=== PATIENT | female | born 2000 | race Caucasian/White ===

== ENCOUNTER 2021-04-23 08:49 | Emergency (ER) | payer OTHER ==
--- OUTSIDE RECORDS SUMMARY | 2021-04-23 09:11 | XMS REPORT | Continuity of Care Document ---
:2000 Author Organization [facility] t Address [address] [place] [address] Care Team Providers Name Role Phone Georgette SANDHUCNP, O Primary Care Physician Nathan JAY Attending Clinician Unavailable ORRTANNA, O Attending Clinician Unavailable Provider, Temp Attending Clinician Unavailable [facility], O Attending Clinician Doctor Unassigned, Name Attending Clinician Unavailable Nurse, Rmchp Exp Cprit Obgyn Attending Clinician Unavailabl connor Jay MATHEMATICAL ENGINEERING TECHNICIAN, R Attending Clinician Akinsipe WHCNP, C Attending Clinician AKINSIPE, C Attending Clinician Unavailable Visit, Nurse Attending Clinician Unavailable Germán SNOWDEN Attending Clinician Bert SNOWDEN Attending Clinician INDUCTION Attending Clinician Unavailable Ultrasound Attending Clinician Unavailable Sonam Alonzo MD Attending Clinician Natalio SNOWDEN, Cam Attending Clinician Lyn SNOWDEN, M Attending Clinician Stephon SNOWDEN, R Attending Clinician Syed Georges DO Attending Clinician 5, Mfm Usg Room Attending Clinician Unavailable Jad SNOWDEN, F Attending Clinician Singer PALMA Attending Clinician Drever SHOEMAKING FINISHER, G Attending Clinician Micah SNOWDEN Attending Clinician ARCHIE PRO Attending Clinician Unavailable Naila BOLAÑOS Attending Clinician Unavailable Provider, Urgent Care Attending Clinician Unavailable Lab, Fam Pob I Attending Clinician Unavailable Anene MATHEMATICAL ENGINEERING TECHNICIAN Attending Clinician ANENE Attending Clinician Unavailable Pcp, Does Not Have A Attending Clinician Germán Ledezma MD Attending Clinician Nurse, Fam Pob I Attending Clinician Unavailable Ashlee Attending Clinician Armando PAC, S Attending Clinician CHLOE ALCANTAR Admitting Clinician Unavailable Bert SNOWDEN Admitting Clinician Chloe Alcantar MD Admitting Clinician Payers Payer Name Policy Type Policy Number Effective Date Expiration Date Brayden CANTU [id number] 2018 HEALTH 00:00:00 Problems Condition Condition Condition Status Onset Resolution Last Treating Co mments Source Name Details Category Date Date Treatment Clinician Date Screening Screening Disease Active Uni vers examinatio examinatio 11-18 it y of n for STD n [place] ST[place] ([place] (sexually 00 [facility] transmitte transmitte Br anch d disease) d disease) S/P S/P Disease Active Univers 10-30 ity of 00:00: [address] Liveborn Liveborn Disease Active Unive rs by by 10-30 [place] [address] [place] [address] 39 weeks 39 weeks Disease Active Unive rs gestation gestation 10-26 ity of of of 00:00: [place] [facility] Encounter Encounter Disease Active Uni vers for for 10-26 ity of elective elective 00:00: [place] induction induction 00 [facility] of labor of labor [place] Obesity Obesity Disease Active Univers (BMI (BMI 10-26 ity of 30-39.9) 30-39.9) 00:00: [address] GBS (group GBS (group Disease Active 2021-0 Overview : Univers B B 6-17 Formattin ity of Streptococ Streptococ 00:00: g of this [place] cus cus 00 note Medical carrier), carrier), might be Br anch +RV +RV different culture, culture, from the currently currently original. Address in PP. Tobacco Tobacco Disease Active Univers use use 4-19 ity of disorder disorder 00:00: [place] [address] Medical Branch Obesity in Obesity in Disease Active U nivers 4-19 ity of 00:00: [place] [address] Medical Branch Circumvall Circumvall Disease Active Overview : Univers ate ate 3- Formattin ity of placenta placenta 00:00: g of this [place] in third in third 00 note Medica l trimester trimester might be Br anch different from the original. Placenta anterior Circumval late-> USG every 4 weeks Pyelectasi Pyelectasi Disease Active Overview : Univers s of fetus s of fetus 3 Formattin ity of on on 00:00: g of this [place] 00 note Medica l ultrasound ultrasound might be Branch different from the original. pyelectas is to be reevaluat ed in the third trimester 36 weeks History of History of Disease Active 2020- U nivers febrile febrile 1-30 ity of seizure seizure 00:00: [address] Branch Urinary Urinary Disease Active 2020- Univers tract tract 1-30 ity of infection infection 00:00: [place] without without 00 Medical hematuria, hematuria, Br anch site site unspecifie unspecifie d d Screening Screening Disease Active 2019-04 Uni vers for viral for viral 1-30 ity of disease disease 00:00: [place] [address] Medical Branch Need for Need for Disease Active 2020- Unive rs HPV HPV 1-30 ity of vaccinatio vaccinatio 00:[place] n 00 Medical Branch Supervisio Supervisio Disease Active 2020- U nivers n of high n of high 1-30 ity of risk risk 00:00: [place] 00 Medi bill in third in third Branch trimester trimester Primigravi Primigravi Disease Active 2020- U nivers da in da in 1-30 ity of third third 00:00: [place] trimester trimester 00 Medi bill Branch Nausea and Nausea and Disease Active 2020- U nivers vomiting vomiting 1-30 ity of during during 00:00: [place] 00 Medi bill prior to prior to Branch 22 weeks 22 weeks gestation gestation Flu Flu Disease Active 2019-04 Univers vaccine vaccine 1-30 ity of need need 00:00: [place] [facility] High risk High risk Disease Active 2019-04 Uni vers teen teen 1-30 ity of 00:00[place] in third in third 00 Medica l trimester trimester Bran ch Overweight Overweight Disease Active U nivers 07-26 ity of 00:00: [place] [facility] Branch Screening Screening Disease Active Uni vers for STD for STD 07-26 ity of (sexually (sexually 00:00[place] transmitte transmitte 00 Me dical d disease) d disease) Br anch Attention Attention Disease Active Uni vers deficit deficit 07-26 ity of hyperactiv hyperactiv 00:00: [place] it[place] 00 Medical disorder disorder Branch (ADHD), (ADHD), unspecifie unspecifie d ADHD d ADHD type type BMI BMI Disease Active Univers 27.0-27.9, 27.0-27.9, 403 it y of adult adult 00:00: [place] [facility] Well woman Well woman Disease Active U nivers exam exam 07-26 ity of 00:00: [address] Contracept Contracept Disease Active U nivers dana dana 07-26 ity of management management 00:00[place] 00 [place] Idiopathic Idiopathic Disease Active Overview : Univers generalize generalize 6 Formattin ity of d epilepsy d epilepsy 00:00: g of this [place] 00 note Medical might be Branch different from the original. Sees neurology at [facility] Attention Attention Disease Active Overview: Univers deficit deficit 6-06 Formattin ity o f hyperactiv hyperactiv 00:00: g of this [place] ity ity 00 note Medical disorder disorder might be Bran ch (ADHD) (ADHD) different from the original. 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 [facility] eval: Psych appt with Dr Missy cavazos the first week of September 2012Repea t EEG in May 2013RTC at [facility] in 6 moContinu e Depakene VPA 250 mg/5 ml 10 ml po BID Generalize Generalize Disease Active Overview : Univers d d Formattin ity of convulsive convulsive g of this [place] epilepsy epilepsy note Medica l might be Branch different from the original. ICD10 Diagnosis Term Studio Director Utility Allergies, Adverse Reactions, Alerts Allergy Allergy Status Severity Reaction(s) Onset Inactive Treating Comm ents Source Name Type Date Date Clinician Promethfouzia Propensi Active Rash Univer s zine Hcl ty to 01-05 ity of adverse 00:00: [place] reaction 00 Medical Branch PROMETHA DRUG Active Rash Univers ZINE HCL INGREDI 01-05 ity of 00:00: [place] [address] [place] [address] Social History Social Habit Start Date Stop Date Quantity Comments Source ASSERTION 2021-02-20 [facility] 00:00:00 [facility] Exposure to Not sure [place] of SARS-CoV-2 (event) [facility] History SDAZ University o f Alcohol Frequency [facility] History [facility] University o f Alcohol Std Drinks [facility] History [facility] o f Alcohol Binge [facility] Cigarettes smoked 2021-03-30 2021-03-30 Univers ity of current (pack per 00:00:00 00:00:00 [facility] ) - Reported Branch Tobacco use and 2021-03-30 2021-03-30 Never used Universit y of exposure 00:00:00 00:00:00 [facility] Alcohol intake 2021-03-30 2021-03-30 .14 /d University of 00:00:00 00:00:00 [facility] History of tobacco 2018-04-25 2021-01-23 Cigarette Smoker University of use 00:00:00 00:00:00 [facility] Tobacco Comment 2020-03-24 2020-03-24 4-5 ciggarettes a Un iversity of 00:00:00 00:00:00 day [facility] Alcohol Comment 2018-08-17 2018-08-17 Social drinking Univ ersity of 00:00:00 00:00:00 [facility] Sex Assigned At [birth year] Universit y of 00:00:00 00:00:00 [facility] Smoking Status Start Date Stop Date Source Former smoker 2021-03-30 00:00:00 2021-03-30 00:00:00 Universi ty of [facility] Current every day 2018-08-17 00:00:00 [facility] smoker [facility] Medications Ordered Filled Start Stop Current Ordering Indication Dosage Frequency Signature Comments Components Source Medication Medication Date Date Medication? Clinician (SIG) Name Name doxylamine- 2020-04- Yes [id number] 2{tbl} Take 2 Univers pyridoxine, 2-04-30 tablets by i ty of vit B6, 00:00: 05:59 mouth at [place] (DICLEGIS) 00 :00 bedtime as Med ical 10-10 mg needed for Branc h per tablet Nausea and Vomiting (N/V) for up to 30 days. 2020-04- Yes [id number] 1{packe Take 1 Univers vit 2-04-30 t} Packet by ity of 33-iron-fol 00:00: 05:59 mouth [place] ic-dha 00 :00 daily for Medical (SELECT-OB 30 days. Branc h + DHA) 29 mg iron-1 mg -250 mg combo pack No known No Univers medications 8-17 ity of 15:16: [address] foLIC acid Yes 1mg 1 mg, Univer s (FOLATE) 7 Oral, ity of tablet 1 mg 14:00: DAILY, [place] 00 First dose Medical on Tue [place] 10/29/20 at 0900, Until Discontinu ed, Routine ferrous Yes 325mg 325 mg, Univer s sulfate 7-07 Oral, TID ity of tablet 325 13:00: MEALS, [place] mg 00 First dose Medical on Tue Branch 10/29/20 at 0800, Until Discontinu ed, Routine ascorbic Yes 500mg 500 mg, Unive rs acid 7-07 Oral, TID, ity of (vitamin C) 13:00: First dose [place] (VITAMIN C) 00 on Tue Medica l tablet 500 10/29/20 at Bran ch mg 0800, Until Discontinu ed, Routine Yes [id number] 1{tbl} Take 1 U nivers vitamin 7-07 tablet by ity of w/FA tablet 00:00: mouth [place] 00 daily. Medical Branch docusate Yes [id number] 240mg Take 1 Un mercedes calcium 240 7-07 capsule by it y of mg capsule 00:00: mouth once [place] 00 daily as Medical needed for Branch Constipati on. ferrous Yes [id number] 325mg Take 1 Uni vers sulfate 325 7-07 tablet by ity of mg (65 mg 00:00: mouth 2 [place] iron) 00 (two) Medical tablet times Branch daily. ibuprofen Yes [id number] 600mg Take 1 U nivers 600 mg 7-07 tablet by ity of tablet 00:00: mouth [place] 00 every 6 Medical (six) Branch hours as needed (Pain). Take with food or milk. Yes [id number] 1{tbl} Take 1 U nivers vitamin 7-07 tablet by ity of w/FA tablet 00:00: mouth [place] 00 daily. Medical Branch docusate Yes [id number] 240mg Take 1 Un mercedes calcium 240 7-07 capsule by it y of mg capsule 00:00: mouth once [place] 00 daily as Medical needed for Branch Constipati on. ferrous Yes [id number] 325mg Take 1 Uni vers sulfate 325 7-07 tablet by ity of mg (65 mg 00:00: mouth 2 [place] iron) 00 (two) Medical tablet times Branch daily. ibuprofen Yes [id number] 600mg Take 1 U nivers 600 mg 7-07 tablet by ity of tablet 00:00: mouth [place] 00 every 6 Medical (six) Branch hours as needed (Pain). Take with food or milk. Yes [id number] 1{tbl} Take 1 U nivers vitamin 7-07 tablet by ity of w/FA tablet 00:00: mouth [place] 00 daily. Medical Branch docusate Yes [id number] 240mg Take 1 Un mercedes calcium 240 7-07 capsule by it y of mg capsule 00:00: mouth once [place] 00 daily as Medical needed for Branch Constipati on. ferrous Yes [id number] 325mg Take 1 Uni vers sulfate 325 7-07 tablet by ity of mg (65 mg 00:00: mouth 2 [place] iron) 00 (two) Medical tablet times Branch daily. ibuprofen 0 Yes [id number] 600mg Take 1 U nivers 600 mg 7-07 tablet by ity of tablet 00:00: mouth [place] 00 every 6 Medical (six) Branch hours as needed (Pain). Take with food or milk. 2020-0 Yes [id number] 1{tbl} Take 1 U nivers vitamin 7-07 tablet by ity of w/FA tablet 00:00: mouth [place] 00 daily. Medical Branch docusate 0 Yes [id number] 240mg Take 1 Un mercedes calcium 240 7-07 capsule by it y of mg capsule 00:00: mouth once [place] 00 daily as Medical needed for Branch Constipati on. ferrous 0 Yes [id number] 325mg Take 1 Uni vers sulfate 325 7-07 tablet by ity of mg (65 mg 00:00: mouth 2 [place] iron) 00 (two) Medical tablet times Branch daily. ibuprofen 0 Yes [id number] 600mg Take 1 U nivers 600 mg 7-07 tablet by ity of tablet 00:00: mouth [place] 00 every 6 Medical (six) Branch hours as needed (Pain). Take with food or milk. 2020-0 Yes [id number] 1{tbl} Take 1 U nivers vitamin 7-07 tablet by ity of w/FA tablet 00:00: mouth [place] 00 daily. Medical Branch docusate 0 Yes [id number] 240mg Take 1 Un mercedes calcium 240 7-07 capsule by it y of mg capsule 00:00: mouth once [place] 00 daily as Medical needed for Branch Constipati on. ferrous 0 Yes [id number] 325mg Take 1 Uni vers sulfate 325 7-07 tablet by ity of mg (65 mg 00:00: mouth 2 [place] iron) 00 (two) Medical tablet times Branch daily. ibuprofen 0 Yes [id number] 600mg Take 1 U nivers 600 mg 7-07 tablet by ity of tablet 00:00: mouth [place] 00 every 6 Medical (six) Branch hours as needed (Pain). Take with food or milk. 2020-0 2021- No [id number] 1{tbl} Take 1 Univers vitamin 7-07 08-17 tablet by ity of w/FA tablet 00:00: 00:00 mouth [place] 00 :00 daily. Medical Branch docusate 2020- No [id number] 240mg Take 1 U nivers calcium 240 10-29 capsule by i ty of mg capsule 00:00: 00:00 mouth once [place] 00 :00 daily as Medical needed for Branch Constipati on. ferrous 2020- No [id number] 325mg Take 1 Un mercedes sulfate 325 10-29 tablet by it y of mg (65 mg 00:00: 00:00 mouth 2 [place] iron) 00 :00 (two) Medical tablet times Branch daily. ibuprofen 2020- No [id number] 600mg Take 1 Univers 600 mg 10-29 tablet by ity of tablet 00:00: 00:00 mouth [place] 00 :00 every 6 Medical (six) Branch hours as needed (Pain). Take with food or milk. 2020- No [id number] 1{tbl} Take 1 Univers vitamin 10-29 tablet by ity of w/FA tablet 00:00: 00:00 mouth [place] 00 :00 daily. Medical Branch docusate 2020- No [id number] 240mg Take 1 U nivers calcium 240 10-29 capsule by i ty of mg capsule 00:00: 00:00 mouth once [place] 00 :00 daily as Medical needed for Branch Constipati on. ferrous 2020- No [id number] 325mg Take 1 Un mercedes sulfate 325 10-29 tablet by it y of mg (65 mg 00:00: 00:00 mouth 2 [place] iron) 00 :00 (two) Medical tablet times Branch daily. ibuprofen 2020- No [id number] 600mg Take 1 Univers 600 mg 10-29 tablet by ity of tablet 00:00: 00:00 mouth [place] 00 :00 every 6 Medical (six) Branch hours as needed (Pain). Take with food or milk. HYDROcodone 2020- No [id number] 1{tbl} Take 1 U nivers -acetaminop 10-29 tablet by it y of hen 5-325 00:00: 04:59 mouth [place] mg tablet 00 :00 every 6 Medical (six) Branch hours as needed (Pain scale above 4) for up to 10 days. Do not exceed 3 grams of acetaminop hen in 24 hours. Indication s: acute pain HYDROcodone 2020- No [id number] 1{tbl} Take 1 U nivers -acetaminop -10 29-18 tablet by it y of hen 5-325 00:00: 04:59 mouth [place] mg tablet 00 :00 every 6 Medical (six) Branch hours as needed (Pain scale above 4) for up to 10 days. Do not exceed 3 grams of acetaminop hen in 24 hours. Indication s: acute pain HYDROcodone 2020- No [id number] 1{tbl} Take 1 U nivers -acetaminop -10 29-18 tablet by it y of hen 5-325 00:00: 04:59 mouth [place] mg tablet 00 :00 every 6 Medical (six) Branch hours as needed (Pain scale above 4) for up to 10 days. Do not exceed 3 grams of acetaminop hen in 24 hours. Indication s: acute pain acetaminoph 2020- No 1000mg 1,000 mg, Univers en ADULT 10-28 IV ity of (OFIRMEV) 12:15: 12:40 Infusion, [place] injection 00 :00 Administer Medi bill 1,000 mg over 15 Branch Minutes, ONCE, 1 dose, Tue10/28/20 at 0715, Routine, PACU
Indicatio n: Perioperat dana Patient rho(D) Yes 300ug 300 mcg, Univer s immune 10-28 Intramuscu ity of globulin 11:55: lar, ONCE, [place] as (RHOGAM) 08 For 1 Medical syringe 300 dose, Branch mcg Conditiona l, Routine ondansetron Yes 4mg 4 mg, Slow Univers (ZOFRAN 10-28 IV Push, ity of (PF)) 11:55: Q8HPRN, [place] injection 4 02 Starting Medi bill mg 10/28/20 Branch at 0655, Until Discontinu ed, Routine, Nausea and Vomiting (N/V) simethicone Yes 160mg 160 mg, Un mercedes (GAS RELIEF 10-28 Oral, ity of (SIMETHICON 11:55: PC+HSPRN, [place] E)) 02 Starting Medical chewable Tue10/28/20 Branc h tablet 160 at 0655, mg Until Discontinu ed, Routine, Gas HYDROcodone 2020-0 Yes 2{tbl} 2 tablet, Univers -acetaminop 7- Oral, ity of hen (NORCO 11:55: Q6HPRN, [place] 5) 5-325 mg 01 Starting Medi bill tablet 2 Tue10/28/20 Branc h tablet at 0655, Until Discontinu ed, Routine, Pain (scale 7-10), If uncontroll ed by Ibuprofen HYDROcodone 2020-0 Yes 1{tbl} 1 tablet, Univers -acetaminop 10-28 Oral, ity of hen (NORCO 11:55: Q6HPRN, [place] 5) 5-325 mg 01 Starting Medi bill tablet 1 Tue10/28/20 Branc h tablet at 0655, Until Discontinu ed, Routine, Pain (scale 4-6), If uncontroll ed by Ibuprofen ibuprofen 2020-0 Yes 600mg 600 mg, Univ ers (IBU) 7- Oral, ity of tablet 600 11:55: Q6HPRN, [place] mg 01 Starting Medical Tue10/28/20 Branch at 0655, Until Discontinu ed, Routine, Pain (scale 1-3) diphenhydrA 2020-0 Yes 25mg 25 mg, IV U nivers MINE-0.9 % 10-28 Piggyback, ity of sod.chlr 11:55: Administer [place] as (BENADRYL) 01 over 30 Medica l 25 mg/50 mL Minutes, Bran ch piggyback Q6HPRN, 1 25 mg dose, Starting Tue10/28/20 at 0655, Until Discontinu ed, Routine, Itching diphenhydrA 2020-0 Yes 25mg 25 mg, Univ ers MINE 7-06 Oral, ity of (BENADRYL) 11:55: Q6HPRN, [place] tablet 25 01 Starting Medica l mg Tue10/28/20 Branch at 0655, Until Discontinu ed, Routine, Sleep, Itching bisacodyL 2020-0 Yes 10mg 10 mg, Univer s (DULCOLAX) 10-28 Rectal, ity of suppository 11:55: QDAILYPRN, [place] 10 mg 01 Starting Medical 10/28/20 Branch at 0655, Until Discontinu ed, Routine, Constipati on docusate Yes 240mg 240 mg, Unive rs calcium 10-28 Oral, ity of (SURFAK) 11:55: QDAILYPRN, [place] capsule 240 Starting Medi bill mg Tue10/28/20 Branch at 0655, Until Discontinu ed, Routine, Constipati on magnesium Yes 30mL 30 mL, Univer s hydroxide 10-28 Oral, ity of (MILK OF 11:55: QDAILYPRN, [place] as MAGNESIA) Starting Medica l 400 mg/5 mL Tue10/28/20 Br anch suspension at 0655, 30 mL Until Discontinu ed, Routine, Constipati on nalbuphine Yes 5mg 5 mg, Univer s in NS 10-28 Intravenou ity of (NUBAIN) 10 11:54: s, PRN, 1 [place] mg/mL 56 dose, Medical injection Starting Branch (CNR) 5 mg Tue10/28/20 at 0654, Until Discontinu ed, Routine, itching, PACU naloxone 2020- No .4mg 0.4 mg, Unive rs (NARCAN) 10-28 0708 Slow IV ity of injection 11:54: 11:53 Push, PRN [place] 0.4 mg 56 :56 - SEE Medical INSTRUCTIO Branch NS, Starting Tue10/28/20 at 0654, Until [place] 10/30/20 at 0653, Routine, Analgesia Recovery, PACU azithromyci 2020- No 500mg 500 mg, IV Univers n 10-28 Piggyback, ity of (ZITHROMAX) 08:06: 10:49 O.R. [place] 500 mg in 22 :00 HOLDING Medical NaCl 0.9% ONCE, 1 Branch (NS) 250 mL dose, VIAL-MATE Starting IV e 10/28/20 piggyback at 0306, Until Discontinu ed, 250 mL
Reas on for Anti-Infec tive: Surgical Prophylaxi s
Surgi bill Prophylaxi s: COLLECTION DEVELOPMENT LIBRARIAN< br>Duratio n of therapy: within 24 hours of surgery
Reason for Anti-Infec tive: Surgical Prophylaxi s ceFAZolin 2020- No 2000mg 2 g (2,000 Univers in dextrose 10-28 07-06 mg), IV ity of (iso-os) 08:05: 09:49 [place], [place] (ANCEF) 2 48 :00 O.R. Medical gram/100 mL HOLDING Branc h Piggyback 2 ONCE, 1 g dose, Starting 10/28/20 at 0305, Until Discontinu ed, 100 mL
Reas on for Anti-Infec tive: Surgical Prophylaxi s
Surgi bill Prophylaxi s: COLLECTION DEVELOPMENT LIBRARIAN
Duration of therapy: within 24 hours of surgery lactated 2020- No 500mL at 999 Unive rs ringers IV 10-27 mL/hr, 500 it y of infusion 12:45: 11:43 mL, IV [place] 500 mL 00 :00 Infusion, Medical ONCE, 1 Branch dose, 10/27/20 at 0745, Routine sodium 2020- No 30mL 30 mL, Univers citrate-cit 10-27 Oral, ity of alberto acid 11:40: 11:43 PRE-PROCED [place] (BICITRA) 33 :00 URE ONCE, Medic al 500-334 1 dose, Branch mg/5 mL Starting solution 30 Mon 10/27/20 mL at 0640, Until 10/27/20 at 0643, Routine, Surgery/Pr ocedure butorphanol 2020- No 2mg 2 mg, IV U nivers (STADOL) 10-27 Push, ity of injection 2 05:48: 06:05 ONCE, 1 [place] mg 00 :00 dose, Mon Medical 10/27/20 at Branch 0100, Routine butorphanol 2020- No 1mg 1 mg, IV U nivers (STADOL) 10-26 Push, ity of injection 1 22:05: 22:21 ONCE, 1 [place] mg 00 :00 dose, [facility] 10/26/20 at [place] 1715, Routine LR 1000 mL No 2mU/min at 6-120 Univers + oxytocin 10-2606 mL/hr, IV ity of 20 units IV 16:15: 11:55 Infusion, [place] Solution 00 :09 CONTINUOUS Medic al , Starting [facility] 10/26/20 at 1115, Until Tue10/28/20 at 0655, KESHIA butorphanol No 1mg 1 mg, IV U nivers (STADOL) 10-26 Push, ity of injection 1 15:55: 16:09 ONCE, 1 [place] mg 00 :00 dose, [facility] 10/26/20 at [place] 1100, Routine D5W-LR IV No 1000mL at 125 Uni vers infusion 10-26 0706 mL/hr, IV ity o f 1,000 mL 15:15: 11:55 Infusion, [place] as 00 :09 CONTINUOUS Medical , Starting [facility] 10/26/20 at 1015, Until Tue10/28/20 at 0655, Routine sodium No 30mL 30 mL, Univers citrate-cit 10-26 0706 Oral, ity of alberto acid 14:58: 09:48 PRE-PROCED [place] (BICITRA) 17 :00 URE ONCE, Medic al 500-334 1 dose, Branch mg/5 mL Starting solution 30 [place] 10/26/20 mL at 0958, Until Discontinu ed, Routine, Surgery/Pr ocedure lactated No 500mL at 999 Unive rs ringers IV 10-26 07-06 mL/hr, 500 it y of infusion 14:58: 11:55 mL, IV [place] 500 mL 17 :09 Infusion, Medical PRN - SEE [place] INSTRUCTIO NS, Starting [place] 10/26/20 at 0958, Until Tue10/28/20 at 0655, Routine cephALEXin 2020- No [id number] 500mg Take 1 Univers (KEFLEX) 05-30-13 capsule by ity of 500 mg 00:00: 05:59 mouth 3 [place] capsule 00 :00 (three) Medical times [place] daily for 7 days. cephALEXin 2020- No [id number] 500mg Take 1 Univers (KEFLEX) 05-30- capsule by ity of 500 mg 00:00: 05:59 mouth 3 [place] capsule 00 :00 (three) Medical times Branch daily for 7 days. butalbital- 2019-04- No 1{tbl} 1 tablet, Univers acetaminoph 06-22 Oral, ity of en-caff 05:00: 03:50 ONCE, 1 [place] (ESGIC) 00 :00 dose, [facility] 50-325-40 04/20/20 Branch mg tablet 1 at 2300, tablet Routine cephALEXin 2019-04 No 500mg 500 mg, Un mercedes (KEFLEX) 06-22 Oral, ity of capsule 500 04:45: 03:50 ONCE, 1 [place] mg 00 :00 dose, [facility] 04/20/20 Branch at 2245, KESHIA
Re ason for Anti-Infec tive: Documented Infection< br>Documen tali Infection Site: Urine
D uration of Therapy: 7 days cephALEXin 2019-04- No [id number] 500mg Take 1 Univers 500 mg 06-21 capsule by ity of capsule 00:00: 05:59 mouth 3 [place] 00 :00 (three) Medical times Branch daily for 10 days. cephALEXin 2019-04- No [id number] 500mg Take 1 Univers 500 mg 06-21- capsule by ity of capsule 00:00: 05:59 mouth 3 [place] 00 :00 (three) Medical times Branch daily for 10 days. 2019-04 Yes [id number] 1{packe Take 1 Univers vit 1-30 t} Packet by ity of 33-iron-fol 00:00: mouth [place] ic-dha 00 daily. Medical (SELECT-OB Branch + DHA) 29 mg iron-1 mg -250 mg combo pack 2019-04 Yes [id number] 1{packe Take 1 Univers vit 1-30 t} Packet by ity of 33-iron-fol 00:00: mouth [place] ic-dha 00 daily. [facility] ([facility]) 29 mg iron-1 mg -250 mg combo pack 2019-04 Yes [id number] 1{packe Take 1 [facility] 1-30 t} Packet by [facility] 33-iron-fol 00:00: mouth [place] ic-dha 00 daily. [facility] ([facility]) 29 mg iron-1 mg -250 mg combo pack 2019-04 Yes [id number] 1{packe Take 1 [facility] vit 1-30 t} Packet by [facility] 33-iron-fol 00:00: mouth [place] ic-dha 00 daily. [facility] ([facility] + D[facility]) 29 mg iron-1 mg -250 mg combo pack 2019-04 Yes [id number] 1{packe Take 1 [facility] vit 1-30 t} Packet by [facility] 33-iron-fol 00:00: mouth [place] ic-dha 00 daily. [facility] ([facility] + [facility]) 29 mg iron-1 mg -250 mg combo pack 2019-04 Yes [id number] 1{packe Take 1 [facility] vit 1-30 t} Packet by [facility] 33-iron-fol 00:00: mouth [place] ic-dha 00 daily. [facility] ([facility] + D[facility]) 29 mg iron-1 mg -250 mg combo pack 2019-04 Yes [id number] 1{packe Take 1 [facility] vit 1-30 t} Packet by [facility] 33-iron-fol 00:00: mouth [place] ic-dha 00 daily. [facility] ([facility] + [facility]) 29 mg iron-1 mg -250 mg combo pack 2019-04 Yes [id number] 1{packe Take 1 [facility] vit 1-30 t} Packet by [facility] 33-iron-fol 00:00: mouth [place] ic-dha 00 daily. [facility] ([facility] + D[facility]) 29 mg iron-1 mg -250 mg combo pack 2019-04 Yes [id number] 1{packe Take 1 [facility] vit 1-30 t} Packet by [facility] 33-iron-fol 00:00: mouth [place] ic-dha 00 daily. [facility] ([facility] + D[facility]) 29 mg iron-1 mg -250 mg combo pack 2019-04 Yes [id number] 1{packe Take 1 [facility] vit 1-30 t} Packet by [facility] 33-iron-fol 00:00: mouth [place] ic-dha 00 daily. [facility] ([facility] + [facility]) 29 mg iron-1 mg -250 mg combo pack 2019-04 Yes [id number] 1{packe Take 1 [facility] vit 1-30 t} Packet by [facility] of 33-iron-fol 00:00: mouth [place] ic-dha 00 daily. [facility] ([facility]) 29 mg iron-1 mg -250 mg combo pack 2019-04 Yes [id number] 1{packe Take 1 [facility] vit 1-30 t} Packet by [facility] 33-iron-fol 00:00: mouth [place] ic-dha 00 daily. [facility] ([facility]) 29 mg iron-1 mg -250 mg combo pack 2019-04 Yes [id number] 1{packe Take 1 [facility] vit 1-30 t} Packet by [facility] 33-iron-fol 00:00: mouth [place] ic-dha 00 daily. [facility] ([facility]) 29 mg iron-1 mg -250 mg combo pack 2019-04 Yes [id number] 1{packe Take 1 [facility] vit 1-30 t} Packet by [facility] 33-iron-fol 00:00: mouth [place] ic-dha 00 daily. [facility] ([facility]) 29 mg iron-1 mg -250 mg combo pack 2019-04 Yes [id number] 1{packe Take 1 [facility] vit 1-30 t} Packet by [facility] 33-iron-fol 00:00: mouth [place] ic-dha 00 daily. [facility] ([facility]) 29 mg iron-1 mg -250 mg combo pack 2019-04 Yes [id number] 1{packe Take 1 [facility] vit 1-30 t} Packet by [facility] 33-iron-fol 00:00: mouth [place] ic-dha 00 daily. [facility] ([facility]) 29 mg iron-1 mg -250 mg combo pack 2019-04 Yes [id number] 1{packe Take 1 [facility] vit 1-30 t} Packet by [facility] 33-iron-fol 00:00: mouth [place] ic-dha 00 daily. [facility] ([facility]) 29 mg iron-1 mg -250 mg combo pack 2019-04 Yes [id number] 1{packe Take 1 [facility] vit 1-30 t} Packet by [facility] 33-iron-fol 00:00: mouth [place] ic-dha 00 daily. [facility] ([facility]) 29 mg iron-1 mg -250 mg combo pack 2019-04 Yes [id number] 1{packe Take 1 [facility] vit 1-30 t} Packet by [facility] 33-iron-fol 00:00: mouth [place] ic-dha 00 daily. [facility] ([facility]) 29 mg iron-1 mg -250 mg combo pack 2019-04 Yes [id number] 1{packe Take 1 [facility] vit 1-30 t} Packet by [facility] 33-iron-fol 00:00: mouth [place] ic-dha 00 daily. [facility] ([facility]) 29 mg iron-1 mg -250 mg combo pack 2019-04 Yes [id number] 1{packe Take 1 [facility] vit 1-30 t} Packet by [facility] 33-iron-fol 00:00: mouth [place] ic-dha 00 daily. [facility] ([facility]) 29 mg iron-1 mg -250 mg combo pack 2019-04 Yes [id number] 1{packe Take 1 [facility] vit 1-30 t} Packet by [facility] 33-iron-fol 00:00: mouth [place] ic-dha daily. [facility] ([facility]) 29 mg iron-1 mg -250 mg combo pack 2019-04 Yes [id number] 1{packe Take 1 [facility] vit 1-30 t} Packet by [facility] 33-iron-fol 00:00: mouth [place] ic-dha daily. [facility] ([facility]) 29 mg iron-1 mg -250 mg combo pack 2019-04 Yes [id number] 1{packe Take 1 [facility] vit 1-30 t} Packet by [facility] 33-iron-fol 00:00: mouth [place] ic-dha daily. [facility] ([facility]) 29 mg iron-1 mg -250 mg combo pack 2019-04 Yes [id number] 1{packe Take 1 [facility] vit 1-30 t} Packet by [facility] 33-iron-fol 00:00: mouth [place] ic-dha 00 daily. [facility] ([facility]) 29 mg iron-1 mg -250 mg combo pack 2019-04 Yes [id number] 1{packe Take 1 [facility] vit 1-30 t} Packet by [facility] 33-iron-fol 00:00: mouth [place] ic-dha 00 daily. [facility] ([facility]) 29 mg iron-1 mg -250 mg combo pack 2020- Yes [id number] 1{packe Take 1 [facility] vit 1-30 t} Packet by [facility] 33-iron-fol 00:00: mouth [place] ic-dha 00 daily. [facility] ([facility]) 29 mg iron-1 mg -250 mg combo pack 2020- Yes [id number] 1{packe Take 1 [facility] vit 1-30 t} Packet by [facility] 33-iron-fol 00:00: mouth [place] ic-dha 00 daily. [facility] ([facility]) 29 mg iron-1 mg -250 mg combo pack 2020- Yes [id number] 1{packe Take 1 [facility] vit 1-30 t} Packet by [facility] 33-iron-fol 00:00: mouth [place] ic-dha 00 daily. [facility] ([facility]) 29 mg iron-1 mg -250 mg combo pack 2019-04 Yes [id number] 1{packe Take 1 [facility] vit 1-30 t} Packet by [facility] 33-iron-fol 00:00: mouth [place] ic-dha 00 daily. [facility] ([facility]) 29 mg iron-1 mg -250 mg combo pack 2020 Yes [id number] 1{packe Take 1 [facility] vit 1-30 t} Packet by [facility] 33-iron-fol 00:00: mouth [place] ic-dha 00 daily. [facility] ([facility]) 29 mg iron-1 mg -250 mg combo pack 2020 Yes [id number] 1{packe Take 1 [facility] vit 1-30 t} Packet by [facility] 33-iron-fol 00:00: mouth [place] ic-dha 00 daily. [facility] ([facility]) 29 mg iron-1 mg -250 mg combo pack 2020- Yes [id number] 1{packe Take 1 [facility] vit 1-30 t} Packet by [facility] 33-iron-fol 00:00: mouth [place] ic-dha 00 daily. [facility] ([facility]) 29 mg iron-1 mg -250 mg combo pack 2020- Yes [id number] 1{packe Take 1 [facility] vit 1-30 t} Packet by [facility] 33-iron-fol 00:00: mouth [place] ic-dha 00 daily. [facility] ([facility]) 29 mg iron-1 mg -250 mg combo pack 2020 Yes [id number] 1{packe Take 1 [facility] vit 1-30 t} Packet by [facility] 33-iron-fol 00:00: mouth [place] ic-dha 00 daily. [facility] ([facility]) 29 mg iron-1 mg -250 mg combo pack 2019-04 Yes [id number] 1{packe Take 1 [facility] vit 1-30 t} Packet by [facility] of 33-iron-fol 00:00: mouth [place] ic-dha 00 daily. [facility] ([facility]) 29 mg iron-1 mg -250 mg combo pack 2019-04 Yes [id number] 1{packe Take 1 [facility] vit 1-30 t} Packet by [facility] 33-iron-fol 00:00: mouth [place] ic-dha 00 daily. [facility] ([facility]) 29 mg iron-1 mg -250 mg combo pack 2019-04 Yes [id number] 1{packe Take 1 [facility] vit 1-30 t} Packet by [facility] 33-iron-fol 00:00: mouth [place] ic-dha 00 daily. [facility] ([facility]) 29 mg iron-1 mg -250 mg combo pack 2019-04 Yes [id number] 1{packe Take 1 [facility] vit 1-30 t} Packet by [facility] 33-iron-fol 00:00: mouth [place] ic-dha 00 daily. [facility] ([facility]) 29 mg iron-1 mg -250 mg combo pack 2020 Yes [id number] 1{packe Take 1 [facility] vit 1-30 t} Packet by [facility] 33-iron-fol 00:00: mouth [place] ic-dha 00 daily. [facility] ([facility]) 29 mg iron-1 mg -250 mg combo pack 2020 Yes [id number] 1{packe Take 1 [facility] vit 1-30 t} Packet by [facility] 33-iron-fol 00:00: mouth [place] ic-dha 00 daily. [facility] ([facility]) 29 mg iron-1 mg -250 mg combo pack 2020 Yes [id number] 1{packe Take 1 [facility] vit 1-30 t} Packet by [facility] 33-iron-fol 00:00: mouth [place] ic-dha 00 daily. [facility] ([facility]) 29 mg iron-1 mg -250 mg combo pack 2019-04 Yes [id number] 1{packe Take 1 [facility] vit 1-30 t} Packet by [facility] of 33-iron-fol 00:00: mouth [place] ic-dha 00 daily. [facility] ([facility]) 29 mg iron-1 mg -250 mg combo pack 2019-04 Yes [id number] 1{packe Take 1 [facility] vit 1-30 t} Packet by [facility] of 33-iron-fol 00:00: mouth [place] ic-dha 00 daily. [facility] ([facility]) 29 mg iron-1 mg -250 mg combo pack 2019-04 Yes [id number] 1{packe Take 1 [facility] vit 1-30 t} Packet by [facility] 33-iron-fol 00:00: mouth [place] ic-dha 00 daily. [facility] ([facility]) 29 mg iron-1 mg -250 mg combo pack 2019-04 Yes [id number] 1{packe Take 1 [facility] vit 1-30 t} Packet by [facility] of 33-iron-fol 00:00: mouth [place] ic-dha 00 daily. [facility] ([facility]) 29 mg iron-1 mg -250 mg combo pack 2019-04 Yes [id number] 1{packe Take 1 [facility] vit 1-30 t} Packet by [facility] of 33-iron-fol 00:00: mouth [place] ic-dha 00 daily. [facility] ([facility]) 29 mg iron-1 mg -250 mg combo pack 2019-04 Yes [id number] 1{packe Take 1 [facility] vit 1-30 t} Packet by [facility] of 33-iron-fol 00:00: mouth [place] ic-dha 00 daily. [facility] ([facility]) 29 mg iron-1 mg -250 mg combo pack 2019-04 Yes [id number] 1{packe Take 1 [facility] vit 1-30 t} Packet by [facility] 33-iron-fol 00:00: mouth [place] ic-dha 00 daily. [facility] ([facility]) 29 mg iron-1 mg -250 mg combo pack 2019-04 Yes [id number] 1{packe Take 1 [facility] vit 1-30 t} Packet by [facility] of 33-iron-fol 00:00: mouth [place] ic-dha 00 daily. [facility] ([facility]) 29 mg iron-1 mg -250 mg combo pack 2019-04 Yes [id number] 1{packe Take 1 [facility] vit 1-30 t} Packet by [facility] of 33-iron-fol 00:00: mouth [place] ic-dha 00 daily. [facility] ([facility]) 29 mg iron-1 mg -250 mg combo pack 2019-04- No [id number] 1{packe Take 1 [facility] vit 1-30 07-07 t} Packet by [facility] 33-iron-fol 00:00: 00:00 [place] ic[place] 00 :00 daily. [facility] ([facility]) 29 mg iron-1 mg -250 mg combo pack doxylamine- 2019-04 Yes [id number] 1{tbl} Take 1 [facility] pyridoxine, 1-23 tablet by ity of vit B6, 00:00: mouth 3 (DICLEGI) 00 (three) Medica l 10-10 mg times Branch per tablet daily. Nitrofurant 2019-04 Yes [id number] 100mg Take 1 [facility] oin&Nit. 1-23 capsule by it[facility] o f Macrocryst 00:00: mouth [place] (MACROBID[place] 00 (two) Medical 100 mg times Branch capsule daily. doxylamine- 2019-04 Yes [id number] 1{tbl} Take 1 [facility] pyridoxine, 1-23 tablet by ity of vit B6, 00:00: mouth 3 (DICLEGI) 00 (three) Medica l 10-10 mg times Branch per tablet daily. Nitrofurant 2019-04 Yes [id number] 100mg Take 1 [facility] oin&Nit. 1-23 capsule by [facility] o f [facility]ryst 00:00: mouth 2 [place] (MACROBID[place] 00 (two) Medical 100 mg times Branch capsule daily. doxylamine- 2019-04 Yes [id number] 1{tbl} Take 1 [facility] pyridoxine, 1-23 tablet by ity of vit B6, 00:00: mouth [place] (DICLEGIS) 00 (three) Medica l 10-10 mg times Branch per tablet daily. Nitrofurant 2019-04 Yes [id number] 100mg Take 1 [facility] oin&Nit. 1-23 capsule by it[facility] o f Macrocryst 00:00: mouth [place] (MACROBID) 00 (two) Medical 100 mg times Branch capsule daily. doxylamine- 2019-04 Yes [id number] 1{tbl} Take 1 [facility] pyridoxine, 1-23 tablet by ity of vit B6, 00:00: mouth 3 (DICLEGI) 00 (three) Medica l 10-10 mg times Branch per tablet daily. Nitrofurant 2019-04 Yes [id number] 100mg Take 1 [facility] oin&Nit. 1-23 capsule by [facility] o f [facility]ryst 00:00: mouth 2 [place] (MACROBID) 00 (two) Medical 100 mg times Branch capsule daily. doxylamine- 2019-04 Yes [id number] 1{tbl} Take 1 [facility] pyridoxine, 1-23 tablet by ity of vit B6, 00:00: mouth 3 (DICLE) 00 (three) Medica l 10-10 mg times Branch per tablet daily. Nitrofurant 2019-04 Yes [id number] 100mg Take 1 [facility] oin&Nit. 1-23 capsule by [facility] o f [facility]rocryst 00:00: mouth 2 [place] (MACROBID) 00 (two) Medical 100 mg times Branch capsule daily. doxylamine- 2019-04 Yes [id number] 1{tbl} Take 1 [facility] pyridoxine, 1-23 tablet by ity of vit B6, 00:00: mouth 3 (DICLE) 00 (three) Medica l 10-10 mg times Branch per tablet daily. Nitrofurant 2019-04 Yes [id number] 100mg Take 1 [facility] oin&Nit. 1-23 capsule by [facility] o f [facility] 00:00: mouth 2 [place] (MACROBID) 00 (two) Medical 100 mg times Branch capsule daily. doxylamine- 2019-04 Yes [id number] 1{tbl} Take 1 [facility] pyridoxine, 1-23 tablet by ity of vit B6, 00:00: mouth 3 (DICLE) 00 (three) Medica l 10-10 mg times Branch per tablet daily. Nitrofurant 2019-04 Yes [id number] 100mg Take 1 [facility] oin&Nit. 1-23 capsule by [facility] o f [facility]ryst 00:00: mouth 2 [place] (MACROBID) 00 (two) Medical 100 mg times Branch capsule daily. doxylamine- 2019-04 Yes [id number] 1{tbl} Take 1 [facility] pyridoxine, 1-23 tablet by ity of vit B6, 00:00: mouth 3 (DICLEGIS) 00 (three) Medica l 10-10 mg times Branch per tablet daily. Nitrofurant 2019-04 Yes [id number] 100mg Take 1 [facility] oin&Nit. 1-23 capsule by [facility] o f [facility] 00:00: mouth 2 [place] (MACROBID) 00 (two) Medical 100 mg times Branch capsule daily. doxylamine- 2019-04 Yes [id number] 1{tbl} Take 1 [facility] pyridoxine, 1-23 tablet by ity of vit B6, 00:00: mouth 3 (DICLE) 00 (three) Medica l 10-10 mg times Branch per tablet daily. Nitrofurant 2019-04 Yes [id number] 100mg Take 1 [facility] oin&Nit. 1-23 capsule by [facility] o f [facility] 00:00: mouth 2 [place] (MACROBID) 00 (two) Medical 100 mg times Branch capsule daily. doxylamine- 2019-04 Yes [id number] 1{tbl} Take 1 [facility] pyridoxine, 1-23 tablet by ity of vit B6, 00:00: mouth 3 (DICLE) 00 (three) Medica l 10-10 mg times Branch per tablet daily. doxylamine- 2019-04 Yes [id number] 1{tbl} Take 1 [facility] pyridoxine, 1-23 tablet by ity of vit B6, 00:00: mouth 3 (DICLEGIS) 00 (three) Medica l 10-10 mg times Branch per tablet daily. doxylamine- 2019-04 Yes [id number] 1{tbl} Take 1 [facility] pyridoxine, 1-23 tablet by ity of vit B6, 00:00: mouth 3 (DICLEGI) 00 (three) Medica l 10-10 mg times Branch per tablet daily. doxylamine- 2019-04 Yes [id number] 1{tbl} Take 1 [facility] pyridoxine, 1-23 tablet by ity of vit B6, 00:00: mouth 3 [place] (DICLEGIS) 00 (three) Medica l 10-10 mg times Branch per tablet daily. doxylamine- 2019-04 Yes [id number] 1{tbl} Take 1 [facility] pyridoxine, 1-23 tablet by ity of vit B6, 00:00: mouth 3 [place] (DICLEGIS) 00 (three) Medica l 10-10 mg times Branch per tablet daily. doxylamine- 2019-04 Yes [id number] 1{tbl} Take 1 [facility] pyridoxine, 1-23 tablet by ity of vit B6, 00:00: mouth 3 [place] (DICLEGIS) 00 (three) Medica l 10-10 mg times Branch per tablet daily. doxylamine- 2019-04 Yes [id number] 1{tbl} Take 1 [facility] pyridoxine, 1-23 tablet by ity of vit B6, 00:00: mouth 3 [place] (DICLEGIS) 00 (three) Medica l 10-10 mg times Branch per tablet daily. doxylamine- 2019-04 Yes [id number] 1{tbl} Take 1 [facility] pyridoxine, 1-23 tablet by ity of vit B6, 00:00: mouth 3 [place] (DICLEGIS) 00 (three) Medica l 10-10 mg times Branch per tablet daily. doxylamine- 2019-04 Yes [id number] 1{tbl} Take 1 [facility] pyridoxine, 1-23 tablet by ity of vit B6, 00:00: mouth 3 [place] (DICLEGIS) 00 (three) Medica l 10-10 mg times Branch per tablet daily. doxylamine- 2019-04 Yes [id number] 1{tbl} Take 1 [facility] pyridoxine, 1-23 tablet by ity of vit B6, 00:00: mouth 3 [place] (DICLEGIS) 00 (three) Medica l 10-10 mg times Branch per tablet daily. doxylamine- 2019-04 Yes [id number] 1{tbl} Take 1 [facility] pyridoxine, 1-23 tablet by ity of vit B6, 00:00: mouth 3 [place] (DICLEGIS) 00 (three) Medica l 10-10 mg times Branch per tablet daily. doxylamine- 2019-04 Yes [id number] 1{tbl} Take 1 [facility] pyridoxine, 1-23 tablet by ity of vit B6, 00:00: mouth 3 [place] (DICLEGIS) 00 (three) Medica l 10-10 mg times Branch per tablet daily. doxylamine- 2019-04 Yes [id number] 1{tbl} Take 1 [facility] pyridoxine, 1-23 tablet by ity of vit B6, 00:00: mouth 3 [place] (DICLEGIS) 00 (three) Medica l 10-10 mg times Branch per tablet daily. doxylamine- 2019-04 Yes [id number] 1{tbl} Take 1 [facility] pyridoxine, 1-23 tablet by ity of vit B6, 00:00: mouth 3 [place] (DICLEGIS) 00 (three) Medica l 10-10 mg times Branch per tablet daily. doxylamine- 2019-04 Yes [id number] 1{tbl} Take 1 [facility] pyridoxine, 1-23 tablet by ity of vit B6, 00:00: mouth 3 [place] (DICLEGIS) 00 (three) Medica l 10-10 mg times Branch per tablet daily. doxylamine- 2019-04 Yes [id number] 1{tbl} Take 1 [facility] pyridoxine, 1-23 tablet by ity of vit B6, 00:00: mouth 3 [place] (DICLEGIS) 00 (three) Medica l 10-10 mg times Branch per tablet daily. doxylamine- 2019-04 Yes [id number] 1{tbl} Take 1 [facility] pyridoxine, 1-23 tablet by ity of vit B6, 00:00: mouth 3 [place] (DICLEGIS) 00 (three) Medica l 10-10 mg times Branch per tablet daily. doxylamine- 2019-04 Yes [id number] 1{tbl} Take 1 [facility] pyridoxine, 1-23 tablet by ity of vit B6, 00:00: mouth 3 [place] (DICLEGIS) 00 (three) Medica l 10-10 mg times Branch per tablet daily. doxylamine- 2019-04 Yes [id number] 1{tbl} Take 1 [facility] pyridoxine, 1-23 tablet by ity of vit B6, 00:00: mouth 3 [place] (DICLEGIS) 00 (three) Medica l 10-10 mg times Branch per tablet daily. doxylamine- 2019-04 Yes [id number] 1{tbl} Take 1 [facility] pyridoxine, 1-23 tablet by ity of vit B6, 00:00: mouth 3 [place] (DICLEGIS) 00 (three) Medica l 10-10 mg times Branch per tablet daily. doxylamine- 2019-04 Yes [id number] 1{tbl} Take 1 [facility] pyridoxine, 1-23 tablet by ity of vit B6, 00:00: mouth 3 [place] (DICLEGIS) 00 (three) Medica l 10-10 mg times Branch per tablet daily. doxylamine- 2019-04 Yes [id number] 1{tbl} Take 1 [facility] pyridoxine, 1-23 tablet by ity of vit B6, 00:00: mouth 3 [place] (DICLEGI) 00 (three) Medica l 10-10 mg times Branch per tablet daily. Nitrofurant 2019-04 Yes [id number] 100mg Take 1 [facility] oin&Nit. 1-23 capsule by [facility] o f [facility] 00:00: mouth 2 [place] (MACROBID) 00 (two) Medical 100 mg times Branch capsule daily. doxylamine- 2019-04 Yes [id number] 1{tbl} Take 1 [facility] pyridoxine, 1-23 tablet by ity of vit B6, 00:00: mouth 3 [place] (DICLEGI) 00 (three) Medica l 10-10 mg times Branch per tablet daily. Nitrofurant 2019-04 Yes [id number] 100mg Take 1 [facility] oin&Nit. 1-23 capsule by [facility] o f [facility] 00:00: mouth 2 [place] (MACROBID) 00 (two) Medical 100 mg times Branch capsule daily. doxylamine- 2019-04 Yes [id number] 1{tbl} Take 1 [facility] pyridoxine, 1-23 tablet by ity of vit B6, 00:00: mouth 3 [place] (DICLEGIS) 00 (three) Medica l 10-10 mg times Branch per tablet daily. Nitrofurant 2019-04 Yes [id number] 100mg Take 1 [facility] oin&Nit. 1-23 capsule by it[facility] o f [facility] 00:00: mouth 2 [place] (MACROBID) 00 (two) Medical 100 mg times Branch capsule daily. doxylamine- 2019-04 Yes [id number] 1{tbl} Take 1 [facility] pyridoxine, 1-23 tablet by ity of vit B6, 00:00: mouth 3 [place] (DICLEGIS) 00 (three) Medica l 10-10 mg times Branch per tablet daily. Nitrofurant 2019-04 Yes [id number] 100mg Take 1 [facility] oin&Nit. 1-23 capsule by it[facility] o f [facility] 00:00: mouth 2 [place] (MACROBID) 00 (two) Medical 100 mg times Branch capsule daily. doxylamine- 2019-04- No [id number] 1{tbl} Take 1 [facility] pyridoxine, 1-23 04-19 tablet by it y of vit B6, 00:00: 00:00 mouth 3 [place] (DICLEGIS) 00 :00 (three) Medica l 10-10 mg times Branch per tablet daily. doxylamine- 2019-04- No [id number] 1{tbl} Take 1 [facility] pyridoxine, 1-23 04-19 tablet by it y of vit B6, 00:00: 00:00 mouth 3 [place] (DICLEGIS) 00 :00 (three) Medica l 10-10 mg times Branch per tablet daily. Nitrofurant 2019-04- No [id number] 100mg Take 1 [facility] oin&Nit. 1-23 12-27 capsule by ity of Macrocryst 00:00: 00:00 mouth 2 [place] (MACROBID) 00 :00 (two) Medical 100 mg times Branch capsule daily. permethrin 2020-0 Yes [id number] Apply ONCE [facility] 5 % cream 6-27 to all ity of 00:00: skin [place] 00 surfaces, Medical leave on Branch for 8-14 hours, then remove by bathing. permethrin 2020-0 Yes [id number] Apply ONCE [facility] 5 % cream 6-27 to all ity of 00:00: skin [place] 00 surfaces, Medical leave on Branch for 8-14 hours, then remove by bathing. permethrin 2020-0 Yes [id number] Apply ONCE [facility] 5 % cream 6-27 to all ity of 00:00: skin [place] 00 surfaces, Medical leave on Branch for 8-14 hours, then remove by bathing. permethrin 2020-0 Yes [id number] Apply ONCE [facility] 5 % cream 6-27 to all ity of 00:00: skin [place] 00 surfaces, Medical leave on Branch for 8-14 hours, then remove by bathing. permethrin 2020-0 Yes [id number] Apply ONCE [facility] 5 % cream 6-27 to all ity of 00:00: skin [place] 00 surfaces, Medical leave on Branch for 8-14 hours, then remove by bathing. permethrin 2020-0 Yes [id number] Apply ONCE [facility] 5 % cream 6-27 to all ity of 00:00: skin [place] 00 surfaces, Medical leave on Branch for 8-14 hours, then remove by bathing. permethrin 2020-0 Yes [id number] Apply ONCE [facility] 5 % cream 6-27 to all ity of 00:00: skin [place] 00 surfaces, Medical leave on Branch for 8-14 hours, then remove by bathing. permethrin 2020-0 Yes [id number] Apply ONCE [facility] 5 % cream 6-27 to all ity of 00:00: skin [place] 00 surfaces, Medical leave on Branch for 8-14 hours, then remove by bathing. permethrin 2020-0 Yes [id number] Apply ONCE [facility] 5 % cream 6-27 to all ity of 00:00: skin [place] 00 surfaces, Medical leave on Branch for 8-14 hours, then remove by bathing. permethrin 2020-0 2020- No [id number] Apply ONCE [facility] 5 % cream 6-27 30 to all ity of 00:00: 00:00 skin [place] 00 :00 surfaces, Medical leave on Branch for 8-14 hours, then remove by bathing. permethrin 2020-0 2020- No [id number] Apply ONCE [facility] 5 % cream 6-27 -30 to all ity of 00:00: 00:00 skin [place] 00 :00 surfaces, Medical leave on Branch for 8-14 hours, then remove by bathing. permethrin 2020-0 2020- No [id number] Apply ONCE [facility] 5 % cream 6-27 30 to all ity of 00:00: 00:00 skin [place] 00 :00 surfaces, Medical leave on Branch for 8-14 hours, then remove by bathing. permethrin 2020- No [id number] Apply ONCE [facility] 5 % cream 10-19 to all ity of 00:00: 00:00 skin [place] 00 :00 surfaces, Medical leave on Branch for 8-14 hours, then remove by bathing. traMADol 2018-04 Yes [id number] 50mg Take 1 [facility] (ULTRAM) 50 0-12 [id number] tablet by i ty of mg tablet 00:00: mouth [place] 00 every 8 Medical (eight) Branch hours as needed for Pain (scale 4-6). traMADol 2018-04 Yes [id number] 50mg Take 1 [facility] (ULTRAM) 50 0-12 [id number] tablet by i ty of mg tablet 00:00: mouth [place] 00 every 8 Medical (eight) Branch hours as needed for Pain (scale 4-6). traMADol 2018-04 Yes [id number] 50mg Take 1 [facility] (ULTRAM) 50 0-12 [id number] tablet by i ty of mg tablet 00:00: mouth [place] 00 every 8 Medical (eight) Branch hours as needed for Pain (scale 4-6). traMADol 2018-04 Yes [id number] 50mg Take 1 [facility] (ULTRAM) 50 0-12 [id number] tablet by i ty of mg tablet 00:00: mouth [place] 00 every 8 Medical (eight) Branch hours as needed for Pain (scale 4-6). traMADol 2018-04 Yes [id number] 50mg Take 1 [facility] (ULTRAM) 50 0-12 [id number] tablet by i ty of mg tablet 00:00: mouth [place] 00 every 8 Medical (eight) Branch hours as needed for Pain (scale 4-6). traMADol 2018-04 Yes [id number] 50mg Take 1 [facility] (ULTRAM) 50 0-12 [id number] tablet by i ty of mg tablet 00:00: mouth [place] 00 every 8 Medical (eight) Branch hours as needed for Pain (scale 4-6). traMADol 2018-04 Yes [id number] 50mg Take 1 [facility] (ULTRAM) 50 0-12 [id number] tablet by i ty of mg tablet 00:00: mouth [place] 00 every 8 Medical (eight) Branch hours as needed for Pain (scale 4-6). traMADol 2018-04 Yes [id number] 50mg Take 1 [facility] (ULTRAM) 50 0-12 [id number] tablet by i ty of mg tablet 00:00: mouth [place] 00 every 8 Medical (eight) Branch hours as needed for Pain (scale 4-6). traMADol 2018-04 Yes [id number] 50mg Take 1 [facility] (ULTRAM) 50 0-12 [id number] tablet by i ty of mg tablet 00:00: mouth [place] 00 every 8 Medical (eight) Branch hours as needed for Pain (scale 4-6). traMADol 2018-04 Yes [id number] 50mg Take 1 [facility] (ULTRAM) 50 0-12 [id number] tablet by i ty of mg tablet 00:00: mouth [place] 00 every 8 Medical (eight) Branch hours as needed for Pain (scale 4-6). traMADol 2018-04 Yes [id number] 50mg Take 1 [facility] (ULTRAM) 50 0-12 [id number] tablet by i ty of mg tablet 00:00: mouth [place] 00 every 8 Medical (eight) Branch hours as needed for Pain (scale 4-6). traMADol 2018-04- No [id number] 50mg Take 1 [facility] (ULTRAM) 50 0-12 11-30 [id number] tablet by ity of mg tablet 00:00: 00:00 mouth [place] 00 :00 every 8 Medical (eight) Branch hours as needed for Pain (scale 4-6). traMADol 2018-04 2020- No [id number] 50mg Take 1 [facility] (ULTRAM) 50 0-12 11-30 [id number] tablet by ity of mg tablet 00:00: 00:00 mouth [place] 00 :00 every 8 Medical (eight) Branch hours as needed for Pain (scale 4-6). traMADol 2018-04 2020- No [id number] 50mg Take 1 [facility] (ULTRAM) 50 0-12 11-30 [id number] tablet by ity of mg tablet 00:00: 00:00 mouth [place] 00 :00 every 8 Medical (eight) Branch hours as needed for Pain (scale 4-6). traMADol 2018-04- No [id number] 50mg Take 1 [facility] (ULTRAM) 50 0-12 11-30 [id number] tablet by ity of mg tablet 00:00: 00:00 mouth [place] 00 :00 every 8 Medical (eight) Branch hours as needed for Pain (scale 4-6). metroNIDAZO 2018-04 Yes [id number] 500mg Take 1 [facility] LE 500 mg 0-01 tablet by ity o f tablet 00:00: mouth [place] 00 every 12 Medical (twelve) Branch hours. metroNIDAZO 2018-04 Yes [id number] 500mg Take 1 [facility] LE 500 mg 0-01 tablet by ity o f tablet 00:00: mouth [place] 00 every 12 Medical (twelve) Branch hours. metroNIDAZO 2018-04 Yes [id number] 500mg Take 1 [facility] LE 500 mg 0-01 tablet by ity o f tablet 00:00: mouth [place] 00 every 12 Medical (twelve) Branch hours. metroNIDAZO 2018-04 Yes [id number] 500mg Take 1 [facility] LE 500 mg 0-01 tablet by ity o f tablet 00:00: mouth [place] 00 every 12 Medical (twelve) Branch hours. metroNIDAZO 2018-04 Yes [id number] 500mg Take 1 [facility] LE 500 mg 0-01 tablet by ity o f tablet 00:00: mouth [place] 00 every 12 Medical (twelve) Branch hours. metroNIDAZO 2018-04 Yes [id number] 500mg Take 1 [facility] LE 500 mg 0-01 tablet by ity o f tablet 00:00: mouth [place] 00 every 12 Medical (twelve) Branch hours. metroNIDAZO 2018-04 Yes [id number] 500mg Take 1 [facility] LE 500 mg 0-01 tablet by ity o f tablet 00:00: mouth [place] 00 every 12 Medical (twelve) Branch hours. metroNIDAZO 2018-04 Yes [id number] 500mg Take 1 [facility] LE 500 mg 0-01 tablet by ity o f tablet 00:00: mouth [place] 00 every 12 Medical (twelve) Branch hours. metroNIDAZO 2018-04 Yes [id number] 500mg Take 1 [facility] LE 500 mg 0-01 tablet by ity o f tablet 00:00: mouth [place] 00 every 12 Medical (twelve) Branch hours. metroNIDAZO 2018-04 Yes [id number] 500mg Take 1 [facility] LE 500 mg 0-01 tablet by ity o f tablet 00:00: mouth [place] 00 every 12 Medical (twelve) Branch hours. metroNIDAZO 2018-04 Yes [id number] 500mg Take 1 [facility] LE 500 mg 0-01 tablet by ity o f tablet 00:00: mouth [place] 00 every 12 Medical (twelve) Branch hours. metroNIDAZO 2018-04 Yes [id number] 500mg Take 1 [facility] LE 500 mg 0-01 tablet by ity o f tablet 00:00: mouth [place] 00 every 12 Medical (twelve) Branch hours. metroNIDAZO 2018-04 Yes [id number] 500mg Take 1 [facility] LE 500 mg 0-01 tablet by ity o f tablet 00:00: mouth [place] 00 every 12 Medical (twelve) Branch hours. metroNIDAZO 2018-04 Yes [id number] 500mg Take 1 [facility] LE 500 mg 0-01 tablet by ity o f tablet 00:00: mouth [place] 00 every 12 Medical (twelve) Branch hours. metroNIDAZO 2018-04 Yes [id number] 500mg Take 1 [facility] LE 500 mg 0-01 tablet by ity o f tablet 00:00: mouth [place] 00 every 12 Medical (twelve) Branch hours. metroNIDAZO 2018-04 Yes [id number] 500mg Take 1 [facility] LE 500 mg 0-01 tablet by ity o f tablet 00:00: mouth [place] 00 every 12 Medical (twelve) Branch hours. metroNIDAZO 2018-04 Yes [id number] 500mg Take 1 [facility] LE 500 mg 0-01 tablet by ity o f tablet 00:00: mouth [place] 00 every 12 Medical (twelve) Branch hours. metroNIDAZO 2018-04 Yes [id number] 500mg Take 1 [facility] LE 500 mg 0-01 tablet by ity o f tablet 00:00: mouth [place] 00 every 12 Medical (twelve) Branch hours. metroNIDAZO 2018-04 Yes [id number] 500mg Take 1 [facility] LE 500 mg 0-01 tablet by ity o f tablet 00:00: mouth [place] 00 every 12 Medical (twelve) Branch hours. metroNIDAZO 2018-04 Yes [id number] 500mg Take 1 [facility] LE 500 mg 0-01 tablet by ity o f tablet 00:00: mouth [place] 00 every 12 Medical (twelve) Branch hours. metroNIDAZO 2018-04 Yes [id number] 500mg Take 1 [facility] LE 500 mg 0-01 tablet by ity o f tablet 00:00: mouth [place] 00 every 12 Medical (twelve) Branch hours. metroNIDAZO 2018- Yes [id number] 500mg Take 1 [facility] LE 500 mg 0-01 tablet by ity o f tablet 00:00: mouth [place] 00 every 12 Medical (twelve) Branch hours. metroNIDAZO 2018-04 2020- No [id number] 500mg Take 1 [facility] LE 500 mg 0-01 12-27 tablet by ity of tablet 00:00: 00:00 mouth [place] 00 :00 every 12 Medical (twelve) Branch hours. ciprofloxac 2019- No 500mg 500 mg, U nivers in HCl 11-18 Oral, ity of (CIPRO) 21:00: 20:13 ONCE, 1 [place] tablet 500 00 :00 dose, Sat Medi bill mg 11/18/18 at Branch 1600, KESHIA
Re stricted use approved by: ADC PROVIDER<b r>Reason for Anti-Infec tive: Documented Infection< br>Documen tali Infection Site: Urine
D uration of Therapy: 10 days cefTRIAXone 2018- No 1000mg 1,000 mg, Univers (ROCEPHIN) 11-18 IV ity of 1,000 mg in 20:45: 20:43 [place], [place] NaCl 0.9% 00 :00 ONCE, 1 Medical (NS) 50 mL dose, Sat Bran ch MINI-BAG 11/18/18 at 1545, 50 mL
Reas on for Anti-Infec tive: Documented Infection< br>Documen tali Infection Site: Urine
D uration of Therapy: Other (see Comments) ondansetron Yes [id number] 4mg Take 1 [facility] (ZOFRAN 7-27 tablet by ity of ODT) 4 mg 00:00: mouth [place] disintegrat 00 every 8 Medic al ing tablet (eight) Branch hours as needed for Nausea and Vomiting (N/V). ondansetron Yes [id number] 4mg Take 1 [facility] (ZOFRAN 7-27 tablet by ity of ODT) 4 mg 00:00: mouth [place] disintegrat 00 every 8 Medic al ing tablet (eight) Branch hours as needed for Nausea and Vomiting (N/V). ondansetron Yes [id number] 4mg Take 1 [facility] (ZOFRAN 7-27 tablet by ity of ODT) 4 mg 00:00: mouth [place] disintegrat 00 every 8 Medic al ing tablet (eight) Branch hours as needed for Nausea and Vomiting (N/V). ondansetron Yes [id number] 4mg Take 1 [facility] (ZOFRAN 7-27 tablet by ity of ODT) 4 mg 00:00: mouth [place] disintegrat 00 every 8 Medic al ing tablet (eight) Branch hours as needed for Nausea and Vomiting (N/V). ondansetron 2019-0 Yes [id number] 4mg Take 1 [facility] (ZOFRAN 7-27 tablet by ity of ODT) 4 mg 00:00: mouth [place] disintegrat 00 every 8 Medic al ing tablet (eight) Branch hours as needed for Nausea and Vomiting (N/V). ondansetron 2019-0 Yes [id number] 4mg Take 1 [facility] (ZOFRAN 7-27 tablet by ity of ODT) 4 mg 00:00: mouth [place] disintegrat 00 every 8 Medic al ing tablet (eight) Branch hours as needed for Nausea and Vomiting (N/V). ondansetron 2019-0 Yes [id number] 4mg Take 1 [facility] (ZOFRAN 7-27 tablet by ity of ODT) 4 mg 00:00: mouth [place] disintegrat 00 every 8 Medic al ing tablet (eight) Branch hours as needed for Nausea and Vomiting (N/V). ondansetron 2019-0 Yes [id number] 4mg Take 1 [facility] (ZOFRAN 7-27 tablet by ity of ODT) 4 mg 00:00: mouth [place] disintegrat 00 every 8 Medic al ing tablet (eight) Branch hours as needed for Nausea and Vomiting (N/V). ondansetron 2019-0 Yes [id number] 4mg Take 1 [facility] (ZOFRAN 7-27 tablet by ity of ODT) 4 mg 00:00: mouth [place] disintegrat 00 every 8 Medic al ing tablet (eight) Branch hours as needed for Nausea and Vomiting (N/V). ciprofloxac 2019-0 Yes [id number] 500mg Take 1 [facility] in HCl 500 7-27 tablet by ity of mg tablet 00:00: mouth 2 [place] 00 (two) Medical times Branch daily. ondansetron 2019-0 Yes [id number] 4mg Take 1 [facility] (ZOFRAN 7-27 tablet by ity of ODT) 4 mg 00:00: mouth [place] disintegrat 00 every 8 Medic al ing tablet (eight) Branch hours as needed for Nausea and Vomiting (N/V). ciprofloxac 2019-0 Yes [id number] 500mg Take 1 [facility] in HCl 500 7-27 tablet by ity of mg tablet 00:00: mouth 2 [place] 00 (two) Medical times Branch daily. ondansetron 2019-0 Yes [id number] 4mg Take 1 [facility] (ZOFRAN 7-27 tablet by ity of ODT) 4 mg 00:00: mouth [place] disintegrat 00 every 8 Medic al ing tablet (eight) Branch hours as needed for Nausea and Vomiting (N/V). ciprofloxac 2019-0 Yes [id number] 500mg Take 1 [facility] in HCl 500 7-27 tablet by ity of mg tablet 00:00: mouth 2 [place] 00 (two) Medical times Branch daily. ondansetron 2019-0 Yes [id number] 4mg Take 1 [facility] (ZOFRAN 7-27 tablet by ity of ODT) 4 mg 00:00: mouth [place] disintegrat 00 every 8 Medic al ing tablet (eight) Branch hours as needed for Nausea and Vomiting (N/V). ciprofloxac 2019-0 Yes [id number] 500mg Take 1 [facility] in HCl 500 7-27 tablet by ity of mg tablet 00:00: mouth 2 [place] (two) Medical times Branch daily. ondansetron 2019-0 Yes [id number] 4mg Take 1 [facility] (ZOFRAN 7-27 tablet by ity of ODT) 4 mg 00:00: mouth [place] disintegrat 00 every 8 Medic al ing tablet (eight) Branch hours as needed for Nausea and Vomiting (N/V). ciprofloxac 2019-0 Yes [id number] 500mg Take 1 [facility] in HCl 500 7-27 tablet by ity of mg tablet 00:00: mouth 2 (two) Medical times Branch daily. ondansetron 2019-0 Yes [id number] 4mg Take 1 [facility] (ZOFRAN 7-27 tablet by ity of ODT) 4 mg 00:00: mouth [place] disintegrat 00 every 8 Medic al ing tablet (eight) Branch hours as needed for Nausea and Vomiting (N/V). ciprofloxac 2019-0 Yes [id number] 500mg Take 1 [facility] in HCl 500 7-27 tablet by ity of mg tablet 00:00: mouth 2 [place] 00 (two) Medical times Branch daily. ondansetron 2019-0 Yes [id number] 4mg Take 1 [facility] (ZOFRAN 7-27 tablet by ity of ODT) 4 mg 00:00: mouth [place] disintegrat 00 every 8 Medic al ing tablet (eight) Branch hours as needed for Nausea and Vomiting (N/V). ciprofloxac 2019-0 Yes [id number] 500mg Take 1 [facility] in HCl 500 7-27 tablet by ity of mg tablet 00:00: mouth 2 [place] 00 (two) Medical times Branch daily. ondansetron 2019-0 Yes [id number] 4mg Take 1 [facility] (ZOFRAN 7-27 tablet by ity of ODT) 4 mg 00:00: mouth [place] disintegrat 00 every 8 Medic al ing tablet (eight) Branch hours as needed for Nausea and Vomiting (N/V). ciprofloxac 2019-0 Yes [id number] 500mg Take 1 [facility] in HCl 500 7-27 tablet by ity of mg tablet 00:00: mouth 2 [place] 00 (two) Medical times Branch daily. ondansetron 2019-0 Yes [id number] 4mg Take 1 [facility] (ZOFRAN 7-27 tablet by ity of ODT) 4 mg 00:00: mouth [place] disintegrat 00 every 8 Medic al ing tablet (eight) Branch hours as needed for Nausea and Vomiting (N/V). ciprofloxac 2019-0 Yes [id number] 500mg Take 1 [facility] in HCl 500 7-27 tablet by ity of mg tablet 00:00: mouth 2 [place] 00 (two) Medical times Branch daily. ondansetron 2019-0 Yes [id number] 4mg Take 1 [facility] (ZOFRAN 7-27 tablet by ity of ODT) 4 mg 00:00: mouth [place] disintegrat 00 every 8 Medic al ing tablet (eight) Branch hours as needed for Nausea and Vomiting (N/V). ciprofloxac 2019-0 Yes [id number] 500mg Take 1 [facility] in HCl 500 7-27 tablet by ity of mg tablet 00:00: mouth 2 [place] 00 (two) Medical times Branch daily. ondansetron 2019-0 Yes [id number] 4mg Take 1 [facility] (ZOFRAN 7-27 tablet by ity of ODT) 4 mg 00:00: mouth [place] disintegrat 00 every 8 Medic al ing tablet (eight) Branch hours as needed for Nausea and Vomiting (N/V). ciprofloxac 2019-0 Yes [id number] 500mg Take 1 [facility] in HCl 500 7-27 tablet by ity of mg tablet 00:00: mouth 2 [place] 00 (two) Medical times Branch daily. ondansetron 2019-0 Yes [id number] 4mg Take 1 [facility] (ZOFRAN 7-27 tablet by ity of ODT) 4 mg 00:00: mouth [place] disintegrat 00 every 8 Medic al ing tablet (eight) Branch hours as needed for Nausea and Vomiting (N/V). ciprofloxac 2019-0 Yes [id number] 500mg Take 1 [facility] in HCl 500 7-27 tablet by ity of mg tablet 00:00: mouth 2 [place] (two) Medical times Branch daily. ondansetron 2019-0 Yes [id number] 4mg Take 1 [facility] (ZOFRAN 7-27 tablet by ity of ODT) 4 mg 00:00: mouth [place] disintegrat 00 every 8 Medic al ing tablet (eight) Branch hours as needed for Nausea and Vomiting (N/V). ciprofloxac 2019-0 Yes [id number] 500mg Take 1 [facility] in HCl 500 7-27 tablet by ity of mg tablet 00:00: mouth 2 (two) Medical times Branch daily. ondansetron 2019-0 Yes [id number] 4mg Take 1 [facility] (ZOFRAN 7-27 tablet by ity of ODT) 4 mg 00:00: mouth [place] disintegrat 00 every 8 Medic al ing tablet (eight) Branch hours as needed for Nausea and Vomiting (N/V). ciprofloxac 2019-0 Yes [id number] 500mg Take 1 [facility] in HCl 500 7-27 tablet by ity of mg tablet 00:00: mouth 2 (two) Medical times Branch daily. ondansetron 2019-0 Yes [id number] 4mg Take 1 [facility] (ZOFRAN 7-27 tablet by ity of ODT) 4 mg 00:00: mouth [place] disintegrat 00 every 8 Medic al ing tablet (eight) Branch hours as needed for Nausea and Vomiting (N/V). ondansetron 2019-0 Yes [id number] 4mg Take 1 [facility] (ZOFRAN 7-27 tablet by ity of ODT) 4 mg 00:00: mouth [place] disintegrat 00 every 8 Medic al ing tablet (eight) Branch hours as needed for Nausea and Vomiting (N/V). ondansetron 2019-0 Yes [id number] 4mg Take 1 [facility] (ZOFRAN 7-27 tablet by ity of ODT) 4 mg 00:00: mouth [place] disintegrat 00 every 8 Medic al ing tablet (eight) Branch hours as needed for Nausea and Vomiting (N/V). ondansetron 2018- 2020- No [id number] 4mg Take 1 [facility] (ZOFRAN 7-27 12-27 tablet by ity of ODT) 4 mg 00:00: 00:00 mouth [place] disintegrat 00 :00 every 8 Medic al ing tablet (eight) Branch hours as needed for Nausea and Vomiting (N/V). ciprofloxac 2018- 2020- No [id number] 500mg Take 1 [facility] in HCl 500 7-27 11-30 tablet by ity of mg tablet 00:00: 00:00 mouth 2 [place] 00 :[place] (two) Medical times Branch daily. ciprofloxac 2018- 2020- No [id number] 500mg Take 1 [facility] in HCl 500 7-27 11-30 tablet by ity of mg tablet 00:00: 00:00 mouth 2 [place] 00 :00 (two) Medical times Branch daily. ciprofloxac 2018- 2020- No [id number] 500mg Take 1 [facility] in HCl 500 7-27 11-30 tablet by ity of mg tablet 00:00: 00:00 mouth 2 [place] 00 :00 (two) Medical times Branch daily. ciprofloxac 2018- 2020- No [id number] 500mg Take 1 [facility] in HCl 500 7-27 11-30 tablet by ity of mg tablet 00:00: 00:00 mouth 2 [place] 00 :[place] (two) Medical times Branch daily. medroxyPROG 2019- No [id number] 150mg [facility] ESTERone 08-17- ity of (DEPO-PROVE 15:15: 15:14 [place] RA) 00 :00 Medical injection Branch 150 mg medroxyPROG 2018- 2020- No [id number] 150mg [facility] ESTERone 08-17- ity of (DEPO-PROVE 15:15: 15:14 [place] RA) 00 :00 Medical injection Branch 150 mg medroxyPROG 2020- No [id number] 150mg [facility] ESTERone 08-17- ity of (DEPO-PROVE 15:15: 15:14 [place] RA) 00 :00 Medical injection Branch 150 mg medroxyPROG 2018-2019- No [id number] 150mg [facility] ESTERone 08-17 ity of (DEPO-PROVE 15:15: 15:14 [facility]) 00 :00 Medical injection Branch 150 mg amoxicillin 2019-0 Yes [id number] 500mg Take 1 [facility] 500 mg 3-22 capsule by ity of capsule 00:00: mouth 3 [place] ([facility]) Medical times Branch daily. amoxicillin 2019-0 Yes [id number] 500mg Take 1 [facility] 500 mg 3-22 capsule by ity of capsule 00:00: mouth 3 [place] ([facility]) Medical times Branch daily. amoxicillin 2019-0 Yes [id number] 500mg Take 1 [facility] 500 mg 3-22 capsule by ity of capsule 00:00: mouth 3 [place] ([facility]) Medical times Branch daily. amoxicillin 2019-0 Yes [id number] 500mg Take 1 [facility] 500 mg 3-22 capsule by ity of capsule 00:00: mouth 3 [place] ([facility]) Medical times Branch daily. amoxicillin 2019-0 Yes [id number] 500mg Take 1 [facility] 500 mg 3-22 capsule by ity of capsule 00:00: mouth 3 [place] ([facility]) Medical times Branch daily. amoxicillin 2019-0 Yes [id number] 500mg Take 1 [facility] 500 mg 3-22 capsule by ity of capsule 00:00: mouth [address] [place] [address] ([facility]) Medical times Branch daily. amoxicillin 2019-0 Yes [id number] 500mg Take 1 [facility] 500 mg 3-22 capsule by ity of capsule 00:00: mouth 3 [place] ([facility]) Medical times Branch daily. amoxicillin 2019-0 Yes [id number] 500mg Take 1 [facility] 500 mg 3-22 capsule by ity of capsule 00:00: mouth 3 [place] ([facility]) Medical times Branch daily. amoxicillin 2019-0 Yes [id number] 500mg Take 1 [facility] 500 mg 3-22 capsule by ity of capsule 00:00: mouth 3 [place] ([facility]) Medical times Branch daily. amoxicillin 2019-0 Yes [id number] 500mg Take 1 [facility] 500 mg 3-22 capsule by ity of capsule 00:00: mouth 3 [place] ([facility]) Medical times Branch daily. amoxicillin 2019-0 Yes [id number] 500mg Take 1 [facility] 500 mg 3-22 capsule by ity of capsule 00:00: mouth 3 [place] [address] [address]) Medical times Branch daily. amoxicillin 2019-0 Yes [id number] 500mg Take 1 [facility] 500 mg 3-22 capsule by ity of capsule 00:00: mouth 3 [place] 00 (three) Medical times Branch daily. amoxicillin 2019-0 Yes [id number] 500mg Take 1 [facility] 500 mg 3-22 capsule by ity of capsule 00:00: mouth 3 [place] 00 (three) Medical times Branch daily. amoxicillin 2019-0 Yes [id number] 500mg Take 1 [facility] 500 mg 3-22 capsule by ity of capsule 00:00: mouth 3 [place] 00 (three) Medical times Branch daily. amoxicillin 2019-0 Yes [id number] 500mg Take 1 [facility] 500 mg 3-22 capsule by ity of capsule 00:00: mouth 3 [place] 00 (three) Medical times Branch daily. amoxicillin 2019-0 2020- No [id number] 500mg Take 1 [facility] 500 mg 3-22 11-30 capsule by ity of capsule 00:00: 00:00 mouth 3 [place] 00 :00 (three) Medical times Branch daily. amoxicillin 2018-0 2020- No [id number] 500mg Take 1 [facility] 500 mg 3-22 11-30 capsule by ity of capsule 00:00: 00:00 mouth 3 [place] 00 :00 (three) Medical times Branch daily. amoxicillin 2019-0 2020- No [id number] 500mg Take 1 [facility] 500 mg 3-22 11-30 capsule by ity of capsule 00:00: 00:00 mouth 3 [place] 00 :00 (three) Medical times Branch daily. amoxicillin 2019-0 2020- No [id number] 500mg Take 1 [facility] 500 mg 3-22 11-30 capsule by ity of capsule 00:00: 00:00 mouth 3 [place] 00 :00 (three) Medical times Branch daily. amoxicillin 2019-0 Yes [id number] 500mg Take 1 [facility] -pot 1-17 tablet by ity of clavulanate 00:00: mouth [place] 500 mg 00 every 8 Medical 500-125 mg (eight) Branch tablet hours. amoxicillin 2019-0 Yes [id number] 500mg Take 1 [facility] -pot 1-17 tablet by ity of clavulanate 00:00: mouth [place] 500 mg 00 every 8 Medical 500-125 mg (eight) Branch tablet hours. amoxicillin 2019-0 Yes [id number] 500mg Take 1 [facility] -pot 1-17 tablet by ity of clavulanate 00:00: mouth [place] 500 mg 00 every 8 Medical 500-125 mg (eight) Branch tablet hours. amoxicillin 2019-0 Yes [id number] 500mg Take 1 [facility] -pot 1-17 tablet by ity of clavulanate 00:00: mouth [place] 500 mg 00 every 8 Medical 500-125 mg (eight) Branch tablet hours. amoxicillin 2019-0 Yes [id number] 500mg Take 1 [facility] -pot 1-17 tablet by ity of clavulanate 00:00: mouth [place] 500 mg 00 every 8 Medical 500-125 mg (eight) Branch tablet hours. amoxicillin 2019-0 Yes [id number] 500mg Take 1 [facility] -pot 1-17 tablet by ity of clavulanate 00:00: mouth [place] 500 mg 00 every 8 Medical 500-125 mg (eight) Branch tablet hours. amoxicillin 2019-0 Yes [id number] 500mg Take 1 [facility] -pot 1-17 tablet by ity of clavulanate 00:00: mouth [place] 500 mg 00 every 8 Medical 500-125 mg (eight) Branch tablet hours. amoxicillin 2019-0 Yes [id number] 500mg Take 1 [facility] -pot 1-17 tablet by ity of clavulanate 00:00: mouth [place] 500 mg 00 every 8 Medical 500-125 mg (eight) Branch tablet hours. amoxicillin 2019-0 Yes [id number] 500mg Take 1 [facility] -pot 1-17 tablet by ity of clavulanate 00:00: mouth [place] 500 mg 00 every 8 Medical 500-125 mg (eight) Branch tablet hours. amoxicillin 2019-0 Yes [id number] 500mg Take 1 [facility] -pot 1-17 tablet by ity of clavulanate 00:00: mouth [place] 500 mg 00 every 8 Medical 500-125 mg (eight) Branch tablet hours. amoxicillin 2019-0 Yes [id number] 500mg Take 1 [facility] -pot 1-17 tablet by ity of clavulanate 00:00: mouth [place] 500 mg 00 every 8 Medical 500-125 mg (eight) Branch tablet hours. amoxicillin 2019-0 Yes [id number] 500mg Take 1 [facility] -pot 1-17 tablet by ity of clavulanate 00:00: mouth [place] 500 mg 00 every 8 Medical 500-125 mg (eight) Branch tablet hours. amoxicillin 2019-0 Yes [id number] 500mg Take 1 [facility] -pot 1-17 tablet by ity of clavulanate 00:00: mouth [place] 500 mg 00 every 8 Medical 500-125 mg (eight) Branch tablet hours. amoxicillin Yes [id number] 500mg Take 1 [facility] -pot 1-17 tablet by ity of clavulanate 00:00: mouth [place] 500 mg 00 every 8 Medical 500-125 mg (eight) Branch tablet hours. amoxicillin Yes [id number] 500mg Take 1 [facility] -pot 1-17 tablet by ity of clavulanate 00:00: mouth [place] 500 mg 00 every 8 Medical 500-125 mg (eight) Branch tablet hours. amoxicillin 2020- No [id number] 500mg Take 1 [facility] -pot 1-17 11-30 tablet by ity of clavulanate 00:00: 00:00 mouth [place] 500 mg 00 :00 every 8 Medical 500-125 mg (eight) Branch tablet hours. amoxicillin 2020- No [id number] 500mg Take 1 [facility] -pot 1-17 11-30 tablet by ity of clavulanate 00:00: 00:00 mouth [place] 500 mg 00 :00 every 8 Medical 500-125 mg (eight) Branch tablet hours. amoxicillin 2019- No [id number] 500mg Take 1 [facility] -pot 1-17 11-30 tablet by ity of clavulanate 00:00: 00:00 mouth [place] 500 mg 00 :00 every 8 Medical 500-125 mg (eight) Branch tablet hours. amoxicillin 2020- No [id number] 500mg Take 1 [facility] -pot 1-17 11-30 tablet by ity of clavulanate 00:00: 00:00 mouth [place] 500 mg 00 :00 every 8 Medical 500-125 mg (eight) Branch tablet hours. Nitrofurant 2018-0 Yes 100mg Take 1 [facility] vers oin&Nit. 7-19 capsule by ity o f Macrocryst 00:00: mouth 2 [place] (MACROBID[place] 00 (two) Medical 100 mg times Branch capsule daily. Nitrofurant 2018-0 2019- No 100mg Take 1 Un mercedes oin&Nit. 7-19 07-27 capsule by ity of Macrocryst 00:00: 00:00 mouth 2 [place] (MACROBID) 00 :00 (two) Medical 100 mg times Branch capsule daily. azithromyci 2018-0 Yes 250mg Take 1 Uni vers n 5-29 tablet by ity of (ZITHROMAX 00:00: mouth [place] Z-ARTHUR) 250 00 SEE-INSTRU Med ical mg tablet CTIONS. Branch Take 500 mg day 1, then 250 mg days 2 to 5. rajanyci 2019- No 250mg Take 1 Un mercedes n 5-20 11- tablet by ity of (ZITHROMAX 00:00: 00:00 mouth [place] Z-ARTHUR) 250 00 :00 SEE-INSTRU Med ical mg tablet CTIONS. Branch Take 500 mg day 1, then 250 mg days 2 to 5. No known No [facility] medications [facility] [place] [facility] Immunizations Ordered Filled Immunization Date Status Comments [facility] e Immunization Name Name [facility]9 2020-12-09 Completed University of 00:00:00 [facility]9 2020-12-09 Completed University of 00:00:00 [facility] HPV9 2020-12-09 Completed University of 00:00:00 [facility] HPV9 2020-12-09 Completed University of 00:00:00 [facility] HPV9 2020-12-09 Completed University of 00:00:00 [facility] HPV9 2020-12-09 Completed University of 00:00:00 [facility]9 2020-10-29 Completed University of 00:00:00 [facility] HPV9 2020-10-29 Completed University of 00:00:00 [facility]9 2020-10-29 Completed University of 00:00:00 [facility] HPV9 2020-10-29 Completed University of 00:00:00 [facility] HPV9 2020-10-29 Completed University of 00:00:00 [facility] HPV9 2020-10-29 Completed University of 00:00:00 [facility] HPV9 2020-10-29 Completed University of 00:00:00 [facility] HPV9 2020-10-29 Completed University of 00:00:00 [facility] HPV9 2020-10-29 Completed University of 00:00:00 [facility] HPV9 2020-10-29 Completed University of 00:00:00 [facility] TDAP 2020-08-11 Completed University of 00:00:00 [facility] TDAP 2020-08-11 Completed University of 00:00:00 [place] [facility] TDAP 2020-08-11 Completed University of 00:00:00 [place] [facility] TDAP 2020-08-11 Completed University of 00:00:00 [place] [facility] TDAP 2020-08-11 Completed University of 00:00:00 [place] [facility] TDAP 2020-08-11 Completed University of 00:00:00 [place] [facility] TDAP 2020-08-11 Completed University of 00:00:00 [place] [facility] TDAP 2020-08-11 Completed University of 00:00:00 [place] [facility] TDAP 2020-08-11 Completed University of 00:00:00 [place] [facility] TDAP 2020-08-11 Completed University of 00:00:00 [place] [facility] TDAP 2020-08-11 Completed University of 00:00:00 [place] [facility] TDAP 2020-08-11 Completed University of 00:00:00 [facility] Branch TDAP 2020-08-11 Completed University of 00:00:00 [facility] Branch TDAP 2020-08-11 Completed University of 00:00:00 [facility] Branch TDAP 2020-08-11 Completed University of 00:00:00 [facility] Branch TDAP 2020-08-11 Completed University of 00:00:00 [facility] Branch TDAP 2020-08-11 Completed University of 00:00:00 [facility] Branch TDAP 2020-08-11 Completed [facility] 00:00:00 [facility] TDAP 2020-08-11 Completed [facility] 00[facility]00:00 [facility] TDAP 2020-08-11 Completed [facility] 00[facility]00:00 [facility] TDAP 2020-08-11 Completed [facility] 00:00:00 [facility] TDAP 2020-08-11 Completed [facility] 00:00:00 [facility] TDAP 2020-08-11 Completed [facility] 00[facility]00:00 [facility] TDAP 2020-08-11 Completed [facility] 00[facility]00:00 [facility] TDAP 2020-08-11 Completed [facility] 00:00:00 [facility] TDAP 2020-08-11 Completed [facility] 00:00:00 [facility] TDAP 2020-08-11 Completed [facility] 00:00:00 [facility] TDAP 2020-08-11 Completed [facility] 00:00:00 [facility] TDAP 2020-08-11 Completed [facility] 00[facility]00:00 [facility] TDAP 2020-08-11 Completed [facility] 00:00:00 [facility] Influenza Virus 2020-03-24 Completed [facility] .5 mL 00:00:00 [facility] Influenza Virus 2020-03-24 Completed [facility] .5 mL 00:00:00 [facility] Influenza Virus 2020-03-24 Completed [facility] .5 mL 00:00:00 [facility] Influenza Virus 2020-03-24 Completed [facility] .5 mL 00:00:00 [facility] Influenza Virus 2020-03-24 Completed [facility] .5 mL 00:00:00 [facility] Influenza Virus 2020-03-24 Completed [facility] .5 mL 00:00:00 [facility] Influenza Virus 2020-03-24 Completed [facility] .5 mL 00:00:00 [facility] Influenza Virus 2020-03-24 Completed [facility] .5 mL 00:00:00 [facility] Influenza Virus 2020-03-24 Completed [facility] .5 mL 00:00:00 [facility] Influenza Virus 2020-03-24 Completed [facility] .5 mL 00:00:00 [facility] Influenza Virus 2020-03-24 Completed [facility] .5 mL 00:00:00 [facility] Influenza Virus 2020-03-24 Completed [facility] .5 mL 00:00:00 [facility] Influenza Virus 2020-03-24 Completed [facility] .5 mL 00:00:00 [facility] Influenza Virus 2020-03-24 Completed [facility] .5 mL 00:00:00 [facility] Influenza Virus 2020-03-24 Completed [facility] .5 mL 00:00:00 [facility] Influenza Virus 2020-03-24 Completed [facility] .5 mL 00:00:00 [facility] Influenza Virus 2020-03-24 Completed [facility] .5 mL 00:00:00 [facility] Influenza Virus 2020-03-24 Completed [facility] .5 mL 00:00:00 [facility] Influenza Virus 2020-03-24 Completed [facility] .5 mL 00:00:00 [facility] Influenza Virus 2020-03-24 Completed [facility] .5 mL 00:00:00 [facility] Influenza Virus 2020-03-24 Completed [facility] .5 mL 00:00:00 [facility] Influenza Virus 2020-03-24 Completed [facility] .5 mL 00:00:00 [facility] Influenza Virus 2020-03-24 Completed [facility] .5 mL 00:00:00 [facility] Influenza Virus 2020-03-24 Completed [facility] .5 mL 00:00:00 [facility] Influenza Virus 2020-03-24 Completed [facility] .5 mL 00:00:00 [facility] Influenza Virus 2020-03-24 Completed [facility] .5 mL 00:00:00 [facility] Influenza Virus 2020-03-24 Completed [facility] .5 mL 00:00:00 [facility] Influenza Virus 2020-03-24 Completed [facility] .5 mL 00:00:00 [facility] Influenza Virus 2020-03-24 Completed [facility] .5 mL 00:00:00 [facility] Influenza Virus 2020-03-24 Completed [facility] .5 mL 00:00:00 [facility] Influenza Virus 2020-03-24 Completed [facility] .5 mL 00:00:00 [facility] Influenza Virus 2020-03-24 Completed [facility] .5 mL 00:00:00 [facility] Influenza Virus 2020-03-24 Completed [facility] .5 mL 00:00:00 [facility] Influenza Virus 2020-03-24 Completed [facility] .5 mL 00:00:00 [facility] Influenza Virus 2020-03-24 Completed [facility] .5 mL 00:00:00 [facility] Influenza Virus 2020-03-24 Completed [facility] .5 mL 00:00:00 [facility] Influenza Virus 2020-03-24 Completed [facility] .5 mL 00:00:00 [facility] Influenza Virus 2020-03-24 Completed [facility] .5 mL 00:00:00 [facility] Influenza Virus 2020-03-24 Completed [facility] .5 mL 00:00:00 [facility] Influenza Virus 2020-03-24 Completed [facility] .5 mL 00:00:00 [facility] Influenza Virus 2020-03-24 Completed [facility] .5 mL 00:00:00 [facility] Influenza Virus 2020-03-24 Completed [facility] .5 mL 00:00:00 [facility] Influenza Virus 2020-03-24 Completed [facility] .5 mL 00:00:00 [facility] Influenza Virus 2020-03-24 Completed [facility] .5 mL 00:00:00 [facility] Influenza Virus 2020-03-24 Completed [facility] .5 mL 00:00:00 [facility] Influenza Virus 2020-03-24 Completed [facility] .5 mL 00:00:00 [facility] Influenza Virus 2020-03-24 Completed [facility] .5 mL 00:00:00 [facility] Influenza Virus 2020-03-24 Completed [facility] .5 mL 00:00:00 [facility] Influenza Virus 2020-03-24 Completed [facility] .5 mL 00:00:00 [facility] Influenza Virus 2020-03-24 Completed [facility] .5 mL 00:00:00 [facility] Influenza Virus 2020-03-24 Completed [facility] .5 mL 00:00:00 [facility] Influenza Virus 2020-03-24 Completed [facility] .5 mL 00:00:00 [facility] Influenza Virus 2020-03-24 Completed [facility] .5 mL 00:00:00 [facility] Influenza Virus 2020-03-24 Completed [facility] .5 mL 00:00:00 [facility] Influenza Virus 2020-03-24 Completed [facility] .5 mL 00:00:00 [facility] Influenza Virus 2020-03-24 Completed [facility] .5 mL 00:00:00 [facility] Influenza Virus 2020-03-24 Completed [facility] .5 mL 00:00:00 [facility] Influenza Virus 2020-03-24 Completed [facility] .5 mL 00:00:00 [facility] Influenza Virus 2020-03-24 Completed [facility] .5 mL 00:00:00 [facility] Influenza Virus 2020-03-24 Completed [facility] .5 mL 00:00:00 [facility] Influenza Virus 2020-03-24 Completed [facility] .5 mL 00:00:00 [facility] Influenza Virus 2020-03-24 Completed [facility] .5 mL 00:00:00 [facility] Td 2018-05-11 Completed [facility] 00:00:00 [facility] Td 2018-05-11 Completed [facility] 00:00:00 [facility] Td 2018-05-11 Completed [facility] 00:00:00 [facility] Td 2018-05-11 Completed [facility] 00[facility]00:00 [facility] Td 2018-05-11 Completed [facility] 00[facility]00:00 [facility] Td 2018-05-11 Completed [facility] 00:00:00 [facility] Td 2018-05-11 Completed [facility] 00[facility]00:00 [facility] Td 2018-05-11 Completed [facility] 00:00:00 [facility] Td 2018-05-11 Completed [facility] 00:00:00 [facility] Td 2018-05-11 Completed [facility] 00:00:00 [facility] Td 2018-05-11 Completed [facility] 00:00:00 [facility] Td 2018-05-11 Completed [facility] 00[facility]00:00 [facility] Td 2018-05-11 Completed [facility] 00[facility]00:00 [facility] Td 2018-05-11 Completed [facility] 00:00:00 [facility] Td 2018-05-11 Completed [facility] 00:00:00 [facility] Td 2018-05-11 Completed [facility] 00[facility]00:00 [facility] Td 2018-05-11 Completed [facility] 00:00:00 [facility] Td 2018-05-11 Completed [facility] 00:00:00 [facility] Td 2018-05-11 Completed [facility] 00:00:00 [facility] Td 2018-05-11 Completed [facility] 00:00:00 [facility] Td 2018-05-11 Completed [facility] 00:00:00 [facility] Td 2018-05-11 Completed [facility] 00[facility]00:00 [facility] Td 2018-05-11 Completed [facility] 00:00:00 [facility] Td 2018-05-11 Completed [facility] 00:00:00 [facility] Td 2018-05-11 Completed [facility] 00:00:00 [facility] Td 2018-05-11 Completed [facility] 00[facility]00:00 [facility] Td 2018-05-11 Completed [facility] 00:00:00 [facility] Td 2018-05-11 Completed [facility] 00:00:00 [facility] Td 2018-05-11 Completed [facility] 00:00:00 [facility] Td 2018-05-11 Completed [facility] 00:00:00 [facility] Td 2018-05-11 Completed [facility] 00:00:00 [facility] Td 2018-05-11 Completed [facility] 00:00:00 [facility] Td 2018-05-11 Completed [facility] 00:00:00 [facility] Td 2018-05-11 Completed [facility] 00:00:00 [facility] Td 2018-05-11 Completed [facility] 00:00:00 [facility] Td 2018-05-11 Completed [facility] 00:00:00 [facility] Td 2018-05-11 Completed [facility] 00:00:00 [facility] Td 2018-05-11 Completed [facility] 00:00:00 [facility] Td 2018-05-11 Completed [facility] 00:00:00 [facility] Td 2018-05-11 Completed [facility] 00:00:00 [facility] Td 2018-05-11 Completed [facility] 00:00:00 [facility] Td 2018-05-11 Completed [facility] 00[facility]00:00 [facility] Td 2018-05-11 Completed [facility] 00:00:00 [facility] Td 2018-05-11 Completed [facility] 00:00:00 [facility] Td 2018-05-11 Completed [facility] 00:00:00 [facility] Td 2018-05-11 Completed [facility] 00:00:00 [facility] Td 2018-05-11 Completed [facility] 00:00:00 [facility] Td 2018-05-11 Completed [facility] 00:00:00 [facility] Td 2018-05-11 Completed [facility] 00:00:00 [facility] Td 2018-05-11 Completed [facility] 00:00:00 [facility] Td 2018-05-11 Completed [facility] 00:00:00 [facility] Td 2018-05-11 Completed [facility] 00:00:00 [facility] Td 2018-05-11 Completed [facility] 00:00:00 [facility] Td 2018-05-11 Completed [facility] 00:00:00 [facility] Td 2018-05-11 Completed [facility] 00:00:00 [facility] Td 2018-05-11 Completed [facility] 00:00:00 [facility] Td 2018-05-11 Completed [facility] 00:00:00 [facility] Td 2018-05-11 Completed [facility] 00:00:00 [facility] Td 2018-05-11 Completed [facility] 00:00:00 [facility] Td 2018-05-11 Completed [facility] 00:00:00 [facility] Td 2018-05-11 Completed [facility] 00:00:00 [facility] Td 2018-05-11 Completed [facility] 00:00:00 [facility] Td 2018-05-11 Completed [facility] 00:00:00 [facility] Td 2018-05-11 Completed [facility] 00:00:00 [facility] Td 2018-05-11 Completed [facility] 00:00:00 [facility] Td 2018-05-11 Completed [facility] 00:00:00 [facility] Td 2018-05-11 Completed [facility] 00[facility]00:00 [facility] Td 2018-05-11 Completed [facility] 00:00:00 [facility] Td 2018-05-11 Completed [facility] 00:00:00 [facility] Td 2018-05-11 Completed [facility] 00[facility]00:00 [facility] Td 2018-05-11 Completed [facility] 00[facility]00:00 [facility] Td 2018-05-11 Completed [facility] 00[facility]00:00 [facility] Td 2018-05-11 Completed [facility] 00:00:00 [facility] Td 2018-05-11 Completed [facility] 00[facility]00:00 [facility] Td 2018-05-11 Completed [facility] 00[facility]00:00 [facility] Td 2018-05-11 Completed [facility] 00:00:00 [facility] Td 2018-05-11 Completed [facility] 00:00:00 [facility] TDAP 2013-04-25 Completed [facility] 00:00:00 [facility] TDAP 2013-04-25 Completed [facility] 00[facility]00:00 [facility] TDAP 2013-04-25 Completed [facility] 00[facility]00:00 [facility] TDAP 2013-04-25 Completed [facility] 00[facility]00:00 [facility] TDAP 2013-04-25 Completed [facility] 00[facility]00:00 [facility] TDAP 2013-04-25 Completed [facility] 00[facility]00:00 [facility] TDAP 2013-04-25 Completed [facility] 00[facility]00:00 [facility] TDAP 2013-04-25 Completed [facility] 00[facility]00:00 [facility] TDAP 2013-04-25 Completed [facility] 00[facility]00:00 [facility] TDAP 2013-04-25 Completed [facility] 00[facility]00:00 [facility] TDAP 2013-04-25 Completed [facility] 00[facility]00:00 [facility] TDAP 2013-04-25 Completed [facility] 00[facility]00:00 [facility] TDAP 2013-04-25 Completed [facility] 00:00:00 [facility] TDAP 2013-04-25 Completed [facility] 00[facility]00:00 [facility] TDAP 2013-04-25 Completed [facility] 00[facility]00:00 [facility] TDAP 2013-04-25 Completed [facility] 00:00:00 [facility] TDAP 2013-04-25 Completed [facility] 00[facility]00:00 [facility] TDAP 2013-04-25 Completed [facility] 00:00:00 [facility] TDAP 2013-04-25 Completed [facility] 00[facility]00:00 [facility] TDAP 2013-04-25 Completed [facility] 00[facility]00:00 [facility] TDAP 2013-04-25 Completed [facility] 00:00:00 [facility] TDAP 2013-04-25 Completed [facility] 00[facility]00:00 [facility] TDAP 2013-04-25 Completed [facility] 00[facility]00:00 [facility] TDAP 2013-04-25 Completed [facility] 00[facility]00:00 [facility] TDAP 2013-04-25 Completed [facility] 00[facility]00:00 [facility] TDAP 2013-04-25 Completed [facility] 00[facility]00:00 [facility] TDAP 2013-04-25 Completed [facility] 00:00:00 [facility] TDAP 2013-04-25 Completed [facility] 00[facility]00:00 [facility] TDAP 2013-04-25 Completed [facility] 00:00:00 [facility] TDAP 2013-04-25 Completed [facility] 00[facility]00:00 [facility] TDAP 2013-04-25 Completed [facility] 00[facility]00:00 [facility] TDAP 2013-04-25 Completed [facility] 00[facility]00:00 [facility] TDAP 2013-04-25 Completed [facility] 00[facility]00:00 [facility] TDAP 2013-04-25 Completed [facility] 00:00:00 [facility] TDAP 2013-04-25 Completed [facility] 00[facility]00:00 [facility] TDAP 2013-04-25 Completed [facility] 00[facility]00:00 [facility] TDAP 2013-04-25 Completed [facility] 00[facility]00:00 [facility] TDAP 2013-04-25 Completed [facility] 00[facility]00:00 [facility] TDAP 2013-04-25 Completed [facility] 00:00:00 [facility] TDAP 2013-04-25 Completed [facility] 00[facility]00:00 [facility] TDAP 2013-04-25 Completed [facility] 00[facility]00:00 [facility] TDAP 2013-04-25 Completed [facility] 00[facility]00:00 [facility] TDAP 2013-04-25 Completed [facility] 00:00:00 [facility] TDAP 2013-04-25 Completed [facility] 00[facility]00:00 [facility] TDAP 2013-04-25 Completed [facility] 00:00:00 [facility] TDAP 2013-04-25 Completed [facility] 00[facility]00:00 [facility] Tdap 2013-04-25 Completed [facility] 00:00:00 [facility] TDAP 2013-04-25 Completed [facility] 00:00:00 [facility] TDAP 2013-04-25 Completed [facility] 00:00:00 [facility] TDAP 2013-04-25 Completed [facility] 00[facility]00:00 [facility] TDAP 2013-04-25 Completed [facility] 00:00:00 [facility] TDAP 2013-04-25 Completed [facility] 00:00:00 [facility] TDAP 2013-04-25 Completed [facility] 00:00:00 [facility] TDAP 2013-04-25 Completed [facility] 00:00:00 [facility] TDAP 2013-04-25 Completed [facility] 00:00:00 [facility] TDAP 2013-04-25 Completed [facility] 00[facility]00:00 [facility] Tdap 2013-04-25 Completed [facility] 00:00:00 [facility] TDAP 2013-04-25 Completed [facility] 00:00:00 [facility] TDAP 2013-04-25 Completed [facility] 00[facility]00:00 [facility] TDAP 2013-04-25 Completed [facility] 00[facility]00:00 [facility] TDAP 2013-04-25 Completed [facility] 00[facility]00:00 [facility] TDAP 2013-04-25 Completed [facility] 00:00:00 [facility] TDAP 2013-04-25 Completed [facility] 00[facility]00:00 [facility] Tdap 2013-04-25 Completed [facility] 00:00:00 [facility] Tdap 2013-04-25 Completed [facility] 00:00:00 [facility] Tdap 2013-04-25 Completed [facility] 00:00:00 [facility] TDAP 2013-04-25 Completed [facility] 00:00:00 [facility] TDAP 2013-04-25 Completed [facility] 00[facility]00:00 [facility] TDAP 2013-04-25 Completed [facility] 00:00:00 [facility] TDAP 2013-04-25 Completed [facility] 00:00:00 [facility] TDAP 2013-04-25 Completed [facility] 00:00:00 [facility] TDAP 2013-04-25 Completed [facility] 00:00:00 [facility] TDAP 2013-04-25 Completed [facility] 00:00:00 [facility] TDAP 2013-04-25 Completed [facility] 00:00:00 [facility] TDAP 2013-04-25 Completed [facility] 00:00:00 [facility] TDAP 2013-04-25 Completed [facility] 00:00:00 [facility] TDAP 2013-04-25 Completed [facility] 00:00:00 [facility] Influenza Virus 2013-01-05 Completed [facility] Vaccine 00:00:00 [facility] Influenza Virus 2013-01-05 Completed [facility] Vaccine 00:00:00 [facility] Influenza Virus 2013-01-05 Completed [facility] Vaccine 00:00:00 [facility] Influenza Virus 2013-01-05 Completed [facility] Vaccine 00:00:00 [facility] Influenza Virus 2013-01-05 Completed [facility] Vaccine 00:00:00 [facility] Influenza Virus 2013-01-05 Completed [facility] Vaccine 00:00:00 [facility] Influenza Virus 2013-01-05 Completed [facility] Vaccine 00:00:00 [facility] Influenza Virus 2013-01-05 Completed [facility] Vaccine 00:00:00 [facility] Influenza Virus 2013-01-05 Completed [facility] Vaccine 00:00:00 [facility] Influenza Virus 2013-01-05 Completed [facility] Vaccine 00:00:00 [facility] Influenza Virus 2013-01-05 Completed [facility] Vaccine 00:00:00 [facility] Influenza Virus 2013-01-05 Completed [facility] Vaccine 00:00:00 [facility] Influenza Virus 2013-01-05 Completed [facility] Vaccine 00:00:00 [facility] Influenza Virus 2013-01-05 Completed [facility] Vaccine 00:00:00 [facility] Influenza Virus 2013-01-05 Completed [facility] Vaccine 00:00:00 [facility] Influenza Virus 2013-01-05 Completed [facility] Vaccine 00:00:00 [facility] Influenza Virus 2013-01-05 Completed [facility] Vaccine 00:00:00 [facility] Influenza Virus 2013-01-05 Completed [facility] Vaccine 00:00:00 [facility] Influenza Virus 2013-01-05 Completed [facility] Vaccine 00:00:00 [facility] Influenza Virus 2013-01-05 Completed [facility] Vaccine 00:00:00 [facility] Influenza Virus 2013-01-05 Completed [facility] Vaccine 00:00:00 [facility] Influenza Virus 2013-01-05 Completed [facility] Vaccine 00:00:00 [facility] Influenza Virus 2013-01-05 Completed [facility] Vaccine 00:00:00 [facility] Influenza Virus 2013-01-05 Completed [facility] Vaccine 00:00:00 [facility] Influenza Virus 2013-01-05 Completed [facility] Vaccine 00:00:00 [facility] Influenza Virus 2013-01-05 Completed [facility] Vaccine 00:00:00 [facility] Influenza Virus 2013-01-05 Completed [facility] Vaccine 00:00:00 [facility] Influenza Virus 2013-01-05 Completed [facility] Vaccine 00:00:00 [facility] Influenza Virus 2013-01-05 Completed [facility] Vaccine 00:00:00 [facility] Influenza Virus 2013-01-05 Completed [facility] Vaccine 00:00:00 [facility] Influenza Virus 2013-01-05 Completed [facility] Vaccine 00:00:00 [facility] Influenza Virus 2013-01-05 Completed [facility] Vaccine 00:00:00 [facility] Influenza Virus 2013-01-05 Completed [facility] Vaccine 00:00:00 [facility] Influenza Virus 2013-01-05 Completed [facility] Vaccine 00:00:00 [facility] Influenza Virus 2013-01-05 Completed [facility] Vaccine 00:00:00 [facility] Influenza Virus 2013-01-05 Completed [facility] Vaccine 00:00:00 [facility] Influenza Virus 2013-01-05 Completed [facility] Vaccine 00:00:00 [facility] Influenza Virus 2013-01-05 Completed [facility] Vaccine 00:00:00 [facility] Influenza Virus 2013-01-05 Completed [facility] Vaccine 00:00:00 [facility] Influenza Virus 2013-01-05 Completed [facility] 00:00:00 [facility] Influenza Virus 2013-01-05 Completed [facility]ine 00:00:00 [facility] Influenza Virus 2013-01-05 Completed [facility] Vaccine 00:00:00 [facility] Influenza Virus 2013-01-05 Completed [facility] Vaccine 00:00:00 [facility] Influenza Virus 2013-01-05 Completed [facility] Vaccine 00:00:00 [facility] Influenza Virus 2013-01-05 Completed [facility] Vaccine 00:00:00 [facility] Influenza Virus 2013-01-05 Completed [facility] Vaccine 00:00:00 [facility] Influenza Virus 2013-01-05 Completed [facility] Vaccine 00:00:00 [facility] Influenza Virus 2013-01-05 Completed [facility] Vaccine 00:00:00 [facility] Influenza Virus 2013-01-05 Completed [facility] Vaccine 00:00:00 [facility] Influenza Virus 2013-01-05 Completed [facility] Vaccine 00:00:00 [facility] Influenza Virus 2013-01-05 Completed [facility] Vaccine 00:00:00 [facility] Influenza Virus 2013-01-05 Completed [facility] Vaccine 00:00:00 [facility] Influenza Virus 2013-01-05 Completed [facility] Vaccine 00:00:00 [facility] Influenza Virus 2013-01-05 Completed [facility] Vaccine 00:00:00 [facility] Influenza Virus 2013-01-05 Completed [facility] Vaccine 00:00:00 [facility] Influenza Virus 2013-01-05 Completed [facility] Vaccine 00:00:00 [facility] Influenza Virus 2013-01-05 Completed [facility] Vaccine 00:00:00 [facility] Influenza Virus 2013-01-05 Completed [facility] Vaccine 00:00:00 [facility] Influenza Virus 2013-01-05 Completed [facility] Vaccine 00:00:00 [facility] Influenza Virus 2013-01-05 Completed [facility] Vaccine 00:00:00 [facility] Influenza Virus 2013-01-05 Completed [facility] Vaccine 00:00:00 [facility] Influenza Virus 2013-01-05 Completed [facility] Vaccine 00:00:00 [facility] Influenza Virus 2013-01-05 Completed [facility] Vaccine 00:00:00 [facility] Influenza Virus 2013-01-05 Completed [facility] Vaccine 00:00:00 [facility] Influenza Virus 2013-01-05 Completed [facility] Vaccine 00:00:00 [facility] Influenza Virus 2013-01-05 Completed [facility] Vaccine 00:00:00 [facility] Influenza Virus 2013-01-05 Completed [facility] Vaccine 00:00:00 [facility] Influenza Virus 2013-01-05 Completed [facility] Vaccine 00:00:00 [facility] Influenza Virus 2013-01-05 Completed [facility] Vaccine 00:00:00 [facility] Influenza Virus 2013-01-05 Completed [facility] Vaccine 00:00:00 [facility] Influenza Virus 2013-01-05 Completed [facility] Vaccine 00:00:00 [facility] Influenza Virus 2013-01-05 Completed [facility] Vaccine 00:00:00 [facility] Influenza Virus 2013-01-05 Completed [facility] Vaccine 00:00:00 [facility] Influenza Virus 2013-01-05 Completed [facility] Vaccine 00:00:00 [facility] Influenza Virus 2013-01-05 Completed [facility] Vaccine 00:00:00 [facility] Influenza Virus 2013-01-05 Completed [facility] Vaccine 00:00:00 [facility] Influenza Virus 2013-01-05 Completed [facility] Vaccine 00:00:00 [facility] Varicella 2008-07-24 Completed [facility] (varivax[facility]chicken 00:00:[facility] Varicella 2008-07-24 Completed [facility] (varivax)(chicken 00:00:00 [facility] Varicella 2008-07-24 Completed [facility] (varivax)(chicken 00:00:00 [facility] Varicella 2008-07-24 Completed [facility] (varivax)(chicken 00:00:00 [facility] Varicella 2008-07-24 Completed [facility] (varivax)(chicken 00:00:00 [facility] Varicella 2008-07-24 Completed [facility] (varivax)(chicken 00:00:00 [facility] Varicella 2008-07-24 Completed [facility] (varivax)(chicken 00:00:00 [facility] Varicella 2008-07-24 Completed [facility] (varivax)(chicken 00:00:00 [facility] Varicella 2008-07-24 Completed [facility] (varivax)(chicken 00:00:00 [facility] Varicella 2008-07-24 Completed [facility] (varivax)(chicken 00:00:00 [facility] Varicella 2008-07-24 Completed [facility] (varivax)(chicken 00:00:00 [facility] Varicella 2008-07-24 Completed [facility] (varivax)(chicken 00:00:00 [facility] Varicella 2008-07-24 Completed [facility] (varivax)(chicken 00:00:00 [facility] Varicella 2008-07-24 Completed [facility] (varivax)(chicken 00:00:00 [facility] Varicella 2008-07-24 Completed [facility] (varivax)(chicken 00:00:00 [facility] Varicella 2008-07-24 Completed [facility] (varivax)(chicken 00:00:00 [facility] Varicella 2008-07-24 Completed [facility] (varivax)(chicken 00:00:00 [place] [facility] Varicella 2008-07-24 Completed [facility] (varivax)(chicken 00:00:00 [facility] Varicella 2008-07-24 Completed [facility] (varivax)(chicken 00:00:00 [facility] Varicella 2008-07-24 Completed [facility] (varivax)(chicken 00:00:00 [place] [facility] Varicella 2008-07-24 Completed [facility] (varivax)(chicken 00:00:00 [facility] Varicella 2008-07-24 Completed [facility] (varivax)(chicken 00:00:00 [place] [facility] Varicella 2008-07-24 Completed [facility] (varivax)(chicken 00:00:00 [facility] Varicella 2008-07-24 Completed [facility] (varivax)(chicken 00:00:00 [place] [facility] Varicella 2008-07-24 Completed [facility] (varivax)(chicken 00:00:00 [place] [facility] Varicella 2008-07-24 Completed [facility] (varivax)(chicken 00:00:00 [place] [facility] Varicella 2008-07-24 Completed [facility] (varivax)(chicken 00:00:00 [place] [facility] Varicella 2008-07-24 Completed [facility] (varivax)(chicken 00:00:00 [place] [facility] Varicella 2008-07-24 Completed [facility] (varivax)(chicken 00:00:00 [facility] Varicella 2008-07-24 Completed [facility] (varivax)(chicken 00:00:00 [place] [facility] Varicella 2008-07-24 Completed [facility] (varivax)(chicken 00:00:00 [facility] Varicella 2008-07-24 Completed [facility] (varivax)(chicken 00:00:00 [place] [facility] Varicella 2008-07-24 Completed [facility] (varivax)(chicken 00:00:00 [place] [facility] Varicella 2008-07-24 Completed [facility] (varivax)(chicken 00:00:00 [place] [facility] Varicella 2008-07-24 Completed [facility] (varivax)(chicken 00:00:00 [place] [facility] Varicella 2008-07-24 Completed [facility] (varivax)(chicken 00:00:00 [place] [facility] Varicella 2008-07-24 Completed [facility] (varivax)(chicken 00:00:00 [place] [facility] Varicella 2008-07-24 Completed [facility] (varivax)(chicken 00:00:00 [place] [facility] Varicella 2008-07-24 Completed [facility] (varivax)(chicken 00:00:00 [place] [facility] Varicella 2008-07-24 Completed [facility] (varivax)(chicken 00:00:00 [place] [facility] Varicella 2008-07-24 Completed [facility] (varivax)(chicken 00:00:00 [place] [facility] Varicella 2008-07-24 Completed [facility] (varivax)(chicken 00:00:00 [place] [facility] Varicella 2008-07-24 Completed [facility] (varivax)(chicken 00:00:00 [place] [facility] Varicella 2008-07-24 Completed [facility] (varivax)(chicken 00:00:00 [place] [facility] Varicella 2008-07-24 Completed [facility] (varivax)(chicken 00:00:00 [place] [facility] Varicella 2008-07-24 Completed [facility] (varivax)(chicken 00:00:00 [place] [facility] Varicella 2008-07-24 Completed [facility] (varivax)(chicken 00:00:00 [place] [facility] Varicella 2008-07-24 Completed [facility] (varivax)(chicken 00:00:00 [place] [facility] Varicella 2008-07-24 Completed [facility] (varivax)(chicken 00:00:00 [place] [facility] Varicella 2008-07-24 Completed [facility] (varivax)(chicken 00:00:00 [place] [facility] Varicella 2008-07-24 Completed [facility] (varivax)(chicken 00:00:00 [place] [facility] Varicella 2008-07-24 Completed [facility] (varivax)(chicken 00:00:00 [place] [facility] Varicella 2008-07-24 Completed [facility] (varivax)(chicken 00:00:00 [facility] Varicella 2008-07-24 Completed [facility] (varivax)(chicken 00:00:00 [place] [facility] Varicella 2008-07-24 Completed [facility] (varivax)(chicken 00:00:00 [place] [facility] Varicella 2008-07-24 Completed [facility] (varivax)(chicken 00:00:00 [facility] Varicella 2008-07-24 Completed [facility] (varivax)(chicken 00:00:00 [facility] Varicella 2008-07-24 Completed [facility] (varivax)(chicken 00:00:00 [place] [facility] Varicella 2008-07-24 Completed [facility] (varivax)(chicken 00:00:00 [facility] Varicella 2008-07-24 Completed [facility] (varivax)(chicken 00:00:00 [facility] Varicella 2008-07-24 Completed [facility] (varivax)(chicken 00:00:00 [place] [facility] Varicella 2008-07-24 Completed [facility] (varivax)(chicken 00:00:00 [facility] Varicella 2008-07-24 Completed [facility] (varivax)(chicken 00:00:00 [facility] Varicella 2008-07-24 Completed [facility] (varivax)(chicken 00:00:00 [facility] Varicella 2008-07-24 Completed [facility] (varivax)(chicken 00:00:00 [facility] Varicella 2008-07-24 Completed [facility] (varivax)(chicken 00:00:00 [facility] Varicella 2008-07-24 Completed [facility] (varivax)(chicken 00:00:00 [facility] Varicella 2008-07-24 Completed [facility] (varivax)(chicken 00:00:00 [facility] Varicella 2008-07-24 Completed [facility] (varivax)(chicken 00:00:00 [facility] Varicella 2008-07-24 Completed [facility] (varivax)(chicken 00:00:00 [facility] Varicella 2008-07-24 Completed [facility] (varivax)(chicken 00:00:00 [facility] Varicella 2008-07-24 Completed [facility] (varivax)(chicken 00:00:00 [facility] Varicella 2008-07-24 Completed [facility] (varivax)(chicken 00:00:00 [facility] Varicella 2008-07-24 Completed [facility] (varivax)(chicken 00:00:00 [facility] Varicella 2008-07-24 Completed [facility] (varivax)(chicken 00:00:00 [facility] Varicella 2008-07-24 Completed [facility] (varivax)(chicken 00:00:00 [facility] Varicella 2008-07-24 Completed [facility] (varivax)(chicken 00:00:00 [facility] HEPATITIS A 2005-09-09 Completed [facility] 00:00:00 [facility] HEPATITIS A 2005-09-09 Completed [facility] 00:00:00 [facility] HEPATITIS A 2005-09-09 Completed [facility] 00:00:00 [facility] HEPATITIS A 2005-09-09 Completed [facility] 00:00:00 [facility] HEPATITIS A 2005-09-09 Completed [facility] 00:00:00 [facility] HEPATITIS A 2005-09-09 Completed [facility] 00:00:00 [facility] HEPATITIS A 2005-09-09 Completed [facility] 00:00:00 [facility] HEPATITIS A 2005-09-09 Completed [facility] 00:00:00 [facility] HEPATITIS A 2005-09-09 Completed [facility] 00:00:00 [facility] HEPATITIS A 2005-09-09 Completed [facility] 00:00:00 [facility] HEPATITIS A 2005-09-09 Completed [facility] 00:00:00 [facility] HEPATITIS A 2005-09-09 Completed [facility] 00:00:00 [facility] HEPATITIS A 2005-09-09 Completed [facility] 00:00:00 [facility] HEPATITIS A 2005-09-09 Completed [facility] 00:00:00 [facility] HEPATITIS A 2005-09-09 Completed [facility] 00:00:00 [facility] HEPATITIS A 2005-09-09 Completed [facility] 00:00:00 [facility] HEPATITIS A 2005-09-09 Completed [facility] 00:00:00 [facility] HEPATITIS A 2005-09-09 Completed [facility] 00:00:00 [facility] HEPATITIS A 2005-09-09 Completed [facility] 00:00:00 [facility] HEPATITIS A 2005-09-09 Completed [facility] 00:00:00 [facility] HEPATITIS A 2005-09-09 Completed [facility] 00:00:00 [facility] HEPATITIS A 2005-09-09 Completed [facility] 00:00:00 [facility] HEPATITIS A 2005-09-09 Completed [facility] 00:00:00 [facility] HEPATITIS A 2005-09-09 Completed [facility] 00:00:00 [facility] HEPATITIS A 2005-09-09 Completed [facility] 00:00:00 [facility] HEPATITIS A 2005-09-09 Completed [facility] 00:00:00 [facility] HEPATITIS A 2005-09-09 Completed [facility] 00:00:00 [facility] HEPATITIS A 2005-09-09 Completed [facility] 00:00:00 [facility] HEPATITIS A 2005-09-09 Completed [facility] 00:00:00 [facility] HEPATITIS A 2005-09-09 Completed [facility] 00:00:00 [facility] HEPATITIS A 2005-09-09 Completed [facility] 00:00:00 [facility] HEPATITIS A 2005-09-09 Completed [facility] 00:00:00 [facility] HEPATITIS A 2005-09-09 Completed [facility] 00:00:00 [facility] HEPATITIS A 2005-09-09 Completed [facility] 00:00:00 [facility] HEPATITIS A 2005-09-09 Completed [facility] 00:00:00 [facility] HEPATITIS A 2005-09-09 Completed [facility] 00:00:00 [facility] HEPATITIS A 2005-09-09 Completed [facility] 00:00:00 [facility] HEPATITIS A 2005-09-09 Completed [facility] 00:00:00 [facility] HEPATITIS A 2005-09-09 Completed [facility] 00:00:00 [facility] HEPATITIS A 2005-09-09 Completed [facility] 00:00:00 [facility] HEPATITIS A 2005-09-09 Completed [facility] 00:00:00 [facility] HEPATITIS A 2005-09-09 Completed [facility] 00:00:00 [facility] HEPATITIS A 2005-09-09 Completed [facility] 00:00:00 [facility] HEPATITIS A 2005-09-09 Completed [facility] 00:00:00 [facility] HEPATITIS A 2005-09-09 Completed [facility] 00:00:00 [facility] HEPATITIS A 2005-09-09 Completed [facility] 00:00:00 [facility] HEPATITIS A 2005-09-09 Completed [facility] 00:00:00 [facility] HEPATITIS A 2005-09-09 Completed [facility] 00:00:00 [facility] HEPATITIS A 2005-09-09 Completed [facility] 00:00:00 [facility] HEPATITIS A 2005-09-09 Completed [facility] 00:00:00 [facility] HEPATITIS A 2005-09-09 Completed [facility] 00:00:00 [facility] HEPATITIS A 2005-09-09 Completed [facility] 00:00:00 [facility] HEPATITIS A 2005-09-09 Completed [facility] 00:00:00 [facility] HEPATITIS A 2005-09-09 Completed [facility] 00:00:00 [facility] HEPATITIS A 2005-09-09 Completed [facility] 00:00:00 [facility] HEPATITIS A 2005-09-09 Completed [facility] 00:00:00 [facility] HEPATITIS A 2005-09-09 Completed [facility] 00:00:00 [facility] HEPATITIS A 2005-09-09 Completed [facility] 00:00:00 [facility] HEPATITIS A 2005-09-09 Completed [facility] 00:00:00 [facility] HEPATITIS A 2005-09-09 Completed [facility] 00:00:00 [facility] HEPATITIS A 2005-09-09 Completed [facility] 00:00:00 [facility] HEPATITIS A 2005-09-09 Completed [facility] 00:00:00 [facility] HEPATITIS A 2005-09-09 Completed [facility] 00:00:00 [facility] HEPATITIS A 2005-09-09 Completed [facility] 00:00:00 [facility] HEPATITIS A 2005-09-09 Completed [facility] 00:00:00 [facility] HEPATITIS A 2005-09-09 Completed [facility] 00:00:00 [facility] HEPATITIS A 2005-09-09 Completed [facility] 00:00:00 [facility] HEPATITIS A 2005-09-09 Completed [facility] 00:00:00 [facility] HEPATITIS A 2005-09-09 Completed [facility] 00:00:00 [facility] HEPATITIS A 2005-09-09 Completed [facility] 00:00:00 [facility] HEPATITIS A 2005-09-09 Completed [facility] 00:00:00 [facility] HEPATITIS A 2005-09-09 Completed [facility] 00:00:00 [facility] HEPATITIS A 2005-09-09 Completed [facility] 00:00:00 [facility] HEPATITIS A 2005-09-09 Completed [facility] 00:00:00 [facility] HEPATITIS A 2005-09-09 Completed [facility] 00:00:00 [facility] HEPATITIS A 2005-09-09 Completed [facility] 00:00:00 [facility] HEPATITIS A 2005-09-09 Completed [facility] 00:00:00 [facility] Polio (IPV/OPV) 2005-07-22 Completed [facility] 00:00:00 [facility] DTAP 2005-07-22 Completed [facility] 00:00:00 [facility] MMR 2005-07-22 Completed [facility] 00:00:00 [facility] Polio (IPV/OPV) 2005-07-22 Completed [facility] 00:00:00 [facility] DTAP 2005-07-22 Completed [facility] 00:00:00 [facility] MMR 2005-07-22 Completed [facility] 00:00:00 [facility] Polio (IPV/OPV) 2005-07-22 Completed [facility] 00:00:00 [facility] DTAP 2005-07-22 Completed [facility] 00:00:00 [facility] MMR 2005-07-22 Completed [facility] 00:00:00 [facility] Polio (IPV/OPV) 2005-07-22 Completed [facility] 00:00:00 [facility] DTAP 2005-07-22 Completed [facility] 00:00:00 [facility] MMR 2005-07-22 Completed [facility] 00:00:00 [facility] Polio (IPV/OPV) 2005-07-22 Completed [facility] 00:00:00 [facility] DTAP 2005-07-22 Completed [facility] 00:00:00 [facility] MMR 2005-07-22 Completed [facility] 00:00:00 [facility] Polio (IPV/OPV) 2005-07-22 Completed [facility] 00:00:00 [facility] DTAP 2005-07-22 Completed [facility] 00:00:00 [facility] MMR 2005-07-22 Completed [facility] 00:00:00 [facility] Polio (IPV/OPV) 2005-07-22 Completed [facility] 00:00:00 [facility] DTAP 2005-07-22 Completed [facility] 00:00:00 [facility] MMR 2005-07-22 Completed [facility] 00:00:00 [facility] Polio (IPV/OPV) 2005-07-22 Completed [facility] 00:00:00 [facility] DTAP 2005-07-22 Completed [facility] 00:00:00 [facility] MMR 2005-07-22 Completed [facility] 00:00:00 [facility] Polio (IPV/OPV) 2005-07-22 Completed [facility] 00:00:00 [facility] DTAP 2005-07-22 Completed [facility] 00:00:00 [facility] MMR 2005-07-22 Completed [facility] 00:00:00 [facility] Polio (IPV/OPV) 2005-07-22 Completed [facility] 00:00:00 [facility] DTAP 2005-07-22 Completed [facility] 00:00:00 [facility] MMR 2005-07-22 Completed [facility] 00:00:00 [facility] Polio (IPV/OPV) 2005-07-22 Completed [facility] 00:00:00 [facility] DTAP 2005-07-22 Completed [facility] 00:00:00 [facility] MMR 2005-07-22 Completed [facility] 00:00:00 [facility] Polio (IPV/OPV) 2005-07-22 Completed [facility] 00:00:00 [facility] DTAP 2005-07-22 Completed [facility] 00:00:00 [facility] MMR 2005-07-22 Completed [facility] 00:00:00 [facility] Polio (IPV/OPV) 2005-07-22 Completed [facility] 00:00:00 [facility] DTAP 2005-07-22 Completed [facility] 00:00:00 [facility] MMR 2005-07-22 Completed [facility] 00:00:00 [facility] Polio (IPV/OPV) 2005-07-22 Completed [facility] 00:00:00 [facility] DTAP 2005-07-22 Completed [facility] 00:00:00 [facility] MMR 2005-07-22 Completed [facility] 00:00:00 [facility] Polio (IPV/OPV) 2005-07-22 Completed [facility] 00:00:00 [facility] DTAP 2005-07-22 Completed [facility] 00:00:00 [facility] MMR 2005-07-22 Completed [facility] 00:00:00 [facility] Polio (IPV/OPV) 2005-07-22 Completed [facility] 00:00:00 [facility] DTAP 2005-07-22 Completed [facility] 00:00:00 [facility] MMR 2005-07-22 Completed [facility] 00:00:00 [facility] Polio (IPV/OPV) 2005-07-22 Completed [facility] 00:00:00 [facility] DTAP 2005-07-22 Completed [facility] 00:00:00 [facility] MMR 2005-07-22 Completed [facility] 00:00:00 [facility] Polio (IPV/OPV) 2005-07-22 Completed [facility] 00:00:00 [facility] DTAP 2005-07-22 Completed [facility] 00:00:00 [facility] MMR 2005-07-22 Completed [facility] 00:00:00 [facility] Polio (IPV/OPV) 2005-07-22 Completed [facility] 00:00:00 [facility] DTAP 2005-07-22 Completed [facility] 00:00:00 [facility] MMR 2005-07-22 Completed [facility] 00:00:00 [facility] Polio (IPV/OPV) 2005-07-22 Completed [facility] 00:00:00 [facility] DTAP 2005-07-22 Completed [facility] 00:00:00 [facility] MMR 2005-07-22 Completed [facility] 00:00:00 [facility] Polio (IPV/OPV) 2005-07-22 Completed [facility] 00:00:00 [facility] DTAP 2005-07-22 Completed [facility] 00:00:00 [facility] MMR 2005-07-22 Completed [facility] 00:00:00 [facility] Polio (IPV/OPV) 2005-07-22 Completed [facility] 00:00:00 [facility] DTAP 2005-07-22 Completed [facility] 00:00:00 [facility] MMR 2005-07-22 Completed [facility] 00:00:00 [facility] Polio (IPV/OPV) 2005-07-22 Completed [facility] 00:00:00 [facility] DTAP 2005-07-22 Completed [facility] 00:00:00 [facility] MMR 2005-07-22 Completed [facility] 00:00:00 [facility] Polio (IPV/OPV) 2005-07-22 Completed [facility] 00:00:00 [facility] DTAP 2005-07-22 Completed [facility] 00:00:00 [facility] MMR 2005-07-22 Completed [facility] 00:00:00 [facility] Polio (IPV/OPV) 2005-07-22 Completed [facility] 00:00:00 [facility] DTAP 2005-07-22 Completed [facility] 00:00:00 [facility] MMR 2005-07-22 Completed [facility] 00:00:00 [facility] Polio (IPV/OPV) 2005-07-22 Completed [facility] 00:00:00 [facility] DTAP 2005-07-22 Completed [facility] 00:00:00 [facility] MMR 2005-07-22 Completed [facility] 00:00:00 [facility] Polio (IPV/OPV) 2005-07-22 Completed [facility] 00:00:00 [facility] DTAP 2005-07-22 Completed [facility] 00:00:00 [facility] MMR 2005-07-22 Completed [facility] 00:00:00 [facility] Polio (IPV/OPV) 2005-07-22 Completed [facility] 00:00:00 [facility] DTAP 2005-07-22 Completed [facility] 00:00:00 [facility] DTAP 2005-07-22 Completed [facility] 00:00:00 [facility] MMR 2005-07-22 Completed [facility] 00:00:00 [facility] Polio (IPV/OPV) 2005-07-22 Completed [facility] 00:00:00 [facility] DTAP 2005-07-22 Completed [facility] 00:00:00 [facility] MMR 2005-07-22 Completed [facility] 00:00:00 [facility] Polio (IPV/OPV) 2005-07-22 Completed [facility] 00:00:00 [facility] DTAP 2005-07-22 Completed [facility] 00:00:00 [facility] MMR 2005-07-22 Completed [facility] 00:00:00 [facility] Polio (IPV/OPV) 2005-07-22 Completed [facility] 00:00:00 [facility] MMR 2005-07-22 Completed [facility] 00:00:00 [facility] DTAP 2005-07-22 Completed [facility] 00:00:00 [facility] MMR 2005-07-22 Completed [facility] 00:00:00 [facility] Polio (IPV/OPV) 2005-07-22 Completed [facility] 00:00:00 [facility] DTAP 2005-07-22 Completed [facility] 00:00:00 [facility] MMR 2005-07-22 Completed [facility] 00:00:00 [facility] Polio (IPV/OPV) 2005-07-22 Completed [facility] 00:00:00 [facility] Polio (IPV/OPV) 2005-07-22 Completed [facility] 00:00:00 [facility] DTAP 2005-07-22 Completed [facility] 00:00:00 [facility] MMR 2005-07-22 Completed [facility] 00:00:00 [facility] Polio (IPV/OPV) 2005-07-22 Completed [facility] 00:00:00 [facility] DTAP 2005-07-22 Completed [facility] 00:00:00 [facility] MMR 2005-07-22 Completed [facility] 00:00:00 [facility] Polio (IPV/OPV) 2005-07-22 Completed [facility] 00:00:00 [facility] DTAP 2005-07-22 Completed [facility] 00:00:00 [facility] MMR 2005-07-22 Completed [facility] 00:00:00 [facility] Polio (IPV/OPV) 2005-07-22 Completed [facility] 00:00:00 [facility] DTAP 2005-07-22 Completed [facility] 00:00:00 [facility] MMR 2005-07-22 Completed [facility] 00:00:00 [facility] Polio (IPV/OPV) 2005-07-22 Completed [facility] 00:00:00 [facility] DTAP 2005-07-22 Completed [facility] 00:00:00 [facility] MMR 2005-07-22 Completed [facility] 00:00:00 [facility] Polio (IPV/OPV) 2005-07-22 Completed [facility] 00:00:00 [facility] DTAP 2005-07-22 Completed [facility] 00:00:00 [facility] MMR 2005-07-22 Completed [facility] 00:00:00 [facility] Polio (IPV/OPV) 2005-07-22 Completed [facility] 00:00:00 [facility] DTAP 2005-07-22 Completed [facility] 00:00:00 [facility] MMR 2005-07-22 Completed [facility] 00:00:00 [facility] Polio (IPV/OPV) 2005-07-22 Completed [facility] 00:00:00 [facility] DTAP 2005-07-22 Completed [facility] 00:00:00 [facility] DTAP 2005-07-22 Completed [facility] 00:00:00 [facility] MMR 2005-07-22 Completed [facility] 00:00:00 [facility] Polio (IPV/OPV) 2005-07-22 Completed [facility] 00:00:00 [facility] DTAP 2005-07-22 Completed [facility] 00:00:00 [facility] MMR 2005-07-22 Completed [facility] 00:00:00 [facility] Polio (IPV/OPV) 2005-07-22 Completed [facility] 00:00:00 [facility] DTAP 2005-07-22 Completed [facility] 00:00:00 [facility] MMR 2005-07-22 Completed [facility] 00:00:00 [facility] Polio (IPV/OPV) 2005-07-22 Completed [facility] 00:00:00 [facility] MMR 2005-07-22 Completed [facility] 00:00:00 [facility] DTAP 2005-07-22 Completed [facility] 00:00:00 [facility] MMR 2005-07-22 Completed [facility] 00:00:00 [facility] Polio (IPV/OPV) 2005-07-22 Completed [facility] 00:00:00 [facility] DTAP 2005-07-22 Completed [facility] 00:00:00 [facility] MMR 2005-07-22 Completed [facility] 00:00:00 [facility] Polio (IPV/OPV) 2005-07-22 Completed [facility] 00:00:00 [facility] Polio (IPV/OPV) 2005-07-22 Completed [facility] 00:00:00 [facility] DTAP 2005-07-22 Completed [facility] 00:00:00 [facility] MMR 2005-07-22 Completed [facility] 00:00:00 [facility] Polio (IPV/OPV) 2005-07-22 Completed [facility] 00:00:00 [facility] DTAP 2005-07-22 Completed [facility] 00:00:00 [facility] MMR 2005-07-22 Completed [facility] 00:00:00 [facility] Polio (IPV/OPV) 2005-07-22 Completed [facility] 00:00:00 [facility] DTAP 2005-07-22 Completed [facility] 00:00:00 [facility] MMR 2005-07-22 Completed [facility] 00:00:00 [facility] Polio (IPV/OPV) 2005-07-22 Completed [facility] 00:00:00 [facility] DTAP 2005-07-22 Completed [facility] 00:00:00 [facility] MMR 2005-07-22 Completed [facility] 00:00:00 [facility] Polio (IPV/OPV) 2005-07-22 Completed [facility] 00:00:00 [facility] DTAP 2005-07-22 Completed [facility] 00:00:00 [facility] MMR 2005-07-22 Completed [facility] 00:00:00 [facility] Polio (IPV/OPV) 2005-07-22 Completed [facility] 00:00:00 [facility] DTAP 2005-07-22 Completed [facility] 00:00:00 [facility] DTAP 2005-07-22 Completed [facility] 00:00:00 [facility] MMR 2005-07-22 Completed [facility] 00:00:00 [facility] Polio (IPV/OPV) 2005-07-22 Completed [facility] 00:00:00 [facility] DTAP 2005-07-22 Completed [facility] 00:00:00 [facility] MMR 2005-07-22 Completed [facility] 00:00:00 [facility] Polio (IPV/OPV) 2005-07-22 Completed [facility] 00:00:00 [facility] MMR 2005-07-22 Completed [facility] 00:00:00 [facility] DTAP 2005-07-22 Completed [facility] 00:00:00 [facility] MMR 2005-07-22 Completed [facility] 00:00:00 [facility] Polio (IPV/OPV) 2005-07-22 Completed [facility] 00:00:00 [facility] DTAP 2005-07-22 Completed [facility] 00:00:00 [facility] Polio (IPV/OPV) 2005-07-22 Completed [facility] 00:00:00 [facility] MMR 2005-07-22 Completed [facility] 00:00:00 [facility] Polio (IPV/OPV) 2005-07-22 Completed [facility] 00:00:00 [facility] DTAP 2005-07-22 Completed [facility] 00:00:00 [facility] MMR 2005-07-22 Completed [facility] 00:00:00 [facility] Polio (IPV/OPV) 2005-07-22 Completed [facility] 00:00:00 [facility] DTAP 2005-07-22 Completed [facility] 00:00:00 [facility] MMR 2005-07-22 Completed [facility] 00:00:00 [facility] Polio (IPV/OPV) 2005-07-22 Completed [facility] 00:00:00 [facility] DTAP 2005-07-22 Completed [facility] 00:00:00 [facility] MMR 2005-07-22 Completed [facility] 00:00:00 [facility] Polio (IPV/OPV) 2005-07-22 Completed [facility] 00:00:00 [facility] DTAP 2005-07-22 Completed [facility] 00:00:00 [facility] MMR 2005-07-22 Completed [facility] 00:00:00 [facility] Polio (IPV/OPV) 2005-07-22 Completed [facility] 00:00:00 [facility] DTAP 2005-07-22 Completed [facility] 00:00:00 [facility] DTAP 2005-07-22 Completed [facility] 00:00:00 [facility] MMR 2005-07-22 Completed [facility] 00:00:00 [facility] Polio (IPV/OPV) 2005-07-22 Completed [facility] 00:00:00 [facility] DTAP 2005-07-22 Completed [facility] 00:00:00 [facility] MMR 2005-07-22 Completed [facility] 00:00:00 [facility] Polio (IPV/OPV) 2005-07-22 Completed [facility] 00:00:00 [facility] MMR 2005-07-22 Completed [facility] 00:00:00 [facility] Polio (IPV/OPV) 2005-07-22 Completed [facility] 00:00:00 [facility] DTAP 2005-07-22 Completed [facility] 00:00:00 [facility] MMR 2005-07-22 Completed [facility] 00:00:00 [facility] Polio (IPV/OPV) 2005-07-22 Completed [facility] 00:00:00 [facility] DTAP 2005-07-22 Completed [facility] 00:00:00 [facility] MMR 2005-07-22 Completed [facility] 00:00:00 [facility] Polio (IPV/OPV) 2005-07-22 Completed [facility] 00:00:00 [facility] DTAP 2005-07-22 Completed [facility] 00:00:00 [facility] MMR 2005-07-22 Completed [facility] 00:00:00 [facility] Polio (IPV/OPV) 2005-07-22 Completed [facility] 00:00:00 [facility] DTAP 2005-07-22 Completed [facility] 00:00:00 [facility] MMR 2005-07-22 Completed [facility] 00:00:00 [facility] Polio (IPV/OPV) 2005-07-22 Completed [facility] 00:00:00 [facility] DTAP 2005-07-22 Completed [facility] 00:00:00 [facility] MMR 2005-07-22 Completed [facility] 00:00:00 [facility] Polio (IPV/OPV) 2005-07-22 Completed [facility] 00:00:00 [facility] DTAP 2005-07-22 Completed [facility] 00:00:00 [facility] MMR 2005-07-22 Completed [facility] 00:00:00 [facility] Polio (IPV/OPV) 2005-07-22 Completed [facility] 00:00:00 [facility] DTAP 2005-07-22 Completed [facility] 00:00:00 [facility] MMR 2005-07-22 Completed [facility] 00:00:00 [facility] Polio (IPV/OPV) 2005-07-22 Completed [facility] 00:00:00 [facility] DTAP 2005-07-22 Completed [facility] 00:00:00 [facility] MMR 2005-07-22 Completed [facility] 00:00:00 [facility] Polio (IPV/OPV) 2005-07-22 Completed [facility] 00:00:00 [facility] DTAP 2005-07-22 Completed [facility] 00:00:00 [facility] MMR 2005-07-22 Completed [facility] 00:00:00 [facility] Polio (IPV/OPV) 2005-07-22 Completed [facility] 00:00:00 [facility] DTAP 2005-07-22 Completed [facility] 00:00:00 [facility] MMR 2005-07-22 Completed [facility] 00:00:00 [facility] Polio (IPV/OPV) 2005-07-22 Completed [facility] 00:00:00 [facility] DTAP 2005-07-22 Completed [facility] 00:00:00 [facility] MMR 2005-07-22 Completed [facility] 00:00:00 [facility] Polio (IPV/OPV) 2005-07-22 Completed [facility] 00:00:00 [facility] DTAP 2005-07-22 Completed [facility] 00:00:00 [facility] MMR 2005-07-22 Completed [facility] 00:00:00 [facility] Polio (IPV/OPV) 2005-07-22 Completed [facility] 00:00:00 [facility] DTAP 2005-07-22 Completed [facility] 00:00:00 [facility] MMR 2005-07-22 Completed [facility] 00:00:00 [facility] Polio (IPV/OPV) 2005-07-22 Completed [facility] 00:00:00 [facility] DTAP 2005-07-22 Completed [facility] 00:00:00 [facility] MMR 2005-07-22 Completed [facility] 00:00:00 [facility] HEPATITIS A 2005-03-04 Completed [facility] 00:00:00 [facility] HEPATITIS A 2005-03-04 Completed [facility] 00:00:00 [facility] HEPATITIS A 2005-03-04 Completed [facility] 00:00:00 [facility] HEPATITIS A 2005-03-04 Completed [facility] 00:00:00 [facility] HEPATITIS A 2005-03-04 Completed [facility] 00:00:00 [facility] HEPATITIS A 2005-03-04 Completed [facility] 00:00:00 [facility] HEPATITIS A 2005-03-04 Completed [facility] 00:00:00 [facility] HEPATITIS A 2005-03-04 Completed [facility] 00:00:00 [facility] HEPATITIS A 2005-03-04 Completed [facility] 00:00:00 [facility] HEPATITIS A 2005-03-04 Completed [facility] 00:00:00 [facility] HEPATITIS A 2005-03-04 Completed [facility] 00:00:00 [facility] HEPATITIS A 2005-03-04 Completed [facility] 00:00:00 [facility] HEPATITIS A 2005-03-04 Completed [facility] 00:00:00 [facility] HEPATITIS A 2005-03-04 Completed [facility] 00:00:00 [facility] HEPATITIS A 2005-03-04 Completed [facility] 00:00:00 [facility] HEPATITIS A 2005-03-04 Completed [facility] 00:00:00 [facility] HEPATITIS A 2005-03-04 Completed [facility] 00:00:00 [facility] HEPATITIS A 2005-03-04 Completed [facility] 00:00:00 [facility] HEPATITIS A 2005-03-04 Completed [facility] 00:00:00 [facility] HEPATITIS A 2005-03-04 Completed [facility] 00:00:00 [facility] HEPATITIS A 2005-03-04 Completed [facility] 00:00:00 [facility] HEPATITIS A 2005-03-04 Completed [facility] 00:00:00 [facility] HEPATITIS A 2005-03-04 Completed [facility] 00:00:00 [facility] HEPATITIS A 2005-03-04 Completed [facility] 00:00:00 [facility] HEPATITIS A 2005-03-04 Completed [facility] 00:00:00 [facility] HEPATITIS A 2005-03-04 Completed [facility] 00:00:00 [facility] HEPATITIS A 2005-03-04 Completed [facility] 00:00:00 [facility] HEPATITIS A 2005-03-04 Completed [facility] 00:00:00 [facility] HEPATITIS A 2005-03-04 Completed [facility] 00:00:00 [facility] HEPATITIS A 2005-03-04 Completed [facility] 00:00:00 [facility] HEPATITIS A 2005-03-04 Completed [facility] 00:00:00 [facility] HEPATITIS A 2005-03-04 Completed [facility] 00:00:00 [facility] HEPATITIS A 2005-03-04 Completed [facility] 00:00:00 [facility] HEPATITIS A 2005-03-04 Completed [facility] 00:00:00 [facility] HEPATITIS A 2005-03-04 Completed [facility] 00:00:00 [facility] HEPATITIS A 2005-03-04 Completed [facility] 00:00:00 [facility] HEPATITIS A 2005-03-04 Completed [facility] 00:00:00 [facility] HEPATITIS A 2005-03-04 Completed [facility] 00:00:00 [facility] HEPATITIS A 2005-03-04 Completed [facility] 00:00:00 [facility] HEPATITIS A 2005-03-04 Completed [facility] 00:00:00 [facility] HEPATITIS A 2005-03-04 Completed [facility] 00:00:00 [facility] HEPATITIS A 2005-03-04 Completed [facility] 00:00:00 [facility] HEPATITIS A 2005-03-04 Completed [facility] 00:00:00 [facility] HEPATITIS A 2005-03-04 Completed [facility] 00:00:00 [facility] HEPATITIS A 2005-03-04 Completed [facility] 00:00:00 [facility] HEPATITIS A 2005-03-04 Completed [facility] 00:00:00 [facility] HEPATITIS A 2005-03-04 Completed [facility] 00:00:00 [facility] HEPATITIS A 2005-03-04 Completed [facility] 00:00:00 [facility] HEPATITIS A 2005-03-04 Completed [facility] 00:00:00 [facility] HEPATITIS A 2005-03-04 Completed [facility] 00:00:00 [facility] HEPATITIS A 2005-03-04 Completed [facility] 00:00:00 [facility] HEPATITIS A 2005-03-04 Completed [facility] 00:00:00 [facility] HEPATITIS A 2005-03-04 Completed [facility] 00:00:00 [facility] HEPATITIS A 2005-03-04 Completed [facility] 00:00:00 [facility] HEPATITIS A 2005-03-04 Completed [facility] 00:00:00 [facility] HEPATITIS A 2005-03-04 Completed [facility] 00:00:00 [facility] HEPATITIS A 2005-03-04 Completed [facility] 00:00:00 [facility] HEPATITIS A 2005-03-04 Completed [facility] 00:00:00 [facility] HEPATITIS A 2005-03-04 Completed [facility] 00:00:00 [facility] HEPATITIS A 2005-03-04 Completed [facility] 00:00:00 [facility] HEPATITIS A 2005-03-04 Completed [facility] 00:00:00 [facility] HEPATITIS A 2005-03-04 Completed [facility] 00:00:00 [facility] HEPATITIS A 2005-03-04 Completed [facility] 00:00:00 [facility] HEPATITIS A 2005-03-04 Completed [facility] 00:00:00 [facility] HEPATITIS A 2005-03-04 Completed [facility] 00:00:00 [facility] HEPATITIS A 2005-03-04 Completed [facility] 00:00:00 [facility] HEPATITIS A 2005-03-04 Completed [facility] 00:00:00 [facility] HEPATITIS A 2005-03-04 Completed [facility] 00:00:00 [facility] HEPATITIS A 2005-03-04 Completed [facility] 00:00:00 [facility] HEPATITIS A 2005-03-04 Completed [facility] 00:00:00 [facility] HEPATITIS A 2005-03-04 Completed [facility] 00:00:00 [facility] HEPATITIS A 2005-03-04 Completed [facility] 00:00:00 [facility] HEPATITIS A 2005-03-04 Completed [facility] 00:00:00 [facility] HEPATITIS A 2005-03-04 Completed [facility] 00:00:00 [facility] HEPATITIS A 2005-03-04 Completed [facility] 00:00:00 [facility] HEPATITIS A 2005-03-04 Completed [facility] 00:00:00 [facility] HEPATITIS A 2005-03-04 Completed [facility] 00:00:00 [facility] Pneumococcal 7 2002-10-22 Completed [facility] Conjugate, PCV7 00:00:00 [facility] 2002-10-22 Completed [facility] 00:00:00 [facility] Pneumococcal 7 2002-10-22 Completed [facility] Conjugate, PCV7 00:00:00 [facility]ar[facility] DTAP 2002-10-22 Completed [facility] 00:00:00 [facility] Pneumococcal 7 2002-10-22 Completed [facility] Conjugate, PCV7 00:00:00 [facility]Pre[facility]ar[facility] DTAP 2002-10-22 Completed [facility] 00:00:00 [facility] Pneumococcal 7 2002-10-22 Completed [facility] Conjugate, PCV7 00:00:00 [facility] 2002-10-22 Completed [facility] 00:00:00 [facility] Pneumococcal 7 2002-10-22 Completed [facility] Conjugate, PCV7 00:00:00 [facility] 2002-10-22 Completed [facility] 00:00:00 [facility] Pneumococcal 7 2002-10-22 Completed [facility] Conjugate, PCV7 00:00:00 [place] [facility] DTAP 2002-10-22 Completed [facility] 00:00:00 [facility] Pneumococcal 7 2002-10-22 Completed [facility] Conjugate, PCV7 00:00:00 [facility]Pre[facility]ar[facility] DTAP 2002-10-22 Completed [facility] 00:00:00 [facility] Pneumococcal 7 2002-10-22 Completed [facility] Conjugate, PCV7 00:00:00 [facility]Pre[facility]ar[facility] DTAP 2002-10-22 Completed [facility] 00:00:00 [facility] Pneumococcal 7 2002-10-22 Completed [facility] Conjugate, PCV7 00:00:00 [place] [facility]Pre[facility]ar[facility] DTAP 2002-10-22 Completed [facility] 00:00:00 [facility] Pneumococcal 7 2002-10-22 Completed [facility] Conjugate, PCV7 00:00:00 [place] [facility]Pre[facility]ar[facility] DTAP 2002-10-22 Completed [facility] 00:00:00 [facility] Pneumococcal 7 2002-10-22 Completed [facility] Conjugate, PCV7 00:00:00 [place] [facility]Pre[facility]ar[facility] DTAP 2002-10-22 Completed [facility] 00:00:00 [facility] Pneumococcal 7 2002-10-22 Completed [facility] Conjugate, PCV7 00:00:00 [place] [facility]Pre[facility]ar[facility] DTAP 2002-10-22 Completed [facility] 00:00:00 [facility] Pneumococcal 7 2002-10-22 Completed [facility] Conjugate, PCV7 00:00:00 [place] [facility]Pre[facility]ar[facility] DTAP 2002-10-22 Completed [facility] 00:00:00 [facility] Pneumococcal 7 2002-10-22 Completed [facility] Conjugate, PCV7 00:00:00 [place] [facility]Pre[facility]ar[facility] DTAP 2002-10-22 Completed [facility] 00:00:00 [facility] Pneumococcal 7 2002-10-22 Completed [facility] Conjugate, PCV7 00:00:00 [place] [facility]Prevnar7[facility] DTAP 2002-10-22 Completed [facility] 00:00:00 [facility] Pneumococcal 7 2002-10-22 Completed [facility] Conjugate, PCV7 00:00:00 [place] [facility]Prevnar7[facility] DTAP 2002-10-22 Completed [facility] 00:00:00 [facility] Pneumococcal 7 2002-10-22 Completed [facility] Conjugate, PCV7 00:00:00 [place] [facility]Prevnar7[facility] DTAP 2002-10-22 Completed [facility] 00:00:00 [facility] Pneumococcal 7 2002-10-22 Completed [facility] Conjugate, PCV7 00:00:00 [place] [facility]Prevnar7[facility] DTAP 2002-10-22 Completed [facility] 00:00:00 [facility] Pneumococcal 7 2002-10-22 Completed [facility] Conjugate, PCV7 00:00:00 [place] [facility]Prevnar7[facility] DTAP 2002-10-22 Completed [facility] 00:00:00 [facility] Pneumococcal 7 2002-10-22 Completed [facility] Conjugate, PCV7 00:00:00 [place] [facility]Prevnar[facility] DTAP 2002-10-22 Completed [facility] 00:00:00 [facility] Pneumococcal 7 2002-10-22 Completed [facility] Conjugate, PCV7 00:00:00 [place] [facility]Prevnar7[facility] DTAP 2002-10-22 Completed [facility] 00:00:00 [facility] Pneumococcal 7 2002-10-22 Completed [facility] Conjugate, PCV7 00:00:00 [place] [facility] (Prevnar7[facility] DTAP 2002-10-22 Completed [facility] 00:00:00 [facility] Pneumococcal 7 2002-10-22 Completed University of Conjugate, PCV7 00:00:00 [place] [facility] (Prevnar7) [facility] DTAP 2002-10-22 Completed [facility] of 00:00:00 [facility] Pneumococcal 7 2002-10-22 Completed [facility] of Conjugate, PCV7 00:00:00 [place] [facility] (Prevnar7) [facility] DTAP 2002-10-22 Completed [facility] of 00:00:00 [facility] Pneumococcal 7 2002-10-22 Completed [facility] of Conjugate, PCV7 00:00:00 [place] [facility] (Prevnar7) [facility] DTAP 2002-10-22 Completed [facility] of 00:00:00 [facility] Pneumococcal 7 2002-10-22 Completed [facility] of Conjugate, PCV7 00:00:00 [place] [facility] (Prevnar7) [facility] DTAP 2002-10-22 Completed [facility] 00:00:00 [facility] Pneumococcal 7 2002-10-22 Completed [facility] of Conjugate, PCV7 00:00:00 [place] [facility] (Prevnar7) [facility] DTAP 2002-10-22 Completed [facility] 00:00:00 [facility] Pneumococcal 7 2002-10-22 Completed [facility] of Conjugate, PCV7 00:00:00 [place] [facility] (Prevnar7) [facility] DTAP 2002-10-22 Completed [facility] of 00:00:00 [facility] DTAP 2002-10-22 Completed [facility] of 00:00:00 [facility] Pneumococcal 7 2002-10-22 Completed [facility] Conjugate, PCV7 00:00:00 [place] [facility] (Prevnar7) [facility] DTAP 2002-10-22 Completed [facility] 00:00:00 [facility] Pneumococcal 7 2002-10-22 Completed [facility] Conjugate, PCV7 00:00:00 [place] [facility] (Prevnar7) [facility] DTAP 2002-10-22 Completed [facility] 00:00:00 [facility] Pneumococcal 7 2002-10-22 Completed [facility] Conjugate, PCV7 00:00:00 [place] [facility] (Prevnar7) [facility] DTAP 2002-10-22 Completed [facility] 00:00:00 [facility] Pneumococcal 7 2002-10-22 Completed [facility] Conjugate, PCV7 00:00:00 [place] [facility] (Prevnar7) [facility] Pneumococcal 7 2002-10-22 Completed [facility] Conjugate, PCV7 00:00:00 [place] [facility] (Prevnar7) [facility] DTAP 2002-10-22 Completed [facility] 00:00:00 [facility] Pneumococcal 7 2002-10-22 Completed [facility] of Conjugate, PCV7 00:00:00 [place] [facility] (Prevnar7) [facility] DTAP 2002-10-22 Completed [facility] 00:00:00 [facility] Pneumococcal 7 2002-10-22 Completed [facility] Conjugate, PCV7 00:00:00 [place] [facility] (Prevnar7) [facility] DTAP 2002-10-22 Completed [facility] 00:00:00 [facility] Pneumococcal 7 2002-10-22 Completed [facility] Conjugate, PCV7 00:00:00 [place] [facility] (Prevnar7) [facility] DTAP 2002-10-22 Completed [facility] 00:00:00 [facility] Pneumococcal 7 2002-10-22 Completed [facility] of Conjugate, PCV7 00:00:00 [place] [facility] (Prevnar7) [facility] DTAP 2002-10-22 Completed [facility] 00:00:00 [facility] Pneumococcal 7 2002-10-22 Completed [facility] of Conjugate, PCV7 00:00:00 [place] [facility] (Prevnar7) [facility] DTAP 2002-10-22 Completed [facility] 00:00:00 [facility] Pneumococcal 7 2002-10-22 Completed [facility] of Conjugate, PCV7 00:00:00 [place] [facility] (Prevnar7) [facility] DTAP 2002-10-22 Completed [facility] 00:00:00 [facility] Pneumococcal 7 2002-10-22 Completed [facility] Conjugate, PCV7 00:00:00 [place] [facility] (Prevnar7) [facility] DTAP 2002-10-22 Completed [facility] 00:00:00 [facility] Pneumococcal 7 2002-10-22 Completed [facility] of Conjugate, PCV7 00:00:00 [place] [facility] (Prevnar7) [facility] DTAP 2002-10-22 Completed [facility] 00:00:00 [facility] DTAP 2002-10-22 Completed [facility] of 00:00:00 [facility] Pneumococcal 7 2002-10-22 Completed [facility] of Conjugate, PCV7 00:00:00 [place] [facility] (Prevnar7) [facility] DTAP 2002-10-22 Completed [facility] 00:00:00 [facility] Pneumococcal 7 2002-10-22 Completed [facility] of Conjugate, PCV7 00:00:00 [place] [facility] (Prevnar7) [facility] DTAP 2002-10-22 Completed [facility] 00:00:00 [facility] Pneumococcal 7 2002-10-22 Completed [facility] of Conjugate, PCV7 00:00:00 [place] [facility] (Prevnar7) [facility] DTAP 2002-10-22 Completed [facility] 00:00:00 [facility] Pneumococcal 7 2002-10-22 Completed [facility] Conjugate, PCV7 00:00:00 [place] [facility] (Prevnar[facility] Pneumococcal 7 2002-10-22 Completed [facility] Conjugate, PCV7 00:00:00 [place] [facility] (Prevnar7) [facility] DTAP 2002-10-22 Completed [facility] 00:00:00 [facility] Pneumococcal 7 2002-10-22 Completed [facility] of Conjugate, PCV7 00:00:00 [place] [facility] (Prevnar7) [facility] DTAP 2002-10-22 Completed [facility] 00:00:00 [facility] Pneumococcal 7 2002-10-22 Completed [facility] Conjugate, PCV7 00:00:00 [place] [facility] (Prevnar7) [facility] DTAP 2002-10-22 Completed [facility] 00:00:00 [facility] Pneumococcal 7 2002-10-22 Completed [facility] Conjugate, PCV7 00:00:00 [place] [facility] (Prevnar7) [facility] DTAP 2002-10-22 Completed [facility] 00:00:00 [facility] Pneumococcal 7 2002-10-22 Completed [facility] Conjugate, PCV7 00:00:00 [place] [facility] (Prevnar7) [facility] DTAP 2002-10-22 Completed [facility] 00:00:00 [facility] Pneumococcal 7 2002-10-22 Completed [facility] of Conjugate, PCV7 00:00:00 [place] [facility] (Prevnar7) [facility] DTAP 2002-10-22 Completed [facility] of 00:00:00 [facility] Pneumococcal 7 2002-10-22 Completed [facility] of Conjugate, PCV7 00:00:00 [place] [facility] (Prevnar7) [facility] DTAP 2002-10-22 Completed [facility] 00:00:00 [facility] DTAP 2002-10-22 Completed [facility] of 00:00:00 [facility] Pneumococcal 7 2002-10-22 Completed [facility] of Conjugate, PCV7 00:00:00 [place] [facility] (Prevnar7) [facility] DTAP 2002-10-22 Completed [facility] 00:00:00 [facility] Pneumococcal 7 2002-10-22 Completed [facility] Conjugate, PCV7 00:00:00 [place] [facility] (Prevnar7) [facility] DTAP 2002-10-22 Completed [facility] 00:00:00 [facility] Pneumococcal 7 2002-10-22 Completed [facility] Conjugate, PCV7 00:00:00 [place] [facility] (Prevnar7[facility] Pneumococcal 7 2002-10-22 Completed [facility] Conjugate, PCV7 00:00:00 [place] [facility] (Prevnar7) [facility] DTAP 2002-10-22 Completed [facility] 00:00:00 [facility] Pneumococcal 7 2002-10-22 Completed [facility] Conjugate, PCV7 00:00:00 [place] [facility] (Prevnar7) [facility] DTAP 2002-10-22 Completed [facility] 00:00:00 [facility] Pneumococcal 7 2002-10-22 Completed [facility] Conjugate, PCV7 00:00:00 [place] [facility] (Prevnar7) [facility] DTAP 2002-10-22 Completed [facility] 00:00:00 [facility] Pneumococcal 7 2002-10-22 Completed [facility] Conjugate, PCV7 00:00:00 [place] [facility] (Prevnar7) [facility] DTAP 2002-10-22 Completed [facility] 00:00:00 [facility] Pneumococcal 7 2002-10-22 Completed [facility] Conjugate, PCV7 00:00:00 [place] [facility] (Prevnar7) [facility] DTAP 2002-10-22 Completed [facility] 00:00:00 [facility] Pneumococcal 7 2002-10-22 Completed [facility] Conjugate, PCV7 00:00:00 [place] [facility] (Prevnar7) [facility] DTAP 2002-10-22 Completed [facility] 00:00:00 [facility] DTAP 2002-10-22 Completed [facility] of 00:00:00 [facility] Pneumococcal 7 2002-10-22 Completed [facility] Conjugate, PCV7 00:00:00 [place] [facility] (Prevnar7) [facility] DTAP 2002-10-22 Completed [facility] 00:00:00 [facility] Pneumococcal 7 2002-10-22 Completed [facility] Conjugate, PCV7 00:00:00 [place] [facility] (Prevnar7) [facility] Pneumococcal 7 2002-10-22 Completed [facility] Conjugate, PCV7 00:00:00 [place] [facility] (Prevnar7) [facility] DTAP 2002-10-22 Completed [facility] 00:00:00 [facility] Pneumococcal 7 2002-10-22 Completed [facility] of Conjugate, PCV7 00:00:00 [place] [facility] (Prevnar7) [facility] DTAP 2002-10-22 Completed [facility] 00:00:00 [facility] Pneumococcal 7 2002-10-22 Completed [facility] of Conjugate, PCV7 00:00:00 [place] [facility] (Prevnar7) [facility] DTAP 2002-10-22 Completed [facility] 00:00:00 [facility] Pneumococcal 7 2002-10-22 Completed [facility] Conjugate, PCV7 00:00:00 [place] [facility] (Prevnar7) [facility] DTAP 2002-10-22 Completed [facility] 00:00:00 [facility] Pneumococcal 7 2002-10-22 Completed [facility] Conjugate, PCV7 00:00:00 [place] [facility] (Prevnar7) [facility] DTAP 2002-10-22 Completed [facility] 00:00:00 [facility] Pneumococcal 7 2002-10-22 Completed [facility] Conjugate, PCV7 00:00:00 [place] [facility] (Prevnar7) [facility] DTAP 2002-10-22 Completed [facility] 00:00:00 [facility] Pneumococcal 7 2002-10-22 Completed [facility] of Conjugate, PCV7 00:00:00 [place] [facility] (Prevnar7) [facility] DTAP 2002-10-22 Completed [facility] 00:00:00 [facility] Pneumococcal 7 2002-10-22 Completed [facility] of Conjugate, PCV7 00:00:00 [place] [facility] (Prevnar7) [facility] DTAP 2002-10-22 Completed [facility] 00:00:00 [facility] Pneumococcal 7 2002-10-22 Completed [facility] of Conjugate, PCV7 00:00:00 [place] [facility] (Prevnar7) [facility] DTAP 2002-10-22 Completed [facility] 00:00:00 [facility] Pneumococcal 7 2002-10-22 Completed [facility] of Conjugate, PCV7 00:00:00 [place] [facility] (Prevnar7) [facility] DTAP 2002-10-22 Completed [facility] 00:00:00 [facility] Pneumococcal 7 2002-10-22 Completed [facility] of Conjugate, PCV7 00:00:00 [place] [facility] (Prevnar7) [facility] DTAP 2002-10-22 Completed [facility] 00:00:00 [facility] Pneumococcal 7 2002-10-22 Completed [facility] of Conjugate, PCV7 00:00:00 [place] [facility] (Prevnar7) [facility] DTAP 2002-10-22 Completed [facility] 00:00:00 [facility] Pneumococcal 7 2002-10-22 Completed [facility] Conjugate, PCV7 00:00:00 [place] [facility] (Prevnar7) [facility] DTAP 2002-10-22 Completed [facility] 00:00:00 [facility] Pneumococcal 7 2002-10-22 Completed [facility] of Conjugate, PCV7 00:00:00 [place] [facility] (Prevnar7) [facility] DTAP 2002-10-22 Completed [facility] 00:00:00 [facility] Pneumococcal 7 2002-07-02 Completed [facility] of Conjugate, PCV7 00:00:00 [place] [facility] (Prevnar7) [facility] Varicella 2002-07-02 Completed University of (varivax)(chicken 00:00:00 [facility] edical pox) Branch HIB 4 Dose Schedule 2002-07-02 Completed Unive rsity of 00:00:00 [facility] MMR 2002-07-02 Completed [facility] of 00:00:00 [facility] Pneumococcal 7 2002-07-02 Completed [facility] Conjugate, PCV7 00:00:00 [place] [facility] (Prevnar7) [facility] Varicella 2002-07-02 Completed [facility] (varivax)(chicken 00:00:00 [place] [facility] pox) [facility] HIB 4 Dose Schedule 2002-07-02 Completed Unive rsity of 00:00:00 [facility] MMR 2002-07-02 Completed [facility] of 00:00:00 [facility] Pneumococcal 7 2002-07-02 Completed [facility] of Conjugate, PCV7 00:00:00 [place] [facility] (Prevnar7) [facility] Varicella 2002-07-02 Completed [facility] of (varivax)(chicken 00:00:00 [place] [facility] pox) [facility] HIB 4 Dose Schedule 2002-07-02 Completed Unive rsity of 00:00:00 [facility] MMR 2002-07-02 Completed [facility] of 00:00:00 [facility] Pneumococcal 7 2002-07-02 Completed [facility] of Conjugate, PCV7 00:00:00 [place] [facility] (Prevnar7) [facility] Varicella 2002-07-02 Completed [facility] (varivax)(chicken 00:00:00 [place] [facility] pox) [facility] HIB 4 Dose Schedule 2002-07-02 Completed Unive rsity of 00:00:00 [facility] MMR 2002-07-02 Completed [facility] of 00:00:00 [facility] Pneumococcal 7 2002-07-02 Completed [facility] of Conjugate, PCV7 00:00:00 [place] [facility] (Prevnar7) [facility] Varicella 2002-07-02 Completed [facility] (varivax)(chicken 00:00:00 [place] [facility] pox) [facility] HIB 4 Dose Schedule 2002-07-02 Completed Unive rsity of 00:00:00 [facility] MMR 2002-07-02 Completed [facility] of 00:00:00 [facility] Pneumococcal 7 2002-07-02 Completed [facility] of Conjugate, PCV7 00:00:00 [place] [facility] (Prevnar7) [facility] Varicella 2002-07-02 Completed [facility] (varivax)(chicken 00:00:00 [place] [facility] pox) [facility] HIB 4 Dose Schedule 2002-07-02 Completed Unive rsity of 00:00:00 [facility] MMR 2002-07-02 Completed [facility] 00:00:00 [facility] Pneumococcal 7 2002-07-02 Completed [facility] of Conjugate, PCV7 00:00:00 [place] [facility] (Prevnar7) [facility] Varicella 2002-07-02 Completed [facility] (varivax)(chicken 00:00:00 [place] [facility] pox) [facility] HIB 4 Dose Schedule 2002-07-02 Completed Unive rsity of 00:00:00 [facility] MMR 2002-07-02 Completed [facility] of 00:00:00 [facility] Pneumococcal 7 2002-07-02 Completed [facility] of Conjugate, PCV7 00:00:00 [place] [facility] (Prevnar7) [facility] Varicella 2002-07-02 Completed [facility] (varivax)(chicken 00:00:00 [place] [facility] pox) [facility] HIB 4 Dose Schedule 2002-07-02 Completed Unive rsity of 00:00:00 [facility] MMR 2002-07-02 Completed [facility] of 00:00:00 [facility] Pneumococcal 7 2002-07-02 Completed [facility] of Conjugate, PCV7 00:00:00 [place] [facility] (Prevnar7) [facility] Varicella 2002-07-02 Completed [facility] of (varivax)(chicken 00:00:00 [place] [facility] pox) [facility] HIB 4 Dose Schedule 2002-07-02 Completed Unive rsity of 00:00:00 [facility] MMR 2002-07-02 Completed [facility] 00:00:00 [facility] Pneumococcal 7 2002-07-02 Completed [facility] of Conjugate, PCV7 00:00:00 [place] [facility] (Prevnar7) [facility] Varicella 2002-07-02 Completed [facility] of (varivax)(chicken 00:00:00 [place] [facility] pox) [facility] HIB 4 Dose Schedule 2002-07-02 Completed Unive rsity of 00:00:00 [facility] MMR 2002-07-02 Completed [facility] 00:00:00 [facility] Pneumococcal 7 2002-07-02 Completed [facility] of Conjugate, PCV7 00:00:00 [place] [facility] (Prevnar7) [facility] Varicella 2002-07-02 Completed [facility] (varivax)(chicken 00:00:00 [place] [facility] pox) [facility] HIB 4 Dose Schedule 2002-07-02 Completed Unive rsity of 00:00:00 [facility] MMR 2002-07-02 Completed [facility] of 00:00:00 [facility] Pneumococcal 7 2002-07-02 Completed [facility] of Conjugate, PCV7 00:00:00 [place] [facility] (Prevnar7) [facility] Varicella 2002-07-02 Completed [facility] of (varivax)(chicken 00:00:00 [place] [facility] pox) [facility] HIB 4 Dose Schedule 2002-07-02 Completed Unive rsity of 00:00:00 [facility] MMR 2002-07-02 Completed [facility] 00:00:00 [facility] Pneumococcal 7 2002-07-02 Completed [facility] of Conjugate, PCV7 00:00:00 [place] [facility] (Prevnar7) [facility] Varicella 2002-07-02 Completed [facility] (varivax)(chicken 00:00:00 [place] [facility] pox) [facility] HIB 4 Dose Schedule 2002-07-02 Completed Unive rsity of 00:00:00 [facility] MMR 2002-07-02 Completed [facility] of 00:00:00 [facility] Pneumococcal 7 2002-07-02 Completed [facility] of Conjugate, PCV7 00:00:00 [place] [facility] (Prevnar7) [facility] Varicella 2002-07-02 Completed [facility] of (varivax)(chicken 00:00:00 [place] [facility] pox) [facility] HIB 4 Dose Schedule 2002-07-02 Completed Unive rsity of 00:00:00 [facility] MMR 2002-07-02 Completed [facility] of 00:00:00 [facility] Pneumococcal 7 2002-07-02 Completed [facility] of Conjugate, PCV7 00:00:00 [place] [facility] (Prevnar7) [facility] Varicella 2002-07-02 Completed [facility] of (varivax)(chicken 00:00:00 [place] [facility] pox) [facility] HIB 4 Dose Schedule 2002-07-02 Completed Unive rsity of 00:00:00 [facility] MMR 2002-07-02 Completed [facility] 00:00:00 [facility] Pneumococcal 7 2002-07-02 Completed [facility] of Conjugate, PCV7 00:00:00 [place] [facility] (Prevnar7) [facility] Varicella 2002-07-02 Completed [facility] of (varivax)(chicken 00:00:00 [place] [facility] pox) [facility] HIB 4 Dose Schedule 2002-07-02 Completed Unive rsity of 00:00:00 [facility] MMR 2002-07-02 Completed [facility] of 00:00:00 [facility] Pneumococcal 7 2002-07-02 Completed [facility] of Conjugate, PCV7 00:00:00 [place] [facility] (Prevnar7) [facility] Varicella 2002-07-02 Completed [facility] of (varivax)(chicken 00:00:00 [place] [facility] pox) [facility] HIB 4 Dose Schedule 2002-07-02 Completed Unive rsity of 00:00:00 [facility] MMR 2002-07-02 Completed [facility] of 00:00:00 [facility] Pneumococcal 7 2002-07-02 Completed [facility] of Conjugate, PCV7 00:00:00 [place] [facility] (Prevnar7) [facility] Varicella 2002-07-02 Completed [facility] of (varivax)(chicken 00:00:00 [place] [facility] pox) [facility] HIB 4 Dose Schedule 2002-07-02 Completed Unive rsity of 00:00:00 [facility] MMR 2002-07-02 Completed [facility] 00:00:00 [facility] Pneumococcal 7 2002-07-02 Completed [facility] of Conjugate, PCV7 00:00:00 [place] [facility] (Prevnar7) [facility] Varicella 2002-07-02 Completed [facility] of (varivax)(chicken 00:00:00 [facility] edical pox) Branch HIB 4 Dose Schedule 2002-07-02 Completed Unive rsity of 00:00:00 [facility] MMR 2002-07-02 Completed [facility] of 00:00:00 [facility] Pneumococcal 7 2002-07-02 Completed [facility] of Conjugate, PCV7 00:00:00 [place] [facility] (Prevnar7) [facility] Varicella 2002-07-02 Completed [facility] of (varivax)(chicken 00:00:00 [place] [facility] pox) [facility] HIB 4 Dose Schedule 2002-07-02 Completed Unive rsity of 00:00:00 [facility] MMR 2002-07-02 Completed [facility] of 00:00:00 [facility] Pneumococcal 7 2002-07-02 Completed [facility] of Conjugate, PCV7 00:00:00 [place] [facility] (Prevnar7) [facility] Varicella 2002-07-02 Completed [facility] of (varivax)(chicken 00:00:00 [place] [facility] pox) [facility] HIB 4 Dose Schedule 2002-07-02 Completed Unive rsity of 00:00:00 [facility] MMR 2002-07-02 Completed [facility] of 00:00:00 [facility] Pneumococcal 7 2002-07-02 Completed [facility] of Conjugate, PCV7 00:00:00 [place] [facility] (Prevnar7) [facility] Varicella 2002-07-02 Completed [facility] of (varivax)(chicken 00:00:00 [place] [facility] pox) [facility] HIB 4 Dose Schedule 2002-07-02 Completed Unive rsity of 00:00:00 [facility] MMR 2002-07-02 Completed [facility] of 00:00:00 [facility] Pneumococcal 7 2002-07-02 Completed [facility] of Conjugate, PCV7 00:00:00 [place] [facility] (Prevnar7) [facility] Varicella 2002-07-02 Completed [facility] of (varivax)(chicken 00:00:00 [place] [facility] pox) [facility] HIB 4 Dose Schedule 2002-07-02 Completed Unive rsity of 00:00:00 [facility] MMR 2002-07-02 Completed [facility] of 00:00:00 [facility] Pneumococcal 7 2002-07-02 Completed [facility] of Conjugate, PCV7 00:00:00 [place] [facility] (Prevnar7) [facility] Varicella 2002-07-02 Completed [facility] of (varivax)(chicken 00:00:00 [place] [facility] pox) [facility] HIB 4 Dose Schedule 2002-07-02 Completed Unive rsity of 00:00:00 [facility] MMR 2002-07-02 Completed [facility] of 00:00:00 [facility] Pneumococcal 7 2002-07-02 Completed [facility] of Conjugate, PCV7 00:00:00 [place] [facility] (Prevnar7) [facility] Varicella 2002-07-02 Completed [facility] of (varivax)(chicken 00:00:00 [place] [facility] pox) [facility] HIB 4 Dose Schedule 2002-07-02 Completed Unive rsity of 00:00:00 [facility] MMR 2002-07-02 Completed [facility] of 00:00:00 [facility] Pneumococcal 7 2002-07-02 Completed [facility] of Conjugate, PCV7 00:00:00 [place] [facility] (Prevnar7) [facility] Varicella 2002-07-02 Completed [facility] of (varivax)(chicken 00:00:00 [place] [facility] pox) [facility] HIB 4 Dose Schedule 2002-07-02 Completed Unive rsity of 00:00:00 [facility] MMR 2002-07-02 Completed [facility] of 00:00:00 [facility] Pneumococcal 7 2002-07-02 Completed [facility] of Conjugate, PCV7 00:00:00 [place] [facility] (Prevnar7) [facility] Varicella 2002-07-02 Completed [facility] of (varivax)(chicken 00:00:00 [place] [facility] pox) [facility] HIB 4 Dose Schedule 2002-07-02 Completed Unive rsity of 00:00:00 [facility] MMR 2002-07-02 Completed [facility] of 00:00:00 [facility] Pneumococcal 7 2002-07-02 Completed [facility] of Conjugate, PCV7 00:00:00 [place] [facility] (Prevnar7) [facility] Varicella 2002-07-02 Completed [facility] of (varivax)(chicken 00:00:00 [place] [facility] pox) [facility] HIB 4 Dose Schedule 2002-07-02 Completed [facility]ive rsity of 00:00:00 [facility] MMR 2002-07-02 Completed [facility] of 00:00:00 [facility] Pneumococcal 7 2002-07-02 Completed [facility] of Conjugate, PCV7 00:00:00 [place] [facility] (Prevnar7) [facility] Varicella 2002-07-02 Completed [facility] of (varivax)(chicken 00:00:00 [facility] edical pox) Branch HIB 4 Dose Schedule 2002-07-02 Completed Unive rsity of 00:00:00 [facility] HIB 4 Dose Schedule 2002-07-02 Completed Unive rsity of 00:00:00 [facility] MMR 2002-07-02 Completed [facility] of 00:00:00 [facility] Pneumococcal 7 2002-07-02 Completed [facility] of Conjugate, PCV7 00:00:00 [place] [facility] (Prevnar7) [facility] Varicella 2002-07-02 Completed [facility] of (varivax)(chicken 00:00:00 [facility] edical pox) Branch HIB 4 Dose Schedule 2002-07-02 Completed Unive rsity of 00:00:00 [facility] MMR 2002-07-02 Completed [facility] of 00:00:00 [facility] MMR 2002-07-02 Completed [facility] of 00:00:00 [facility] Pneumococcal 7 2002-07-02 Completed [facility] of Conjugate, PCV7 00:00:00 [place] [facility] (Prevnar7) [facility] Varicella 2002-07-02 Completed [facility] of (varivax)(chicken 00:00:00 [place] [facility] pox) [facility] HIB 4 Dose Schedule 2002-07-02 Completed Unive rsity of 00:00:00 [facility] Pneumococcal 7 2002-07-02 Completed [facility] of Conjugate, PCV7 00:00:00 [place] [facility] (Prevnar7) [facility] MMR 2002-07-02 Completed [facility] of 00:00:00 [facility] Pneumococcal 7 2002-07-02 Completed [facility] of Conjugate, PCV7 00:00:00 [place] [facility] (Prevnar7) [facility] Varicella 2002-07-02 Completed [facility] of (varivax)(chicken 00:00:00 [place] [facility] pox) [facility] HIB 4 Dose Schedule 2002-07-02 Completed Unive rsity of 00:00:00 [facility] MMR 2002-07-02 Completed [facility] of 00:00:00 [facility] Pneumococcal 7 2002-07-02 Completed [facility] of Conjugate, PCV7 00:00:00 [place] [facility] (Prevnar7) [facility] Varicella 2002-07-02 Completed [facility] of (varivax)(chicken 00:00:00 [place] [facility] pox) [facility] Varicella 2002-07-02 Completed [facility] of (varivax)(chicken 00:00:00 [place] [facility] pox) [facility] HIB 4 Dose Schedule 2002-07-02 Completed [facility]ive rsity of 00:00:00 [facility] MMR 2002-07-02 Completed [facility] of 00:00:00 [facility] Pneumococcal 7 2002-07-02 Completed [facility] of Conjugate, PCV7 00:00:00 [place] [facility] (Prevnar7) [facility] Varicella 2002-07-02 Completed [facility] of (varivax)(chicken 00:00:00 [place] [facility] HIB 4 Dose Schedule 2002-07-02 Completed [facility] 00:00:00 [facility] MMR 2002-07-02 Completed [facility] 00[facility]00:00 [facility] Pneumococcal 7 2002-07-02 Completed [facility] of Conjugate, PCV7 00:00:00 [place] [facility] (Prevnar7) [facility] Varicella 2002-07-02 Completed [facility] of (varivax)(chicken 00:00:00 [place] [facility] HIB 4 Dose Schedule 2002-07-02 Completed [facility] 00:00:00 [facility] MMR 2002-07-02 Completed [facility] 00:00:00 [facility] Pneumococcal 7 2002-07-02 Completed [facility] Conjugate, PCV7 00:00:00 [place] [facility] (Prevnar7[facility] Varicella 2002-07-02 Completed [facility] (varivax)(chicken 00:00:00 [place] [facility] HIB 4 Dose Schedule 2002-07-02 Completed [facility] 00:00:00 [facility] MMR 2002-07-02 Completed [facility] 00:00:00 [facility] Pneumococcal 7 2002-07-02 Completed [facility] Conjugate, PCV7 00:00:00 [place] [facility] (Pre[facility]ar[facility] Varicella 2002-07-02 Completed [facility] (varivax)(chicken 00:00:00 [place] [facility] HIB 4 Dose Schedule 2002-07-02 Completed [facility] 00:00:00 [facility] MMR 2002-07-02 Completed [facility] 00:00:00 [facility] Pneumococcal 7 2002-07-02 Completed [facility] Conjugate, PCV7 00:00:00 [place] [facility] (Prevnar7[facility] Varicella 2002-07-02 Completed [facility] (varivax)(chicken 00:00:00 [place] [facility] HIB 4 Dose Schedule 2002-07-02 Completed [facility] 00:00:00 [facility] MMR 2002-07-02 Completed [facility] 00:00:00 [facility] Pneumococcal 7 2002-07-02 Completed [facility] Conjugate, PCV7 00:00:00 [place] [facility] (Prevnar7[facility] Varicella 2002-07-02 Completed [facility] (varivax)(chicken 00:00:00 [place] [facility] HIB 4 Dose Schedule 2002-07-02 Completed [facility] 00:00:00 [facility] MMR 2002-07-02 Completed [facility] 00:00:00 [facility] Pneumococcal 7 2002-07-02 Completed [facility] Conjugate, PCV7 00:00:00 [place] [facility] (Prevnar7) [facility] Varicella 2002-07-02 Completed [facility] (varivax)(chicken 00:00:00 [place] [facility] HIB 4 Dose Schedule 2002-07-02 Completed [facility] 00:00:00 [facility] MMR 2002-07-02 Completed [facility] 00:00:00 [facility] Pneumococcal 7 2002-07-02 Completed [facility] Conjugate, PCV7 00:00:00 [place] [facility] (Prevnar7[facility] Varicella 2002-07-02 Completed [facility] (varivax)(chicken 00:00:00 [place] [facility] HIB 4 Dose Schedule 2002-07-02 Completed [facility] 00:00:00 [facility] HIB 4 Dose Schedule 2002-07-02 Completed [facility] 00:00:00 [facility] MMR 2002-07-02 Completed [facility] 00:00:00 [facility] Pneumococcal 7 2002-07-02 Completed [facility] Conjugate, PCV7 00:00:00 [place] [facility] (Prevnar7) [facility] Varicella 2002-07-02 Completed [facility] (varivax)(chicken 00:00:00 [place] [facility] HIB 4 Dose Schedule 2002-07-02 Completed [facility] 00:00:00 [facility] MMR 2002-07-02 Completed [facility] 00:00:00 [facility] Pneumococcal 7 2002-07-02 Completed [facility] Conjugate, PCV7 00:00:00 [place] [facility] (Prevnar7) [facility] Varicella 2002-07-02 Completed [facility] of (varivax)(chicken 00:00:00 [facility] edical pox) Branch MMR 2002-07-02 Completed [facility] 00:00:00 [facility] HIB 4 Dose Schedule 2002-07-02 Completed [facility] 00:00:00 [facility] MMR 2002-07-02 Completed [facility] 00:00:00 [facility] Pneumococcal 7 2002-07-02 Completed [facility] Conjugate, PCV7 00:00:00 [place] [facility] (Prevnar7) [facility] Pneumococcal 7 2002-07-02 Completed [facility] Conjugate, PCV7 00:00:00 [place] [facility] (Prevnar7) [facility] Varicella 2002-07-02 Completed [facility] (varivax)(chicken 00:00:00 [place] [facility] HIB 4 Dose Schedule 2002-07-02 Completed [facility] 00:00:00 [facility] MMR 2002-07-02 Completed [facility] 00:00:00 [facility] Pneumococcal 7 2002-07-02 Completed [facility] Conjugate, PCV7 00:00:00 [place] [facility] (Prevnar7[facility] Varicella 2002-07-02 Completed [facility] (varivax)(chicken 00:00:00 [place] [facility] Varicella 2002-07-02 Completed [facility] (varivax)(chicken 00:00:00 [place] [facility] HIB 4 Dose Schedule 2002-07-02 Completed [facility] 00:00:00 [facility] MMR 2002-07-02 Completed [facility] 00:00:00 [facility] Pneumococcal 7 2002-07-02 Completed [facility] Conjugate, PCV7 00:00:00 [place] [facility] (Prevnar7) [facility] Varicella 2002-07-02 Completed [facility] (varivax)(chicken 00:00:00 [place] [facility] HIB 4 Dose Schedule 2002-07-02 Completed [facility] 00:00:00 [facility] MMR 2002-07-02 Completed [facility] 00:00:00 [facility] Pneumococcal 7 2002-07-02 Completed [facility] Conjugate, PCV7 00:00:00 [place] [facility] (Prevnar7) [facility] Varicella 2002-07-02 Completed [facility] (varivax)(chicken 00:00:00 [place] [facility] HIB 4 Dose Schedule 2002-07-02 Completed [facility] 00:00:00 [facility] MMR 2002-07-02 Completed [facility] 00:00:00 [facility] Pneumococcal 7 2002-07-02 Completed [facility] of Conjugate, PCV7 00:00:00 [place] [facility] (Prevnar7) [facility] Varicella 2002-07-02 Completed [facility] of (varivax)(chicken 00:00:00 [facility] edical pox) Branch HIB 4 Dose Schedule 2002-07-02 Completed [facility] 00:00:00 [facility] MMR 2002-07-02 Completed [facility] 00:00:00 [facility] Pneumococcal 7 2002-07-02 Completed [facility] Conjugate, PCV7 00:00:00 [place] [facility] (Prevnar7[facility] Varicella 2002-07-02 Completed [facility] (varivax)(chicken 00:00:00 [place] [facility] HIB 4 Dose Schedule 2002-07-02 Completed [facility] 00:00:00 [facility] MMR 2002-07-02 Completed [facility] 00:00:00 [facility] Pneumococcal 7 2002-07-02 Completed [facility] Conjugate, PCV7 00:00:00 [place] [facility] (Prevnar7) [facility] Varicella 2002-07-02 Completed [facility] (varivax)(chicken 00:00:00 [place] [facility] HIB 4 Dose Schedule 2002-07-02 Completed [facility] 00:00:00 [facility] MMR 2002-07-02 Completed [facility] 00:00:00 [facility] Pneumococcal 7 2002-07-02 Completed [facility] Conjugate, PCV7 00:00:00 [place] [facility] (Prevnar7) [facility] HIB 4 Dose Schedule 2002-07-02 Completed [facility] 00:00:00 [facility] Varicella 2002-07-02 Completed [facility] (varivax)(chicken 00:00:00 [place] [facility] HIB 4 Dose Schedule 2002-07-02 Completed [facility] 00:00:00 [facility] MMR 2002-07-02 Completed [facility] 00:00:00 [facility] MMR 2002-07-02 Completed [facility] 00:00:00 [facility] Pneumococcal 7 2002-07-02 Completed [facility] Conjugate, PCV7 00:00:00 [place] [facility] (Prevnar7[facility] Varicella 2002-07-02 Completed [facility] (varivax)(chicken 00:00:00 [place] [facility] HIB 4 Dose Schedule 2002-07-02 Completed [facility] 00:00:00 [facility] Pneumococcal 7 2002-07-02 Completed [facility] Conjugate, PCV7 00:00:00 [place] [facility] (Prevnar7) [facility] MMR 2002-07-02 Completed [facility] 00:00:00 [facility] Pneumococcal 7 2002-07-02 Completed [facility] Conjugate, PCV7 00:00:00 [place] [facility] (Prevnar7) [facility] Varicella 2002-07-02 Completed [facility] (varivax)(chicken 00:00:00 [place] [facility] HIB 4 Dose Schedule 2002-07-02 Completed [facility] 00:00:00 [facility] MMR 2002-07-02 Completed [facility] 00:00:00 [facility] Pneumococcal 7 2002-07-02 Completed [facility] Conjugate, PCV7 00:00:00 [place] [facility] (Prevnar7) [facility] Varicella 2002-07-02 Completed [facility] (varivax)(chicken 00:00:00 [place] [facility] Varicella 2002-07-02 Completed [facility] (varivax)(chicken 00:00:00 [place] [facility] HIB 4 Dose Schedule 2002-07-02 Completed [facility] 00:00:00 [facility] MMR 2002-07-02 Completed [facility] 00:00:00 [facility] Pneumococcal 7 2002-07-02 Completed [facility] Conjugate, PCV7 00:00:00 [place] [facility] (Prevnar7) [facility] Varicella 2002-07-02 Completed [facility] (varivax)(chicken 00:00:00 [place] [facility] HIB 4 Dose Schedule 2002-07-02 Completed [facility] 00:00:00 [facility] MMR 2002-07-02 Completed [facility] 00:00:00 [facility] Pneumococcal 7 2002-07-02 Completed [facility] Conjugate, PCV7 00:00:00 [place] [facility] (Prevnar7) [facility] Varicella 2002-07-02 Completed [facility] (varivax)(chicken 00:00:00 [place] [facility] HIB 4 Dose Schedule 2002-07-02 Completed [facility] 00:00:00 [facility] MMR 2002-07-02 Completed [facility] 00:00:00 [facility] Pneumococcal 7 2002-07-02 Completed [facility] Conjugate, PCV7 00:00:00 [place] [facility] (Prevnar7) [facility] Varicella 2002-07-02 Completed [facility] (varivax)(chicken 00:00:00 [place] [facility] HIB 4 Dose Schedule 2002-07-02 Completed [facility] 00:00:00 [facility] MMR 2002-07-02 Completed [facility] 00:00:00 [facility] Pneumococcal 7 2002-07-02 Completed [facility] Conjugate, PCV7 00:00:00 [place] [facility] (Prevnar7) [facility] Varicella 2002-07-02 Completed [facility] (varivax)(chicken 00:00:00 [place] [facility] HIB 4 Dose Schedule 2002-07-02 Completed [facility] 00:00:00 [facility] MMR 2002-07-02 Completed [facility] 00:00:00 [facility] Pneumococcal 7 2002-07-02 Completed [facility] Conjugate, PCV7 00:00:00 [place] [facility] (Prevnar7) [facility] HIB 4 Dose Schedule 2002-07-02 Completed [facility] 00:00:00 [facility] Varicella 2002-07-02 Completed [facility] (varivax)(chicken 00:00:00 [place] [facility] pox[facility] HIB 4 Dose Schedule 2002-07-02 Completed [facility] 00:00:00 [facility] MMR 2002-07-02 Completed [facility] 00:00:00 [facility] Pneumococcal 7 2002-07-02 Completed [facility] Conjugate, PCV7 00:00:00 [place] [facility] (Prevnar7) [facility] MMR 2002-07-02 Completed [facility] 00:00:00 [facility] Varicella 2002-07-02 Completed [facility] (varivax)(chicken 00:00:00 [place] [facility] Pneumococcal 7 2002-07-02 Completed [facility] Conjugate, PCV7 00:00:00 [place] [facility] (Prevnar7) [facility] Varicella 2002-07-02 Completed [facility] (varivax)(chicken 00:00:00 [place] [facility] HIB 4 Dose Schedule 2002-07-02 Completed [facility] 00:00:00 [facility] MMR 2002-07-02 Completed [facility] 00:00:00 [facility] Pneumococcal 7 2002-07-02 Completed [facility] Conjugate, PCV7 00:00:00 [place] [facility] (Prevnar7) [facility] Varicella 2002-07-02 Completed [facility] (varivax)(chicken 00:00:00 [place] [facility] HIB 4 Dose Schedule 2002-07-02 Completed [facility] 00:00:00 [facility] MMR 2002-07-02 Completed [facility] 00:00:00 [facility] Pneumococcal 7 2002-07-02 Completed [facility] Conjugate, PCV7 00:00:00 [place] [facility] (Prevnar7) [facility] Varicella 2002-07-02 Completed [facility] of (varivax)(chicken 00:00:00 [facility] edical pox) Branch HIB 4 Dose Schedule 2002-07-02 Completed [facility] 00:00:00 [facility] MMR 2002-07-02 Completed [facility] 00:00:00 [facility] Pneumococcal 7 2002-07-02 Completed [facility] Conjugate, PCV7 00:00:00 [place] [facility] (Prevnar7) [facility] Varicella 2002-07-02 Completed [facility] (varivax)(chicken 00:00:00 [place] [facility] HIB 4 Dose Schedule 2002-07-02 Completed [facility] 00:00:00 [facility] MMR 2002-07-02 Completed [facility] 00:00:00 [facility] Pneumococcal 7 2002-07-02 Completed [facility] Conjugate, PCV7 00:00:00 [place] [facility] (Prevnar7) [facility] Varicella 2002-07-02 Completed [facility] (varivax)(chicken 00:00:00 [place] [facility] HIB 4 Dose Schedule 2002-07-02 Completed [facility] 00:00:00 [facility] MMR 2002-07-02 Completed [facility] 00:00:00 [facility] Pneumococcal 7 2002-07-02 Completed [facility] Conjugate, PCV7 00:00:00 [place] [facility] (Prevnar7) [facility] Varicella 2002-07-02 Completed [facility] (varivax)(chicken 00:00:00 [place] [facility] HIB 4 Dose Schedule 2002-07-02 Completed [facility] 00:00:00 [facility] MMR 2002-07-02 Completed [facility] 00:00:00 [facility] Pneumococcal 7 2002-07-02 Completed [facility] Conjugate, PCV7 00:00:00 [place] [facility] (Prevnar7) [facility] Varicella 2002-07-02 Completed [facility] (varivax)(chicken 00:00:00 [place] [facility] HIB 4 Dose Schedule 2002-07-02 Completed [facility] 00:00:00 [facility] MMR 2002-07-02 Completed [facility] 00:00:00 [facility] Pneumococcal 7 2002-07-02 Completed [facility] Conjugate, PCV7 00:00:00 [place] [facility] (Prevnar7) [facility] Varicella 2002-07-02 Completed [facility] (varivax)(chicken 00:00:00 [place] [facility] HIB 4 Dose Schedule 2002-07-02 Completed [facility] 00:00:00 [facility] MMR 2002-07-02 Completed [facility] 00:00:00 [facility] Pneumococcal 7 2002-07-02 Completed [facility] Conjugate, PCV7 00:00:00 [place] [facility] (Prevnar7) [facility] Varicella 2002-07-02 Completed [facility] (varivax)(chicken 00:00:00 [place] [facility] HIB 4 Dose Schedule 2002-07-02 Completed [facility] 00:00:00 [facility] MMR 2002-07-02 Completed [facility] 00:00:00 [facility] Pneumococcal 7 2002-07-02 Completed [facility] Conjugate, PCV7 00:00:00 [place] [facility] (Prevnar7) [facility] Varicella 2002-07-02 Completed [facility] (varivax)(chicken 00:00:00 [place] [facility] pox[facility] HIB 4 Dose Schedule 2002-07-02 Completed [facility] 00:00:00 [facility] MMR 2002-07-02 Completed [facility] 00:00:00 [facility] Pneumococcal 7 2002-07-02 Completed [facility] Conjugate, PCV7 00:00:00 [place] [facility] (Prevnar7) [facility] Varicella 2002-07-02 Completed [facility] (varivax)(chicken 00:00:00 [place] [facility] HIB 4 Dose Schedule 2002-07-02 Completed [facility] 00:00:00 [facility] MMR 2002-07-02 Completed [facility] 00:00:00 [facility] Pneumococcal 7 2002-07-02 Completed [facility] Conjugate, PCV7 00:00:00 [place] [facility] (Prevnar7) [facility] Varicella 2002-07-02 Completed [facility] (varivax)(chicken 00:00:00 [place] [facility]ox[facility] HIB 4 Dose Schedule 2002-07-02 Completed [facility] 00:00:00 [facility] MMR 2002-07-02 Completed [facility] 00:00:00 [facility] Pneumococcal 7 2002-07-02 Completed [facility] Conjugate, PCV7 00:00:00 [place] [facility] (Prevnar7) [facility] Varicella 2002-07-02 Completed [facility] (varivax)(chicken 00:00:00 [place] [facility]ox[facility] HIB 4 Dose Schedule 2002-07-02 Completed [facility] 00:00:00 [facility] MMR 2002-07-02 Completed [facility] 00:00:00 [facility] Pneumococcal 7 2002-07-02 Completed [facility] Conjugate, PCV7 00:00:00 [place] [facility] (Prevnar7) [facility] Varicella 2002-07-02 Completed [facility] (varivax)(chicken 00:00:00 [place] [facility] HIB 4 Dose Schedule 2002-07-02 Completed [facility] 00:00:00 [facility] MMR 2002-07-02 Completed [facility] 00:00:00 [facility] Polio (IPV/OPV) 2002-03-12 Completed Universit [facility] 00:00:00 [facility] Polio (IPV/OPV) 2002-03-12 Completed [facility] y of 00:00:00 [facility] Polio (IPV/OPV) 2002-03-12 Completed [facility] of 00:00:00 [facility] Polio (IPV/OPV) 2002-03-12 Completed [facility] of 00:00:00 [facility] Polio (IPV/OPV) 2002-03-12 Completed [facility] y of 00:00:00 [facility] Polio (IPV/OPV) 2002-03-12 Completed [facility] 00:00:00 [facility] Polio (IPV/OPV) 2002-03-12 Completed [facility] 00:00:00 [facility] Polio (IPV/OPV) 2002-03-12 Completed [facility] 00:00:00 [facility] Polio (IPV/OPV) 2002-03-12 Completed [facility] 00:00:00 [facility] Polio (IPV/OPV) 2002-03-12 Completed [facility] 00:00:00 [facility] Polio (IPV/OPV) 2002-03-12 Completed [facility] 00:00:00 [facility] Polio (IPV/OPV) 2002-03-12 Completed [facility] 00:00:00 [facility] Polio (IPV/OPV) 2002-03-12 Completed [facility] 00:00:00 [facility] Polio (IPV/OPV) 2002-03-12 Completed [facility] 00:00:00 [facility] Polio (IPV/OPV) 2002-03-12 Completed [facility] 00:00:00 [facility] Polio (IPV/OPV) 2002-03-12 Completed [facility] 00:00:00 [facility] Polio (IPV/OPV) 2002-03-12 Completed [facility] 00:00:00 [facility] Polio (IPV/OPV) 2002-03-12 Completed [facility] 00:00:00 [facility] Polio (IPV/OPV) 2002-03-12 Completed [facility] 00:00:00 [facility] Polio (IPV/OPV) 2002-03-12 Completed [facility] 00:00:00 [facility] Polio (IPV/OPV) 2002-03-12 Completed [facility] 00:00:00 [facility] Polio (IPV/OPV) 2002-03-12 Completed [facility] 00:00:00 [facility] Polio (IPV/OPV) 2002-03-12 Completed [facility] 00:00:00 [facility] Polio (IPV/OPV) 2002-03-12 Completed [facility] 00:00:00 [facility] Polio (IPV/OPV) 2002-03-12 Completed [facility] 00:00:00 [facility] Polio (IPV/OPV) 2002-03-12 Completed [facility] 00:00:00 [facility] Polio (IPV/OPV) 2002-03-12 Completed [facility] 00:00:00 [facility] Polio (IPV/OPV) 2002-03-12 Completed [facility] 00:00:00 [facility] Polio (IPV/OPV) 2002-03-12 Completed [facility] 00:00:00 [facility] Polio (IPV/OPV) 2002-03-12 Completed [facility] 00:00:00 [facility] Polio (IPV/OPV) 2002-03-12 Completed [facility] 00:00:00 [facility] Polio (IPV/OPV) 2002-03-12 Completed [facility] 00:00:00 [facility] Polio (IPV/OPV) 2002-03-12 Completed [facility] 00:00:00 [facility] Polio (IPV/OPV) 2002-03-12 Completed [facility] 00:00:00 [facility] Polio (IPV/OPV) 2002-03-12 Completed [facility] 00:00:00 [facility] Polio (IPV/OPV) 2002-03-12 Completed [facility] 00:00:00 [facility] Polio (IPV/OPV) 2002-03-12 Completed [facility] 00:00:00 [facility] Polio (IPV/OPV) 2002-03-12 Completed [facility] 00:00:00 [facility] Polio (IPV/OPV) 2002-03-12 Completed [facility] 00:00:00 [facility] Polio (IPV/OPV) 2002-03-12 Completed [facility] 00:00:00 [facility] Polio (IPV/OPV) 2002-03-12 Completed [facility] 00:00:00 [facility] Polio (IPV/OPV) 2002-03-12 Completed [facility] 00:00:00 [facility] Polio (IPV/OPV) 2002-03-12 Completed [facility] 00:00:00 [facility] Polio (IPV/OPV) 2002-03-12 Completed [facility] 00:00:00 [facility] Polio (IPV/OPV) 2002-03-12 Completed [facility] 00:00:00 [facility] Polio (IPV/OPV) 2002-03-12 Completed [facility] 00:00:00 [facility] Polio (IPV/OPV) 2002-03-12 Completed [facility] 00:00:00 [facility] Polio (IPV/OPV) 2002-03-12 Completed [facility] 00:00:00 [facility] Polio (IPV/OPV) 2002-03-12 Completed [facility] 00:00:00 [facility] Polio (IPV/OPV) 2002-03-12 Completed [facility] 00:00:00 [facility] Polio (IPV/OPV) 2002-03-12 Completed [facility] 00:00:00 [facility] Polio (IPV/OPV) 2002-03-12 Completed [facility] 00:00:00 [facility] Polio (IPV/OPV) 2002-03-12 Completed [facility] 00:00:00 [facility] Polio (IPV/OPV) 2002-03-12 Completed [facility] 00:00:00 [facility] Polio (IPV/OPV) 2002-03-12 Completed [facility] 00:00:00 [facility] Polio (IPV/OPV) 2002-03-12 Completed [facility] 00:00:00 [facility] Polio (IPV/OPV) 2002-03-12 Completed [facility] 00:00:00 [facility] Polio (IPV/OPV) 2002-03-12 Completed [facility] 00:00:00 [facility] Polio (IPV/OPV) 2002-03-12 Completed [facility] 00:00:00 [facility] Polio (IPV/OPV) 2002-03-12 Completed [facility] 00:00:00 [facility] Polio (IPV/OPV) 2002-03-12 Completed [facility] 00:00:00 [facility] Polio (IPV/OPV) 2002-03-12 Completed [facility] 00:00:00 [facility] Polio (IPV/OPV) 2002-03-12 Completed [facility] 00:00:00 [facility] Polio (IPV/OPV) 2002-03-12 Completed [facility] 00:00:00 [facility] Polio (IPV/OPV) 2002-03-12 Completed [facility] 00:00:00 [facility] Polio (IPV/OPV) 2002-03-12 Completed [facility] 00:00:00 [facility] Polio (IPV/OPV) 2002-03-12 Completed [facility] 00:00:00 [facility] Polio (IPV/OPV) 2002-03-12 Completed [facility] 00:00:00 [facility] Polio (IPV/OPV) 2002-03-12 Completed [facility] 00:00:00 [facility] Polio (IPV/OPV) 2002-03-12 Completed [facility] 00:00:00 [facility] Polio (IPV/OPV) 2002-03-12 Completed [facility] 00:00:00 [facility] Polio (IPV/OPV) 2002-03-12 Completed [facility] 00:00:00 [facility] Polio (IPV/OPV) 2002-03-12 Completed [facility] 00:00:00 [facility] Polio (IPV/OPV) 2002-03-12 Completed [facility] 00:00:00 [facility] Polio (IPV/OPV) 2002-03-12 Completed [facility] 00:00:00 [facility] Polio (IPV/OPV) 2002-03-12 Completed [facility] 00:00:00 [facility] Polio (IPV/OPV) 2002-03-12 Completed [facility] 00:00:00 [facility] DTAP 2001 Completed [facility] 00:00:00 [facility] HIB 4 Dose Schedule 2001 Completed [facility] 00:00:00 [facility] Hep B, Adol or Pedi 2001 Completed [facility] Dosage 00:00:00 [facility] DTAP 2001 Completed [facility] 00:00:00 [facility] HIB 4 Dose Schedule 2001 Completed [facility] 00:00:00 [facility] Hep B, Adol or Pedi 2001 Completed [facility] of Dosage 00:00:00 [facility] DTAP 2001 Completed [facility] 00:00:00 [facility] HIB 4 Dose Schedule 2001 Completed [facility] 00:00:00 [facility] Hep B, Adol or Pedi 2001 Completed Unive [facility] Dosage 00:00:00 [facility] DTAP 2001 Completed [facility] 00:00:00 [facility] HIB 4 Dose Schedule 2001 Completed [facility] 00:00:00 [facility] Hep B, Adol or Pedi 2001 Completed [facility] Dosage 00:00:00 [facility] DTAP 2001 Completed [facility] 00:00:00 [facility] HIB 4 Dose Schedule 2001 Completed [facility] 00:00:00 [facility] Hep B, Adol or Pedi 2001 Completed [facility] Dosage 00:00:00 [facility] DTAP 2001 Completed [facility] 00:00:00 [facility] HIB 4 Dose Schedule 2001 Completed [facility] 00:00:00 [facility] Hep B, Adol or Pedi 2001 Completed [facility] Dosage 00:00:00 [facility] DTAP 2001 Completed [facility] 00:00:00 [facility] HIB 4 Dose Schedule 2001 Completed [facility] 00:00:00 [facility] Hep B, Adol or Pedi 2001 Completed [facility] Dosage 00:00:00 [facility] DTAP 2001 Completed [facility] 00:00:00 [facility] HIB 4 Dose Schedule 2001 Completed [facility] 00:00:00 [facility] Hep B, Adol or Pedi 2001 Completed [facility] Dosage 00:00:00 [facility] DTAP 2001 Completed [facility] 00:00:00 [facility] HIB 4 Dose Schedule 2001 Completed [facility] 00:00:00 [facility] Hep B, Adol or Pedi 2001 Completed [facility] Dosage 00:00:00 [facility] DTAP 2001 Completed [facility] 00:00:00 [facility] HIB 4 Dose Schedule 2001 Completed [facility] 00:00:00 [facility] Hep B, Adol or Pedi 2001 Completed [facility] Dosage 00:00:00 [facility] DTAP 2001 Completed [facility] 00:00:00 [facility] HIB 4 Dose Schedule 2001 Completed [facility] 00:00:00 [facility] Hep B, Adol or Pedi 2001 Completed [facility] Dosage 00:00:00 [facility] DTAP 2001 Completed [facility] 00:00:00 [facility] HIB 4 Dose Schedule 2001 Completed [facility] 00:00:00 [facility] Hep B, Adol or Pedi 2001 Completed [facility] Dosage 00:00:00 [facility] DTAP 2001 Completed [facility] 00:00:00 [facility] HIB 4 Dose Schedule 2001 Completed [facility] 00:00:00 [facility] Hep B, Adol or Pedi 2001 Completed [facility] Dosage 00:00:00 [facility] DTAP 2001 Completed [facility] 00:00:00 [facility] HIB 4 Dose Schedule 2001 Completed [facility] 00:00:00 [facility] Hep B, Adol or Pedi 2001 Completed [facility] Dosage 00:00:00 [facility] DTAP 2001 Completed [facility] 00:00:00 [facility] HIB 4 Dose Schedule 2001 Completed [facility] 00:00:00 [facility] Hep B, Adol or Pedi 2001 Completed [facility] Dosage 00:00:00 [facility] DTAP 2001 Completed [facility] 00:00:00 [facility] HIB 4 Dose Schedule 2001 Completed [facility] 00:00:00 [facility] Hep B, Adol or Pedi 2001 Completed [facility] Dosage 00:00:00 [facility] DTAP 2001 Completed [facility] 00:00:00 [facility] HIB 4 Dose Schedule 2001 Completed [facility] 00:00:00 [facility] Hep B, Adol or Pedi 2001 Completed [facility] Dosage 00:00:00 [facility] DTAP 2001 Completed [facility] 00:00:00 [facility] HIB 4 Dose Schedule 2001 Completed [facility] 00:00:00 [facility] Hep B, Adol or Pedi 2001 Completed [facility] Dosage 00:00:00 [facility] DTAP 2001 Completed [facility] 00:00:00 [facility] HIB 4 Dose Schedule 2001 Completed [facility] 00:00:00 [facility] Hep B, Adol or Pedi 2001 Completed [facility] Dosage 00:00:00 [facility] DTAP 2001 Completed [facility] 00:00:00 [facility] HIB 4 Dose Schedule 2001 Completed [facility] 00:00:00 [facility] Hep B, Adol or Pedi 2001 Completed [facility] Dosage 00:00:00 [facility] DTAP 2001 Completed [facility] 00:00:00 [facility] HIB 4 Dose Schedule 2001 Completed [facility] 00:00:00 [facility] Hep B, Adol or Pedi 2001 Completed [facility] Dosage 00:00:00 [facility] DTAP 2001 Completed [facility] 00:00:00 [facility] HIB 4 Dose Schedule 2001 Completed [facility] 00:00:00 [facility] Hep B, Adol or Pedi 2001 Completed [facility] Dosage 00:00:00 [facility] DTAP 2001 Completed [facility] 00:00:00 [facility] HIB 4 Dose Schedule 2001 Completed [facility] 00:00:00 [facility] Hep B, Adol or Pedi 2001 Completed [facility] Dosage 00:00:00 [facility] DTAP 2001 Completed [facility] 00:00:00 [facility] HIB 4 Dose Schedule 2001 Completed [facility] 00:00:00 [facility] Hep B, Adol or Pedi 2001 Completed [facility] Dosage 00:00:00 [facility] DTAP 2001 Completed [facility] 00:00:00 [facility] HIB 4 Dose Schedule 2001 Completed [facility] 00:00:00 [facility] Hep B, Adol or Pedi 2001 Completed [facility] Dosage 00:00:00 [facility] DTAP 2001 Completed [facility] 00:00:00 [facility] HIB 4 Dose Schedule 2001 Completed [facility] 00:00:00 [facility] Hep B, Adol or Pedi 2001 Completed [facility] Dosage 00:00:00 [facility] DTAP 2001 Completed [facility] 00:00:00 [facility] HIB 4 Dose Schedule 2001 Completed [facility] 00:00:00 [facility] DTAP 2001 Completed [facility] 00:00:00 [facility] Hep B, Adol or Pedi 2001 Completed [facility] Dosage 00:00:00 [facility] DTAP 2001 Completed [facility] 00:00:00 [facility] HIB 4 Dose Schedule 2001 Completed [facility] 00:00:00 [facility] Hep B, Adol or Pedi 2001 Completed [facility] Dosage 00:00:00 [facility] HIB 4 Dose Schedule 2001 Completed [facility] 00:00:00 [facility] DTAP 2001 Completed [facility] 00:00:00 [facility] HIB 4 Dose Schedule 2001 Completed [facility] 00:00:00 [facility] Hep B, Adol or Pedi 2001 Completed [facility] Dosage 00:00:00 [facility] DTAP 2001 Completed [facility] 00:00:00 [facility] Hep B, Adol or Pedi 2001 Completed [facility] Dosage 00:00:00 [facility] HIB 4 Dose Schedule 2001 Completed [facility] 00:00:00 [facility] Hep B, Adol or Pedi 2001 Completed [facility] Dosage 00:00:00 [facility] DTAP 2001 Completed [facility] 00:00:00 [facility] HIB 4 Dose Schedule 2001 Completed [facility] 00:00:00 [facility] Hep B, Adol or Pedi 2001 Completed [facility] Dosage 00:00:00 [facility] DTAP 2001 Completed [facility] 00:00:00 [facility] HIB 4 Dose Schedule 2001 Completed [facility] 00:00:00 [facility] Hep B, Adol or Pedi 2001 Completed [facility] Dosage 00:00:00 [facility] DTAP 2001 Completed [facility] 00:00:00 [facility] HIB 4 Dose Schedule 2001 Completed [facility] 00:00:00 [facility] Hep B, Adol or Pedi 2001 Completed [facility] Dosage 00:00:00 [facility] DTAP 2001 Completed [facility] 00:00:00 [facility] HIB 4 Dose Schedule 2001 Completed [facility] 00:00:00 [facility] Hep B, Adol or Pedi 2001 Completed [facility] Dosage 00:00:00 [facility] DTAP 2001 Completed [facility] 00:00:00 [facility] HIB 4 Dose Schedule 2001 Completed [facility] 00:00:00 [facility] Hep B, Adol or Pedi 2001 Completed [facility] Dosage 00:00:00 [facility] DTAP 2001 Completed [facility] 00:00:00 [facility] HIB 4 Dose Schedule 2001 Completed [facility] 00:00:00 [facility] Hep B, Adol or Pedi 2001 Completed [facility] Dosage 00:00:00 [facility] DTAP 2001 Completed [facility] 00:00:00 [facility] HIB 4 Dose Schedule 2001 Completed [facility] 00:00:00 [facility] Hep B, Adol or Pedi 2001 Completed [facility] Dosage 00:00:00 [facility] DTAP 2001 Completed [facility] 00:00:00 [facility] HIB 4 Dose Schedule 2001 Completed [facility] 00:00:00 [facility] Hep B, Adol or Pedi 2001 Completed [facility] Dosage 00:00:00 [facility] DTAP 2001 Completed [facility] 00:00:00 [facility] HIB 4 Dose Schedule 2001 Completed [facility] 00:00:00 [facility] Hep B, Adol or Pedi 2001 Completed [facility] Dosage 00:00:00 [facility] DTAP 2001 Completed [facility] 00:00:00 [facility] DTAP 2001 Completed [facility] 00:00:00 [facility] HIB 4 Dose Schedule 2001 Completed [facility] 00:00:00 [facility] Hep B, Adol or Pedi 2001 Completed [facility] Dosage 00:00:00 [facility] HIB 4 Dose Schedule 2001 Completed [facility] 00:00:00 [facility] DTAP 2001 Completed [facility] 00:00:00 [facility] HIB 4 Dose Schedule 2001 Completed [facility] 00:00:00 [facility] Hep B, Adol or Pedi 2001 Completed [facility] Dosage 00:00:00 [facility] DTAP 2001 Completed [facility] 00:00:00 [facility] HIB 4 Dose Schedule 2001 Completed [facility] 00:00:00 [facility] Hep B, Adol or Pedi 2001 Completed [facility] Dosage 00:00:00 [facility] Hep B, Adol or Pedi 2001 Completed [facility] Dosage 00:00:00 [facility] DTAP 2001 Completed [facility] 00:00:00 [facility] HIB 4 Dose Schedule 2001 Completed [facility] 00:00:00 [facility] Hep B, Adol or Pedi 2001 Completed [facility] Dosage 00:00:00 [facility] DTAP 2001 Completed [facility] 00:00:00 [facility] HIB 4 Dose Schedule 2001 Completed [facility] 00:00:00 [facility] Hep B, Adol or Pedi 2001 Completed [facility] Dosage 00:00:00 [facility] DTAP 2001 Completed [facility] 00:00:00 [facility] HIB 4 Dose Schedule 2001 Completed [facility] 00:00:00 [facility] Hep B, Adol or Pedi 2001 Completed [facility] Dosage 00:00:00 [facility] DTAP 2001 Completed [facility] 00:00:00 [facility] HIB 4 Dose Schedule 2001 Completed [facility] 00:00:00 [facility] Hep B, Adol or Pedi 2001 Completed [facility] Dosage 00:00:00 [facility] DTAP 2001 Completed [facility] 00:00:00 [facility] HIB 4 Dose Schedule 2001 Completed [facility] 00:00:00 [facility] Hep B, Adol or Pedi 2001 Completed [facility] Dosage 00:00:00 [facility] DTAP 2001 Completed [facility] 00:00:00 [facility] HIB 4 Dose Schedule 2001 Completed [facility] 00:00:00 [facility] Hep B, Adol or Pedi 2001 Completed [facility] Dosage 00:00:00 [facility] DTAP 2001 Completed [facility] 00:00:00 [facility] HIB 4 Dose Schedule 2001 Completed [facility] 00:00:00 [facility] Hep B, Adol or Pedi 2001 Completed [facility] Dosage 00:00:00 [facility] DTAP 2001 Completed [facility] 00:00:00 [facility] DTAP 2001 Completed [facility] 00:00:00 [facility] HIB 4 Dose Schedule 2001 Completed [facility] 00:00:00 [facility] HIB 4 Dose Schedule 2001 Completed [facility] 00:00:00 [facility] Hep B, Adol or Pedi 2001 Completed [facility] Dosage 00:00:00 [facility] DTAP 2001 Completed [facility] 00:00:00 [facility] Hep B, Adol or Pedi 2001 Completed [facility] Dosage 00:00:00 [facility] HIB 4 Dose Schedule 2001 Completed [facility] 00:00:00 [facility] Hep B, Adol or Pedi 2001 Completed [facility] Dosage 00:00:00 [facility] DTAP 2001 Completed [facility] 00:00:00 [facility] HIB 4 Dose Schedule 2001 Completed [facility] 00:00:00 [facility] Hep B, Adol or Pedi 2001 Completed [facility] Dosage 00:00:00 [facility] DTAP 2001 Completed [facility] 00:00:00 [facility] HIB 4 Dose Schedule 2001 Completed [facility] 00:00:00 [facility] Hep B, Adol or Pedi 2001 Completed [facility] Dosage 00:00:00 [facility] DTAP 2001 Completed [facility] 00:00:00 [facility] HIB 4 Dose Schedule 2001 Completed [facility] 00:00:00 [facility] Hep B, Adol or Pedi 2001 Completed [facility] Dosage 00:00:00 [facility] DTAP 2001 Completed [facility] 00:00:00 [facility] HIB 4 Dose Schedule 2001 Completed [facility] 00:00:00 [facility] Hep B, Adol or Pedi 2001 Completed [facility] Dosage 00:00:00 [facility] DTAP 2001 Completed [facility] 00:00:00 [facility] HIB 4 Dose Schedule 2001 Completed [facility] 00:00:00 [facility] Hep B, Adol or Pedi 2001 Completed [facility] Dosage 00:00:00 [facility] DTAP 2001 Completed [facility] 00:00:00 [facility] HIB 4 Dose Schedule 2001 Completed [facility] 00:00:00 [facility] Hep B, Adol or Pedi 2001 Completed [facility] Dosage 00:00:00 [facility] DTAP 2001 Completed [facility] 00:00:00 [facility] DTAP 2001 Completed [facility] 00:00:00 [facility] HIB 4 Dose Schedule 2001 Completed [facility] 00:00:00 [facility] HIB 4 Dose Schedule 2001 Completed [facility] 00:00:00 [facility] Hep B, Adol or Pedi 2001 Completed [facility] Dosage 00:00:00 [facility] DTAP 2001 Completed [facility] 00:00:00 [facility] HIB 4 Dose Schedule 2001 Completed [facility] 00:00:00 [facility] Hep B, Adol or Pedi 2001 Completed [facility] Dosage 00:00:00 [facility] Hep B, Adol or Pedi 2001 Completed [facility] Dosage 00:00:00 [facility] DTAP 2001 Completed [facility] 00:00:00 [facility] HIB 4 Dose Schedule 2001 Completed [facility] 00:00:00 [facility] Hep B, Adol or Pedi 2001 Completed [facility] Dosage 00:00:00 [facility] DTAP 2001 Completed [facility] 00:00:00 [facility] HIB 4 Dose Schedule 2001 Completed [facility] 00:00:00 [facility] Hep B, Adol or Pedi 2001 Completed [facility] Dosage 00:00:00 [facility] DTAP 2001 Completed [facility] 00:00:00 [facility] HIB 4 Dose Schedule 2001 Completed [facility] 00:00:00 [facility] Hep B, Adol or Pedi 2001 Completed [facility] Dosage 00:00:00 [facility] DTAP 2001 Completed [facility] 00:00:00 [facility] HIB 4 Dose Schedule 2001 Completed [facility] 00:00:00 [facility] Hep B, Adol or Pedi 2001 Completed [facility] Dosage 00:00:00 [facility] DTAP 2001 Completed [facility] 00:00:00 [facility] HIB 4 Dose Schedule 2001 Completed [facility] 00:00:00 [facility] Hep B, Adol or Pedi 2001 Completed [facility] Dosage 00:00:00 [facility] DTAP 2001 Completed [facility] 00:00:00 [facility] HIB 4 Dose Schedule 2001 Completed [facility] 00:00:00 [facility] Hep B, Adol or Pedi 2001 Completed [facility] Dosage 00:00:00 [facility] DTAP 2001 Completed [facility] 00:00:00 [facility] HIB 4 Dose Schedule 2001 Completed [facility] 00:00:00 [facility] Hep B, Adol or Pedi 2001 Completed [facility] Dosage 00:00:00 [facility] DTAP 2001 Completed [facility] 00:00:00 [facility] HIB 4 Dose Schedule 2001 Completed [facility] 00:00:00 [facility] Hep B, Adol or Pedi 2001 Completed [facility] Dosage 00:00:00 [facility] DTAP 2001 Completed [facility] 00:00:00 [facility] HIB 4 Dose Schedule 2001 Completed [facility] 00:00:00 [facility] Hep B, Adol or Pedi 2001 Completed [facility] Dosage 00:00:00 [facility] DTAP 2001 Completed [facility] 00:00:00 [facility] HIB 4 Dose Schedule 2001 Completed [facility] 00:00:00 [facility] Hep B, Adol or Pedi 2001 Completed [facility] Dosage 00:00:00 [facility] DTAP 2001 Completed [facility] 00:00:00 [facility] HIB 4 Dose Schedule 2001 Completed [facility] 00:00:00 [facility] Hep B, Adol or Pedi 2001 Completed [facility] Dosage 00:00:00 [facility] DTAP 2001 Completed [facility] 00:00:00 [facility] HIB 4 Dose Schedule 2001 Completed [facility] 00:00:00 [facility] Hep B, Adol or Pedi 2001 Completed [facility] Dosage 00:00:00 [facility] DTAP 2001 Completed [facility] 00:00:00 [facility] HIB 4 Dose Schedule 2001 Completed [facility] 00:00:00 [facility] Hep B, Adol or Pedi 2001 Completed [facility] Dosage 00:00:00 [facility] DTAP 2001 Completed [facility] 00:00:00 [facility] HIB 4 Dose Schedule 2001 Completed [facility] 00:00:00 [facility] Hep B, Adol or Pedi 2001 Completed [facility] Dosage 00:00:00 [facility] Polio (IPV/OPV) 2001 Completed [facility] 00:00:00 [facility] DTAP 2001 Completed [facility] 00:00:00 [facility] HIB 4 Dose Schedule 2001 Completed [facility] 00:00:00 [facility] Hep B, Adol or Pedi 2001 Completed [facility] Dosage 00:00:00 [facility] Pneumococcal 7 2001 Completed [facility] Conjugate, PCV7 00:00:00 [facility] Polio (IPV/OPV) 2001 Completed [facility] 00:00:00 [facility] DTAP 2001 Completed [facility] 00:00:00 [facility] HIB 4 Dose Schedule 2001 Completed [facility] 00:00:00 [facility] Hep B, Adol or Pedi 2001 Completed [facility] Dosage 00:00:00 [facility] Pneumococcal 7 2001 Completed [facility] Conjugate, PCV7 00:00:00 [facility] Polio (IPV/OPV) 2001 Completed [facility] 00:00:00 [facility] DTAP 2001 Completed [facility] 00:00:00 [facility] HIB 4 Dose Schedule 2001 Completed [facility] 00:00:00 [facility] Hep B, Adol or Pedi 2001 Completed [facility] Dosage 00:00:00 [facility] Pneumococcal 7 2001 Completed [facility] Conjugate, PCV7 00:00:00 [facility] Polio (IPV/OPV) 2001 Completed [facility] 00:00:00 [facility] DTAP 2001 Completed [facility] 00:00:00 [facility] HIB 4 Dose Schedule 2001 Completed [facility] 00:00:00 [facility] Hep B, Adol or Pedi 2001 Completed [facility] Dosage 00:00:00 [facility] Pneumococcal 7 2001 Completed [facility] Conjugate, PCV7 00:00:00 [facility] Polio (IPV/OPV) 2001 Completed [facility] 00:00:00 [facility] DTAP 2001 Completed [facility] 00:00:00 [facility] HIB 4 Dose Schedule 2001 Completed [facility] 00:00:00 [facility] Hep B, Adol or Pedi 2001 Completed [facility] Dosage 00:00:00 [facility] Pneumococcal 7 2001 Completed [facility] Conjugate, PCV7 00:00:00 [facility] Polio (IPV/OPV) 2001 Completed [facility] 00:00:00 [facility] DTAP 2001 Completed [facility] 00:00:00 [facility] HIB 4 Dose Schedule 2001 Completed [facility] 00:00:00 [facility] Hep B, Adol or Pedi 2001 Completed [facility] Dosage 00:00:00 [facility] Pneumococcal 7 2001 Completed [facility] Conjugate, PCV7 00:00:00 [facility] Polio (IPV/OPV) 2001 Completed [facility] 00:00:00 [facility] DTAP 2001 Completed [facility] 00:00:00 [facility] HIB 4 Dose Schedule 2001 Completed [facility] 00:00:00 [facility] Hep B, Adol or Pedi 2001 Completed [facility] Dosage 00:00:00 [facility] Pneumococcal 7 2001 Completed [facility] Conjugate, PCV7 00:00:00 [facility] Polio (IPV/OPV) 2001 Completed [facility] 00:00:00 [facility] DTAP 2001 Completed [facility] 00:00:00 [facility] HIB 4 Dose Schedule 2001 Completed [facility] 00:00:00 [facility] Hep B, Adol or Pedi 2001 Completed [facility] Dosage 00:00:00 [facility] Pneumococcal 7 2001 Completed [facility] Conjugate, PCV7 00:00:00 [facility] Polio (IPV/OPV) 2001 Completed [facility] 00:00:00 [facility] DTAP 2001 Completed [facility] 00:00:00 [facility] HIB 4 Dose Schedule 2001 Completed [facility] 00:00:00 [facility] Hep B, Adol or Pedi 2001 Completed [facility] Dosage 00:00:00 [facility] Pneumococcal 7 2001 Completed [facility] Conjugate, PCV7 00:00:00 [facility] Polio (IPV/OPV) 2001 Completed [facility] 00:00:00 [facility] DTAP 2001 Completed [facility] 00:00:00 [facility] HIB 4 Dose Schedule 2001 Completed [facility] 00:00:00 [facility] Hep B, Adol or Pedi 2001 Completed [facility] Dosage 00:00:00 [facility] Pneumococcal 7 2001 Completed [facility] Conjugate, PCV7 00:00:00 [facility] Polio (IPV/OPV) 2001 Completed [facility] 00:00:00 [facility] DTAP 2001 Completed [facility] 00:00:00 [facility] HIB 4 Dose Schedule 2001 Completed [facility] 00:00:00 [facility] Hep B, Adol or Pedi 2001 Completed [facility] Dosage 00:00:00 [facility] Pneumococcal 7 2001 Completed [facility] Conjugate, PCV7 00:00:00 [facility] Polio (IPV/OPV) 2001 Completed [facility] 00:00:00 [facility] DTAP 2001 Completed [facility] 00:00:00 [facility] HIB 4 Dose Schedule 2001 Completed [facility] 00:00:00 [facility] Hep B, Adol or Pedi 2001 Completed [facility] Dosage 00:00:00 [facility] Pneumococcal 7 2001 Completed [facility] Conjugate, PCV7 00:00:00 [facility]ar[facility] Polio (IPV/OPV) 2001 Completed [facility] 00:00:00 [facility] DTAP 2001 Completed [facility] 00:00:00 [facility] HIB 4 Dose Schedule 2001 Completed [facility] 00:00:00 [facility] Hep B, Adol or Pedi 2001 Completed [facility] Dosage 00:00:00 [facility] Pneumococcal 7 2001 Completed [facility] Conjugate, PCV7 00:00:00 [facility]ar[facility] Polio (IPV/OPV) 2001 Completed [facility] 00:00:00 [facility] DTAP 2001 Completed [facility] 00:00:00 [facility] HIB 4 Dose Schedule 2001 Completed [facility] 00:00:00 [facility] Hep B, Adol or Pedi 2001 Completed [facility] Dosage 00:00:00 [facility] Pneumococcal 7 2001 Completed [facility] Conjugate, PCV7 00:00:00 [facility]ar[facility] Polio (IPV/OPV) 2001 Completed [facility] 00:00:00 [facility] DTAP 2001 Completed [facility] 00:00:00 [facility] HIB 4 Dose Schedule 2001 Completed [facility] 00:00:00 [facility] Hep B, Adol or Pedi 2001 Completed [facility] Dosage 00:00:00 [facility] Pneumococcal 7 2001 Completed [facility] Conjugate, PCV7 00:00:00 [facility] (Prevnar7) [facility] Polio (IPV/OPV) 2001 Completed [facility] 00:00:00 [facility] DTAP 2001 Completed [facility] 00:00:00 [facility] HIB 4 Dose Schedule 2001 Completed [facility] 00:00:00 [facility] Hep B, Adol or Pedi 2001 Completed [facility] Dosage 00:00:00 [facility] Pneumococcal 7 2001 Completed [facility] Conjugate, PCV7 00:00:00 [facility] (Prevnar7) [facility] Polio (IPV/OPV) 2001 Completed [facility] 00:00:00 [facility] DTAP 2001 Completed [facility] 00:00:00 [facility] HIB 4 Dose Schedule 2001 Completed [facility] 00:00:00 [facility] Hep B, Adol or Pedi 2001 Completed [facility] Dosage 00:00:00 [facility] Pneumococcal 7 2001 Completed [facility] Conjugate, PCV7 00:00:00 [place] [facility] (Prevnar7) [facility] Polio (IPV/OPV) 2001 Completed [facility] 00:00:00 [facility] DTAP 2001 Completed [facility] 00:00:00 [facility] HIB 4 Dose Schedule 2001 Completed [facility] 00:00:00 [facility] Hep B, Adol or Pedi 2001 Completed [facility] Dosage 00:00:00 [facility] Pneumococcal 7 2001 Completed [facility] Conjugate, PCV7 00:00:00 [facility] (Prevnar7) [facility] Polio (IPV/OPV) 2001 Completed [facility] 00:00:00 [facility] DTAP 2001 Completed [facility] 00:00:00 [facility] HIB 4 Dose Schedule 2001 Completed [facility] 00:00:00 [facility] Hep B, Adol or Pedi 2001 Completed [facility] Dosage 00:00:00 [facility] Pneumococcal 7 2001 Completed [facility] Conjugate, PCV7 00:00:00 [place] [facility] (Prevnar7) [facility] Polio (IPV/OPV) 2001 Completed [facility] 00:00:00 [facility] DTAP 2001 Completed [facility] 00:00:00 [facility] HIB 4 Dose Schedule 2001 Completed [facility] 00:00:00 [facility] Hep B, Adol or Pedi 2001 Completed [facility] Dosage 00:00:00 [facility] Pneumococcal 7 2001 Completed [facility] Conjugate, PCV7 00:00:00 [place] [facility] (Prevnar7) [facility] Polio (IPV/OPV) 2001 Completed [facility] 00:00:00 [facility] DTAP 2001 Completed [facility] 00:00:00 [facility] HIB 4 Dose Schedule 2001 Completed [facility] 00:00:00 [facility] Hep B, Adol or Pedi 2001 Completed [facility] Dosage 00:00:00 [facility] Pneumococcal 7 2001 Completed [facility] Conjugate, PCV7 00:00:00 [facility] ical (Prevnar7) Branch Polio (IPV/OPV) 2001 Completed [facility] 00:00:00 [facility] DTAP 2001 Completed [facility] 00:00:00 [facility] HIB 4 Dose Schedule 2001 Completed [facility] 00:00:00 [facility] Hep B, Adol or Pedi 2001 Completed [facility] Dosage 00:00:00 [facility] Pneumococcal 7 2001 Completed [facility] Conjugate, PCV7 00:00:00 [place] [facility] (Prevnar7) [facility] Polio (IPV/OPV) 2001 Completed [facility] 00:00:00 [facility] DTAP 2001 Completed [facility] 00:00:00 [facility] HIB 4 Dose Schedule 2001 Completed [facility] 00:00:00 [facility] Hep B, Adol or Pedi 2001 Completed [facility] Dosage 00:00:00 [facility] Pneumococcal 7 2001 Completed [facility] Conjugate, PCV7 00:00:00 [place] [facility] (Prevnar7) [facility] Polio (IPV/OPV) 2001 Completed [facility] 00:00:00 [facility] DTAP 2001 Completed [facility] 00:00:00 [facility] HIB 4 Dose Schedule 2001 Completed [facility] 00:00:00 [facility] Hep B, Adol or Pedi 2001 Completed [facility] Dosage 00:00:00 [facility] Pneumococcal 7 2001 Completed [facility] Conjugate, PCV7 00:00:00 [place] [facility] (Prevnar7) [facility] Polio (IPV/OPV) 2001 Completed [facility] 00:00:00 [facility] DTAP 2001 Completed [facility] 00:00:00 [facility] HIB 4 Dose Schedule 2001 Completed [facility] 00:00:00 [facility] Hep B, Adol or Pedi 2001 Completed [facility] Dosage 00:00:00 [facility] Pneumococcal 7 2001 Completed [facility] Conjugate, PCV7 00:00:00 [place] [facility] (Prevnar7) [facility] Polio (IPV/OPV) 2001 Completed [facility] 00:00:00 [facility] DTAP 2001 Completed [facility] 00:00:00 [facility] HIB 4 Dose Schedule 2001 Completed [facility] 00:00:00 [facility] Hep B, Adol or Pedi 2001 Completed [facility] Dosage 00:00:00 [facility] Pneumococcal 7 2001 Completed [facility] Conjugate, PCV7 00:00:00 [place] [facility] (Prevnar7) [facility] Polio (IPV/OPV) 2001 Completed [facility] 00:00:00 [facility] DTAP 2001 Completed [facility] 00:00:00 [facility] DTAP 2001 Completed [facility] 00:00:00 [facility] HIB 4 Dose Schedule 2001 Completed [facility] 00:00:00 [facility] Hep B, Adol or Pedi 2001 Completed [facility] Dosage 00:00:00 [facility] Pneumococcal 7 2001 Completed [facility] Conjugate, PCV7 00:00:00 [place] [facility] (Prevnar7) [facility] Polio (IPV/OPV) 2001 Completed [facility] 00:00:00 [facility] DTAP 2001 Completed [facility] 00:00:00 [facility] HIB 4 Dose Schedule 2001 Completed [facility] 00:00:00 [facility] Hep B, Adol or Pedi 2001 Completed [facility] Dosage 00:00:00 [facility] Pneumococcal 7 2001 Completed [facility] Conjugate, PCV7 00:00:00 [place] [facility] (Prevnar7) [facility] HIB 4 Dose Schedule 2001 Completed [facility] 00:00:00 [facility] Polio (IPV/OPV) 2001 Completed [facility] 00:00:00 [facility] DTAP 2001 Completed [facility] 00:00:00 [facility] HIB 4 Dose Schedule 2001 Completed [facility] 00:00:00 [facility] Hep B, Adol or Pedi 2001 Completed [facility] Dosage 00:00:00 [facility] Pneumococcal 7 2001 Completed [facility] Conjugate, PCV7 00:00:00 [facility] ical (Prevnar7) Branch Polio (IPV/OPV) 2001 Completed [facility] 00:00:00 [facility] Hep B, Adol or Pedi 2001 Completed [facility] Dosage 00:00:00 [facility] DTAP 2001 Completed [facility] 00:00:00 [facility] HIB 4 Dose Schedule 2001 Completed [facility] 00:00:00 [facility] Hep B, Adol or Pedi 2001 Completed [facility] Dosage 00:00:00 [facility] Pneumococcal 7 2001 Completed [facility] Conjugate, PCV7 00:00:00 [place] [facility] (Prevnar7) [facility] Polio (IPV/OPV) 2001 Completed [facility] 00:00:00 [facility] Pneumococcal 7 2001 Completed [facility] Conjugate, PCV7 00:00:00 [place] [facility] (Prevnar7) [facility] DTAP 2001 Completed [facility] 00:00:00 [facility] HIB 4 Dose Schedule 2001 Completed [facility] 00:00:00 [facility] Hep B, Adol or Pedi 2001 Completed [facility] Dosage 00:00:00 [facility] Pneumococcal 7 2001 Completed [facility] Conjugate, PCV7 00:00:00 [facility] ical (Prevnar7) Branch Polio (IPV/OPV) 2001 Completed [facility] 00:00:00 [facility] Polio (IPV/OPV) 2001 Completed [facility] 00:00:00 [facility] DTAP 2001 Completed [facility] 00:00:00 [facility] HIB 4 Dose Schedule 2001 Completed [facility] 00:00:00 [facility] Hep B, Adol or Pedi 2001 Completed [facility] Dosage 00:00:00 [facility] Pneumococcal 7 2001 Completed [facility] Conjugate, PCV7 00:00:00 [facility] ical (Prevnar7) Branch Polio (IPV/OPV) 2001 Completed [facility] 00:00:00 [facility] DTAP 2001 Completed [facility] 00:00:00 [facility] HIB 4 Dose Schedule 2001 Completed [facility] 00:00:00 [facility] Hep B, Adol or Pedi 2001 Completed [facility] Dosage 00:00:00 [facility] Pneumococcal 7 2001 Completed [facility] Conjugate, PCV7 00:00:00 [facility] ical (Prevnar7) Branch Polio (IPV/OPV) 2001 Completed [facility] 00:00:00 [facility] DTAP 2001 Completed [facility] 00:00:00 [facility] HIB 4 Dose Schedule 2001 Completed [facility] 00:00:00 [facility] Hep B, Adol or Pedi 2001 Completed [facility] Dosage 00:00:00 [facility] Pneumococcal 7 2001 Completed [facility] Conjugate, PCV7 00:00:00 [place] [facility] (Prevnar7) [facility] Polio (IPV/OPV) 2001 Completed [facility] 00:00:00 [facility] DTAP 2001 Completed [facility] 00:00:00 [facility] HIB 4 Dose Schedule 2001 Completed [facility] 00:00:00 [facility] Hep B, Adol or Pedi 2001 Completed [facility] Dosage 00:00:00 [facility] Pneumococcal 7 2001 Completed [facility] Conjugate, PCV7 00:00:00 [facility] ical (Prevnar7) Branch Polio (IPV/OPV) 2001 Completed [facility] 00:00:00 [facility] DTAP 2001 Completed [facility] 00:00:00 [facility] HIB 4 Dose Schedule 2001 Completed [facility] 00:00:00 [facility] Hep B, Adol or Pedi 2001 Completed [facility] Dosage 00:00:00 [facility] Pneumococcal 7 2001 Completed [facility] Conjugate, PCV7 00:00:00 [facility] (Prevnar7) Branch Polio (IPV/OPV) 2001 Completed [facility] 00:00:00 [facility] DTAP 2001 Completed [facility] 00:00:00 [facility] HIB 4 Dose Schedule 2001 Completed [facility] 00:00:00 [facility] Hep B, Adol or Pedi 2001 Completed [facility] Dosage 00:00:00 [facility] Pneumococcal 7 2001 Completed [facility] Conjugate, PCV7 00:00:00 [facility] ical (Prevnar7) Branch Polio (IPV/OPV) 2001 Completed [facility] 00:00:00 [facility] DTAP 2001 Completed [facility] 00:00:00 [facility] HIB 4 Dose Schedule 2001 Completed [facility] 00:00:00 [facility] Hep B, Adol or Pedi 2001 Completed [facility] Dosage 00:00:00 [facility] Pneumococcal 7 2001 Completed [facility] Conjugate, PCV7 00:00:00 [place] [facility] (Prevnar7) [facility] Polio (IPV/OPV) 2001 Completed [facility] 00:00:00 [facility] DTAP 2001 Completed [facility] 00:00:00 [facility] HIB 4 Dose Schedule 2001 Completed [facility] 00:00:00 [facility] Hep B, Adol or Pedi 2001 Completed [facility] Dosage 00:00:00 [facility] Pneumococcal 7 2001 Completed [facility] Conjugate, PCV7 00:00:00 [facility] ical (Prevnar7) Branch DTAP 2001 Completed [facility] 00:00:00 [facility] Polio (IPV/OPV) 2001 Completed [facility] 00:00:00 [facility] DTAP 2001 Completed [facility] 00:00:00 [facility] HIB 4 Dose Schedule 2001 Completed [facility] 00:00:00 [facility] Hep B, Adol or Pedi 2001 Completed [facility] Dosage 00:00:00 [facility] Pneumococcal 7 2001 Completed [facility] Conjugate, PCV7 00:00:00 [facility] ical (Prevnar7) Branch Polio (IPV/OPV) 2001 Completed [facility] 00:00:00 [facility] HIB 4 Dose Schedule 2001 Completed [facility] 00:00:00 [facility] DTAP 2001 Completed [facility] 00:00:00 [facility] HIB 4 Dose Schedule 2001 Completed [facility] 00:00:00 [facility] Hep B, Adol or Pedi 2001 Completed [facility] Dosage 00:00:00 [facility] Pneumococcal 7 2001 Completed [facility] Conjugate, PCV7 00:00:00 [place] [facility] (Prevnar7) Branch Polio (IPV/OPV) 2001 Completed [facility] 00:00:00 [facility] DTAP 2001 Completed [facility] 00:00:00 [facility] HIB 4 Dose Schedule 2001 Completed [facility] 00:00:00 [facility] Hep B, Adol or Pedi 2001 Completed [facility] Dosage 00:00:00 [facility] Hep B, Adol or Pedi 2001 Completed [facility] Dosage 00:00:00 [facility] Pneumococcal 7 2001 Completed [facility] Conjugate, PCV7 00:00:00 [place] [facility] (Prevnar7) Branch Polio (IPV/OPV) 2001 Completed [facility] 00:00:00 [facility] DTAP 2001 Completed [facility] 00:00:00 [facility] HIB 4 Dose Schedule 2001 Completed [facility] 00:00:00 [facility] Pneumococcal 7 2001 Completed [facility] Conjugate, PCV7 00:00:00 [place] [facility] (Prevnar7) [facility] Hep B, Adol or Pedi 2001 Completed [facility] Dosage 00:00:00 [facility] Pneumococcal 7 2001 Completed [facility] Conjugate, PCV7 00:00:00 [place] [facility] (Prevnar7) Branch Polio (IPV/OPV) 2001 Completed [facility] 00:00:00 [facility] DTAP 2001 Completed [facility] 00:00:00 [facility] Polio (IPV/OPV) 2001 Completed [facility] 00:00:00 [facility] HIB 4 Dose Schedule 2001 Completed [facility] 00:00:00 [facility] Hep B, Adol or Pedi 2001 Completed [facility] Dosage 00:00:00 [facility] Pneumococcal 7 2001 Completed [facility] Conjugate, PCV7 00:00:00 [place] [facility] (Prevnar7) Branch Polio (IPV/OPV) 2001 Completed [facility] 00:00:00 [facility] DTAP 2001 Completed [facility] 00:00:00 [facility] HIB 4 Dose Schedule 2001 Completed [facility] 00:00:00 [facility] Hep B, Adol or Pedi 2001 Completed [facility] Dosage 00:00:00 [facility] Pneumococcal 7 2001 Completed [facility] Conjugate, PCV7 00:00:00 [place] [facility] (Prevnar7) [facility] Polio (IPV/OPV) 2001 Completed [facility] 00:00:00 [facility] DTAP 2001 Completed [facility] 00:00:00 [facility] HIB 4 Dose Schedule 2001 Completed [facility] 00:00:00 [facility] Hep B, Adol or Pedi 2001 Completed [facility] Dosage 00:00:00 [facility] Pneumococcal 7 2001 Completed [facility] Conjugate, PCV7 00:00:00 [place] [facility] (Prevnar7) Branch Polio (IPV/OPV) 2001 Completed [facility] 00:00:00 [facility] DTAP 2001 Completed [facility] 00:00:00 [facility] HIB 4 Dose Schedule 2001 Completed [facility] 00:00:00 [facility] Hep B, Adol or Pedi 2001 Completed [facility] Dosage 00:00:00 [facility] Pneumococcal 7 2001 Completed [facility] Conjugate, PCV7 00:00:00 [place] [facility] (Prevnar7) Branch Polio (IPV/OPV) 2001 Completed [facility] 00:00:00 [facility] DTAP 2001 Completed [facility] 00:00:00 [facility] HIB 4 Dose Schedule 2001 Completed [facility] 00:00:00 [facility] Hep B, Adol or Pedi 2001 Completed [facility] Dosage 00:00:00 [facility] Pneumococcal 7 2001 Completed [facility] Conjugate, PCV7 00:00:00 [place] [facility] (Prevnar7) Branch Polio (IPV/OPV) 2001 Completed [facility] 00:00:00 [facility] DTAP 2001 Completed [facility] 00:00:00 [facility] HIB 4 Dose Schedule 2001 Completed [facility] 00:00:00 [facility] Hep B, Adol or Pedi 2001 Completed [facility] Dosage 00:00:00 [facility] Pneumococcal 7 2001 Completed [facility] Conjugate, PCV7 00:00:00 [place] [facility] (Prevnar7) Branch Polio (IPV/OPV) 2001 Completed [facility] 00:00:00 [facility] DTAP 2001 Completed [facility] 00:00:00 [facility] DTAP 2001 Completed [facility] 00:00:00 [facility] HIB 4 Dose Schedule 2001 Completed [facility] 00:00:00 [facility] HIB 4 Dose Schedule 2001 Completed [facility] 00:00:00 [facility] Hep B, Adol or Pedi 2001 Completed [facility] Dosage 00:00:00 [facility] Pneumococcal 7 2001 Completed [facility] Conjugate, PCV7 00:00:00 [place] [facility] (Prevnar7) Branch Polio (IPV/OPV) 2001 Completed [facility] 00:00:00 [facility] Hep B, Adol or Pedi 2001 Completed [facility] Dosage 00:00:00 [facility] DTAP 2001 Completed [facility] 00:00:00 [facility] HIB 4 Dose Schedule 2001 Completed [facility] 00:00:00 [facility] Hep B, Adol or Pedi 2001 Completed [facility] Dosage 00:00:00 [facility] Pneumococcal 7 2001 Completed [facility] Conjugate, PCV7 00:00:00 [place] [facility] (Prevnar7) Branch Polio (IPV/OPV) 2001 Completed [facility] 00:00:00 [facility] DTAP 2001 Completed [facility] 00:00:00 [facility] Pneumococcal 7 2001 Completed [facility] Conjugate, PCV7 00:00:00 [place] [facility] (Prevnar7) [facility] HIB 4 Dose Schedule 2001 Completed [facility] 00:00:00 [facility] Hep B, Adol or Pedi 2001 Completed [facility] Dosage 00:00:00 [facility] Pneumococcal 7 2001 Completed [facility] Conjugate, PCV7 00:00:00 [place] [facility] (Prevnar7) Branch Polio (IPV/OPV) 2001 Completed [facility] 00:00:00 [facility] Polio (IPV/OPV) 2001 Completed [facility] 00:00:00 [facility] DTAP 2001 Completed [facility] 00:00:00 [facility] HIB 4 Dose Schedule 2001 Completed [facility] 00:00:00 [facility] Hep B, Adol or Pedi 2001 Completed [facility] Dosage 00:00:00 [facility] Pneumococcal 7 2001 Completed [facility] Conjugate, PCV7 00:00:00 [place] [facility] (Prevnar7) Branch Polio (IPV/OPV) 2001 Completed [facility] 00:00:00 [facility] DTAP 2001 Completed [facility] 00:00:00 [facility] HIB 4 Dose Schedule 2001 Completed [facility] 00:00:00 [facility] Hep B, Adol or Pedi 2001 Completed [facility] Dosage 00:00:00 [facility] Pneumococcal 7 2001 Completed [facility] Conjugate, PCV7 00:00:00 [place] [facility] (Prevnar7) [place] Polio (IPV/OPV) 2001 Completed [facility] 00:00:00 [facility] DTAP 2001 Completed [facility] 00:00:00 [facility] HIB 4 Dose Schedule 2001 Completed [facility] 00:00:00 [facility] Hep B, Adol or Pedi 2001 Completed [facility] Dosage 00:00:00 [facility] Pneumococcal 7 2001 Completed [facility] Conjugate, PCV7 00:00:00 [place] [facility] (Prevnar7) Branch Polio (IPV/OPV) 2001 Completed [facility] 00:00:00 [facility] DTAP 2001 Completed [facility] 00:00:00 [facility] HIB 4 Dose Schedule 2001 Completed [facility] 00:00:00 [facility] Hep B, Adol or Pedi 2001 Completed [facility] Dosage 00:00:00 [facility] Pneumococcal 7 2001 Completed [facility] Conjugate, PCV7 00:00:00 [place] [facility] (Prevnar7) Branch Polio (IPV/OPV) 2001 Completed [facility] 00:00:00 [facility] DTAP 2001 Completed [facility] 00:00:00 [facility] HIB 4 Dose Schedule 2001 Completed [facility] 00:00:00 [facility] Hep B, Adol or Pedi 2001 Completed [facility] Dosage 00:00:00 [facility] Pneumococcal 7 2001 Completed [facility] Conjugate, PCV7 00:00:00 [place] [facility] (Prevnar7) [facility] Polio (IPV/OPV) 2001 Completed [facility] 00:00:00 [facility] DTAP 2001 Completed [facility] 00:00:00 [facility] HIB 4 Dose Schedule 2001 Completed [facility] 00:00:00 [facility] DTAP 2001 Completed [facility] 00:00:00 [facility] HIB 4 Dose Schedule 2001 Completed [facility] 00:00:00 [facility] Hep B, Adol or Pedi 2001 Completed [facility] Dosage 00:00:00 [facility] Pneumococcal 7 2001 Completed [facility] Conjugate, PCV7 00:00:00 [place] [facility] (Prevnar7) [facility] Polio (IPV/OPV) 2001 Completed [facility] 00:00:00 [facility] DTAP 2001 Completed [facility] 00:00:00 [facility] Hep B, Adol or Pedi 2001 Completed [facility] Dosage 00:00:00 [facility] HIB 4 Dose Schedule 2001 Completed [facility] 00:00:00 [facility] Hep B, Adol or Pedi 2001 Completed [facility] Dosage 00:00:00 [facility] Pneumococcal 7 2001 Completed [facility] Conjugate, PCV7 00:00:00 [place] [facility] (Prevnar7) [facility] Polio (IPV/OPV) 2001 Completed [facility] 00:00:00 [facility] Pneumococcal 7 2001 Completed [facility] Conjugate, PCV7 00:00:00 [place] [facility] (Prevnar7) [facility] Polio (IPV/OPV) 2001 Completed [facility] 00:00:00 [facility] DTAP 2001 Completed [facility] 00:00:00 [facility] HIB 4 Dose Schedule 2001 Completed [facility] 00:00:00 [facility] Hep B, Adol or Pedi 2001 Completed [facility] Dosage 00:00:00 [facility] Pneumococcal 7 2001 Completed [facility] Conjugate, PCV7 00:00:00 [place] [facility] (Prevnar7) [facility] Polio (IPV/OPV) 2001 Completed [facility] 00:00:00 [facility] DTAP 2001 Completed [facility] 00:00:00 [facility] HIB 4 Dose Schedule 2001 Completed [facility] 00:00:00 [facility] Hep B, Adol or Pedi 2001 Completed [facility] Dosage 00:00:00 [facility] Pneumococcal 7 2001 Completed [facility] Conjugate, PCV7 00:00:00 [place] [facility] (Prevnar7) [facility] Polio (IPV/OPV) 2001 Completed [facility] 00:00:00 [facility] DTAP 2001 Completed [facility] 00:00:00 [facility] HIB 4 Dose Schedule 2001 Completed [facility] 00:00:00 [facility] Hep B, Adol or Pedi 2001 Completed [facility] Dosage 00:00:00 [facility] Pneumococcal 7 2001 Completed [facility] Conjugate, PCV7 00:00:00 [place] [facility] (Prevnar7) [facility] Polio (IPV/OPV) 2001 Completed [facility] 00:00:00 [facility] DTAP 2001 Completed [facility] 00:00:00 [facility] HIB 4 Dose Schedule 2001 Completed [facility] 00:00:00 [facility] Hep B, Adol or Pedi 2001 Completed [facility] Dosage 00:00:00 [facility] Pneumococcal 7 2001 Completed [facility] Conjugate, PCV7 00:00:00 [place] [facility] (Prevnar7) [facility] Polio (IPV/OPV) 2001 Completed [facility] 00:00:00 [facility] DTAP 2001 Completed [facility] 00:00:00 [facility] HIB 4 Dose Schedule 2001 Completed [facility] 00:00:00 [facility] Hep B, Adol or Pedi 2001 Completed [facility] Dosage 00:00:00 [facility] Pneumococcal 7 2001 Completed [facility] Conjugate, PCV7 00:00:00 [place] [facility] (Prevnar7) [facility] Polio (IPV/OPV) 2001 Completed [facility] 00:[facility]00 [facility] DTAP 2001 Completed [facility] 00:00:00 [facility] HIB 4 Dose Schedule 2001 Completed [facility] 00:00:00 [facility] Hep B, Adol or Pedi 2001 Completed [facility] Dosage 00:00:00 [facility] Pneumococcal 7 2001 Completed [facility] Conjugate, PCV7 00:00:00 [place] [facility] (Prevnar7) [facility] Polio (IPV/OPV) 2001 Completed [facility] 00:00:00 [facility] DTAP 2001 Completed [facility] 00:00:00 [facility] HIB 4 Dose Schedule 2001 Completed [facility] 00:00:00 [facility] Hep B, Adol or Pedi 2001 Completed [facility] Dosage 00:00:00 [facility] Pneumococcal 7 2001 Completed [facility] Conjugate, PCV7 00:00:00 [place] [facility] (Prevnar7) [facility] Polio (IPV/OPV) 2001 Completed [facility] 00:00:00 [facility] DTAP 2001 Completed [facility] 00:00:00 [facility] HIB 4 Dose Schedule 2001 Completed [facility] 00:00:00 [facility] Hep B, Adol or Pedi 2001 Completed [facility] Dosage 00:00:00 [facility] Pneumococcal 7 2001 Completed [facility] Conjugate, PCV7 00:00:00 [place] [facility] (Prevnar7) [facility] Polio (IPV/OPV) 2001 Completed [facility] 00:00:00 [facility] DTAP 2001 Completed [facility] 00:00:00 [facility] HIB 4 Dose Schedule 2001 Completed [facility] 00:00:00 [facility] Hep B, Adol or Pedi 2001 Completed [facility] Dosage 00:00:00 [facility] Pneumococcal 7 2001 Completed [facility] Conjugate, PCV7 00:00:00 [place] [facility] (Prevnar7) [facility] Polio (IPV/OPV) 2001 Completed [facility] 00:00:00 [facility] DTAP 2001 Completed [facility] 00:00:00 [facility] HIB 4 Dose Schedule 2001 Completed [facility] 00:00:00 [facility] Hep B, Adol or Pedi 2001 Completed [facility] Dosage 00:00:00 [facility] Pneumococcal 7 2001 Completed [facility] Conjugate, PCV7 00:00:00 [place] [facility] (Prevnar7) [facility] Polio (IPV/OPV) 2001 Completed [facility] 00:00:00 [facility] DTAP 2001 Completed [facility] 00:00:00 [facility] HIB 4 Dose Schedule 2001 Completed [facility] 00:00:00 [facility] Hep B, Adol or Pedi 2001 Completed [facility] Dosage 00:00:00 [facility] Pneumococcal 7 2001 Completed [facility] Conjugate, PCV7 00:00:00 [place] [facility] (Prevnar7) [facility] Polio (IPV/OPV) 2001 Completed [facility] 00:00:00 [facility] DTAP 2001 Completed [facility] 00:00:00 [facility] HIB 4 Dose Schedule 2001 Completed [facility] 00:00:00 [facility] Hep B, Adol or Pedi 2001 Completed [facility] Dosage 00:00:00 [facility] Pneumococcal 7 2001 Completed [facility] Conjugate, PCV7 00:00:00 [place] [facility] (Prevnar7) [facility] Polio (IPV/OPV) 2001 Completed [facility] 00:00:00 [facility] DTAP 2001 Completed [facility] 00:00:00 [facility] HIB 4 Dose Schedule 2001 Completed [facility] 00:00:00 [facility] Hep B, Adol or Pedi 2001 Completed [facility] Dosage 00:00:00 [facility] Pneumococcal 7 2001 Completed [facility] Conjugate, PCV7 00:00:00 [place] [facility] (Prevnar7) [facility] Polio (IPV/OPV) 2001 Completed [facility] 00:00:00 [facility] DTAP 2001 Completed [facility] 00:00:00 [facility] HIB 4 Dose Schedule 2001 Completed [facility] 00:00:00 [facility] Hep B, Adol or Pedi 2001 Completed [facility] Dosage 00:00:00 [facility] Pneumococcal 7 2001 Completed [facility] Conjugate, PCV7 00:00:00 [place] [facility] (Prevnar[facility]) [place] Polio (IPV/OPV) 2001 Completed [facility] 00:00:00 [facility] DTAP 2001 Completed [facility] 00:00:00 [facility] HIB 4 Dose Schedule 2001 Completed [facility] 00:00:00 [facility] Pneumococcal 7 2001 Completed [facility] Conjugate, PCV7 00:00:00 [facility] (Prevnar7) Branch Polio (IPV/OPV) 2001 Completed [facility] 00:00:00 [facility] DTAP 2001 Completed [facility] 00:00:00 [facility] HIB 4 Dose Schedule 2001 Completed [facility] 00:00:00 [facility] Pneumococcal 7 2001 Completed [facility] Conjugate, PCV7 00:00:00 [place] [facility] (Prevnar7) [facility] Polio (IPV/OPV) 2001 Completed [facility] 00:00:00 [facility] DTAP 2001 Completed [facility] 00:00:00 [facility] HIB 4 Dose Schedule 2001 Completed [facility] 00:00:00 [facility] Pneumococcal 7 2001 Completed [facility] Conjugate, PCV7 00:00:00 [place] [facility] (Prevnar7) [facility] Polio (IPV/OPV) 2001 Completed [facility] 00:00:00 [facility] DTAP 2001 Completed [facility] 00:00:00 [facility] HIB 4 Dose Schedule 2001 Completed [facility] 00:00:00 [facility] Pneumococcal 7 2001 Completed [facility] Conjugate, PCV7 00:00:00 [place] [facility] (Prevnar7) Branch Polio (IPV/OPV) 2001 Completed [facility] 00:00:00 [facility] DTAP 2001 Completed [facility] 00:00:00 [facility] HIB 4 Dose Schedule 2001 Completed [facility] 00:00:00 [facility] Pneumococcal 7 2001 Completed [facility] Conjugate, PCV7 00:00:00 [place] [facility] (Prevnar7) Branch Polio (IPV/OPV) 2001 Completed [facility] 00:00:00 [facility] DTAP 2001 Completed [facility] 00:00:00 [facility] HIB 4 Dose Schedule 2001 Completed [facility] 00:00:00 [facility] Pneumococcal 7 2001 Completed [facility] Conjugate, PCV7 00:00:00 [place] [facility] (Prevnar7) Branch Polio (IPV/OPV) 2001 Completed [facility] 00:00:00 [facility] DTAP 2001 Completed [facility] 00:00:00 [facility] HIB 4 Dose Schedule 2001 Completed [facility] 00:00:00 [facility] Pneumococcal 7 2001 Completed [facility] Conjugate, PCV7 00:00:00 [place] [facility] (Prevnar7) Branch Polio (IPV/OPV) 2001 Completed [facility] 00:00:00 [facility] DTAP 2001 Completed [facility] 00:00:00 [facility] HIB 4 Dose Schedule 2001 Completed [facility] 00:00:00 [facility] Pneumococcal 7 2001 Completed [facility] Conjugate, PCV7 00:00:00 [place] [facility] (Prevnar7) Branch Polio (IPV/OPV) 2001 Completed [facility] 00:00:00 [facility] DTAP 2001 Completed [facility] 00:00:00 [facility] HIB 4 Dose Schedule 2001 Completed [facility] 00:00:00 [facility] Pneumococcal 7 2001 Completed [facility] Conjugate, PCV7 00:00:00 [place] [facility] (Prevnar7) [facility] Polio (IPV/OPV) 2001 Completed [facility] 00:00:00 [facility] DTAP 2001 Completed [facility] 00:00:00 [facility] HIB 4 Dose Schedule 2001 Completed [facility] 00:00:00 [facility] Pneumococcal 7 2001 Completed [facility] Conjugate, PCV7 00:00:00 [place] [facility] (Prevnar7) [facility] Polio (IPV/OPV) 2001 Completed [facility] 00:00:00 [facility] DTAP 2001 Completed [facility] 00:00:00 [facility] HIB 4 Dose Schedule 2001 Completed [facility] 00:00:00 [facility] Pneumococcal 7 2001 Completed [facility] Conjugate, PCV7 00:00:00 [place] [facility] (Prevnar7) [facility] Polio (IPV/OPV) 2001 Completed [facility] 00:00:00 [facility] DTAP 2001 Completed [facility] 00:00:00 [facility] HIB 4 Dose Schedule 2001 Completed [facility] 00:00:00 [facility] Pneumococcal 7 2001 Completed [facility] Conjugate, PCV7 00:00:00 [place] [facility] (Prevnar7) Branch Polio (IPV/OPV) 2001 Completed [facility] 00:00:00 [facility] DTAP 2001 Completed [facility] 00:00:00 [facility] HIB 4 Dose Schedule 2001 Completed [facility] 00:00:00 [facility] Pneumococcal 7 2001 Completed [facility] Conjugate, PCV7 00:00:00 [place] [facility] (Prevnar7) Branch Polio (IPV/OPV) 2001 Completed [facility] 00:00:00 [facility] DTAP 2001 Completed [facility] 00:00:00 [facility] HIB 4 Dose Schedule 2001 Completed [facility] 00:00:00 [facility] Pneumococcal 7 2001 Completed [facility] Conjugate, PCV7 00:00:00 [place] [facility] (Prevnar7) Branch Polio (IPV/OPV) 2001 Completed [facility] 00:00:00 [facility] DTAP 2001 Completed [facility] 00:00:00 [facility] HIB 4 Dose Schedule 2001 Completed [facility] 00:00:00 [facility] Pneumococcal 7 2001 Completed [facility] Conjugate, PCV7 00:00:00 [place] [facility] (Prevnar7) Branch Polio (IPV/OPV) 2001 Completed [facility] 00:00:00 [facility] DTAP 2001 Completed [facility] 00:00:00 [facility] HIB 4 Dose Schedule 2001 Completed [facility] 00:00:00 [facility] Pneumococcal 7 2001 Completed [facility] Conjugate, PCV7 00:00:00 [place] [facility] (Prevnar7) Branch Polio (IPV/OPV) 2001 Completed [facility] 00:00:00 [facility] DTAP 2001 Completed [facility] 00:00:00 [facility] HIB 4 Dose Schedule 2001 Completed [facility] 00:00:00 [facility] Pneumococcal 7 2001 Completed [facility] Conjugate, PCV7 00:00:00 [place] [facility] (Prevnar7) [facility] Polio (IPV/OPV) 2001 Completed [facility] 00:00:00 [facility] DTAP 2001 Completed [facility] 00:00:00 [facility] HIB 4 Dose Schedule 2001 Completed [facility] 00:00:00 [facility] Pneumococcal 7 2001 Completed [facility] Conjugate, PCV7 00:00:00 [place] [facility] (Prevnar7) Branch Polio (IPV/OPV) 2001 Completed [facility] 00:00:00 [facility] DTAP 2001 Completed [facility] 00:00:00 [facility] HIB 4 Dose Schedule 2001 Completed [facility] 00:00:00 [facility] Pneumococcal 7 2001 Completed [facility] Conjugate, PCV7 00:00:00 [place] [facility] (Prevnar7) Branch Polio (IPV/OPV) 2001 Completed [facility] 00:00:00 [facility] DTAP 2001 Completed [facility] 00:00:00 [facility] HIB 4 Dose Schedule 2001 Completed [facility] 00:00:00 [facility] Pneumococcal 7 2001 Completed [facility] Conjugate, PCV7 00:00:00 [place] [facility] (Prevnar7) Branch Polio (IPV/OPV) 2001 Completed [facility] 00:00:00 [facility] DTAP 2001 Completed [facility] 00:00:00 [facility] HIB 4 Dose Schedule 2001 Completed [facility] 00:00:00 [facility] Pneumococcal 7 2001 Completed [facility] Conjugate, PCV7 00:00:00 [place] [facility] (Prevnar7) Branch Polio (IPV/OPV) 2001 Completed [facility] 00:00:00 [facility] DTAP 2001 Completed [facility] 00:00:00 [facility] HIB 4 Dose Schedule 2001 Completed [facility] 00:00:00 [facility] Pneumococcal 7 2001 Completed [facility] Conjugate, PCV7 00:00:00 [place] [facility] (Prevnar7) Branch Polio (IPV/OPV) 2001 Completed [facility] 00:00:00 [facility] DTAP 2001 Completed [facility] 00:00:00 [facility] HIB 4 Dose Schedule 2001 Completed [facility] 00:00:00 [facility] Pneumococcal 7 2001 Completed [facility] Conjugate, PCV7 00:00:00 [place] [facility] (Prevnar7) Branch Polio (IPV/OPV) 2001 Completed [facility] 00:00:00 [facility] DTAP 2001 Completed [facility] 00:00:00 [facility] HIB 4 Dose Schedule 2001 Completed [facility] 00:00:00 [facility] Pneumococcal 7 2001 Completed [facility] Conjugate, PCV7 00:00:00 [place] [facility] (Prevnar7) Branch Polio (IPV/OPV) 2001 Completed [facility] 00:00:00 [facility] DTAP 2001 Completed [facility] 00:00:00 [facility] HIB 4 Dose Schedule 2001 Completed [facility] 00:00:00 [facility] Pneumococcal 7 2001 Completed [facility] Conjugate, PCV7 00:00:00 [place] [facility] (Prevnar7) Branch Polio (IPV/OPV) 2001 Completed [facility] 00:00:00 [facility] DTAP 2001 Completed [facility] 00:00:00 [facility] HIB 4 Dose Schedule 2001 Completed [facility] 00:00:00 [facility] Pneumococcal 7 2001 Completed [facility] Conjugate, PCV7 00:00:00 [place] [facility] (Prevnar7) Branch Polio (IPV/OPV) 2001 Completed [facility] 00:00:00 [facility] DTAP 2001 Completed [facility] 00:00:00 [facility] DTAP 2001 Completed [facility] 00:00:00 [facility] HIB 4 Dose Schedule 2001 Completed [facility] 00:00:00 [facility] Pneumococcal 7 2001 Completed [facility] Conjugate, PCV7 00:00:00 [place] [facility] (Prevnar7) Branch Polio (IPV/OPV) 2001 Completed [facility] 00:00:00 [facility] DTAP 2001 Completed [facility] 00:00:00 [facility] HIB 4 Dose Schedule 2001 Completed [facility] 00:00:00 [facility] HIB 4 Dose Schedule 2001 Completed [facility] 00:00:00 [facility] Pneumococcal 7 2001 Completed [facility] Conjugate, PCV7 00:00:00 [place] [facility] (Prevnar7) Branch Polio (IPV/OPV) 2001 Completed [facility] 00:00:00 [facility] DTAP 2001 Completed [facility] 00:00:00 [facility] HIB 4 Dose Schedule 2001 Completed [facility] 00:00:00 [facility] Pneumococcal 7 2001 Completed [facility] Conjugate, PCV7 00:00:00 [place] [facility] (Prevnar7) Branch Polio (IPV/OPV) 2001 Completed [facility] 00:00:00 [facility] DTAP 2001 Completed [facility] 00:00:00 [facility] HIB 4 Dose Schedule 2001 Completed [facility] 00:00:00 [facility] Pneumococcal 7 2001 Completed [facility] Conjugate, PCV7 00:00:00 [place] [facility] (Prevnar7) Branch Polio (IPV/OPV) 2001 Completed [facility] 00:00:00 [facility] Pneumococcal 7 2001 Completed [facility] Conjugate, PCV7 00:00:00 [place] [facility] (Prevnar7) Branch DTAP 2001 Completed [facility] 00:00:00 [facility] HIB 4 Dose Schedule 2001 Completed [facility] 00:00:00 [facility] Pneumococcal 7 2001 Completed [facility] Conjugate, PCV7 00:00:00 [place] [facility] (Prevnar7) Branch Polio (IPV/OPV) 2001 Completed [facility] 00:00:00 [facility] Polio (IPV/OPV) 2001 Completed [facility] 00:00:00 [facility] DTAP 2001 Completed [facility] 00:00:00 [facility] HIB 4 Dose Schedule 2001 Completed [facility] 00:00:00 [facility] Pneumococcal 7 2001 Completed [facility] Conjugate, PCV7 00:00:00 [place] [facility] (Prevnar7) Branch Polio (IPV/OPV) 2001 Completed [facility] 00:00:00 [facility] DTAP 2001 Completed [facility] 00:00:00 [facility] HIB 4 Dose Schedule 2001 Completed [facility] 00:00:00 [facility] Pneumococcal 7 2001 Completed [facility] Conjugate, PCV7 00:00:00 [place] [facility] (Prevnar7) Branch Polio (IPV/OPV) 2001 Completed [facility] 00:00:00 [facility] DTAP 2001 Completed [facility] 00:00:00 [facility] HIB 4 Dose Schedule 2001 Completed [facility] 00:00:00 [facility] Pneumococcal 7 2001 Completed [facility] Conjugate, PCV7 00:00:00 [place] [facility] (Prevnar7) Branch Polio (IPV/OPV) 2001 Completed [facility] 00:00:00 [facility] DTAP 2001 Completed [facility] 00:00:00 [facility] HIB 4 Dose Schedule 2001 Completed [facility] 00:00:00 [facility] Pneumococcal 7 2001 Completed [facility] Conjugate, PCV7 00:00:00 [place] [facility] (Prevnar7) Branch Polio (IPV/OPV) 2001 Completed [facility] 00:00:00 [facility] DTAP 2001 Completed [facility] 00:00:00 [facility] HIB 4 Dose Schedule 2001 Completed [facility] 00:00:00 [facility] Pneumococcal 7 2001 Completed [facility] Conjugate, PCV7 00:00:00 [place] [facility] (Prevnar7) Branch Polio (IPV/OPV) 2001 Completed [facility] 00:00:00 [facility] DTAP 2001 Completed [facility] 00:00:00 [facility] HIB 4 Dose Schedule 2001 Completed [facility] 00:00:00 [facility] Pneumococcal 7 2001 Completed [facility] Conjugate, PCV7 00:00:00 [place] [facility] (Prevnar7) Branch Polio (IPV/OPV) 2001 Completed [facility] 00:00:00 [facility] DTAP 2001 Completed [facility] 00:00:00 [facility] HIB 4 Dose Schedule 2001 Completed [facility] 00:00:00 [facility] Pneumococcal 7 2001 Completed [facility] Conjugate, PCV7 00:00:00 [place] [facility] (Prevnar7) Branch Polio (IPV/OPV) 2001 Completed [facility] 00:00:00 [facility] DTAP 2001 Completed [facility] 00:00:00 [facility] HIB 4 Dose Schedule 2001 Completed [facility] 00:00:00 [facility] DTAP 2001 Completed [facility] 00:00:00 [facility] Pneumococcal 7 2001 Completed [facility] Conjugate, PCV7 00:00:00 [place] [facility] (Prevnar7) Branch Polio (IPV/OPV) 2001 Completed [facility] 00:00:00 [facility] DTAP 2001 Completed [facility] 00:00:00 [facility] HIB 4 Dose Schedule 2001 Completed [facility] 00:00:00 [facility] Pneumococcal 7 2001 Completed [facility] Conjugate, PCV7 00:00:00 [place] [facility] (Prevnar7) [facility] HIB 4 Dose Schedule 2001 Completed [facility] 00:00:00 [facility] Polio (IPV/OPV) 2001 Completed [facility] 00:00:00 [facility] DTAP 2001 Completed [facility] 00:00:00 [facility] HIB 4 Dose Schedule 2001 Completed [facility] 00:00:00 [facility] Pneumococcal 7 2001 Completed [facility] Conjugate, PCV7 00:00:00 [place] [facility] (Prevnar7) [facility] Polio (IPV/OPV) 2001 Completed [facility] 00:00:00 [facility] DTAP 2001 Completed [facility] 00:00:00 [facility] HIB 4 Dose Schedule 2001 Completed [facility] 00:00:00 [facility] Pneumococcal 7 2001 Completed [facility] Conjugate, PCV7 00:00:00 [place] [facility] (Prevnar7) [facility] Polio (IPV/OPV) 2001 Completed [facility] 00:00:00 [facility] Pneumococcal 7 2001 Completed [facility] Conjugate, PCV7 00:00:00 [place] [facility] (Prevnar7) Branch DTAP 2001 Completed [facility] 00:00:00 [facility] HIB 4 Dose Schedule 2001 Completed [facility] 00:00:00 [facility] Pneumococcal 7 2001 Completed [facility] Conjugate, PCV7 00:00:00 [place] [facility] (Prevnar7) [facility] Polio (IPV/OPV) 2001 Completed [facility] 00:00:00 [facility] Polio (IPV/OPV) 2001 Completed [facility] 00:00:00 [facility] DTAP 2001 Completed [facility] 00:00:00 [facility] HIB 4 Dose Schedule 2001 Completed [facility] 00:00:00 [facility] Pneumococcal 7 2001 Completed [facility] Conjugate, PCV7 00:00:00 [place] [facility] (Prevnar7) [facility] Polio (IPV/OPV) 2001 Completed [facility] 00:00:00 [facility] DTAP 2001 Completed [facility] 00:00:00 [facility] HIB 4 Dose Schedule 2001 Completed [facility] 00:00:00 [facility] Pneumococcal 7 2001 Completed [facility] Conjugate, PCV7 00:00:00 [place] [facility] (Prevnar7) [facility] Polio (IPV/OPV) 2001 Completed [facility] 00:00:00 [facility] DTAP 2001 Completed [facility] 00:00:00 [facility] HIB 4 Dose Schedule 2001 Completed [facility] 00:00:00 [facility] Pneumococcal 7 2001 Completed [facility] Conjugate, PCV7 00:00:00 [place] [facility] (Prevnar7) [facility] Polio (IPV/OPV) 2001 Completed [facility] 00:00:00 [facility] DTAP 2001 Completed [facility] 00:00:00 [facility] HIB 4 Dose Schedule 2001 Completed [facility] 00:00:00 [facility] Pneumococcal 7 2001 Completed [facility] Conjugate, PCV7 00:00:00 [place] [facility] (Prevnar7) [facility] Polio (IPV/OPV) 2001 Completed [facility] 00:00:00 [facility] DTAP 2001 Completed [facility] 00:00:00 [facility] HIB 4 Dose Schedule 2001 Completed [facility] 00:00:00 [facility] Pneumococcal 7 2001 Completed [facility] Conjugate, PCV7 00:00:00 [place] [facility] (Prevnar7) [facility] Polio (IPV/OPV) 2001 Completed [facility] 00:00:00 [facility] DTAP 2001 Completed [facility] 00:00:00 [facility] HIB 4 Dose Schedule 2001 Completed [facility] 00:00:00 [facility] DTAP 2001 Completed [facility] 00:00:00 [facility] Pneumococcal 7 2001 Completed [facility] Conjugate, PCV7 00:00:00 [place] [facility] (Prevnar7) [facility] Polio (IPV/OPV) 2001 Completed [facility] 00:00:00 [facility] HIB 4 Dose Schedule 2001 Completed [facility] 00:00:00 [facility] DTAP 2001 Completed [facility] 00:00:00 [facility] HIB 4 Dose Schedule 2001 Completed [facility] 00:00:00 [facility] Pneumococcal 7 2001 Completed [facility] Conjugate, PCV7 00:00:00 [place] [facility] (Prevnar7) [facility] Polio (IPV/OPV) 2001 Completed [facility] 00:00:00 [facility] DTAP 2001 Completed [facility] 00:00:00 [facility] HIB 4 Dose Schedule 2001 Completed [facility] 00:00:00 [facility] Pneumococcal 7 2001 Completed [facility] Conjugate, PCV7 00:00:00 [place] [facility] (Prevnar7) [facility] Polio (IPV/OPV) 2001 Completed [facility] 00:00:00 [facility] Pneumococcal 7 2001 Completed [facility] Conjugate, PCV7 00:00:00 [place] [facility] (Prevnar7) Branch DTAP 2001 Completed [facility] 00:00:00 [facility] HIB 4 Dose Schedule 2001 Completed [facility] 00:00:00 [facility] Pneumococcal 7 2001 Completed [facility] Conjugate, PCV7 00:00:00 [place] [facility] (Prevnar7) [facility] Polio (IPV/OPV) 2001 Completed [facility] 00:00:00 [facility] Polio (IPV/OPV) 2001 Completed [facility] 00:00:00 [facility] DTAP 2001 Completed [facility] 00:00:00 [facility] HIB 4 Dose Schedule 2001 Completed [facility] 00:00:00 [facility] Pneumococcal 7 2001 Completed [facility] Conjugate, PCV7 00:00:00 [place] [facility] (Prevnar7) [facility] Polio (IPV/OPV) 2001 Completed [facility] 00:00:00 [facility] DTAP 2001 Completed [facility] 00:00:00 [facility] HIB 4 Dose Schedule 2001 Completed [facility]ive rsity of 00:00:00 [facility] Pneumococcal 7 2001 Completed University of Conjugate, PCV7 00:00:00 [place] [facility] (Prevnar7) Branch Polio (IPV/OPV) 2001 Completed [facility]it [facility] of 00:00:00 [facility] DTAP 2001 Completed University of 00:00:00 [facility] HIB 4 Dose Schedule 2001 Completed [facility]ive rsity of 00:00:00 [facility] Pneumococcal 7 2001 Completed University of Conjugate, PCV7 00:00:00 [place] [facility] (Prevnar7) [facility] Polio (IPV/OPV) 2001 Completed [facility]it [facility] of 00:00:00 [facility] DTAP 2001 Completed University of 00:00:00 [facility] HIB 4 Dose Schedule 2001 Completed Unive rsity of 00:00:00 [facility] Pneumococcal 7 2001 Completed University of Conjugate, PCV7 00:00:00 [place] [facility] (Prevnar7) [facility] Polio (IPV/OPV) 2001 Completed [facility]it [facility] of 00:00:00 [facility] DTAP 2001 Completed University of 00:00:00 [facility] HIB 4 Dose Schedule 2001 Completed [facility]ive rsity of 00:00:00 [facility] Pneumococcal 7 2001 Completed University of Conjugate, PCV7 00:00:00 [place] [facility] (Prevnar7) [facility] Polio (IPV/OPV) 2001 Completed [facility]it [facility] of 00:00:00 [facility] DTAP 2001 Completed University of 00:00:00 [facility] HIB 4 Dose Schedule 2001 Completed [facility]ive rsity of 00:00:00 [facility] DTAP 2001 Completed University of 00:00:00 [facility] HIB 4 Dose Schedule 2001 Completed [facility]ive rsity of 00:00:00 [facility] Pneumococcal 7 2001 Completed University of Conjugate, PCV7 00:00:00 [place] [facility] (Prevnar7) [facility] Polio (IPV/OPV) 2001 Completed [facility]it [facility] of 00:00:00 [facility] DTAP 2001 Completed University of 00:00:00 [facility] HIB 4 Dose Schedule 2001 Completed [facility]ive rsity of 00:00:00 [facility] Pneumococcal 7 2001 Completed University of Conjugate, PCV7 00:00:00 [place] [facility] (Prevnar7) [facility] Polio (IPV/OPV) 2001 Completed [facility]it [facility] of 00:00:00 [facility] Pneumococcal 7 2001 Completed University of Conjugate, PCV7 00:00:00 [place] [facility] (Prevnar7) Branch Polio (IPV/OPV) 2001 Completed [facility]it [facility] of 00:00:00 [facility] DTAP 2001 Completed University of 00:00:00 [facility] HIB 4 Dose Schedule 2001 Completed [facility]ive rsity of 00:00:00 [facility] Pneumococcal 7 2001 Completed University of Conjugate, PCV7 00:00:00 [place] [facility] (Prevnar7) Branch Polio (IPV/OPV) 2001 Completed [facility]it [facility] of 00:00:00 [facility] DTAP 2001 Completed University of 00:00:00 [facility] HIB 4 Dose Schedule 2001 Completed [facility]ive rsity of 00:00:00 [facility] Pneumococcal 7 2001 Completed University of Conjugate, PCV7 00:00:00 [place] [facility] (Prevnar7) Branch Polio (IPV/OPV) 2001 Completed [facility]it [facility] of 00:00:00 [facility] DTAP 2001 Completed University of 00:00:00 [facility] HIB 4 Dose Schedule 2001 Completed [facility]ive rsity of 00:00:00 [facility] Pneumococcal 7 2001 Completed University of Conjugate, PCV7 00:00:00 [place] [facility] (Prevnar7) Branch Polio (IPV/OPV) 2001 Completed [facility]it [facility] of 00:00:00 [facility] DTAP 2001 Completed University of 00:00:00 [facility] HIB 4 Dose Schedule 2001 Completed [facility]ive rsity of 00:00:00 [facility] Pneumococcal 7 2001 Completed [facility] of Conjugate, PCV7 00:00:00 [place] [facility] (Prevnar7) Branch Polio (IPV/OPV) 2001 Completed [facility]it [facility] of 00:00:00 [facility] DTAP 2001 Completed University of 00:00:00 [facility] HIB 4 Dose Schedule 2001 Completed [facility]ive rsity of 00:00:00 [facility] Pneumococcal 7 2001 Completed [facility] of Conjugate, PCV7 00:00:00 [place] [facility] (Prevnar7) Branch Polio (IPV/OPV) 2001 Completed [facility]it [facility] of 00:00:00 [facility] DTAP 2001 Completed University of 00:00:00 [facility] HIB 4 Dose Schedule 2001 Completed [facility]ive rsity of 00:00:00 [facility] Pneumococcal 7 2001 Completed University of Conjugate, PCV7 00:00:00 [place] [facility] (Prevnar7) Branch Polio (IPV/OPV) 2001 Completed [facility]it [facility] of 00:00:00 [facility] DTAP 2001 Completed University of 00:00:00 [facility] HIB 4 Dose Schedule 2001 Completed [facility]ive rsity of 00:00:00 [facility] Pneumococcal 7 2001 Completed University of Conjugate, PCV7 00:00:00 [place] [facility] (Prevnar7) Branch Polio (IPV/OPV) 2001 Completed [facility]it [facility] of 00:00:00 [facility] DTAP 2001 Completed University of 00:00:00 [facility] HIB 4 Dose Schedule 2001 Completed [facility]ive rsity of 00:00:00 [facility] Pneumococcal 7 2001 Completed University of Conjugate, PCV7 00:00:00 [place] [facility] (Prevnar7) Branch Polio (IPV/OPV) 2001 Completed [facility]it [facility] of 00:00:00 [facility] DTAP 2001 Completed University of 00:00:00 [facility] HIB 4 Dose Schedule 2001 Completed [facility]ive rsity of 00:00:00 [facility] Pneumococcal 7 2001 Completed University of Conjugate, PCV7 00:00:00 [place] [facility] (Prevnar7) Branch Polio (IPV/OPV) 2001 Completed [facility]it [facility] of 00:00:00 [facility] DTAP 2001 Completed University of 00:00:00 [facility] HIB 4 Dose Schedule 2001 Completed [facility]ive rsity of 00:00:00 [facility] Pneumococcal 7 2001 Completed University of Conjugate, PCV7 00:00:00 [place] [facility] (Prevnar7) Branch Polio (IPV/OPV) 2001 Completed [facility]it [facility] of 00:00:00 [facility] DTAP 2001 Completed University of 00:00:00 [facility] HIB 4 Dose Schedule 2001 Completed [facility]ive rsity of 00:00:00 [facility] Pneumococcal 7 2001 Completed University of Conjugate, PCV7 00:00:00 [place] [facility] (Prevnar7) Branch Polio (IPV/OPV) 2001 Completed [facility]it [facility] of 00:00:00 [facility] DTAP 2001 Completed University of 00:00:00 [facility] HIB 4 Dose Schedule 2001 Completed [facility]ive rsity of 00:00:00 [facility] Pneumococcal 7 2001 Completed University of Conjugate, PCV7 00:00:00 [place] [facility] (Prevnar7) Branch Polio (IPV/OPV) 2001 Completed [facility]it [facility] of 00:00:00 [facility] DTAP 2001 Completed University of 00:00:00 [facility] HIB 4 Dose Schedule 2001 Completed [facility]ive rsity of 00:00:00 [facility] Pneumococcal 7 2001 Completed University of Conjugate, PCV7 00:00:00 [place] [facility] (Prevnar7) Branch Polio (IPV/OPV) 2001 Completed [facility]it [facility] of 00:00:00 [facility] DTAP 2001 Completed University of 00:00:00 [facility] HIB 4 Dose Schedule 2001 Completed [facility]ive rsity of 00:00:00 [facility] Pneumococcal 7 2001 Completed University of Conjugate, PCV7 00:00:00 [facility] ical (Prevnar7) Branch Hep B, Adol or Pedi 2001 Completed Unive rsity of Dosage 00:00:00 [facility] Hep B, Adol or Pedi 2001 Completed [facility]ive rsity of Dosage 00:00:00 [facility] Hep B, Adol or Pedi 2001 Completed Unive rsity of Dosage 00:00:00 [facility] Hep B, Adol or Pedi 2001 Completed Unive rsity of Dosage 00:00:00 [facility] Hep B, Adol or Pedi 2001 Completed Unive rsity of Dosage 00:00:00 [facility] Hep B, Adol or Pedi 2001 Completed [facility]ive rsity of Dosage 00:00:00 [facility] Hep B, Adol or Pedi 2001 Completed Unive rsity of Dosage 00:00:00 [facility] Hep B, Adol or Pedi 2001 Completed Unive rsity of Dosage 00:00:00 [facility] Hep B, Adol or Pedi 2001 Completed Unive rsity of Dosage 00:00:00 [facility] Hep B, Adol or Pedi 2001 Completed Unive rsity of Dosage 00:00:00 [facility] Hep B, Adol or Pedi 2001 Completed Unive rsity of Dosage 00:00:00 [facility] Hep B, Adol or Pedi 2001 Completed Unive rsity of Dosage 00:00:00 [facility] Hep B, Adol or Pedi 2001 Completed Unive rsity of Dosage 00:00:00 [facility] Hep B, Adol or Pedi 2001 Completed [facility]ive rsity of Dosage 00:00:00 [facility] Hep B, Adol or Pedi 2001 Completed [facility]ive rsity of Dosage 00:00:00 [facility] Hep B, Adol or Pedi 2001 Completed [facility]ive rsity of Dosage 00:00:00 [facility] Hep B, Adol or Pedi 2001 Completed [facility]ive rsity of Dosage 00:00:00 [facility] Hep B, Adol or Pedi 2001 Completed [facility]ive [facility]ity of Dosage 00:00:00 [facility] Hep B, Adol or Pedi 2001 Completed [facility]ive rsity of Dosage 00:00:00 [facility] Hep B, Adol or Pedi 2001 Completed Unive rsity of Dosage 00:00:00 [facility] Hep B, Adol or Pedi 2001 Completed [facility]ive rsity of Dosage 00:00:00 [facility] Hep B, Adol or Pedi 2001 Completed Unive rsity of Dosage 00:00:00 [facility] Hep B, Adol or Pedi 2001 Completed Unive rsity of Dosage 00:00:00 [facility] Hep B, Adol or Pedi 2001 Completed [facility]ive [facility]ity of Dosage 00:00:00 [facility] Hep B, Adol or Pedi 2001 Completed [facility]ive [facility]ity of Dosage 00:00:00 [facility] Hep B, Adol or Pedi 2001 Completed Unive [facility]ity of Dosage 00:00:00 [facility] Hep B, Adol or Pedi 2001 Completed [facility]ive [facility]ity of Dosage 00:00:00 [facility] Hep B, Adol or Pedi 2001 Completed [facility]ive [facility]ity of Dosage 00:00:00 [facility] Hep B, Adol or Pedi 2001 Completed [facility]ive [facility]ity of Dosage 00:00:00 [facility] Hep B, Adol or Pedi 2001 Completed [facility]ive [facility]ity of Dosage 00:00:00 [facility] Hep B, Adol or Pedi 2001 Completed [facility]ive [facility]ity of Dosage 00:00:00 [facility] Hep B, Adol or Pedi 2001 Completed [facility]ive [facility]ity of Dosage 00:00:00 [facility] Hep B, Adol or Pedi 2001 Completed [facility]ive [facility]ity of Dosage 00:00:00 [facility] Hep B, Adol or Pedi 2001 Completed [facility]ive [facility]ity of Dosage 00:00:00 [facility] Hep B, Adol or Pedi 2001 Completed [facility]ive [facility]ity of Dosage 00:00:00 [facility] Hep B, Adol or Pedi 2001 Completed [facility]ive [facility]ity of Dosage 00:00:00 [facility] Hep B, Adol or Pedi 2001 Completed [facility]ive [facility]ity of Dosage 00:00:00 [facility] Hep B, Adol or Pedi 2001 Completed [facility]ive [facility]ity of Dosage 00:00:00 [facility] Hep B, Adol or Pedi 2001 Completed [facility]ive [facility]ity of Dosage 00:00:00 [facility] Hep B, Adol or Pedi 2001 Completed [facility]ive [facility]ity of Dosage 00:00:00 [facility] Hep B, Adol or Pedi 2001 Completed [facility]ive [facility]ity of Dosage 00:00:00 [facility] Hep B, Adol or Pedi 2001 Completed [facility]ive [facility]ity of Dosage 00:00:00 [facility] Hep B, Adol or Pedi 2001 Completed [facility]ive [facility]ity of Dosage 00:00:00 [facility] Hep B, Adol or Pedi 2001 Completed [facility]ive [facility]ity of Dosage 00:00:00 [facility] Hep B, Adol or Pedi 2001 Completed [facility]ive [facility]ity of Dosage 00:00:00 [facility] Hep B, Adol or Pedi 2001 Completed [facility]ive [facility]ity of Dosage 00:00:00 [facility] Hep B, Adol or Pedi 2001 Completed [facility]ive [facility]ity of Dosage 00:00:00 [facility] Hep B, Adol or Pedi 2001 Completed [facility]ive [facility]ity of Dosage 00:00:00 [facility] Hep B, Adol or Pedi 2001 Completed Unive [facility]ity of Dosage 00:00:00 [facility] Hep B, Adol or Pedi 2001 Completed Unive [facility]ity of Dosage 00:00:00 [facility] Hep B, Adol or Pedi 2001 Completed [facility]ive [facility]ity of Dosage 00:00:00 [facility] Hep B, Adol or Pedi 2001 Completed Unive [facility]ity of Dosage 00:00:00 [facility] Hep B, Adol or Pedi 2001 Completed Unive [facility]ity of Dosage 00:00:00 [facility] Hep B, Adol or Pedi 2001 Completed [facility]ive [facility]ity of Dosage 00:00:00 [facility] Hep B, Adol or Pedi 2001 Completed [facility]ive [facility]ity of Dosage 00:00:00 [facility] Hep B, Adol or Pedi 2001 Completed [facility]ive [facility]ity of Dosage 00:00:00 [facility] Hep B, Adol or Pedi 2001 Completed Unive [facility]ity of Dosage 00:00:00 [facility] Hep B, Adol or Pedi 2001 Completed Unive [facility]ity of Dosage 00:00:00 [facility] Hep B, Adol or Pedi 2001 Completed [facility]ive [facility]ity of Dosage 00:00:00 [facility] Hep B, Adol or Pedi 2001 Completed Unive [facility]ity of Dosage 00:00:00 [facility] Hep B, Adol or Pedi 2001 Completed [facility]ive [facility]ity of Dosage 00:00:00 [facility] Hep B, Adol or Pedi 2001 Completed Unive [facility]ity of Dosage 00:00:00 [facility] Hep B, Adol or Pedi 2001 Completed [facility]ive [facility]ity of Dosage 00:00:00 [facility] Hep B, Adol or Pedi 2001 Completed [facility]ive [facility]ity of Dosage 00:00:00 [facility] Hep B, Adol or Pedi 2001 Completed [facility]ive [facility] of Dosage 00:00:00 [facility] Hep B, Adol or Pedi 2001 Completed [facility]ive [facility]ity of Dosage 00:00:00 [facility] Hep B, Adol or Pedi 2001 Completed Unive [facility]ity of Dosage 00:00:00 [facility] Hep B, Adol or Pedi 2001 Completed [facility]ive [facility]ity of Dosage 00:00:00 [facility] Hep B, Adol or Pedi 2001 Completed [facility]ive [facility]ity of Dosage 00:00:00 [facility] Hep B, Adol or Pedi 2001 Completed Unive [facility]ity of Dosage 00:00:00 [facility] Hep B, Adol or Pedi 2001 Completed Unive [facility]ity of Dosage 00:00:00 [facility] Hep B, Adol or Pedi 2001 Completed Unive [facility]ity of Dosage 00:00:00 [facility] Hep B, Adol or Pedi 2001 Completed Unive [facility]ity of Dosage 00:00:00 [facility] Hep B, Adol or Pedi 2001 Completed [facility]ive [facility]ity of Dosage 00:00:00 [facility] Hep B, Adol or Pedi 2001 Completed Unive [facility]ity of Dosage 00:00:00 [facility] Hep B, Adol or Pedi 2001 Completed [facility]ive [facility]ity of Dosage 00:00:00 [facility] Hep B, Adol or Pedi 2001 Completed Unive [facility]ity of Dosage 00:00:00 [facility] Vital Signs Vital Name Observation Time Observation Value Comments Source Systolic blood 2021-03-30 16:38:00 110 mm[Hg] Univer sity of pressure [facility] Diastolic blood 2021-03-30 16:38:00 69 mm[Hg] Unive rsity of pressure [facility] Heart rate 2021-03-30 16:38:00 80 /min [facility] Body temperature 2021-03-30 16:38:00 36.11 [facility] 2021-03-30 16:38:00 16 /min [facility] height 2021-03-30 16:38:00 152.4 cm [facility] Body weight 2021-03-30 16:38:00 64.547 kg [facility] BMI 2021-03-30 16:38:00 27.79 kg/m2 [facility] Body mass index 2021-03-30 16:38:00 89.19 % Unive rsity of (BMI) [Percentile] [facility] ical Per age and sex Branch Systolic blood 2020-12-09 20:06:00 116 mm[Hg] Univer sity of pressure [facility] Diastolic blood 2020-12-09 20:06:00 77 mm[Hg] Unive rsity of pressure [facility] Heart rate 2020-12-09 20:06:00 92 /min Universi ty of [facility] Body temperature 2020-12-09 20:06:00 36.33 Hannah Univ ersity of [facility] Respiratory rate 2020-12-09 20:06:00 16 /min Univ ersity of [facility] Body height 2020-12-09 20:06:00 152.4 cm Universi ty of [facility] Body weight 2020-12-09 20:06:00 64.184 kg Universi ty of [facility] BMI 2020-12-09 20:06:00 27.63 kg/m2 [facility]i ty of [facility] Systolic blood 2020-12-09 20:04:00 116 mm[Hg] Univer sity of pressure [facility] Diastolic blood 2020-12-09 20:04:00 77 mm[Hg] Unive rsity of pressure [facility] Heart rate 2020-12-09 20:04:00 92 /min Universi ty of [facility] Body temperature 2020-12-09 20:04:00 36.33 Hannah Univ ersity of [facility] Respiratory rate 2020-12-09 20:04:00 16 /min Univ ersity of [facility] Body height 2020-12-09 20:04:00 152.4 cm [facility] Body weight 2020-12-09 20:04:00 64.184 kg [facility] BMI 2020-12-09 20:04:00 27.63 kg/m2 Universi ty of [facility] Systolic blood 2020-11-18 14:54:00 125 mm[Hg] Univer sity of pressure [facility] Diastolic blood 2020-11-18 14:54:00 78 mm[Hg] Unive rsity of pressure [facility] Heart rate 2020-11-18 14:54:00 86 /min Universi ty of [facility] Body temperature 2020-11-18 14:54:00 36.5 Hannah [facility] Respiratory rate 2020-11-18 14:54:00 16 /min Univ ersity of [facility] Body height 2020-11-18 14:54:00 152.4 cm [facility] Body weight 2020-11-18 14:54:00 66.792 kg [facility] BMI 2020-11-18 14:54:00 28.76 kg/m2 [facility] Systolic blood 2020-11-11 19:46:00 119 mm[Hg] Univer [facility]ity of pressure [facility] Diastolic blood 2020-11-11 19:46:00 80 mm[Hg] Unive rsity of pressure [facility] Heart rate 2020-11-11 19:46:00 72 /min [facility] Body temperature 2020-11-11 19:46:00 36.89 Hannah [facility] Respiratory rate 2020-11-11 19:46:00 16 /min Univ ers[facility] of [facility] Body height 2020-11-11 19:46:00 152.4 cm [facility] Body weight 2020-11-11 19:46:00 67.087 kg [facility] BMI 2020-11-11 19:46:00 28.88 kg/m2 [facility] Systolic blood 2020-11-04 19:09:00 144 mm[Hg] manual Univer [facility]ity of pressure [facility] Diastolic blood 2020-11-04 19:09:00 86 mm[Hg] manual Unive rsity of pressure [facility] Heart rate 2020-11-04 18:57:00 82 /min [facility] Body temperature 2020-11-04 18:57:00 36.94 Hannah [facility] Respiratory rate 2020-11-04 18:57:00 16 /min Univ [facility] Body height 2020-11-04 18:57:00 152.4 cm [facility] Body weight 2020-11-04 18:57:00 71.94 kg [facility] BMI 2020-11-04 18:57:00 30.97 kg/m2 [facility] Systolic blood 2020-10-29 20:52:00 109 mm[Hg] Univer [facility]ity of pressure [facility] Diastolic blood 2020-10-29 20:52:00 69 mm[Hg] Unive rsity of pressure [facility] Heart rate 2020-10-29 20:52:00 92 /min [facility] Body temperature 2020-10-29 20:52:00 36.33 Hannah [facility] Respiratory rate 2020-10-29 20:52:00 18 /min Univ ersity of [facility] Oxygen saturation in 2020-10-29 20:52:00 96 /min University Arterial blood by [facility] Pulse oximetry Branch Body weight 2020-10-26 15:45:00 77.111 kg [facility] BMI 2020-10-26 15:45:00 33.20 kg/m2 [facility] Systolic blood 2020-10-21 15:25:00 124 mm[Hg] Univer [facility]ity of pressure [facility] Diastolic blood 2020-10-21 15:25:00 66 mm[Hg] Unive rsity of pressure [facility] Heart rate 2020-10-21 15:25:00 98 /min [facility] Body temperature 2020-10-21 15:25:00 37 Hannah [facility] Respiratory rate 2020-10-21 15:25:00 16 /min Univ [facility] Body height 2020-10-21 15:25:00 152.4 cm [facility] Body weight 2020-10-21 15:25:00 77.202 kg [facility] BMI 2020-10-21 15:25:00 33.24 kg/m2 [facility] Systolic blood 2020-10-14 16:24:00 120 mm[Hg] Univer [facility]ity of pressure [facility] Diastolic blood 2020-10-14 16:24:00 74 mm[Hg] Unive rsity of pressure [facility] Heart rate 2020-10-14 16:24:00 94 /min [facility] Body temperature 2020-10-14 16:24:00 36.61 Hannah [facility] Respiratory rate 2020-10-14 16:24:00 16 /min Univ [facility] Body height 2020-10-14 16:24:00 152.4 cm [facility] Body weight 2020-10-14 16:24:00 76.839 kg [facility] BMI 2020-10-14 16:24:00 33.08 kg/m2 [facility] Systolic blood 2020-10-07 16:07:00 129 mm[Hg] Univer [facility]ity of pressure [facility] Diastolic blood 2020-10-07 16:07:00 75 mm[Hg] Unive rsity of pressure [facility] Heart rate 2020-10-07 16:07:00 98 /min [facility] Body temperature 2020-10-07 16:07:00 36.72 Hannah [facility] Respiratory rate 2020-10-07 16:07:00 16 /min [facility] Body height 2020-10-07 16:07:00 152.4 cm [facility] Body weight 2020-10-07 16:07:00 74.753 kg [facility] BMI 2020-10-07 16:07:00 32.19 kg/m2 [facility] Systolic blood 2020-10-03 21:00:00 137 mm[Hg] Univer [facility]ity of pressure [facility] Diastolic blood 2020-10-03 21:00:00 77 mm[Hg] Unive rsity of pressure [facility] Heart rate 2020-10-03 21:00:00 109 /min [facility] Body temperature 2020-10-03 21:00:00 36.83 Hannah [facility] Respiratory rate 2020-10-03 21:00:00 18 /min Univ [facility] Body height 2020-10-03 21:00:00 152.4 cm [facility] Body weight 2020-10-03 21:00:00 75.751 kg [facility] BMI 2020-10-03 21:00:00 32.61 kg/m2 [facility] Oxygen saturation in 2020-10-03 21:00:00 99 /min University of Arterial blood by [facility] Pulse oximetry Branch Systolic blood 2020-09-23 15:58:00 119 mm[Hg] Univer sity of pressure [facility] Diastolic blood 2020-09-23 15:58:00 72 mm[Hg] Unive rsity of pressure [facility] Heart rate 2020-09-23 15:58:00 93 /min [facility] Body temperature 2020-09-23 15:58:00 36.94 Hannah Univ ersity of [facility] Respiratory rate 2020-09-23 15:58:00 16 /min Univ [facility] of [facility] Body weight 2020-09-23 15:58:00 74.118 kg [facility] Systolic blood 2020-09-08 16:31:00 125 mm[Hg] Univer [facility]ity of pressure [facility] Diastolic blood 2020-09-08 16:31:00 77 mm[Hg] Unive rsity of pressure [facility] Heart rate 2020-09-08 16:31:00 103 /min [facility] Body temperature 2020-09-08 16:31:00 36.78 Hannah [facility] Respiratory rate 2020-09-08 16:31:00 16 /min [facility] Body height 2020-09-08 16:31:00 152.4 cm [facility] [place] [facility] [place] Body weight 2020-09-08 16:31:00 73.392 kg [facility] BMI 2020-09-08 16:31:00 31.60 kg/m2 [facility] Systolic blood 2020-08-25 13:52:00 110 mm[Hg] Univer [facility]ity of pressure [facility] Diastolic blood 2020-08-25 13:52:00 63 mm[Hg] Unive rsity of pressure [facility] Heart rate 2020-08-25 13:52:00 97 /min [facility] Body temperature 2020-08-25 13:52:00 36.56 Hannah [facility] Respiratory rate 2020-08-25 13:52:00 16 /min Univ [facility] Body height 2020-08-25 13:52:00 152.4 cm [facility] Body weight 2020-08-25 13:52:00 72.394 kg [facility] BMI 2020-08-25 13:52:00 31.17 kg/m2 [facility] Systolic blood 2020-08-11 14:37:00 121 mm[Hg] [facility] Diastolic blood 2020-08-11 14:37:00 73 mm[Hg] [facility] Heart rate 2020-08-11 14:37:00 97 /min [facility] Body temperature 2020-08-11 14:37:00 36.5 Hannah [facility] Respiratory rate 2020-08-11 14:37:00 16 /min [facility] Body height 2020-08-11 14:37:00 152.4 cm [facility] Body weight 2020-08-11 14:37:00 71.753 kg [facility] BMI 2020-08-11 14:37:00 30.89 kg/m2 [facility] Systolic blood 2020-07-28 15:28:00 129 mm[Hg] [facility] Diastolic blood 2020-07-28 15:28:00 78 mm[Hg] [facility] Heart rate 2020-07-28 15:28:00 118 /min [facility] Body temperature 2020-07-28 15:28:00 36.83 Hannah [facility] Respiratory rate 2020-07-28 15:28:00 16 /min [facility] Body height 2020-07-28 15:28:00 152.4 cm [facility] Body weight 2020-07-28 15:28:00 69.627 kg [facility] BMI 2020-07-28 15:28:00 29.98 kg/m2 [facility] Systolic blood 2020-07-14 15:03:00 121 mm[Hg] [facility] Diastolic blood 2020-07-14 15:03:00 69 mm[Hg] [facility] Heart rate 2020-07-14 15:03:00 84 /min [facility] Body temperature 2020-07-14 15:03:00 36.28 Hannah [facility] Respiratory rate 2020-07-14 15:03:00 16 /min [facility] Body height 2020-07-14 15:03:00 152.4 cm [facility] Body weight 2020-07-14 15:03:00 67.699 kg [facility] BMI 2020-07-14 15:03:00 29.15 kg/m2 [facility] Systolic blood 2020-06-16 16:09:00 119 mm[Hg] [facility] Diastolic blood 2020-06-16 16:09:00 74 mm[Hg] [facility] Heart rate 2020-06-16 16:09:00 102 /min [facility] Body temperature 2020-06-16 16:09:00 36.56 Hannah [facility] Respiratory rate 2020-06-16 16:09:00 16 /min [facility] Body height 2020-06-16 16:09:00 152.4 cm [facility] Body weight 2020-06-16 16:09:00 63.759 kg [facility] BMI 2020-06-16 16:09:00 27.45 kg/m2 [facility] Body weight 2020-05-30 14:46:00 60.328 kg [facility] Systolic blood 2020-05-30 14:45:00 107 mm[Hg] [facility] Diastolic blood 2020-05-30 14:45:00 77 mm[Hg] [facility] Heart rate 2020-05-30 14:45:00 90 /min [facility] Body temperature 2020-05-30 14:45:00 37 Hannah [facility] Respiratory rate 2020-05-30 14:45:00 18 /min Univ ersity of [facility] Oxygen saturation in 2020-05-30 14:45:00 98 /min University Arterial blood by [facility] Pulse oximetry Branch Systolic blood 2020-05-19 15:56:00 111 mm[Hg] [facility] [place] [facility] Diastolic blood 2020-05-19 15:56:00 71 mm[Hg] Unive rsity of pressure [facility] Heart rate 2020-05-19 15:55:00 105 /min [facility] Body temperature 2020-05-19 15:55:00 37.44 Hannah [facility] Respiratory rate 2020-05-19 15:55:00 16 /min Univ [facility] of [facility] Body height 2020-05-19 15:55:00 152.4 cm [facility] Body weight 2020-05-19 15:55:00 60.328 kg [facility] BMI 2020-05-19 15:55:00 25.97 kg/m2 [facility] Systolic blood 2020-04-21 19:02:00 105 mm[Hg] Univer sity of pressure [facility] Diastolic blood 2020-04-21 19:02:00 55 mm[Hg] Unive rsity of pressure [facility] Heart rate 2020-04-21 19:02:00 86 /min [facility] Body temperature 2020-04-21 19:02:00 36.78 Hannah [facility] Respiratory rate 2020-04-21 19:02:00 16 /min Univ ersity of [facility] Body height 2020-04-21 19:02:00 152.4 cm [facility] [place] [facility] [place] Body weight 2020-04-21 19:02:00 59.557 kg [facility] BMI 2020-04-21 19:02:00 25.64 kg/m2 [facility] Systolic blood 2020-04-21 04:02:10 105 mm[Hg] Univer sity of pressure [facility] Diastolic blood 2020-04-21 04:02:10 62 mm[Hg] Unive rsity of pressure [facility] Heart rate 2020-04-21 04:02:10 73 /min [facility] Body temperature 2020-04-21 04:02:10 37.11 Hannah [facility] Respiratory rate 2020-04-21 04:02:10 18 /min [facility] Oxygen saturation in 2020-04-21 04:02:10 100 /min University of Arterial blood by [facility] Pulse oximetry [place] Body height 2020-04-21 02:00:00 152.4 cm [facility] Body weight 2020-04-21 02:00:00 58.968 kg [facility] BMI 2020-04-21 02:00:00 25.39 kg/m2 [facility] Systolic blood 2020-03-24 15:16:00 126 mm[Hg] [facility] Diastolic blood 2020-03-24 15:16:00 72 mm[Hg] [facility] Heart rate 2020-03-24 15:16:00 99 /min [facility] Body temperature 2020-03-24 15:16:00 37.22 Hannah [facility] Respiratory rate 2020-03-24 15:16:00 16 /min [facility] Body height 2020-03-24 15:16:00 152.4 cm [facility] Body weight 2020-03-24 15:16:00 58.333 kg [facility] BMI 2020-03-24 15:16:00 25.12 kg/m2 [facility] Systolic blood 2020-03-17 14:43:00 133 mm[Hg] [facility] Diastolic blood 2020-03-17 14:43:00 77 mm[Hg] [facility] Heart rate 2020-03-17 14:43:00 97 /min [facility] Body temperature 2020-03-17 14:43:00 37.28 Hannah [facility] Respiratory rate 2020-03-17 14:43:00 20 /min [facility] Body weight 2020-03-17 14:43:00 59.875 kg [facility] Oxygen saturation in 2020-03-17 14:43:00 98 /min University of Arterial blood by [facility] Pulse oximetry Branch Systolic blood 2020-01-22 16:31:00 124 mm[Hg] [facility] Diastolic blood 2020-01-22 16:31:00 73 mm[Hg] [facility] Heart rate 2020-01-22 16:31:00 104 /min [facility] Body temperature 2020-01-22 16:31:00 37.06 Hannah [facility] Respiratory rate 2020-01-22 16:31:00 18 /min [facility] Body weight 2020-01-22 16:31:00 58.968 kg [facility] Oxygen saturation in 2020-01-22 16:31:00 98 /min University of Arterial blood by [facility] Pulse oximetry Branch Systolic blood 2019-10-20 14:12:00 113 mm[Hg] [facility] Diastolic blood 2019-10-20 14:12:00 73 mm[Hg] [facility] Heart rate 2019-10-20 14:12:00 78 /min [facility] Body temperature 2019-10-20 14:12:00 36.94 Hannah [facility] Respiratory rate 2019-10-20 14:12:00 14 /min [facility] Body height 2019-10-20 14:12:00 152.4 cm [facility] Body weight 2019-10-20 14:12:00 65.772 kg [facility] BMI 2019-10-20 14:12:00 28.32 kg/m2 [facility] Oxygen saturation in 2019-10-20 14:12:00 98 /min [facility] of Arterial blood by [facility] Pulse oximetry Branch Systolic blood 2018-11-18 20:10:12 124 mm[Hg] [facility] Diastolic blood 2018-11-18 20:10:12 71 mm[Hg] [facility] Heart rate 2018-11-18 20:10:12 112 /min [facility] Body temperature 2018-11-18 20:10:12 37.61 Hannah [facility] Respiratory rate 2018-11-18 20:10:12 16 /min [facility] acute hospital Body height 2018-11-18 20:10:12 152.4 cm [facility] Oxygen saturation in 2018-11-18 20:10:12 100 /min [facility] Arterial blood by [facility] Pulse oximetry Branch Body weight 2018-11-18 16:08:00 60.782 kg [facility] BMI 2018-11-18 16:08:00 26.17 kg/m2 [facility] Procedures Procedure Date / Time Performing Clinician Source Performed URINE CULTURE 2021-03-30 19:39:00 Ramy Light [facility] GC & CHLAMYDIA AMPLIFIED 2021-03-30 19:39:00 Ramy Light [facility] TRICHOMONAS AMPLIFIED 2021-03-30 19:39:00 [facility] HOUR POST 2021-03-30 18:13:00 Ramy Light [facility] CBC WITH DIFF 2021-03-30 18:13:00 Ramy Light [facility] RUBELLA SCREEN IGG 2021-03-30 18:13:00 Ramy Light [facility] VZV ANTIBODY SCREEN 2021-03-30 18:13:00 [facility] HEPATITIS B SURFACE 2021-03-30 18:13:00 Ramy Light [facility] HIV 1/2 AG-AB WITH REFLEX 2021-03-30 18:13:00 Ramy Light [facility] GALV ONLY - SYPHILIS 2021-03-30 18:13:00 Ramy Light [facility] IGG/IGM [facility] HB ABO GROUPING 2021-03-30 18:08:00 Ramy Light [facility] ASSIGNMENT OF BENEFITS 2021-03-30 15:51:24 [facility] POCT TEST 2021-03-30 00:00:00 [facility] POCT URINALYSIS W/O 2021-03-30 00:00:00 Ramy Light [facility] SPECIFIC GRAVITY [facility] GARDASIL 9 (HPV 9V) 2020-12-09 20:22:46 Airam Jay [facility] VACCINE [facility] POCT URINALYSIS 2020-11-04 18:58:00 Airam Jay [facility] CBC WITH DIFF 2020-10-29 05:16[facility]00 [facility] VENOUS CORD GAS 2020-10-28 10:34:[facility] WITH DIFF 2020-10-26 15:23:00 [facility] HEPATITIS B SURFACE 2020-10-26 15:23:00 [facility] ANTIGEN [facility] GALV ONLY - SYPHILIS 2020-10-26 15:23:00 [facility] IGG[facility]IGM [facility] HB ABO GROUPING 2020-10-26 15:22:00 [facility] RHO (D) IMMUNE GLOBULIN 2020-10-26 15:22:00 Melisa Mares [facility] COVID-19 (ID NOW RAPID 2020-10-26 13:03:00 Cordelia Noel [facility] TESTING) Medical Branch LAB ONLY COVID 2020-10-26 13:03:00 Won Noeleeta [facility] INTERPRETATION [facility] HOSPITAL ADMISSION 2020-10-26 05:01:00 Doctor Unassigned, [facility] POCT URINALYSIS 2020-10-21 15:27:00 Airam Jay [facility] SECOND AND THIRD TRIMESTER 2020-10-21 14:39:00 Airam Jay [facility] ULTRASOUND [facility] POCT URINALYSIS 2020-10-14 16:31:00 Airam Jay [facility] POCT URINALYSIS 2020-10-07 16:09:00 Airam Jay [facility] COVID-19 (ID NOW RAPID 2020-10-03 21:07:00 Kathryn Alcantar [facility] TESTING) [facility] CONSENT/REFUSAL FOR 2020-10-03 20:06:21 Doctor Kiara [facility] DIAGNOSIS AND TREATMENT Kenn[place] [facility] L&D VISIT (NON-DELIVERED) 2020-10-03 05:01:00 Doctor Kiara, [facility] [place] POCT URINALYSIS 2020-09-23 16:02:00 Airam Jay [facility] POCT URINALYSIS 2020-09-08 16:34:00 Airam Jay [facility] POCT URINALYSIS 2020-08-25 13:55:00 Airam Jay [facility] HIV 1/2 AG-AB WITH REFLEX 2020-08-11 14:50:00 Airam Jay [facility] GALV ONLY - SYPHILIS 2020-08-11 14:50:00 Airam Jay [facility] IGG/IGM [facility] TDAP VACCINE, >11 YRS, IM 2020-08-11 14:42:00 Airam Jay [facility] POCT URINALYSIS 2020-07-28 15:31:00 Airam Jay [facility] POCT URINALYSIS 2020-07-14 15:06:00 Airam Jay [facility] SECOND AND THIRD TRIMESTER 2020-06-24 20:43:00 Airam Jay [facility] ULTRASOUND [facility] SECOND AND THIRD TRIMESTER 2020-06-24 20:21:00 Airam Jay [facility] ULTRASOUND [facility] SECOND AND THIRD TRIMESTER 2020-06-24 20:12:00 Airam Jay [facility] URINALYSIS 2020-05-30 14:49:00 Glover, [facility] o f [facility] NOTICE OF PRIVACY 2020-05-30 14:38:06 Doctor Kiara, [facility]US[facility] FOR 2020-05-30 14:37:45 [facility] DIAGNOSIS AND TREATMENT [place] [facility] POCT URINALYSIS 2020-05-19 15:58:00 Airam Jay [facility] URINALYSIS 2020-04-21 02:51:00 Chel La [facility] COVID-19 (ID NOW RAPID 2020-04-21 02:51:00 Chel La [facility] TESTING) Medical Branch NOTICE OF PRIVACY 2020-04-21 01:51:24 Doctor Kiara, [facility] PRACTICES [place] [facility] CONSENT/REFUSAL FOR 2020-04-21 01:50:55 [facility] DIAGNOSIS AND TREATMENT [place] [facility] POCT URINALYSIS 2020-04-21 00:00:00 Airam Jay [facility] FLU VACC ([id number]), 6+ 2020-03-24 15:42:15 Airam Jay [facility] MONTHS, IM, QUAD Medical Branch REPORT OF 2020-03-24 06:01:00 Doctor Craig [facility] [place] POCT TEST 2020-03-24 00:00:00 Airam Jay [facility] POCT URINALYSIS W/O 2020-03-24 00:00:00 [facility] SPECIFIC GRAVITY [facility] LIPASE 2020-03-17 15:12:00 Leo Obrien [place] o f [facility] MAGNESIUM 2020-03-17 15:12:00 Leo Obrien [place] o [facility] HEPATIC FUNCTION PANEL 2020-03-17 15:12:00 Leo Obrien [facility] ([id number]) (ALB,T.PRO,BILI Medical Branch T,BU/BC,ALT,AST,ALK PHOS) BASIC METABOLIC PANEL (NA, 2020-03-17 15:12:00 Leo Obrien [facility] K, CL, CO2, GLUCOSE, BUN, Medica l Branch CREATININE, CA) TOTAL BETA HCG ASSAY 2020-03-17 15:12:00 Leo Obrien [facility] CBC WITH DIFF 2020-03-17 15:12:00 Micah Leo [facility] COVID-19 (ID NOW RAPID 2020-03-17 15:08:00 Leo Obrien [facility] TESTING) Medical Branch URINALYSIS 2020-03-17 15:03:00 Leo Obrien [facility] ADC / LCC - DRUG SCREEN 2020-03-17 15:03:00 Leo Obrien [facility] TRIAGE Medical Branch POCT TEST 2020-03-17 14:51:00 Leo Obrien [facility] NOTICE OF PRIVACY 2020-03-17 14:36:40 Doctor Unassigned, [facility] PRACTICES [place] [facility] CONSENT/REFUSAL FOR 2020-03-17 14:36:19 Doctor Unassigned, [facility] DIAGNOSIS AND TREATMENT [facility] CONSENT/REFUSAL FOR 2020-01-22 15:57:45 Doctor Unassigned, [facility] DIAGNOSIS AND TREATMENT [facility] NOTICE OF PRIVACY 2019-10-20 14:01:51 Doctor Unassigned, [facility] PRACTICES [facility] CONSENT/REFUSAL FOR 2019-10-20 14:01:21 Doctor Unassigned, [facility] DIAGNOSIS AND TREATMENT [facility] US RETROPERITONEAL 2019-01-10 16:46:39 Requisition, Paper [facility] NO SHOW OR MISSED 2019-01-10 16:19:59 Doctor Unassigned, [facility] APPOINTMENT POLICY [facility] h ACKNOWLEDGEMENT CT ABDOMEN PELVIS WO 2018-11-18 18:07:42 Rohini Roberts [facility] CONTRAST Medical Branch XR CHEST 2 VW 2018-11-18 17:51:22 Rohini Roberts [facility] RAPID STREP SCREEN FOR 2018-11-18 16:46:00 Rohini Roberts [facility] GROUP A Medical Branch COMP. METABOLIC PANEL 2018-11-18 16:44:00 Rohini Roberts [facility] ([id number]) Medical Branch CBC WITH DIFFERENTIAL 2018-11-18 16:44:00 Rohini Roberts [facility] POCT TEST 2018-11-18 16:38:00 Rohini Roberts [facility] URINALYSIS 2018-11-18 16:36:00 Rohini Roberts University o f [facility] NOTICE OF PRIVACY 2018-11-18 15:49:11 Doctor Unassxena, [place] [facility] [place] [facility] CONSENT/REFUSAL FOR 2018-11-18 15:48:58 Doctor Unassigned, Unive [facility] DIAGNOSIS AND TREATMENT [facility] Encounters Start End Encounter Admission Attending Care Care Encounter Source Date/Time Date/Time Type Type Clinicians Facility Department ID 2021-02-23 Outpatient X [facility] ERT [id number] Univers 00:47:20 ity of [facility] 2021-02-23 Emergency [facility] [id number] Univers 00:44:52 ity of [facility] 2021-02-21 Emergency [facility] [id number] Univers 22:01:22 ity of [facility] 2021-02-21 Emergency [facility] [id number] Univers 13:14:55 ity of [facility] 2021-02-21 Emergency [facility] [id number] Univers 07:10:39 ity of [facility] 2021-02-20 Emergency [facility] [id number] Univers 20:00:10 ity of [facility] 2021-02-20 Emergency [facility] [id number] Univers 03:14:32 ity of [facility] 2021-04-27 2021-04-27 [id number] Univers 11:00:00 11:00:00 AIRAM [id number] ity o f [facility] 2021-04-27 2021-04-27 [facility] [id number] Univers 11:00:00 11:00:00 JEFENDA ity o f [facility] 2021-04-23 2021-04-23 Outpatient R [facility] [id number] Univers 10:00:00 10:00:00 [id number] ity of [facility] 2021-04-23 2021-04-23 Outpatient P [facility] [id number] Univers 10:00:00 10:00:00 ity of [facility] 2021-03-30 2021-03-30 Outpatient R GEORGETTE [facility] [id number] Univers 10:15:00 12:10:52 RAMY ity o f [facility] 2021-03-30 2021-03-30 Initial Provider, Rachelle [facility] 1 .2.840.114 [id number] Univers 10:13:08 12:10:52 Ramy Light O [employer] [id number] .[id number] ity of Visit [facility] [id number] Jung as MATERNAL [id number] [facility] ical & CHILD [address] [place] [address] 2021-03-30 2021-03-30 Outpatient R [facility] [id number] Univers 10:15:00 10:15:00 [id number] ity of [facility] 2021-03-30 2021-03-30 Orders Doctor DWAINE 1.2.840.114 [id number] Univers 00:00:00 00:00:00 Only Unassigned, REILLY [id number] ity of Kennard [facility] [id number] Jung as [phone] [address] 2020-12-09 2020-12-09 Nurse Nurse, Scott Wheeler Exp Cprit Obgyn [facility] [id number] Univers 14:53:54 15:54:34 Visit Airam Jay [employer] [id number] ity of [facility] [id number] Jung as MATERNAL [id number] [facility] ical & CHILD [address] [place] [address] 2020-12-09 2020-12-09 Office Misty [facility] 1.2.840.114 [id number] Univers 14:54:20 15:52:20 Visit Airam Evans [employer] [id number] ity of [facility] [id number] Jung as MATERNAL [phone] [facility] & CHILD [address] [place] [address] 2020-12-09 2020-12-09 Outpatient R MISTY [facility] [id number] Univers 15:15:00 15:15:00 AIRAM [id number] ity o felicia [facility] 2020-12-09 2020-12-09 Outpatient R MISTY [facility] [id number] Univers 15:15:00 15:15:00 AIRAM ity o felicia [facility] 2020-11-18 2020-11-18 Routine Shiraz, [facility] [id number] Univers 09:31:05 10:05:57 Akash Tiff [employer]IAN [id number] ity of Visit [facility] [id number] Jung as MATERNAL [phone] [facility] ical & CHILD [address] [place] [address] 2020-11-18 2020-11-18 Outpatient R DEJAHKATJA [facility] [id number] Univers 09:45:00 09:45:00 AKASH itlino o [facility] 2020-11-11 2020-11-11 Outpatient R [facility] [id number] Univers 14:30:00 14:30:00 ity [facility] 2020-11-11 2020-11-11 Outpatient R [facility] [id number] Univers 14:30:00 14:30:00 ity [facility] 2020-11-11 2020-11-11 Nurse Visit, Rachelle Nurse [facility] 1.2 .840.114 [id number] Univers 13:49:51 14:02:11 Visit Akash Weldon [employer] [id number]. 10 ity of REGIONAL [id number] Jung as MATERNAL [id number] [facility] [address] [place] [address] 2020-11-10 2020-11-10 Outpatient R [facility] [id number] Univers 09:30:00 09:30:00 [id number] ity [facility] 2020-11-10 2020-11-10 Outpatient R [facility] [id number] Univers 09:30:00 09:30:00 ity [facility] 2020-11-04 2020-11-04 Nurse Visit, Rachelle Nurse [facility] 1.2 .840.114 [id number] Univers 13:41:16 14:22:09 Visit Akash Weldon [employer] [id number]. 10 ity of [facility] [id number] Jung as MATERNAL [id number] [facility] [address] [place] [address] 2020-11-04 2020-11-04 Outpatient R SHIRAZ [facility] [id number] Univers 14:00:00 14:00:00 AKASH ity o [facility] 2020-10-26 2020-10-29 Hospital Luis Dunlap 1.2.840.114 [id number] Univers 07:50:00 18:23:00 Encounter NoelCordelia gee REILLY [id number] ity of [facility] [id number] Jung as [phone] [facility] [address] [place] 2020-10-27 2020-10-27 [facility] 1.2.840.114 [id number] Univers 00:00:00 00:00:00 Airam Evans [employer] [id number] ity of [facility] [id number] Jung as MATERNAL [id number] [facility]ILD [address] [place] [address] 2020-10-26 2020-10-26 Outpatient JOHN, [facility] [id number] Univers 07:00:00 07:00:00 DWAINE [id number] ity [facility] 2020-10-26 2020-10-26 Tom ISIDRO 1.2.840.114 [id number] Univers 00:00:00 00:00:00 Only Unassigned, REILLY [id number] ity of [facility] 4.2.7.2.686 Jung as [phone] [facility] [address] 2020-10-21 2020-10-21 Outpatient Nathan JAY [facility] [id number] -20 Univers 10:45:00 10:45:00 AIRAM [id number] theoy o f [facility] 2020-10-21 2020-10-21 [facility] [id number] Univers 10:45:00 10:45:00 AIRAM venegasy o [facility] 2020-10-21 2020-10-21 Routine Misty [facility] 1.2.840.114 [id number] Univers 10:11:47 10:26:47 Roshunda R COLLECTION DEVELOPMENT LIBRARIAN 350.1.13.10 ity of Visit REGIONAL 4.2.7.2.686 Jung as MATERNAL [phone] [facility] & [address] 2020-10-21 2020-10-21 Full Fashioned Garment Knitter Ultrasound, [facility] 1.2 .840.114 [id number] Univers 09:44:44 10:11:00 Visit Sherin Ng COLLECTION DEVELOPMENT LIBRARIAN 350.1. 13.10 ity of REGIONAL 4.2.7.2.686 Jung as MATERNAL [id number] [facility] & [address] 2020-10-14 2020-10-14 Full Fashioned Garment Knitter Ultrasound, [facility] 1.2 .840.114 [id number] Univers 13:00:00 13:45:00 Visit Airam Jay R COLLECTION DEVELOPMENT LIBRARIAN 350.1.13.10 ity of REGIONAL 4.2.7.2.686 Jung as MATERNAL [phone] [facility] & [address] 2020-10-14 2020-10-14 Outpatient [facility] [id number] -20 Univers 13:00:00 13:00:00 [id number] ity of [facility] 2020-10-14 2020-10-14 Routine Misty [facility] 1.2.840.114 [id number] Univers 10:52:34 11:34:32 Roshunda R COLLECTION DEVELOPMENT LIBRARIAN 350.1.13.10 ity of Visit REGIONAL 4.2.7.2.686 Jung as MATERNAL [id number] [facility] & CHILD [address] [place] [address] 2020-10-14 2020-10-14 Outpatient R MISTY [facility] [id number] Univers 10:45:00 10:45:00 ROSHUNDA ity o f [facility] 2020-10-07 2020-10-07 [facility] 1.2.840.114 [id number] Univers 10:52:40 11:36:22 Roshunda R COLLECTION DEVELOPMENT LIBRARIAN 350.1.13.10 ity of Visit REGIONAL 4.2.7.2.686 Jung as MATERNAL [phone] [facility] ical & CHILD [address] [place] [address] 2020-10-07 2020-10-07 Outpatient Nathan JAY [facility] [id number] -20 Univers 11:00:00 11:00:00 ROSHUNDA [id number] ity o [facility] 2020-10-07 2020-10-07 Outpatient Nathan JAY [facility] [id number] Univers 11:00:00 11:00:00 ROSHUNDA ity o [facility] 2020-10-03 2020-10-03 Emergency Kathryn Alcantar [facility] 1.2.840.114 [id number] Univers 15:19:00 17:10:00 [facility] 350.1.13.10 i ty of [place] 4.2.7.2.686 [place] [facility] [phone] [address] 2020-09-23 2020-09-23 [facility] 1.2.840.114 [id number] Univers 10:36:48 11:02:14 Roshunda R COLLECTION DEVELOPMENT LIBRARIAN 350.1.13.10 ity of Visit REGIONAL 4.2.7.2.686 Jung as MATERNAL [id number] [facility] CHILD [address] [place] [address] 2020-09-23 2020-09-23 Outpatient Nathan JAY [facility] [id number] -20 Univers 10:45:00 10:45:00 JEFENDA [id number] itlino o [facility] 2020-09-23 2020-09-23 [facility] [id number] Univers 10:45:00 10:45:00 ROSHUNDA ity o [facility] 2020-09-18 2020-09-18 [facility] 1.2.840.114 [id number] Univers 00:00:00 00:00:00 Roshunda R COLLECTION DEVELOPMENT LIBRARIAN 350.1.13.10 ity of REGIONAL 4.2.7.2.686 Jung as MATERNAL [id number] [facility] ical & CHILD [address] [place] [address] 2020-09-16 2020-09-16 Full Fashioned Garment Knitter Ultrasound, Jania [facility] 1.2 .840.114 [id number] Univers 12:48:59 13:33:59 Visit Erich Nicholson COLLECTION DEVELOPMENT LIBRARIAN 350.1.13.10 ity of REGIONAL 4.2.7.2.686 Jung as MATERNAL [id number] [facility] CHILD [address] [facility] 2020-09-16 2020-09-16 Outpatient [facility] [id number] -20 Univers 13:00:00 13:00:00 [id number] ity [facility] 2020-09-16 2020-09-16 Outpatient P [facility] [id number] Univers 13:00:00 13:00:00 ity [facility] 2020-09-08 2020-09-08 [facility] 1.2.840.114 [id number] Univers 10:47:10 11:02:10 Roshunda R COLLECTION DEVELOPMENT LIBRARIAN 350.1.13.10 ity of Visit REGIONAL 4.2.7.2.686 Jung as MATERNAL [phone] [address] 2020-09-08 2020-09-08 Outpatient Nathan JAY [facility] [id number] -20 Univers 11:00:00 11:00:00 ROSHUNDA [id number] ity o f [facility] 2020-09-08 2020-09-08 Outpatient Nathan JAY [facility] [id number] Univers 11:00:00 11:00:00 ROSHUNDA ity o f [facility] 2020-08-25 2020-08-25 [facility] 1.2.840.114 [id number] Univers 08:35:20 09:23:23 Roshunda R COLLECTION DEVELOPMENT LIBRARIAN 350.1.13.10 ity of Visit REGIONAL 4.2.7.2.686 Jung as MATERNAL [phone] [facility] & CHILD [address] [place] [address] 2020-08-25 2020-08-25 Outpatient Nathan JAY [facility] [id number] -20 Univers 08:45:00 08:45:00 JEFENDA [id number] ity o f [facility] 2020-08-25 2020-08-25 Outpatient R MISTY [facility] [id number] Univers 08:45:00 08:45:00 ROSTONENDA ity o f [facility] 2020-08-22 2020-08-22 Abstract Misty [facility] 1.2.840.114 [id number] Univers 00:00:00 00:00:00 Airam R COLLECTION DEVELOPMENT LIBRARIAN 350.1.13.10 ity of REGIONAL 4.2.7.2.686 Jung as MATERNAL [phone] [facility] ical & CHILD [address] [place] [address] 2020-08-19 2020-08-19 Full Fashioned Garment Knitter [facility]trasound, [facility] 1.2 .840.114 [id number] Univers 13:00:03 13:45:03 Visit Vic Szymanski R COLLECTION DEVELOPMENT LIBRARIAN 350.1.13.10 ity of REGIONAL 4.2.7.2.686 Jung as MATERNAL [id number] [facility] CHILD [address] [facility] 2020-08-19 2020-08-19 Outpatient [facility] [id number] -20 Univers 13:00:00 13:00:00 [id number] ity of [facility] 2020-08-19 2020-08-19 Outpatient P [facility] [id number] Univers 13:00:00 13:00:00 ity of [facility] 2020-08-11 2020-08-11 [facility] 1.2.840.114 [id number] Univers 09:29:51 10:20:27 Rosagustina R COLLECTION DEVELOPMENT LIBRARIAN 350.1.13.10 ity of Visit REGIONAL 4.2.7.2.686 Ujng as MATERNAL [phone] [facility] CHILD [address] [place] [address] 2020-08-11 2020-08-11 Outpatient R MISTY [facility] [id number] -20 Univers 09:30:00 09:30:00 AIRAM [id number] ity o f [facility] 2020-08-11 2020-08-11 [facility] [id number] Univers 09:30:00 09:30:00 ROSHUNDA ity o f [facility] 2020-07-28 2020-07-28 Routine Misty [facility] 1.2.840.114 [id number] Univers 10:19:10 10:51:14 Rostonenda R COLLECTION DEVELOPMENT LIBRARIAN 350.1.13.10 ity of Visit REGIONAL 4.2.7.2.686 Jung as MATERNAL [phone] [facility] & [address] 2020-07-28 2020-07-28 Outpatient R MISTY [facility] [id number] -20 Univers 10:30:00 10:30:00 JEFEMARK [id number] itlino o [facility] 2020-07-28 2020-07-28 Outpatient Nathan JAY [facility] [id number] Univers 10:30:00 10:30:00 JEFENDA ity o [facility] 2020-07-23 2020-07-23 Abstract Misty [facility] 1.2.840.114 [id number] Univers 00:00:00 00:00:00 Rostonenda R COLLECTION DEVELOPMENT LIBRARIAN 350.1.13.10 ity of REGIONAL 4.2.7.2.686 Jung as MATERNAL [id number] [address] 2020-07-22 2020-07-22 Full Fashioned Garment Knitter Ultrasound, [facility] 1.2 .840.114 [id number] Univers 12:52:59 13:37:59 Visit Masters Sherin Alonzo COLLECTION DEVELOPMENT LIBRARIAN 350.1. 13.10 ity of REGIONAL 4.2.7.2.686 Jung as MATERNAL [id number] [facility] & CHILD [address] [place] [address] 2020-07-22 2020-07-22 Outpatient R [facility] [id number] -20 Univers 13:00:00 13:00:00 [id number] ity [facility] 2020-07-22 2020-07-22 Outpatient P [facility] [id number] Univers 13:00:00 13:00:00 ity [facility] 2020-07-15 2020-07-15 Patient José Manuel [facility] 1.2.840.114 [id number] Univers 00:00:00 00:00:00 Outreach Balta PRIMARY 350.1.13.10 i ty of [facility] 4.2.7.2.686 [place] [phone] Va dical [address] 2020-07-14 2020-07-14 [facility] 1.2.840.114 [id number] Univers 09:57:59 10:20:57 Rosnda R COLLECTION DEVELOPMENT LIBRARIAN 350.1.13.10 ity of Visit [facility] 4.2.7.2.686 Jung as MATERNAL [id number] Med ical & CHILD [address] [place] [address] 2020-07-14 2020-07-14 [facility] [id number] -20 Univers 10:15:00 10:15:00 AIRAM [id number] ity o f [facility] 2020-07-14 2020-07-14 Outpatient [facility] [id number] Univers 10:15:00 10:15:00 JEFENDA ity o [facility] 2020-06-24 2020-06-24 Full Fashioned Garment Knitter 5, [facility] Room UN[facility]ERSIT 1 .2.840.114 [id number] Univers 12:51:08 14:40:17 Visit Jad, Jose Felicia [facility] 350.1.13.10 ity of CLINICS 4.2.7.2.686 [place] [id number] [address] 2020-06-24 2020-06-24 Outpatient R [facility] [id number] -20 Univers 13:00:00 13:00:00 [id number] ity [facility] 2020-06-24 2020-06-24 Outpatient P [facility] [id number] Univers 13:00:00 13:00:00 ity of [facility] 2020-06-24 2020-06-24 Abstract [facility] 1.2.840.114 [id number] Univers 00:00:00 00:00:00 Rostonenda R COLLECTION DEVELOPMENT LIBRARIAN 350.1.13.10 ity of REGIONAL 4.2.7.2.686 Jung as MATERNAL [phone] [facility] ical & CHILD [address] [facility] 2020-06-16 2020-06-16 Routine Misty [facility] 1.2.840.114 [id number] Univers 10:07:05 10:22:32 Rosagustina R COLLECTION DEVELOPMENT LIBRARIAN 350.1.13.10 ity of Visit REGIONAL 4.2.7.2.686 Jung as MATERNAL [id number] [facility] ical & CHILD [address] [place] [address] 2020-06-16 2020-06-16 Outpatient R MISTY [facility] [id number] -20 Univers 10:15:00 10:15:00 AIRAM [id number] ity o f [facility] 2020-06-16 2020-06-16 Outpatient R MISTY [facility] [id number] Univers 10:15:00 10:15:00 ROSTONENDA ity o f [facility] 2020-06-16 2020-06-16 Full Fashioned Garment Knitter Ultrasound, [facility] 1.2 .840.114 [id number] Univers 07:57:50 09:27:[address] COLLECTION DEVELOPMENT LIBRARIAN 350.1.13.10 ity of Vic Szymanski R REGIONAL 4.2.7.2.686 [place] MATERNAL [phone] [facility] CHILD [address] [facility] 2020-06-16 2020-06-16 Abstract Misty [facility] 1.2.840.114 [id number] Univers 00:00:00 00:00:00 Rostonenda R COLLECTION DEVELOPMENT LIBRARIAN 350.1.13.10 ity of REGIONAL 4.2.7.2.686 Jung as MATERNAL [id number] [facility] ical & CHILD [address] [place] [address] 2020 2020 Outpatient R [facility] [id number] -20 Univers 08:30:00 08:30:00 [id number] ity [facility] 2020 2020 Outpatient P [facility] [id number] Univers 08:30:00 08:30:00 ity [facility] 2020-06-062020-06-06 [facility] 1.2.823.908 [id number] Univers 00:00:00 00:00:00 Roshunda R COLLECTION DEVELOPMENT LIBRARIAN 350.1.13.10 ity of [facility] 4.2.7.2.686 Jung as MATERNAL [phone] [facility] & CHILD [address] [place] [address] 2020-05-30 2020-05-30 Emergency [facility] 1.2.193.093 [id number] Univers 08:41:00 09:21:00 Arnaldo Burroughs 350.1.13.10 i ty of [place] 4.2.7.2.686 [place] [id number] [facility] [address] 2020-05-30 2020-05-30 Orders Doctor DWAINE 1.2.840.114 [id number] Univers 00:00:00 00:00:00 Only Unassigned, REILLY 350.1.13.10 ity of [place] [facility] 4.2.7.2.686 Jung as [id number] [facility] [address] 2020-05-19 2020-05-19 [facility] 1.2.840.114 [id number] Univers 09:47:54 10:32:34 Roshunda R COLLECTION DEVELOPMENT LIBRARIAN 350.1.13.10 ity of Visit [facility] 4.2.7.2.686 Jung as MATERNAL [id number] [facility] & CHILD [address] [place] [address] 2020-05-19 2020-05-19 Outpatient Nathan JAY [facility] [id number] -20 Univers 10:15:00 10:15:00 JEFENDA [id number] ity o f [facility] 2020-05-19 2020-05-19 Outpatient Nathan JAY [facility] [id number] Univers 10:15:00 10:15:00 ROSHUNDA ity o f [facility] 2020-04-21 2020-04-21 [facility] 1.2.840.114 [id number] Univers 12:45:47 13:19:52 Roshunda R COLLECTION DEVELOPMENT LIBRARIAN 350.1.13.10 ity of Visit [facility] 4.2.7.2.686 Jung as MATERNAL [id number] Med ical & CHILD [address] [place] [address] 2020-04-21 2020-04-21 Outpatient R MISTY [facility] [id number] -[id number] Univers 13:00:00 13:00:00 AIRAM [id number] ity o f [facility] 2020-04-21 2020-04-21 Outpatient R MISTY [facility] [id number] Univers 13:00:00 13:00:00 MIKKINDFouzia ity o f [facility] 2020-04-20 2020-04-20 Emergency [facility] 1.2.486.051 [id number] Univers 20:03:00 22:06:00 Chel [place] 350.1.13.10 ity of [place] 4.2.7.2.686 [place] [facility] [id number] [facility] [address] 2020-04-20 2020-04-20 Orders Doctor DWAINE 1.2.840.114 [id number] Univers 00:00:00 00:00:00 Only Unassigned, REILLY 350.1.13.10 ity of [place] [facility] 4.2.7.2.686 Jung as [id number] [facility] [address] 2020-04-16 2020-04-16 Telephone Jay [facility] 1.2.086.607 [id number] Univers 00:00:00 00:00:00 Airam R COLLECTION DEVELOPMENT LIBRARIAN 350.1.13.10 ity of [facility] 4.2.7.2.686 Jung as MATERNAL [phone] [facility] CHILD [address] [place] [address] 2020-04-15 2020-04-15 Abstract [facility] 1.2.840.114 [id number] Univers 00:00:00 00:00:00 Rostonenda R COLLECTION DEVELOPMENT LIBRARIAN 350.1.13.10 ity of [facility] 4.2.7.2.686 Jung as MATERNAL [id number] [facility] CHILD [address] [place] [address] 2020-04-14 2020-04-14 Full Fashioned Garment Knitter Ultrasound, Doramaria m [facility] 1.2 .840.114 [id number] Univers 13:17:27 13:47:27 Visit Vic Szymanski R COLLECTION DEVELOPMENT LIBRARIAN 350.1.13.10 ity of REGIONAL 4.2.7.2.686 Jung as MATERNAL [phone] [facility] ical & CHILD [address] [facility] 2020-04-14 2020-04-14 Outpatient R [facility] [id number] -20 Univers 13:30:00 13:30:00 [id number] ity of [facility] 2020-04-14 2020-04-14 Outpatient P [facility] [id number] Univers 13:30:00 13:30:00 ity of [facility] 2020-04-14 2020-04-14 [facility]phone [facility] 1.2.064.614 [id number] Univers 00:00:00 00:00:00 Rosnda R COLLECTION DEVELOPMENT LIBRARIAN 350.1.13.10 ity of REGIONAL 4.2.7.2.686 Jung as MATERNAL [id number] [facility] CHILD [address] [place] [address] 2020-03-27 2020-03-27 Telephone [facility] 1.2.266.525 [id number] Univers 00:00:00 00:00:00 Rosnda R COLLECTION DEVELOPMENT LIBRARIAN 350.1.13.10 ity of REGIONAL 4.2.7.2.686 Jung as MATERNAL [id number] [facility] & CHILD [address] [place] [address] 2020-03-24 2020-03-24 Initial Misty [facility] 1.2.840.114 [id number] Univers 08:47:07 09:55:25 Rosnda R COLLECTION DEVELOPMENT LIBRARIAN 350.1.13.10 ity of Visit REGIONAL 4.2.7.2.686 Jung as MATERNAL [id number] [facility] & [address] 2020-03-24 2020-03-24 Outpatient R [facility] [id number] -[id number] Univers 08:30:00 08:30:00 [id number] ity of [facility] 2020-03-24 2020-03-24 Outpatient R [facility] [id number] Univers 08:30:00 08:30:00 ity of [facility] 2020-03-24 2020-03-24 Orders Doctor ISIDRO 1.2.840.114 [id number] Univers 00:00:00 00:00:00 Only Unassigned, REILLY 350.1.13.10 ity of [place] [facility] 4.2.7.2.686 Jung as [id number] [facility] [address] 2020-03-19 2020-03-19 [facility]phone [facility] 1.2.908.208 [id number] Univers 00:00:00 00:00:00 Rostonenda R COLLECTION DEVELOPMENT LIBRARIAN 350.1.13.10 ity of [facility] 4.2.7.2.686 Jung as MATERNAL [phone] Med ical & CHILD [address] [place] [address] 2020-03-17 2020-03-17 Emergency [facility] 1.2.417.914 [id number] Univers 08:45:00 10:39:00 Leo Burroughs 350.1.13.10 i ty of [place] 4.2.7.2.686 [place] [facility] [id number] [facility] [address] 2020-03-17 2020-03-17 Orders Doctor DWAINE 1.2.840.114 [id number] Univers 00:00:00 00:00:00 Only Unassigned, REILLY 350.1.13.10 ity of [place] [facility] 4.2.7.2.686 Jung as [id number] [address] 2020-01-29 2020-01-29 [facility] [id number]-20 Univers 13:30:00 13:30:00 MACKENZIE [id number] ity [facility] 2020-01-29 2020-01-29 Outpatient [facility] [id number] Univers 13:30:00 13:30:00 MACKENZIE ity [facility] 2020-01-27 2020-01-27 Letter [facility] 1.2.840.114 [id number] Univers 00:00:00 00:00:00 (Out) [facility] 350.1.13.10 it y of [place] 4.2.7.2.686 Jung as Professio [id number] Va dical [facility] [address] 2020-01-24 2020-01-24 Telephone [facility] 1.2.840.114 [id number] Univers 00:00:00 00:00:00 Ang [facility] 350.1.13.10 ity of Care [place] 4.2.7.2.686 Jung as Professio [phone] [address] Office Building [facility] 2020-01-22 2020-01-22 Laboratory Lab, Adc Fam Pob I [facility] 1.2. 840.114 [id number] Univers 15:12:20 15:32:20 Only Michael [facility] 350.1.13.10 ity of [place] 4.2.7.2.686 Jung as Professio [phone] [address] Office [facility] 2020-01-22 2020-01-22 Outpatient R [facility] [id number] -20 Univers 15:20:00 15:20:00 [id number] ity of [facility] 2020-01-22 2020-01-22 Outpatient [facility] [id number] Univers 15:20:00 15:20:00 JOSE CRUZ ity of [facility] 2020-01-22 2020-01-22 Emergency [facility] 1.2.383.057 [id number] Univers 12:13:00 13:07:00 Manjeet 350.1.13.10 i ty of [place] 4.2.7.2.686 [facility] [phone] [address] 2020-01-22 2020-01-22 Letter Pcp, [facility] 1.2.840.114 [id number] Univers 00:00:00 00:00:00 (Out) Patient Health 350.1.13.10 it y of Does Not [place]2.7.2.686 [place] Professio [id number] [address] Office [facility] 2019-10-20 2019-10-20 Emergency [facility] 1.2.303.131 [id number] Univers 09:12:54 10:15:00 Jaden Burroughs 350.1.13.10 ity of [place] 4[place]2.7.2.686 [place] [id number] [address] 2019-10-20 2019-10-20 Orders Doctor DWAINE 1.2.840.114 [id number] Univers 00:00:00 00:00:00 Only Unassigned, REILLY 350.1.13.10 ity of [place] [facility] 4.2.7.2.686 Jung as [id number] [facility] [address] 2019-08-15 2019-08-15 Telephone Nurse, Chu [facility] 1.2.840.114 [id number] Univers 00:00:00 00:00:00 Fam Pob I Health 350.1.13.10 ity of [place] 4.2.7.2.686 Jung as Professio [phone] Va dical [facility] [address] 2019-01-10 2019-01-10 [facility] 1.2.840.114 [id number] Univers 11:21:00 23:59:00 Encounter [place] 350.1.13.10 ity of [place] 4[place]2.7.2.[place] [phone] [facility] [address] 2019-01-10 2019-01-10 Orders Doctor DWAINE 1.2.840.114 [id number] Univers 00:00:00 00:00:00 Only Unassigned, REILLY 350.1.13.10 ity of [place] [facility] 4.2.7.2.686 Jung as [phone] [facility] [address] 2018-11-18 2018-11-18 Emergency [facility] 1.2.922.727 [id number] Univers 11:10:32 16:08:00 Rohini S Manjeet 350.1.13.10 i ty of [place] 4.2.7.2.686 [place] [id number] [facility] [address] 2018-11-18 2018-11-18 Orders Doctor DWAINE 1.2.840.114 [id number] Univers 00:00:00 00:00:00 Only Unassigned, REILLY 350.1.13.10 ity of [place] [facility] 4.2.7.2.686 Jung as [phone] [address] Results Test Description Test Time Test Comments Results Result Comments Source RUBELLA SCREEN (BRENNA) IGG 2021-03-31 20:58:43 Test Item Value Reference Range Interpretation Comme nts Rubella screen IgG (test code = Positive Negative [id number]) JAGDISH (test code = JAGDISH) Positive - Indicates the patient was exposed to Rubella through infection or vaccination.Negative - Indicates the patient could be susceptible to Rubella infection.Equivocal - A second specimen should be sent. [facility] ANTIBODY [id number] 20:58:43 Test Item Value Reference Range Interpretation Comments VZV IgG antibody Positive Negative (test code = 37988-9) JAGDISH (test code = JAGDISH) Positive - Indicates the patient was exposed to VZV through infection or vaccination.Negative - Indicates the patient could be susceptible to VZV infection.Equivocal - A second specimen should be sent for testing. [facility] ONLY - SYPHILIS [id number] 16:45:41 Test Item Value Reference Range Interpretation Comments Syphilis IgG/IgM (test Non-reactive Non-reactive code = 78585-1) JAGDISH (test code = JAGDISH) Non-reactive - No serologic evidence of T. pallidum infection. Cannot exclude incubating or early syphilis. Submit a second specimen in 2-4 weeks if syphilis is clinically suspected. Equivocal - Further testing to follow. Reactive - Further testing to follow. Lab Interpretation (test Normal code = 98392-9) [facility] WITH [id number] 09:46:28 Test Item Value Reference Range Interpretation Comments HIV Negative Negative Semi-quantitative (test code = 29772-3) JAGDISH (test code = Non-reactive for HIV-1 JAGDISH) antigen and HIV-1/HIV-2 antibodies. ?No laboratory evidence of HIV infection. ?Repeat in 2-4 weeks if acute HIV infection is suspected. [facility] WORKUP, BLOOD [id number] 07:57:09 Test Item Value Reference Range Interpretation Comments ABO & RH (test AB POSITIVE Performed at [facility] code = 20) Laboratory Serv [facility] Blood Bank3 [facility] s [address]Hvym Free: [phone] A No. [id number] IAT (test code = Negative Performed a t [facility] 1185) Laboratory Serv [facility] Blood Bank3 [facility] s [address]Anpr Free: [phone] A No. [id number] [facility] SURFACE [id number] 07:44:54 Test Item Value Reference Range Interpretation Comments HBsAg Semi-Quantitative (test code = Negative Negative 5195-3) [facility] HOUR POST [id number] 07:11:32 Test Item Value Reference Range Interpretation Comments GLUC 1 HR (test code = 6132720624) 101 mg/dL 120-170 L Lab Interpretation (test code = Abnormal 31959-9) [facility] Center[facility] WITH [id number] 07:04:28 Test Item Value Reference Range Interpretation Comments WBC (test code = See_Comment [Automated 6690-2) message] The sy stem which generated this result transmitted reference range : 4.30 - 11.10 10*3/?L. The reference range was not used to interpret this result as normal/abnormal . RBC (test code = See_Comment [Automated 789-8) message] The sy stem which generated this result transmitted reference range : 3.93 - 5.25 10*6/?L. The reference range was not used to interpret this result as normal/abnormal . HGB (test code = 11.4 g/dL 11.6-15.0 L 718-7) HCT (test code = 36.1 % 35.7-45.2 4544-3) MCV (test code = 79.2 fL 80.6-95.5 L 787-2) MCH (test code = 25.0 pg 25.9-32.8 L 785-6) MCHC (test code = 31.6 g/dL 31.6-35.1 786-4) RDW-SD (test code = 42.9 fL 39.0-49.9 22274-7) RDW-CV (test code = 14.9 % 12.0-15.5 788-0) PLT (test code = See_Comment [Automated 777-3) message] The sy stem which generated this result transmitted reference range : 166 - 358 10*3/ ?L. The reference r jill was not used to interpret this result as normal/abnormal . MPV (test code = 11.8 fL 9.5-12.9 93467-3) NRBC/100 WBC (test See_Comment [Automat ed code = 9964742063) message] The system which generated this result transmitted reference range : 0.0 - 10.0 /100 WBCs. The refer ence range was not u sed to interpret th is result as normal/abnormal . NRBC x10^3 (test code <0.01 See_Comment [Auto mated = 7290658133) message] The s ystem which generated this result transmitted reference range : 10*3/?L. The reference range was not used to interpret this result as normal/abnormal . GRAN MAT (NEUT) % 68.6 % (test code = 770-8) IMM GRAN % (test code 0.10 % = 3469163128) LYMPH % (test code = 23.1 % 736-9) MONO % (test code = 6.9 % 5905-5) EOS % (test code = 0.9 % 713-8) BASO % (test code = 0.4 % 706-2) GRAN MAT x10^3(ANC) 5.06 10*3/uL 1.88-7.09 (test code = 3512211736) IMM GRAN x10^3 (test <0.03 0.00-0.06 code = 1479500320) LYMPH x10^3 (test code 1.71 10*3/uL 1.32-3.29 = 731-0) MONO x10^3 (test code 0.51 10*3/uL 0.33-0.92 = 742-7) EOS x10^3 (test code = 0.07 10*3/uL 0.03-0.39 711-2) BASO x10^3 (test code 0.03 10*3/uL 0.01-0.07 = 704-7) Lab Interpretation Abnormal (test code = 67920-6) [facility] W/O SPECIFIC [id number] 16:33:00 Test Item Value Reference Range Interpretation Comments POCT PH U (test code = 3254) 5 mg/dl 5-8 POCT U LEUK EST (test code = - Negative - Negative 3) POCT U NIT (test code = 3262) - Negative - Negative POCT U PROT (test code = 3259) trace Negative - Negative POCT U GLU (test code = 3256) - Negative - Negative POCT U KETONE (test code = 3258) - Negative - Negative POCT U BLD (test code = 3257) - Negative - Negative [facility] CenterPOCT [id number] 16:33:00 Test Item Value Reference Range Interpretation Comments POCT PREG (test code = 1605) Positive On board controls acceptable with C Yes Line (test code = 3574) POCT PREG LOT # (test code = 3575) POCT PREG TEST DATE (test code = 3576) [facility] URINALYSIS W SPECIFIC [id number] 18:59:00 Test Item Value Reference Range Interpretation Comments POCT U SP GRAV (test code = 3255) . 1.005-1.025 POCT PH U (test code = 3254) 6 mg/dl 5-8 POCT U LEUK EST (test code = neg Negative - Negative 3263) POCT U NIT (test code = 3262) neg Negative - Negative POCT U PROT (test code = 3259) 1+ Negative - Negative POCT U GLU (test code = 3256) neg Negative - Negative POCT U KETONE (test code = 3258) neg Negative - Negative POCT U UROBILI (test code = 3260) . 0.2-1 POCT U BILI (test code = 3261) . Negative - Negative POCT U BLD (test code = 3257) large Negative - Negative POCT U COLOR (test code = 3266) POCT U APPEAR (test code = 3267) [facility] CenterCBC with [id number] 06:29:08 Test Item Value Reference Range Interpretation Comments WBC (test code = See_Comment H [Automated 9779-2) message] The sy stem which generated this result transmitted reference range : 4.30 - 11.10 10*3/?L. The reference range was not used to interpret this result as normal/abnormal . RBC (test code = See_Comment L [Automated 419-8) message] The sy stem which generated this result transmitted reference range : 3.93 - 5.25 10*6/?L. The reference range was not used to interpret this result as normal/abnormal . HGB (test code = 7.0 g/dL 11.6-15.0 L 718-7) HCT (test code = 21.8 % 35.7-45.2 L 4544-3) MCV (test code = 83.2 fL 80.6-95.5 787-2) MCH (test code = 26.7 pg 25.9-32.8 785-6) MCHC (test code = 32.1 g/dL 31.6-35.1 786-4) RDW-SD (test code = 40.6 fL 39.0-49.9 93484-7) RDW-CV (test code = 13.3 % 12.0-15.5 788-0) PLT (test code = See_Comment [Automated 777-3) message] The sy stem which generated this result transmitted reference range : 166 - 358 10*3/ ?L. The reference r jill was not used to interpret this result as normal/abnormal . MPV (test code = 11.8 fL 9.5-12.9 47551-3) NRBC/100 WBC (test See_Comment [Automat ed code = 1125466054) message] The system which generated this result transmitted reference range : 0.0 - 10.0 /100 WBCs. The refer ence range was not u sed to interpret th is result as normal/abnormal . NRBC x10^3 (test code <0.01 See_Comment [Auto mated = 3464529826) message] The s ystem which generated this result transmitted reference range : 10*3/?L. The reference range was not used to interpret this result as normal/abnormal . GRAN MAT (NEUT) % 71.6 % (test code = 770-8) IMM GRAN % (test code 0.80 % = 4500731809) LYMPH % (test code = 17.7 % 736-9) MONO % (test code = 9.1 % 5905-5) EOS % (test code = 0.7 % 713-8) BASO % (test code = 0.1 % 706-2) GRAN MAT x10^3(ANC) 9.81 10*3/uL 1.88-7.09 H (test code = 1087361492) IMM GRAN x10^3 (test 0.11 10*3/uL 0.00-0.06 H code = 8495194637) LYMPH x10^3 (test code 2.42 10*3/uL 1.32-3.29 = 731-0) MONO x10^3 (test code 1.24 10*3/uL 0.33-0.92 H = 742-7) EOS x10^3 (test code = 0.09 10*3/uL 0.03-0.39 711-2) BASO x10^3 (test code <0.03 0.01-0.07 = 704-7) Lab Interpretation Abnormal (test code = 22528-6) [facility] CenterRHO (D) IMMUNE [id number] 11:57:38 Test Item Value Reference Range Interpretation Comments RHIG CANDIDATE? No- see comment Patient i s not a (test code = candidate for R hIg- 5055) Patient is Rh Positive.Perfor med at [facility] Laboratory Services - [facility] Blood [address] [place] [address]Yrvl Free: [phone] A No. [id number] [facility]OUS [facility] [id number] 10:49:37 Test Item Value Reference Range Interpretation Comments VENOUS BASE EXCESS, mEq/L CORD (test code = 7406532984) VENOUS PH, CORD (test 7.25-7.45 code = 9405481384) VENOUS PC02, CORD See_Comment [Automate d message] The (test code = system which ge nerated 7753633122) this result tra nsmitted reference range : 27 - 49 mmHg. The refer ence range was not used to interpret this result as normal/abnormal . VENOUS PO2, CORD (test See_Comment [Aut omated message] The code = 2764269082) system [facility] generated this result tra nsmitted reference range : 17 - 41 mmHg. The refer ence range was not used to interpret this result as normal/abnormal . VENOUS BICARBONATE, See_Comment [Automa tali message] The CORD (test code = system whi ch generated 0990437391) this result tra nsmitted reference range : 12 - 29 mEq/L. The refe rence range was not used to interpret this result as normal/abnormal . [facility] CenterARTER[facility] CORD [id number] 10:47:00 Test Item Value Reference Range Interpretation Comments BASE EXCESS, CORD mEq/L (test code = 8461111384) AC PH, CORD (BEAKER) 7.18-7.38 (test code = 0391222846) PC02, CORD (test code See_Comment [Auto mated message] The = 2501631318) system which g enerated this result transmit tali reference range : 32 - 66 mmHg. The refer ence range was not used to interpret this result as normal/abnormal . PO2, CORD (test code See_Comment [Autom ated message] The = 7019815749) system which g enerated this result transmit tali reference range : 10 - 30 mmHg. The refer ence range was not used to interpret this result as normal/abnormal . BICARBONATE, CORD See_Comment [Automate d message] The (test code = system which ge nerated this 4146373294) result transmit tali reference range : 17 - 27 mEq/L. The refe rence range was not used to interpret this result as normal/abnormal . [facility] CenterLAB ONLY COVID [id number] 22:28:44COVID DMT InterpretationInterpretation/Recommendations:Molecular NAAT Tests for Active Infection with the SARS-CoV-2 Virus:The patient has currently tested negative for the SARS-CoV-2 virus that causesCOVID-19 illness. This most likely indicates that the patient does not have an active infection withthe SARS-CoV-2 virus. However, infection is not completely ruled out as the false negative rate for molecular NAAT testing using a nasopharyngeal sample can be up to 30%, mostly dependent on the timingof sample collection in relation to illness onset and any deficiencies in sampling techniques. If the patient has symptoms concerning for COVID-19 illness, a repeat NAAT test (PCR, Rapid ID Now, etc.) should be performed, at which time the SARS-CoV-2 virus - if present - may have reached a detectable viral load (usually peaking by the end of the first week of symptoms). Tests for IgM and/or IgG Antibodies to the SARS-CoV-2 Virus:If the patient develops COVID-19 illness in the future, testing for IgMand IgG antibodies approximately 3 weeks after illness onset will likely indicate if the patient hasproduced antibodies to the SARS-CoV-2 virus. However, some patients may take longer to develop detectable antibodies, while some patients who were infected with SARS-CoV-2 may never develop antibodies.While antibodies to SARS-CoV-2 may provide some degree of immunity, at this time the strength and duration of the antibody response is unknown. Interpretation Result Comments:These interpretation comments are based upon all COVID-19 testing the patient has had at [facility], including molecular NAAT testing (more commonly known as PCR testing and Rapid ID Now testing) and antibody testing. It does not take into account any testing that a patient has had outside of the [facility] medical record. [facility] LABORATORY SERVICESCOVID ResultsSARS- CoV-2 NAAT (no units) ? ? Date ? Value ? 01/22/2020 ? Not Detected ? SARS-CoV-2 Rapid ID NOW (no units) ? ? Date ? Value ? 10/26/2020 ? Not Detected ? ? ? 10/03/2020 ? Not Detected ? ? ? 04/20/2020 ? Not Detected ? ? ? 03/17/2020 ? Not Detected ? CoV-2 IgG (nounits) ? ? Date ? Value ? 10/07/2020 ? Negative ?03/24/2020 ? Negative ? ? ? [facility] SERVICESUnUniversity HospitalGALV ONLY - SYPHILIS [id number] 20:56:42 Test Item Value Reference Range Interpretation Comments Syphilis IgG/IgM (test Non-reactive Non-reactive code = 56585-2) JAGDISH (test code = JAGDISH) Non-reactive - No serologic evidence of T. pallidum infection. Cannot exclude incubating or early syphilis. Submit a second specimen in 2-4 weeks if syphilis is clinically suspected. Equivocal - Further testing to follow. Reactive - Further testing to follow. Lab Interpretation (test Normal code = 74196-5) [facility] CenterHepatitis B Surface [id number] 16:49:05 Test Item Value Reference Range Interpretation Comments HBsAg Semi-Quantitative (test code = Negative Negative 5195-3) [facility] CenterType and Screen - ONCE [id number] 16:07:19 Test Item Value Reference Range Interpretation Comments ABO & RH (test AB POSITIVE Performed at [facility] code = 20) Laboratory Serv [facility] Blood Bank3 [address] [facility] s [address]Smcz Free: [phone] A No. [id number] IAT (test code = Negative Performed a t [facility] 1185) Laboratory Serv [facility] Blood Bank3 [address] [facility] s [address]Slvu Free: [phone] A No. [id number] [facility] CenterCBC with [id number] 15:46:24 Test Item Value Reference Range Interpretation Comments WBC (test code = See_Comment H [Automated 6690-2) message] The sy stem which generated this result transmitted reference range : 4.30 - 11.10 10*3/?L. The reference range was not used to interpret this result as normal/abnormal . RBC (test code = See_Comment L [Automated 599-8) message] The sy stem which generated this result transmitted reference range : 3.93 - 5.25 10*6/?L. The reference range was not used to interpret this result as normal/abnormal . HGB (test code = 9.2 g/dL 11.6-15.0 L 718-7) HCT (test code = 28.6 % 35.7-45.2 L 4544-3) MCV (test code = 82.7 fL 80.6-95.5 787-2) MCH (test code = 26.6 pg 25.9-32.8 785-6) MCHC (test code = 32.2 g/dL 31.6-35.1 786-4) RDW-SD (test code = 39.7 fL 39.0-49.9 23584-2) RDW-CV (test code = 13.1 % 12.0-15.5 788-0) PLT (test code = See_Comment [Automated 777-3) message] The sy stem which generated this result transmitted reference range : 166 - 358 10*3/ ?L. The reference r jill was not used to interpret this result as normal/abnormal . MPV (test code = 11.6 fL 9.5-12.9 59248-9) NRBC/100 WBC (test See_Comment [Automat ed code = 4157019398) message] The system which generated this result transmitted reference range : 0.0 - 10.0 /100 WBCs. The refer ence range was not u sed to interpret th is result as normal/abnormal . NRBC x10^3 (test code <0.01 See_Comment [Auto mated = 0184828539) message] The s ystem which generated this result transmitted reference range : 10*3/?L. The reference range was not used to interpret this result as normal/abnormal . GRAN MAT (NEUT) % 72.7 % (test code = 770-8) IMM GRAN % (test code 1.00 % = 9420795148) LYMPH % (test code = 17.9 % 736-9) MONO % (test code = 7.4 % 5905-5) EOS % (test code = 0.8 % 713-8) BASO % (test code = 0.2 % 706-2) GRAN MAT x10^3(ANC) 8.32 10*3/uL 1.88-7.09 H (test code = 7726709388) IMM GRAN x10^3 (test 0.12 10*3/uL 0.00-0.06 H code = 0223107751) LYMPH x10^3 (test code 2.05 10*3/uL 1.32-3.29 = 731-0) MONO x10^3 (test code 0.85 10*3/uL 0.33-0.92 = 742-7) EOS x10^3 (test code = 0.09 10*3/uL 0.03-0.39 711-2) BASO x10^3 (test code <0.03 0.01-0.07 = 704-7) Lab Interpretation Abnormal (test code = 62533-3) [facility] CenterCOVID-19 (ID NOW RAPID TESTING)2020-10-26 13:40:58 Test Item Value Reference Range Interpretation Comments SARS-CoV-2 Rapid ID NOW Not Detected Not Detected (test code = 74246-9) JAGDISH (test code = JAGDISH) ID NOW COVID-19 Assay is an isothermal nucleic acid amplification test intended for the qualitative detection of nucleic acid from SARS-CoV-2 viral RNA in nasopharyngeal (SHOEMAKING FINISHER) specimens. It is used under Emergency Use Authorization (EUA) by FDA. The limit of detection (LOD) of the assay is 125 Genome Equivalents/mL. A positive result is indicative of the presence of SARS-CoV-2 RNA. ?Clinical correlation with patient history and other diagnostic information is necessary to determine patient infection status. A negative (Not Detected) result does not preclude SARS-CoV-2 infection. In patients with clinical symptoms and other tests that are consistent with SARS-CoV-2 infection, negative results should be treated as presumptive negative and a new specimen should be tested with alternative PCR molecular test. Invalid: Please collect a new specimen for repeat patient testing if clinically indicated. Lab Interpretation Normal (test code = 67063-4) [facility] URINALYSIS W SPECIFIC [id number] 15:27:00 Test Item Value Reference Range Interpretation Comments POCT U SP GRAV (test code = 3255) . 1.005-1.025 POCT PH U (test code = 3254) . 5-8 POCT U LEUK EST (test code = 3263) . Negative - Negative POCT U NIT (test code = 3262) . Negative - Negative POCT U PROT (test code = 3259) neg Negative - Negative POCT U GLU (test code = 3256) neg Negative - Negative POCT U KETONE (test code = 3258) . Negative - Negative POCT U UROBILI (test code = 3260) . 0.2-1 POCT U BILI (test code = 3261) . Negative - Negative POCT U BLD (test code = 3257) . Negative - Negative POCT U COLOR (test code = 3266) POCT U APPEAR (test code = 3267) Lab Interpretation (test code = Normal 57048-5) [facility] URINALYSIS W SPECIFIC [id number] 16:32:00 Test Item Value Reference Range Interpretation Comments POCT U SP GRAV (test code = 3255) . 1.005-1.025 POCT PH U (test code = 3254) . 5-8 POCT U LEUK EST (test code = 3263) . Negative - Negative POCT U NIT (test code = 3262) . Negative - Negative POCT U PROT (test code = 3259) neg Negative - Negative POCT U GLU (test code = 3256) neg Negative - Negative POCT U KETONE (test code = 3258) . Negative - Negative POCT U UROBILI (test code = 3260) . 0.2-1 POCT U BILI (test code = 3261) . Negative - Negative POCT U BLD (test code = 3257) . Negative - Negative POCT U COLOR (test code = 3266) POCT U APPEAR (test code = 3267) Lab Interpretation (test code = Normal 60640-1) [facility] URINALYSIS W SPECIFIC [id number] 16:09:00 Test Item Value Reference Range Interpretation Comments POCT U SP GRAV (test code = 3255) . 1.005-1.025 POCT PH U (test code = 3254) . 5-8 POCT U LEUK EST (test code = 3263) . Negative - Negative POCT U NIT (test code = 3262) . Negative - Negative POCT U PROT (test code = 3259) neg Negative - Negative POCT U GLU (test code = 3256) neg Negative - Negative POCT U KETONE (test code = 3258) . Negative - Negative POCT U UROBILI (test code = 3260) . 0.2-1 POCT U BILI (test code = 3261) . Negative - Negative POCT U BLD (test code = 3257) . Negative - Negative POCT U COLOR (test code = 3266) POCT U APPEAR (test code = 3267) Lab Interpretation (test code = Normal 93404-4) [facility] URINALYSIS W SPECIFIC [id number] 16:09:00 Test Item Value Reference Range Interpretation Comments POCT U SP GRAV (test code = 3255) . 1.005-1.025 POCT PH U (test code = 3254) . 5-8 POCT U LEUK EST (test code = 3263) . Negative - Negative POCT U NIT (test code = 3262) . Negative - Negative POCT U PROT (test code = 3259) neg Negative - Negative POCT U GLU (test code = 3256) neg Negative - Negative POCT U KETONE (test code = 3258) . Negative - Negative POCT U UROBILI (test code = 3260) . 0.2-1 POCT U BILI (test code = 3261) . Negative - Negative POCT U BLD (test code = 3257) . Negative - Negative POCT U COLOR (test code = 3266) POCT U APPEAR (test code = 3267) Lab Interpretation (test code = Normal 29929-3) [facility] (ID NOW RAPID TESTING)2020-10-03 21:30:46 Test Item Value Reference Range Interpretation Comments SARS-CoV-2 Rapid ID NOW Not Detected Not Detected (test code = 41094-2) JAGDISH (test code = JAGDISH) ID NOW COVID-19 Assay is an isothermal nucleic acid amplification test intended for the qualitative detection of nucleic acid from SARS-CoV-2 viral RNA in nasopharyngeal (SHOEMAKING FINISHER) specimens. It is used under Emergency Use Authorization (EUA) by FDA. The limit of detection (LOD) of the assay is 125 Genome Equivalents/mL. A positive result is indicative of the presence of SARS-CoV-2 RNA. ?Clinical correlation with patient history and other diagnostic information is necessary to determine patient infection status. A negative (Not Detected) result does not preclude SARS-CoV-2 infection. In patients with clinical symptoms and other tests that are consistent with SARS-CoV-2 infection, negative results should be treated as presumptive negative and a new specimen should be tested with alternative PCR molecular test. Invalid: Please collect a new specimen for repeat patient testing if clinically indicated. Lab Interpretation Normal (test code = 13901-6) [facility] W SPECIFIC [id number] 16:03:00 Test Item Value Reference Range Interpretation Comments POCT U SP GRAV (test code = 3255) . 1.005-1.025 POCT PH U (test code = 3254) . 5-8 POCT U LEUK EST (test code = 3263) . Negative - Negative POCT U NIT (test code = 3262) . Negative - Negative POCT U PROT (test code = 3259) neg Negative - Negative POCT U GLU (test code = 3256) neg Negative - Negative POCT U KETONE (test code = 3258) . Negative - Negative POCT U UROBILI (test code = 3260) . 0.2-1 POCT U BILI (test code = 3261) . Negative - Negative POCT U BLD (test code = 3257) . Negative - Negative POCT U COLOR (test code = 3266) POCT U APPEAR (test code = 3267) [facility] URINALYSIS W SPECIFIC [id number] 16:03:00 Test Item Value Reference Range Interpretation Comments POCT U SP GRAV (test code = 3255) . 1.005-1.025 POCT PH U (test code = 3254) . 5-8 POCT U LEUK EST (test code = 3263) . Negative - Negative POCT U NIT (test code = 3262) . Negative - Negative POCT U PROT (test code = 3259) neg Negative - Negative POCT U GLU (test code = 3256) neg Negative - Negative POCT U KETONE (test code = 3258) . Negative - Negative POCT U UROBILI (test code = 3260) . 0.2-1 POCT U BILI (test code = 3261) . Negative - Negative POCT U BLD (test code = 3257) . Negative - Negative POCT U COLOR (test code = 3266) POCT U APPEAR (test code = 3267) [facility] URINALYSIS W SPECIFIC [id number] 16:34:00 Test Item Value Reference Range Interpretation Comments POCT U SP GRAV (test code = 3255) . 1.005-1.025 POCT PH U (test code = 3254) . 5-8 POCT U LEUK EST (test code = 3263) . Negative - Negative POCT U NIT (test code = 3262) .. Negative - Negative POCT U PROT (test code = 3259) trace Negative - Negative POCT U GLU (test code = 3256) neg Negative - Negative POCT U KETONE (test code = 3258) . Negative - Negative POCT U UROBILI (test code = 3260) . 0.2-1 POCT U BILI (test code = 3261) . Negative - Negative POCT U BLD (test code = 3257) . Negative - Negative POCT U COLOR (test code = 3266) POCT U APPEAR (test code = 3267) Lab Interpretation (test code = Normal 55520-4) [facility] URINALYSIS W SPECIFIC [id number] 13:55:00 Test Item Value Reference Range Interpretation Comments POCT U SP GRAV (test code = 3255) . 1.005-1.025 POCT PH U (test code = 3254) . 5-8 POCT U LEUK EST (test code = 3263) . Negative - Negative POCT U NIT (test code = 3262) . Negative - Negative POCT U PROT (test code = 3259) neg Negative - Negative POCT U GLU (test code = 3256) neg Negative - Negative POCT U KETONE (test code = 3258) . Negative - Negative POCT U UROBILI (test code = 3260) . 0.2-1 POCT U BILI (test code = 3261) . Negative - Negative POCT U BLD (test code = 3257) . Negative - Negative POCT U COLOR (test code = 3266) POCT U APPEAR (test code = 3267) Lab Interpretation (test code = Normal 07078-8) [facility] URINALYSIS W SPECIFIC [id number] 13:55:00 Test Item Value Reference Range Interpretation Comments POCT U SP GRAV (test code = 3255) . 1.005-1.025 POCT PH U (test code = 3254) . 5-8 POCT U LEUK EST (test code = 3263) . Negative - Negative POCT U NIT (test code = 3262) . Negative - Negative POCT U PROT (test code = 3259) neg Negative - Negative POCT U GLU (test code = 3256) neg Negative - Negative POCT U KETONE (test code = 3258) . Negative - Negative POCT U UROBILI (test code = 3260) . 0.2-1 POCT U BILI (test code = 3261) . Negative - Negative POCT U BLD (test code = 3257) . Negative - Negative POCT U COLOR (test code = 3266) POCT U APPEAR (test code = 3267) Lab Interpretation (test code = Normal 77371-8) [facility] ONLY - SYPHILIS [id number] 15:27:02 Test Item Value Reference Range Interpretation Comments Syphilis IgG/IgM (test Non-reactive Non-reactive code = 40782-5) JAGDISH (test code = JAGDISH) Non-reactive - No serologic evidence of T. pallidum infection. Cannot exclude incubating or early syphilis. Submit a second specimen in 2-4 weeks if syphilis is clinically suspected. Equivocal - Further testing to follow. Reactive - Further testing to follow. Lab Interpretation (test Normal code = 96939-0) [facility] /2 AG-AB WITH [id number] 05:48:54 Test Item Value Reference Range Interpretation Comments HIV Negative Negative Semi-quantitative (test code = 04528-9) JAGDISH (test code = Non-reactive for HIV-1 JAGDISH) antigen and HIV-1/HIV-2 antibodies. ?No laboratory evidence of HIV infection. ?Repeat in 2-4 weeks if acute HIV infection is suspected. [facility] URINALYSIS W SPECIFIC [id number] 15:31:00 Test Item Value Reference Range Interpretation Comments POCT U SP GRAV (test code = . 1.005-1.025 3255) POCT PH U (test code = 3254) . 5-8 POCT U LEUK EST (test code = . Negative - Negative 3263) POCT U NIT (test code = 3262) . Negative - Negative POCT U PROT (test code = 3259) trace Negative - Negative POCT U GLU (test code = 3256) negative Negative - Negative POCT U KETONE (test code = 3258) . Negative - Negative POCT U UROBILI (test code = . 0.2-1 3260) POCT U BILI (test code = 3261) . Negative - Negative POCT U BLD (test code = 3257) . Negative - Negative POCT U COLOR (test code = 3266) POCT U APPEAR (test code = 3267) [facility] URINALYSIS W SPECIFIC [id number] 15:31:00 Test Item Value Reference Range Interpretation Comments POCT U SP GRAV (test code = . 1.005-1.025 3255) POCT PH U (test code = 3254) . 5-8 POCT U LEUK EST (test code = . Negative - Negative 3263) POCT U NIT (test code = 3262) . Negative - Negative POCT U PROT (test code = 3259) trace Negative - Negative POCT U GLU (test code = 3256) negative Negative - Negative POCT U KETONE (test code = 3258) . Negative - Negative POCT U UROBILI (test code = . 0.2-1 3260) POCT U BILI (test code = 3261) . Negative - Negative POCT U BLD (test code = 3257) . Negative - Negative POCT U COLOR (test code = 3266) POCT U APPEAR (test code = 3267) [facility] [id number] 15:06:00 Test Item Value Reference Range Interpretation Comments POCT U SP GRAV (test code = . 1.005-1.025 3255) POCT PH U (test code = 3254) . 5-8 POCT U LEUK EST (test code = . Negative - Negative 3263) POCT U NIT (test code = 3262) . Negative - Negative POCT U PROT (test code = 3259) negative Negative - Negative POCT U GLU (test code = 3256) negative Negative - Negative POCT U KETONE (test code = 3258) . Negative - Negative POCT U UROBILI (test code = . 0.2-1 3260) POCT U BILI (test code = 3261) . Negative - Negative POCT U BLD (test code = 3257) . Negative - Negative POCT U COLOR (test code = 3266) POCT U APPEAR (test code = 3267) [facility]:00 Test Item Value Reference Range Interpretation Comments APPEARANCE (test code = Cloudy Clear A 6504402562) COLOR (test code = Yellow Yellow 6710930468) PH (test code = 4.8-8.0 2720162308) SP GRAVITY (test code = 1.003-1.030 6129431537) GLU U QUAL (test code = Normal Normal 7239005168) BLOOD (test code = Negative Negative 1293151196) KETONES (test code = Negative Negative 0302620368) PROTEIN (test code = Negative Negative 2887-8) UROBILIN (test code = Normal Normal 6944999160) BILIRUBIN (test code = Negative Negative 1093409237) NITRITE (test code = Negative Negative 9541001421) LEUK BRANDY (test code = 75/uL Negative A 0587148652) RBC/HPF (test code = See_Comment H [Autom ated message] 7024210295) The system [employer] generated this result transmitted ref erence range: 0 - 3 HP F. The reference range was not used to int erpret this result as normal/abnormal . WBC/HPF (test code = See_Comment H [Autom ated message] 6596721680) The system [employer] generated this result transmitted ref erence range: 0 - 5 HP F. The reference range was not used to int erpret this result as normal/abnormal . BACTERIA (test code = Moderate Negative A 6455341155) MUCOUS (test code = Moderate Negative LPF A 6658348859) AMORPHOUS (test code = Rare Rare HPF 0717640199) SQ EPITH (test code = HPF 9202646145) Lab Interpretation (test Abnormal code = 62792-4) [facility] URINALYSIS W SPECIFIC [id number] 15:58:00 Test Item Value Reference Range Interpretation Comments POCT U SP GRAV (test code = 3255) . 1.005-1.025 POCT PH U (test code = 3254) . 5-8 POCT U LEUK EST (test code = 3263) . Negative - Negative POCT U NIT (test code = 3262) . Negative - Negative POCT U PROT (test code = 3259) Trace Negative - Negative POCT U GLU (test code = 3256) Neg Negative - Negative POCT U KETONE (test code = 3258) . Negative - Negative POCT U UROBILI (test code = 3260) . 0.2-1 POCT U BILI (test code = 3261) . Negative - Negative POCT U BLD (test code = 3257) . Negative - Negative POCT U COLOR (test code = 3266) POCT U APPEAR (test code = 3267) [facility] URINALYSIS W SPECIFIC [id number] 15:58:00 Test Item Value Reference Range Interpretation Comments POCT U SP GRAV (test code = 3255) . 1.005-1.025 POCT PH U (test code = 3254) . 5-8 POCT U LEUK EST (test code = 3263) . Negative - Negative POCT U NIT (test code = 3262) . Negative - Negative POCT U PROT (test code = 3259) Trace Negative - Negative POCT U GLU (test code = 3256) Neg Negative - Negative POCT U KETONE (test code = 3258) . Negative - Negative POCT U UROBILI (test code = 3260) . 0.2-1 POCT U BILI (test code = 3261) . Negative - Negative POCT U BLD (test code = 3257) . Negative - Negative POCT U COLOR (test code = 3266) POCT U APPEAR (test code = 3267) [facility] URINALYSIS W SPECIFIC [id number] 15:58:00 Test Item Value Reference Range Interpretation Comments POCT U SP GRAV (test code = 3255) . 1.005-1.025 POCT PH U (test code = 3254) . 5-8 POCT U LEUK EST (test code = 3263) . Negative - Negative POCT U NIT (test code = 3262) . Negative - Negative POCT U PROT (test code = 3259) Trace Negative - Negative POCT U GLU (test code = 3256) Neg Negative - Negative POCT U KETONE (test code = 3258) . Negative - Negative POCT U UROBILI (test code = 3260) . 0.2-1 POCT U BILI (test code = 3261) . Negative - Negative POCT U BLD (test code = 3257) . Negative - Negative POCT U COLOR (test code = 3266) POCT U APPEAR (test code = 3267) [facility] URINALYSIS W SPECIFIC [id number] 19:03:00 Test Item Value Reference Range Interpretation Comments POCT U SP GRAV (test code = 3255) . 1.005-1.025 POCT PH U (test code = 3254) . 5-8 POCT U LEUK EST (test code = 3263) . Negative - Negative POCT U NIT (test code = 3262) . Negative - Negative POCT U PROT (test code = 3259) trace Negative - Negative POCT U GLU (test code = 3256) neg Negative - Negative POCT U KETONE (test code = 3258) . Negative - Negative POCT U UROBILI (test code = 3260) . 0.2-1 POCT U BILI (test code = 3261) . Negative - Negative POCT U BLD (test code = 3257) . Negative - Negative POCT U COLOR (test code = 3266) . POCT U APPEAR (test code = 3267) [facility] 03[facility]37:00 Test Item Value Reference Range Interpretation Comments APPEARANCE (test code = Hazy Clear A 2334478512) COLOR (test code = Yellow Yellow 1477576454) PH (test code = 4.8-8.0 6668445068) SP GRAVITY (test code = 1.003-1.030 2610984359) GLU U QUAL (test code = 50 mg/dL Normal A 5540055150) BLOOD (test code = Negative Negative 6913010998) KETONES (test code = Negative Negative 5137235253) PROTEIN (test code = Negative Negative 2887-8) UROBILIN (test code = Normal Normal 3297407488) BILIRUBIN (test code = Negative Negative 2164714618) NITRITE (test code = Negative Negative 2056601870) LEUK BRANDY (test code = 75/uL Negative A 2269407346) RBC/HPF (test code = See_Comment H [Autom ated message] 2868069340) The system [employer] generated this result transmitted ref erence range: 0 - 3 HP F. The reference range was not used to int erpret this result as normal/abnormal . WBC/HPF (test code = See_Comment H [Autom ated message] 4750959795) The system [employer] generated this result transmitted ref erence range: 0 - 5 HP F. The reference range was not used to int erpret this result as normal/abnormal . BACTERIA (test code = Few Negative A 2844751760) MUCOUS (test code = Moderate Negative LPF A 8436617801) SQ EPITH (test code = HPF 7563388548) HYAL CAST (test code = See_Comment [Aut omated message] 0914366289) The system [employer] generated this result transmitted ref erence range: <=2 LPF. The reference range was not used to int erpret this result as normal/abnormal . Lab Interpretation (test Abnormal code = 78366-3) [facility]ID [facility]2020-04-21 03:31:00 Test Item Value Reference Range Interpretation Comments SARS-CoV-2 Rapid ID NOW Not Detected Not Detected (test code = 64122-2) JAGDISH (test code = JAGDISH) ID NOW COVID-19 Assay is an isothermal nucleic acid amplification test intended for the qualitative detection of nucleic acid from SARS-CoV-2 viral RNA in nasopharyngeal (SHOEMAKING FINISHER) specimens. It is used under Emergency Use Authorization (EUA) by FDA. The limit of detection (LOD) of the assay is 125 Genome Equivalents/mL. A positive result is indicative of the presence of SARS-CoV-2 RNA. ?Clinical correlation with patient history and other diagnostic information is necessary to determine patient infection status. A negative (Not Detected) result does not preclude SARS-CoV-2 infection. In patients with clinical symptoms and other tests that are consistent with SARS-CoV-2 infection, negative results should be treated as presumptive negative and a new specimen should be tested with alternative PCR molecular test. Invalid: Please collect a new specimen for repeat patient testing if clinically indicated. Lab Interpretation Normal (test code = 27282-1) [facility] URINALYSIS W/O SPECIFIC [id number] 15:18:00 Test Item Value Reference Range Interpretation Comments POCT PH U (test code = 3254) 5 mg/dl 5-8 POCT U LEUK EST (test code = 1+ Negative - Negative 3263) POCT U NIT (test code = 3262) pos Negative - Negative POCT U PROT (test code = 3259) trace Negative - Negative POCT U GLU (test code = 3256) neg Negative - Negative POCT U KETONE (test code = 3258) neg Negative - Negative POCT U BLD (test code = 3257) neg Negative - Negative [facility] [id number] 15:18:00 Test Item Value Reference Range Interpretation Comments POCT PREG (test code = 1605) Positive On board controls acceptable with C Yes Line (test code = 3574) POCT PREG LOT # (test code = 3575) POCT PREG TEST DATE (test code = 357) [facility] URINALYSIS W/O SPECIFIC [id number] 15:18:00 Test Item Value Reference Range Interpretation Comments POCT PH U (test code = 3254) 5 mg/dl 5-8 POCT U LEUK EST (test code = 1+ Negative - Negative 3263) POCT U NIT (test code = 3262) pos Negative - Negative POCT U PROT (test code = 3259) trace Negative - Negative POCT U GLU (test code = 3256) neg Negative - Negative POCT U KETONE (test code = 3258) neg Negative - Negative POCT U BLD (test code = 3257) neg Negative - Negative [facility] [id number] 15:18:00 Test Item Value Reference Range Interpretation Comments POCT PREG (test code = 1605) Positive On board controls acceptable with C Yes Line (test code = 3574) POCT PREG LOT # (test code = 3575) POCT PREG TEST DATE (test code = 357) [facility] URINALYSIS W/O SPECIFIC [id number] 15:18:00 Test Item Value Reference Range Interpretation Comments POCT PH U (test code = 3254) 5 mg/dl 5-8 POCT U LEUK EST (test code = 1+ Negative - Negative 3263) POCT U NIT (test code = 3262) pos Negative - Negative POCT U PROT (test code = 3259) trace Negative - Negative POCT U GLU (test code = 3256) neg Negative - Negative POCT U KETONE (test code = 3258) neg Negative - Negative POCT U BLD (test code = 3257) neg Negative - [id number] 15:18:00 Test Item Value Reference Range Interpretation Comments POCT PREG (test code = 1605) Positive On board controls acceptable with C Yes Line (test code = 3574) POCT PREG LOT # (test code = 3575) POCT PREG TEST DATE (test code = 357) [facility] URINALYSIS W/O SPECIFIC [id number] 15:18:00 Test Item Value Reference Range Interpretation Comments POCT PH U (test code = 3254) 5 mg/dl 5-8 POCT U LEUK EST (test code = 1+ Negative - Negative 3263) POCT U NIT (test code = 3262) pos Negative - Negative POCT U PROT (test code = 3259) trace Negative - Negative POCT U GLU (test code = 3256) neg Negative - Negative POCT U KETONE (test code = 3258) neg Negative - Negative POCT U BLD (test code = 3257) neg Negative - Negative [facility] [id number] 15:18:00 Test Item Value Reference Range Interpretation Comments POCT PREG (test code = 1605) Positive On board controls acceptable with C Yes Line (test code = 3574) POCT PREG LOT # (test code = 3575) POCT PREG TEST DATE (test code = 3576) [facility] CenterT[facility] BETA HCG [id number] 16:21:00 Test Item Value Reference Range Interpretation Comments BETA HCG (test See_Comment [Automated m essage] code = The system [employer] [id number]) generated this result transmit tali reference range : Non- fe male and male patien ts: <5 mIU/mL. The reference range was not used to interpret this result as normal/abnormal . JAGDISH (test code Gestational Age ? ? = JAGDISH) ?Range (mIU/mL) 1-10 ?Weeks ?37-42228628-83 Weeks ?98120-96854775-53 Weeks ?0536-94845037-16 Weeks ?2280-817552 Biotin has been reported to cause a negative bias, interpret results relative to patient's use of biotin. [facility]ID [facility])2020-03-17 16:02:00 Test Item Value Reference Range Interpretation Comments SARS-CoV-2 Rapid ID NOW Not Detected Not Detected (test code = 57903-8) JAGDISH (test code = JAGDISH) ID NOW COVID-19 Assay is an isothermal nucleic acid amplification test intended for the qualitative detection of nucleic acid from SARS-CoV-2 viral RNA in nasopharyngeal (SHOEMAKING FINISHER) specimens. It is used under Emergency Use Authorization (EUA) by FDA. The limit of detection (LOD) of the assay is 125 Genome Equivalents/mL. A positive result is indicative of the presence of SARS-CoV-2 RNA. ?Clinical correlation with patient history and other diagnostic information is necessary to determine patient infection status. A negative (Not Detected) result does not preclude SARS-CoV-2 infection. In patients with clinical symptoms and other tests that are consistent with SARS-CoV-2 infection, negative results should be treated as presumptive negative and a new specimen should be tested with alternative PCR molecular test. Invalid: Please collect a new specimen for repeat patient testing if clinically indicated. Lab Interpretation Normal (test code = 81861-7) [facility] Metabolic Panel (NA, K, CL, CO2, GLUCOSE, BUN, CREATININE, CA)2020-03-17 15:37:00 Test Item Value Reference Range Interpretation Comments NA (test code = 135 mmol/L 135-145 1722789391) K (test code = 4.1 mmol/L 3.5-5 1278288083) CL (test code = 106 mmol/L 98-108 0682609797) CO2 TOTAL (test code = 19 mmol/L 23-31 L 4349212256) AGAP (test code = 2-16 7796899152) BUN (test code = 5 mg/dL 7-23 L 9122692471) GLUCOSE (test code = 96 mg/dL 70-110 9676161464) CREATININE (test code = 0.42 mg/dL 0.5-1.04 L 2421481607) CALCIUM (test code = 9.7 mg/dL 8.6-10.6 0351207306) eGFR Calculation mL/min/1.73m2 (Non-) (test code = 8514119407) eGFR Calculation mL/min/1.73m2 () (test code = 0004302410) JAGDISH (test code = JAGDISH) Association of Glomerular Filtration Rate (GFR) and Staging of Kidney Disease* + --+ --+ ------+| GFR (mL/min/1.73 m2) ?| With Kidney Damage ?| ?Without Kidney Damage+ --------+ --------+ +| ?>90 ?| ?Stage one ?| ? Normal ?+ ---+ ---+ -------+| ?60-89 ?| ?Stage two ?| ? Decreased GFR ? + --+ --+ ------+| ?30-59 ?| ?Stage three ?| ? Stage three ? + --+ --+ ------+| ?15-29 ?| ?Stage four ? | ? Stage four ?+ ---+ ---+ -------+| ?<15 (or dialysis) ? ?| ?Stage five ? | ? Stage five ?+ ---+ ---+ -------+ *Each stage assumes the associated GFR level has been in effect for at least three months. ?Stages 1 to 5, with or without kidney disease, indicate chronic kidney disease. Notes: Determination of stages one and two (with eGFR >59mL/min/1.73 m2) requires estimation of kidney damage for at least three months as defined by structural or functional abnormalities of the kidney, manifested by either:Pathological abnormalities or Markers of kidney damage (including abnormalities in the composition of the blood or urine or abnormalities in imaging tests). Lab Interpretation Abnormal (test code = 44393-5) [facility] (ALB, T.PRO, BILI T, BU/BC, ALT, AST, ALK PHOS)2020-03-17 15:37:00 Test Item Value Reference Range Interpretation Comments TOTAL BILI (test code = 9017764491) 0.9 mg/dL 0.1-1.1 BILI UNCON (test code = 8644367144) 0.9 mg/dL 0.1-1.1 BILI CONJ (test code = 4561409254) 0.0 mg/dL 0-0.3 T PROTEIN (test code = 2737464957) 7.3 g/dL 6.3-8.2 ALBUMIN (test code = 1904193605) 4.5 g/dL 3.5-5 ALK PHOS (test code = 6739901214) 72 U/L 34-122 ALTv (test code = 1742-6) 10 U/L 5-35 AST(SGOT) (test code = 3823435455) 19 U/L 13-40 Lab Interpretation (test code = Normal 34893-1) [facility] CenterLipase [id number] 15:37:00 Test Item Value Reference Range Interpretation Comments LIPASE (test code = 7520410319) 39 U/L 0-220 Lab Interpretation (test code = Normal 58991-1) [facility]2020-11-23 15:37:00 Test Item Value Reference Range Interpretation Comments MAGNESIUM (test code = 7353350018) 1.9 mg/dL 1.7-2.4 Lab Interpretation (test code = Normal 37945-8) [facility] - DRUG SCREEN [id number] 15:29:00 Test Item Value Reference Range Interpretation Comments BENZO U (test code = Negative Negative 0598499876) STEPHON U (test code = Negative Negative 8887337722) AMPHET (test code = Negative Negative 3721277061) THC (test code = Presumptive Negative A Confirmatio n of 6335349107) Positive Presumptive Positive THC result requires physician order . METHADONE (test code Negative Negative = 1305018461) Meth U (test code = Negative Negative 1897842890) OPIATES (test code = Negative Negative 6663620871) Cocaine Metabolite Negative Negative (test code = 3053636698) PROPOXY (test code = Negative Negative 6409992410) Tric U (test code = Negative Negative 3033252139) PCP (test code = Negative Negative 7118386941) OXYCOD (test code = Negative Negative 7333278079) JAGDISH (test code = Urine Drug Cutoff JAGDISH) Ranges Benzodiazepines: ? ? 150 ng/mLBarbiturates : ?200 ng/mLAmphetamine: ? 500 ng/mLCannabinoids : ?50 ?ng/mLMethadone: ? 200 ng/mLMethamphetam ine: ? ? 500 ng/mL Opiates: ? 100 ng/mL or 2000 ng/mLCocaine: ? 150 ng/mLPropoxyphene : ?300 ng/mLTricyclics: ?300 ng/mLOxycodone: ? 100 ng/mLPCP: ? 25 ?ng/mL The results are to be used only for medical (i.e., treatment) purposes. Unconfirmed screening results must not be used for non-medical purposes (e.g., employment testing, legal testing). Lab Interpretation Abnormal (test code = 35302-9) [facility] with [id number] 15:25:00 Test Item Value Reference Range Interpretation Comments WBC (test code = See_Comment [Automated 6690-2) message] The sy stem which generated this result transmitted reference range : 4.50 - 13.50 10*3/?L. The reference range was not used to interpret this result as normal/abnormal . RBC (test code = See_Comment [Automated 789-8) message] The sy stem which generated this result transmitted reference range : 4.10 - 5.10 10*6/?L. The reference range was not used to interpret this result as normal/abnormal . HGB (test code = 12.8 g/dL 12-16 718-7) HCT (test code = 37.6 % 36-45 4544-3) MCV (test code = 80.2 fL 78-95 787-2) MCH (test code = 27.3 pg 26-32 785-6) MCHC (test code = 34.0 g/dL 32-36 786-4) RDW-SD (test code = 43.1 fL 38.5-49 67369-7) RDW-CV (test code = 14.8 % 11.5-14 H 788-0) PLT (test code = See_Comment [Automated 777-3) message] The sy stem which generated this result transmitted reference range : 135 - 361 10*3/ ?L. The reference r jill was not used to interpret this result as normal/abnormal . MPV (test code = 11.2 fL 9.4-13.3 24496-8) NRBC/100 WBC (test See_Comment [Automat ed code = 8172992652) message] The system which generated this result transmitted reference range : 0.0 - 10.0 /100 WBCs. The refer ence range was not u sed to interpret th is result as normal/abnormal . NRBC x10^3 (test code <0.01 See_Comment [Auto mated = 8485557420) message] The s ystem which generated this result transmitted reference range : 10*3/?L. The reference range was not used to interpret this result as normal/abnormal . GRAN MAT (NEUT) % 62.7 % (test code = 770-8) IMM GRAN % (test code 0.20 % = 2937730370) LYMPH % (test code = 28.0 % 736-9) MONO % (test code = 7.4 % 5905-5) EOS % (test code = 1.4 % 713-8) BASO % (test code = 0.3 % 706-2) GRAN MAT x10^3(ANC) 4.18 10*3/uL 1.5-10.3 (test code = 5984867647) IMM GRAN x10^3 (test <0.03 0-0.06 code = 1050037502) LYMPH x10^3 (test code 1.86 10*3/uL 0.7-7.4 = 731-0) MONO x10^3 (test code 0.49 10*3/uL 0-0.5 = 742-7) EOS x10^3 (test code = 0.09 10*3/uL 0-0.4 711-2) BASO x10^3 (test code <0.03 0-0.1 = 704-7) Lab Interpretation Abnormal (test code = 86357-0) [facility] CenterUrinalysis2020-11-[facility] 15:24:00 Test Item Value Reference Range Interpretation Comments APPEARANCE (test code = Hazy Clear A 0949378401) COLOR (test code = Laura Yellow A 1961709130) PH (test code = 4.8-8.0 4883439163) SP GRAVITY (test code = 1.003-1.030 9166419699) GLU U QUAL (test code = Normal Normal 5129039400) BLOOD (test code = Negative Negative 7558934649) KETONES (test code = 5 mg/dL Negative A 3488246138) PROTEIN (test code = Negative Negative 2887-8) UROBILIN (test code = 2.0 mg/dL Normal A 2605051540) BILIRUBIN (test code = Negative Negative 6548187892) NITRITE (test code = Positive Negative A 4628038893) LEUK BRANDY (test code = 25/uL Negative A 0015033882) RBC/HPF (test code = See_Comment [Autom ated message] 7878616187) The system [employer] generated this result transmit tali reference range : 0 - 3 HPF. The refe rence range was not u sed to interpret th is result as normal/abnormal . WBC/HPF (test code = See_Comment H [Autom ated message] 1976548410) The system [employer] generated this result transmit tali reference range : 0 - 5 HPF. The refe rence range was not u sed to interpret th is result as normal/abnormal . BACTERIA (test code = Many Negative A 2887637812) MUCOUS (test code = Marked Negative LPF A 4755702764) SQ EPITH (test code = HPF 6043110132) Lab Interpretation (test Abnormal code = 99157-2) [facility] [id number] 14:51:00 Test Item Value Reference Range Interpretation Comments POCT PREG (test code = 1605) positive On board controls acceptable with present C Line (test code = 3574) POCT PREG LOT # (test code = 3575) [id number] POCT PREG TEST DATE (test 2021-08-22 code = 3576) Lab Interpretation (test code = Normal 75173-2) [facility] CenterUS RETROPERITONEAL [id number] 17:27:08 ORDERING PHYSICIAN: [id number] RIVERA BILATERAL RETROPERITONEAL ULTRASOUND. DATE: 01/10/2019 CLINICAL INDICATIONS: Pyelonephritis. TECHNIQUE: Multiplanar grayscale images of the retroperitoneal contentswere obtained utilizing real-time ultrasonography. COMPARISON: None. FINDINGS:?The kidneys have a normal size and renal cortical echogenicitybilaterally. The right kidney measures 9.9 x 4.1 x 4.5 cm.?The left kidneymeasures 9.5 x 5.4 x 4.6 cm. No evidence for hydronephrosis,nephrolithiasis or solid renal massis present bilaterally. The urinary bladder has an unremarkable sonographic appearance withoutechogenic debris or mural nodule. The ureteral jets could not bedemonstrated on this exam. Note is made of mildly increased hepatic parenchymal echogenicitysuggesting hepatic steatosis. IMPRESSIONS: 1. Unremarkable sonographic appearance of the kidneys and urinary bladder.The ureteral jets could not be demonstrated on this exam. RL: [id number] [facility], Radiant Results Inft User - 01/10/2019 12:29 PM CDTORDERING PHYSICIAN: TONY PRATERILATERAL RETROPERITONEAL ULTRASOUND.DATE: 01/10/2019CLINICAL INDICATIONS: Pyelonephritis.TECHNIQUE: Multiplanar grayscale images of the retroperitoneal contentswere obtained utilizing real-time ultrasonography.COMPARISON: None.FINDINGS: The kidneys have a normal size and renal cortical echogenicitybilaterally. The right kidney measures 9.9 x 4.1 x 4.5 cm. The left kidneymeasures 9.5x 5.4 x 4.6 cm. No evidence for hydronephrosis,nephrolithiasis or solid renal mass is present bilaterally.The urinary bladder has an unremarkable sonographic appearance withoutechogenic debris or muralnodule. The ureteral jets could not bedemonstrated on this exam.Note is made of mildly increased hepatic parenchymal echogenicitysuggesting hepatic steatosis.IMPRESSIONS:1. Unremarkable sonographic appearance of the kidneys and urinary bladder.The ureteral jets could not be demonstrated on this exam.RL[id number] 2018-11-18 19:21:32Addendum by Garfield Hampton MD on 11/18/2018 3:02 PM* * * * * * * * ADDENDUM: * * * * * * * *Findings were discussed with QUENTIN Roberts at 1426, 11/18/2018. Garfield Gotti MD., have reviewed this study and agree with theabove report. 1.?Right perinephric and periureteral fat stranding raises concern foracute pyelonephritis. Clinical and laboratory correlation is recommended.No radiopaque urolithiasis or hydronephrosis.2.?The appendix is not visualized in this noncontrast study. Garfield Gotti MD., have reviewed this study and agree with theabove report.EXAM: CT ABDOMEN ANDPELVIS WITHOUT CONTRAST HISTORY: Right-sided flank pain COMPARISON: 03/15/2016. TECHNIQUE AND FINDINGS: Contiguous axial imaging from the level of the lungbases through the pubic symphysis was performed without the intravenousadministration of contrast. Coronal and sagittal reconstructions wereobtained.?Auto mA and/or iterative reconstruction were used to reduceradiation dose. FINDINGS: LOWER THORAX:The lungs bases are clear. No cardiomegaly. LIVER: No focal hepatic lesions.?Normal liver contour. GALLBLADDER AND BILIARY TREE: No biliary ductal dilation.?No gallbladderwall thickening. SPLEEN: No splenomegaly. PANCREAS: No ductal dilation or masses. ADRENAL GLANDS: No adrenal nodules. KIDNEYS: No hy dronephrosis, stones, or masses. However, right perinephricand periureteral fat stranding is noted. PERITONEUM AND RETROPERITONEUM: No free air or fluid. LYMPH NODES: No lymphadenopathy. GI TRACT: No dilation or wall thickening. The appendix is not definitivelyvisualized; however, there is no pericolonic fat stranding or inflammatorychanges to suggest appendicitis. PELVIS/BLADDER: Unremarkable. The urinary bladder is incompletelydistended. VESSELS: Unremarkable. BONES AND SOFT TISSUES: No suspiciouslytic or sclerotic bony lesions. [facility], Radiant Results Inft User - 11/18/2018 2:21 PM CDTEXAM: CT AB DOMEN AND PELVIS WITHOUT CONTRASTHISTORY: Right-sided flank painCOMPARISON: 03/15/2016.TECHNIQUE ANDFINDINGS: Contiguous axial imaging from the level of the lungbases through the pubic symphysis was performed without the intravenousadministration of contrast. Coronal and sagittal reconstructions wereobtained. Auto mA and/or iterative reconstruction were used to reduceradiation dose.FINDINGS:LOWER THORAX: The lungs bases are clear. No cardiomegaly.LIVER: No focal hepatic lesions. Normal liver contour.GALLBLADDER AND BILIARY TREE: No biliary ductal dilation. No gallbladderwall thickening.SPLEEN: No splenomegaly.PANCREAS: No ductal dilation or masses.ADRENAL GLANDS: No adrenal nodules.KIDNEYS: Nohydronephrosis, stones, or masses. However, right perinephricand periureteral fat stranding is noted. PERITONEUM AND RETROPERITONEUM: No free air or fluid.LYMPH NODES: No lymphadenopathy.GI TRACT: No dilation or wall thickening. The appendix is not definitivelyvisualized; however, there is no pericolonic fat stranding or inflammatorychanges to suggest appendicitis.PELVIS/BLADDER: Unremarkable. The urinary bladder is incompletelydistended.VESSELS: Unremarkable.BONES AND SOFT TISSUES: No suspicious lytic or sclerotic bony lesions.IMPRESSION1. Right perinephric and periureteral fat stranding raises concern foracute pyelonephritis. Clinical and laboratory correlation is recommended.No radiopaque urolithiasis or hydronephrosis.2. The appendix is not visualized in this noncontrast study. IGarfield MD., have reviewed this study and agree with theabove report.[facility] 2018-11-18 18:17:09 No acute cardiopulmonary process. IAntionette MD., have reviewed this study and agree with the abovereport.PROCEDURE: XR CHEST 2 VW CLINICAL INDICATION: fever COMPARISON: None FINDINGS: The lungsare well- expanded and clear without focal consolidation, pleuraleffusion, or pneumothorax. The cardiac silhouette is normal in size. No acute osseous abnormality. [facility], Radiant Results Inft User - 11/18/2018 1:17 PM CDTPROCEDURE: XR CHEST 2 VWCLINICAL INDICATION: fever COMPARISON: NoneFINDINGS:Thelungs are well-expanded and clear without focal consolidation, pleuraleffusion, or pneumothorax. Thecardiac silhouette is normal in size. No acute osseous abnormality. IMPRESSIONNo acute cardiopulmonary process.IJonah MD., have reviewed this study and agree with the abovereport.[facility] CenterRAPID STREP SCREEN FOR GROUP [id number] 17:14:00 Test Item Value Reference Range Interpretation Comments Streptococcus pyogenes (group A) Negative Negative antigen (test code = 54588-6) Lab Interpretation (test code = Normal 22067-6) [facility]2019-07-27 17:08:00 Test Item Value Reference Range Interpretation Comments APPEARANCE (test code = Cloudy Clear A 2099492607) COLOR (test code = Yellow Yellow 5775593474) PH (test code = 4.8-8.0 3541821343) SP GRAVITY (test code = 1.003-1.030 5825524623) GLU U QUAL (test code = Negative Negative 6251523371) BLOOD (test code = Moderate Negative A 8183470506) KETONES (test code = Negative Negative 2121750968) PROTEIN (test code = Trace Negative A 2887-8) UROBILIN (test code = 0.2 mg/dL See_Comment [Auto mated message] 5375492009) The system [employer] generated this result transmit tali reference range : 0-1.0 mg/dL. e reference range was not used to interpret this result as normal/abnormal . BILIRUBIN (test code = Negative Negative 6586917901) NITRITE (test code = Negative Negative 0954323195) LEUK BRANDY (test code = Large Negative A 6794175852) RBC/HPF (test code = See_Comment H [Autom ated message] 6132339222) The system [employer] generated this result transmit tali reference range : 0 - 3 HPF. The refe rence range was not u sed to interpret th is result as normal/abnormal . WBC/HPF (test code = See_Comment H [Autom ated message] 0663928034) The system [employer] generated this result transmit tali reference range : 0 - 5 HPF. The refe rence range was not u sed to interpret th is result as normal/abnormal . BACTERIA (test code = Many Negative A 0075146184) MUCOUS (test code = Slight Negative LPF A 4545957684) SQ EPITH (test code = HPF 2080896336) Lab Interpretation (test Abnormal code = 05013-0) [facility]. METABOLIC PANEL (38025)2018-11-18 17:03:00 Test Item Value Reference Range Interpretation Comments NA (test code = 140 mmol/L 135-145 9620035302) K (test code = 3.6 mmol/L 3.5-5 7383977009) CL (test code = 111 mmol/L 98-108 H 7890988858) CO2 TOTAL (test code = 18 mmol/L 23-31 L 8017664976) AGAP (test code = 2-16 0331660913) BUN (test code = 6 mg/dL 7-23 L 8511560333) GLUCOSE (test code = 85 mg/dL 70-110 8467646420) CREATININE (test code = 0.65 mg/dL 0.5-1.04 0162890645) TOTAL BILI (test code = 0.6 mg/dL 0.1-1.2 3686815103) CALCIUM (test code = 9.1 mg/dL 8.6-10.6 1118485322) T PROTEIN (test code = 7.7 g/dL 6.3-8.2 7531244152) ALBUMIN (test code = 4.2 g/dL 3.5-5 8737911042) ALK PHOS (test code = 76 U/L 34-122 8609004494) ALT(SGPT) (test code = 16 U/L 951 0364361764) AST(SGOT) (test code = 20 U/L 1340 6274749850) JAGDISH (test code = JAGDISH) Association of Glomerular Filtration Rate (GFR) and Staging of Kidney Disease*+ + + +| GFR (mL/min/1.73 m2)?| With Kidney Damage?|?Without Kidney Damage+ --------+ --------+ +|?>90?|?S tage one?|? Normal?+ ---------+ ---------+ +|?60-89? |?Stage two?|? Decreased GFR? + --+ --+ ------+|??30-59?|?Miriamg connor three?|? Stage three? + --+ --+ ------+|?15-29?|?Stage four? |? Stage four?+ -------+ -------+ +|?<15 (or dialysis)?|?Stage five? |? Stage five?+ -------+ -------+ +*Each stage assumes the associated GFR level has been in effect for at least three months.?Stages 1 to 5, with or without kidney disease, indicate chronic kidney disease.Notes: Determination of stages one and two (with eGFR >59mL/min/1.73 m2) requires estimation of kidney damage for at least three months as defined by structural or functional abnormalities of the kidney, manifested by either:Pathological abnormalities or Markers of kidney damage (including abnormalities in the composition of the blood or urine or abnormalities in imaging tests). Lab Interpretation Abnormal (test code = 76055-4) [facility] WITH [id number] 16:56:00 Test Item Value Reference Range Interpretation Comments WBC (test code = See_Comment [Automated 0277-2) message] The sy stem which generated this result transmitted reference range : 4.50 - 13.50 10*3/?L. The reference range was not used to interpret this result as normal/abnormal . RBC (test code = See_Comment [Automated 755-3) message] The sy stem which generated this result transmitted reference range : 4.10 - 5.10 10*6/?L. The reference range was not used to interpret this result as normal/abnormal . HGB (test code = 12.6 g/dL 04-09 718-7) HCT (test code = 37.4 % 36-45 4544-3) MCV (test code = 83.9 fL 78-95 787-2) MCH (test code = 28.3 pg 26-32 785-6) MCHC (test code = 33.7 g/dL 32-36 786-4) RDW-SD (test code = 39.1 fL 38.5-49 43511-6) RDW-CV (test code = 12.8 % 11.5-14 788-0) PLT (test code = See_Comment [Automated 777-3) message] The sy stem which generated this result transmitted reference range : 135 - 361 10*3/ ?L. The reference r jill was not used to interpret this result as normal/abnormal . MPV (test code = 11.1 fL 9.4-13.3 29012-5) NRBC/100 WBC (test See_Comment [Automat ed code = 7462655777) message] The system which generated this result transmitted reference range : 0.0 - 10.0 /100 WBCs. The refer ence range was not u sed to interpret th is result as normal/abnormal . NRBC x10^3 (test code <0.01 See_Comment [Auto mated = 1553414909) message] The s ystem which generated this result transmitted reference range : 10*3/?L. The reference range was not used to interpret this result as normal/abnormal . GRAN MAT (NEUT) % 67.0 % (test code = 770-8) IMM GRAN % (test code 0.20 % = 2786053730) LYMPH % (test code = 17.1 % 736-9) MONO % (test code = 15.0 % 5905-5) EOS % (test code = 0.5 % 713-8) BASO % (test code = 0.2 % 706-2) GRAN MAT x10^3(ANC) 6.11 10*3/uL 1.5-10.3 (test code = 2396982802) IMM GRAN x10^3 (test <0.03 0-0.06 code = 0833226370) LYMPH x10^3 (test code 1.56 10*3/uL 0.7-7.4 = 731-0) MONO x10^3 (test code 1.37 10*3/uL 0-0.5 H = 742-7) EOS x10^3 (test code = 0.05 10*3/uL 0-0.4 711-2) BASO x10^3 (test code <0.03 0-0.1 = 704-7) Lab Interpretation Abnormal (test code = 21094-3) [facility] CenterPO[facility] [id number] 16:38:00 Test Item Value Reference Range Interpretation Comments POCT PREG (test code = 1605) negative On board controls acceptable with present C Line (test code = 3574) POCT PREG LOT # (test code = 3575) [id number] POCT PREG TEST DATE (test 04-24-2020 code = 3576) Lab Interpretation (test code = Normal 76616-5) [facility]"
[2021-04-23] MEDS ORDERED: ONDANSETRON 4 MG (ODT) TAB ONE (12:12)
[2021-04-23] MEDS ORDERED: ACETAMINOPHEN 500 MG TAB ONE (12:12)
[2021-04-23 14:21] LABS: SARS-COV-2 RT PCR POSITIVE (NEGATIVE)
--- NOTE | 2021-04-23 16:44 | EDPHYS ---
Physician Documentation [facility] Name: Muriel Ramsey Age: 20 yrs Sex: Female : 2000 Arrival Date: 04/23/2021 Time: 08:52 Bed Waiting Private MD: DONALDO Physician Hugo Howard HPI: 04/23 12:00 This 20 yrs old Female presents to ER via Ambulatory with complaints of Fever - unk wks cp preg. 12:00 The patient presents with sore throat. Onset: The symptoms/episode began/occurred 1 cp day(s) ago. 12:00 Associated signs and symptoms: Pertinent positives: earache, headache, nausea, slight cp cough, Pertinent negatives diarrhea, shortness of breath, vomiting. 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 - Social history:: Smoking status: Patient denies any tobacco usage or history of. ROS: 12:10 Constitutional: Positive for body aches, fever, Negative for poor PO intake. cp 12:10 Eyes: Negative for injury, pain, redness, and discharge. cp 12:10 ENT: Positive for ear pain, sore throat, Negative for drainage from ear(s), difficulty swallowing, difficulty handling secretions. 12:10 Neck: Negative for pain with movement, pain at rest, stiffness. 12:10 Respiratory: Positive for cough, Negative for shortness of breath, wheezing. 12:10 Abdomen/GI: Positive for nausea, Negative for abdominal pain, vomiting, diarrhea, constipation. 12:10 Neuro: Positive for headache, Negative for altered mental status, weakness. 12:10 All other systems are negative. Exam: 12:12 Constitutional: The patient appears in no acute distress, alert, awake, non-toxic, well cp developed, well nourished. 12:12 Head/Face: Normocephalic, atraumatic. cp 12:12 Eyes: Periorbital structures: appear normal, Conjunctiva: normal, no exudate, no injection, Sclera: no appreciated abnormality, Lids and lashes: appear normal, bilaterally. 12:12 ENT: External ear(s): are unremarkable, Ear canal(s): are normal, clear, TM's: dullness, bilaterally, Nose: nasal drainage, that is minimal, and is seen coming from both nares, that is clear, Mouth: Lips: moist, Oral mucosa: moist, Posterior pharynx: Airway: no evidence of obstruction, patent, Tonsils: with erythema, no enlargement, no exudate, swelling, is not appreciated, erythema, that is mild, exudate, is not appreciated, Voice: is normal. 12:12 Neck: ROM/movement: is normal, is supple, no meningismus, no nuchal rigidity, Lymph nodes: no appreciated lymphadenopathy. 12:12 Chest/axilla: Inspection: normal. 12:12 Cardiovascular: Rate: tachycardic. 12:12 Respiratory: the patient does not display signs of respiratory distress, Respirations: normal, no use of accessory muscles, no retractions, labored breathing, is not present, Breath sounds: decreased breath sounds, are not appreciated, stridor, is not appreciated, + upper airway congestion. wheezing: is not appreciated. 12:12 Abdomen/GI: Exam negative for discomfort, distension, guarding, Inspection: abdomen appears normal. 12:12 Neuro: Orientation: to person, place \T\ time. Mentation: is normal, Motor: moves all fours, strength is normal, Sensation: is normal, Gait: is steady, at a normal pace, without difficulty. Vital Signs: 08:59 BP 132 / 110; Pulse 106; Resp 18; Temp 100.2; Pulse Ox 100% on R/A; Weight 64.86 kg novak (R); Height 5 ft. 0 in. (152.40 cm); 08:59 Body Mass Index 27.93 (64.86 kg, 152.40 cm) novak MDM: 13:00 Differential diagnosis: group A strep tonsillitis, influenza, pharyngitis, cp retropharyngeal abcess tonsillitis, uvulitis, COVID-19. 16:44 Patient medically screened. 16:44 Data reviewed: vital signs, nurses notes, lab test result(s). 16:44 Counseling: I had a detailed discussion with the patient and/or guardian regarding: the cp historical points, exam findings, and any diagnostic results supporting the discharge/admit diagnosis, lab results, to return to the emergency department if symptoms worsen or persist or if there are any questions or concerns that arise at home. ED course: VSS. Patient appears non-toxic and no signs of respiratory distress. Patient called at number in chart and informed of positive COVID-19 results. 04/23 11:43 Order name: Strep; Complete Time: 15:14 cp 04/23 12:29 Order name: COVID-19/FLU A+B; Complete Time: 15:14 EDMS 04/23 15:56 Interpretation: SARSCOV2 RT PCR POSITIVE. cp 04/23 13:07 Order name: Throat Culture EDMS Administered Medications: 12:13 Drug: Tylenol 1000 mg Route: PO; novak 12:14 Follow up: Response: No adverse reaction novak 12:13 Drug: Zofran (Ondansetron) 4 mg Route: PO; novak 12:13 Follow up: Response: No adverse reaction novak Disposition Summary: 04/23/21 16:44 Eloped Disposition: after being seen by provider cp Reason: unknown cp Diagnosis - SARS-associated coronavirus as the cause of diseases classified elsewhere cp Followup: cp - With: Private Physician - When: 1 - 2 days - Reason: Worsening of condition Addendum: 04/25/2021 09:03 Co-signature as Attending Physician, Hugo Howard MD I agree with the assessment and c novak plan of care. Signatures: Dispatcher [employer] EDHugo Ku MD MD cha Page, Corey, PA PA Shireen Cook RN RN novak Corrections: (The following items were deleted from the chart) 04/23 09:06 09:01 Allergies: No Known Allergies; novak novak 12: 11:44 Influenza Screen (A \T\ B)+BA.LAB.BRZ ordered. EDMS EDMS : 11:30 CORONAVIRUS+MR.LAB.BRZ ordered. EDMS EDMS
--- NOTE | 2021-04-23 16:44 | ER ---
Nurse's Notes [facility] Name: Muriel Ramsey Age: 20 yrs Sex: Female : 2000 Arrival Date: 04/23/2021 Time: 08:52 Bed Waiting Private MD: Diagnosis: SARS-associated coronavirus as the cause of diseases classified elsewhere Presentation: 04/23 08:59 Chief complaint: Patient states: fever, sore throat x1 days. pt mother tested + for novak covid. Coronavirus screen: Vaccine status: Patient reports being unvaccinated. Ebola Screen: Patient denies travel to an Ebola-affected area in the 21 days before illness onset. Initial Sepsis Screen: Does the patient meet any 2 criteria? No. Patient's initial sepsis screen is negative. Does the patient have a suspected source of infection? No. Patient's initial sepsis screen is negative. Risk Assessment: Do you want to hurt yourself or someone else? Patient reports no desire to harm self or others. Onset of symptoms was April 22, 2021. 08:59 Method Of Arrival: Ambulatory 08:59 Acuity: MILLER 4 novak Triage Assessment: 09:01 General: Appears in no apparent distress. Behavior is calm, cooperative. 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 - Social history:: Smoking status: Patient denies any tobacco usage or history of. Vital Signs: 08:59 BP 132 / 110; Pulse 106; Resp 18; Temp 100.2; Pulse Ox 100% on R/A; Weight 64.86 kg novak (R); Height 5 ft. 0 in. (152.40 cm); 08:59 Body Mass Index 27.93 (64.86 kg, 152.40 cm) [facility]ak ED Course: 08:52 Patient arrived in ED. as 09:01 Triage completed. novak 09:01 Arm band placed on left wrist. novak 11:42 Hugo Torres PA is PHCP. cp 11:42 Hugo Howard MD is Attending Physician. cp Administered Medications: 12:13 Drug: Tylenol 1000 mg Route: PO; novak 12:14 Follow up: Response: No adverse reaction novak 12:13 Drug: Zofran (Ondansetron) 4 mg Route: PO; novak 12:13 Follow up: Response: No adverse reaction novak Outcome: 17:10 Patient left the ED. jl7 Signatures: Pat Flower Corey, PA PA cp Leal, Jahala, RN RN jl7 Shireen Cook RN RN novak Corrections: (The following items were deleted from the chart) 09:06 09:01 Allergies: No Known Allergies; novak novak
[2021-04-23 17:14] VITALS: BP 132/110; TEMP 100.2; O2SAT 100
== END 2021-04-23 17:10 | disposition left against medical advice (07) ==
LOC: ER 08:49
DX: O98.519 Other viral diseases complicating pregnancy, unspecified trimester (principal); U07.1 COVID-19
CPT/HCPCS: 87070; 87081; 0240U; 99282

== ENCOUNTER 2021-04-23 23:32 | Emergency (ER) | payer OTHER ==
--- OUTSIDE RECORDS SUMMARY | 2021-04-23 23:52 | XMS REPORT | Continuity of Care Document ---
:2000 Author Organization [facility] t Address [address] [place] [address] Care Team Providers Name Role Phone Davion LIGHT Primary Care Physician Unavailable Nathan JAY Attending Clinician Unavailable GEORGETTE, O Attending Clinician Unavailable Provider, Temp Attending Clinician Unavailable Georgette CNP, O Attending Clinician Doctor Unassigned, Name Attending Clinician Unavailable Nurse, Rmchp Exp Cprit Obgyn Attending Clinician Unavailabl connor Jay CUTTER ALUMINUM SHEET, R Attending Clinician Akinsipe WHCNP, C Attending [...] F Attending Clinician Singer PALMA Attending Clinician Bessie ORTIZ, G Attending Clinician Micah SNOWDEN Attending Clinician ARCHIE PRO Attending Clinician Unavailable Naila BOLAÑOS Attending Clinician Unavailable Provider, Urgent Care Attending Clinician Unavailable Lab, Fam Pob I Attending Clinician Unavailable Anene CUTTER ALUMINUM SHEET Attending Clinician ANENE Attending Clinician Unavailable Pcp, Does Not Have A Attending Clinician Germán Ledezma MD Attending Clinician Nurse, Fam Pob I Attending Clinician Unavailable Ashlee Attending Clinician Armando PAC, S Attending Clinician CHLOE ALCANTAR Admitting Clinician Unavailable Bert SNOWDEN Admitting Clinician Chloe Alcantar MD Admitting Clinician Payers Payer Name Policy Type Policy Number Effective Date Expiration Date Brayden CANTU [id number] 2018 HEALTH 00:00:00 Problems Condition Condition Condition Status Onset Resolution Last Treating Co mments Source Name Details Category Date Date Treatment Clinician Date Screening Screening Disease Active Uni vers examinatio examinatio 11-18 it y of n [place] STD n [place] (sexually 00 [facility] transmitte transmitte Br anch d disease) d disease) S/P S/P Disease Active Univers 10-30 ity of 00:00: [address] Liveborn Liveborn Disease Active Unive rs by by 10-30 [place] [address] [place] [address] 39 weeks 39 weeks Disease Active Unive rs gestation gestation 10-26 ity of of of 00:00: [place] [address] [place] [address] Encounter Encounter Disease Active Uni vers for for 10-26 ity of elective elective 00:00: [place] induction induction [facility] of labor of labor Branch Obesity Obesity Disease Active Univers (BMI (BMI 10-26 ity of 30-39.9) 30-39.9) 00:00: [address] GBS (group GBS (group Disease Active Overview : Univers B B 6-17 Formattin ity of Streptococ Streptococ 00:00: g of this [place] cus cus 00 note Medical carrier), carrier), might be Br anch +RV +RV different culture, culture, from the currently currently original. Address in PP. Tobacco Tobacco Disease Active Univers use use 4-19 ity of disorder disorder 00:00: [place] [address] Medical Branch Obesity in Obesity in Disease Active U nivers 4-19 ity of 00:00: [place] Medical Branch Circumvall Circumvall Disease Active Overview : Univers ate ate 06-24 Formattin ity of placenta placenta 00:00: g of this [place] as in third in third 00 note Medica l trimester trimester might be Br anch different from the original. Placenta anterior Circumval late-> USG every 4 weeks Pyelectasi Pyelectasi Disease Active Overview : Univers s of fetus s of fetus 06-24 Formattin ity of on on 00:00: g of this [place] 00 note Medica l ultrasound ultrasound might be Branch different from the original. pyelectas is to be reevaluat ed in the third trimester 36 weeks History of History of Disease Active 2020- U nivers febrile febrile 1-30 ity of seizure seizure 00:00: [address] Branch Urinary Urinary Disease Active 2020- Univers tract tract 1-30 ity of infection infection 00:00[place] without without 00 Medical hematuria, hematuria, Br anch site site unspecifie unspecifie d d Screening Screening Disease Active 2019-04 Uni vers for viral for viral 1-30 ity of disease disease 00:00: [place] [address] Medical Branch Need for Need for Disease Active 2020- Unive rs HPV HPV 1-30 ity of vaccinatio vaccinatio [place] n 00 Medical Branch Supervisio Supervisio Disease Active 2020- U nivers n of high n of high 1-30 ity of risk risk 00:00: [place] 00 Medi bill in third in third Branch trimester trimester Primigravi Primigravi Disease Active 2020- U nivers da in da in 1-30 ity of third third 00:00: [place] trimester trimester 00 Medi [facility] Branch Nausea and Nausea and Disease Active 2020- U nivers vomiting vomiting 1-30 ity of during during 00:00: [place] 00 Medi bill prior to prior to Branch 22 weeks 22 weeks gestation gestation Flu Flu Disease Active 2019-04 Univers vaccine vaccine 30 ity of need need 00:00: [facility] Branch High risk High risk Disease Active 2019-04 Uni vers teen teen 1-30 ity of 00:[place] in third in third 00 Medica l trimester trimester Bran ch Overweight Overweight Disease Active U nivers 07-26 ity of 00:00: Medical Branch Screening Screening Disease Active Uni vers [...] BMI BMI Disease Active Univers 27.0-27.9, 27.0-27.9, 4 it y of adult adult 00:00: [facility] Well woman Well woman Disease Active U nivers exam exam 07-26 ity of 00:00: [facility] Branch Contracept Contracept Disease Active U nivers dana dana 07-26 ity of management management 00:[place]: [place] 00 [place] 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 Sees neurology at [facility] Attention Attention Disease Active Overview: Univers deficit deficit 06 Formattin ity o f hyperactiv hyperactiv 00:00: g of this [place] ity ity 00 note Medical disorder disorder might be Bran ch (ADHD) (ADHD) different from the original. ICD10 Diagnosis Term Vision Specialist Utility Nonspecifi Nonspecifi Disease Active 2006-04 Overview : Univers c abnormal c abnormal 05-15 Formattin ity of electrocar electrocar 00:00: g of this [place] diogram diogram 00 note Medical (ECG) (ECG) might be Branch (EKG) (EKG) different from the original. 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 ICD10 Diagnosis Term Vision Specialist Utility Allergies, Adverse Reactions, Alerts Allergy Allergy Status Severity Reaction(s) Onset Inactive Treating Comm ents Source Name Type Date Date Clinician Prometha Propensi Active Rash Univer s zine Hcl ty to 01-05 ity of adverse 00:00: [place] reaction 00 Medical s Branch PROMETHA DRUG Active Rash Univers ZINE HCL INGREDI 01-05 ity of 00:00: [address] Social History Social Habit Start Date Stop Date Quantity Comments Source ASSERTION 2021-02-20 University of 00:00:00 [facility] Exposure to Not sure [place] of SARS-CoV-2 (event) [facility] Frequency [facility] History [facility] University o f Alcohol Std Drinks [facility] History [facility] o f Alcohol Binge [facility] Cigarettes smoked 2021-03-30 2021-03-30 Univers ity of current (pack per 00:00:00 00:00:00 [facility] ) - Reported Branch Tobacco use and 2021-03-30 2021-03-30 Never used Universit y of exposure 00:00:00 00:00:00 [facility] Alcohol intake 2021-03-30 2021-03-30 .14 /d University of 00:00:00 00:00:00 [facility] History of tobacco 2018-04-25 2021-01-23 Cigarette Smoker University of use 00:00:00 00:00:00 [facility] Tobacco Comment 2020-03-24 2020-03-24 4-5 ciggarettes a Un iversity of 00:00:00 00:00:00 day [facility] Alcohol Comment 2018-08-17 2018-08-17 Social drinking Univ ersity of 00:00:00 00:00:00 [facility] Sex Assigned At [birth year] Universit y of 00:00:00 00:00:00 [facility] Smoking Status Start Date Stop Date Source Former smoker 2021-03-30 00:00:00 2021-03-30 00:00:00 Universi ty of [facility] Current every day 2018-08-17 00:00:00 [facility] smoker [facility] Medications Ordered Filled Start Stop Current Ordering Indication Dosage Frequency Signature Comments Components Source Medication Medication Date Date Medication? Clinician (SIG) Name Name doxylamine- 2020-04- Yes [id number] 2{tbl} Take 2 Univers pyridoxine, 2-04-30 tablets by i ty of vit B6, 00:00: 05:59 mouth at [place] (DICLEGIS) 00 :00 bedtime as Med ical 10-10 mg needed for Branc h per tablet Nausea and Vomiting (N/V) for up to 30 days. 2020-04- Yes [id number] 1{packe Take 1 Univers vit 2-04-30 t} Packet by ity of 33-iron-fol 00:00: 05:59 mouth [place] ic-dha 00 :00 daily for Medical (SELECT-OB 30 days. Branc h + DHA) 29 mg iron-1 mg -250 mg combo pack No known No Univers medications 8-17 ity of 15:16: [address] foLIC acid Yes 1mg 1 mg, Univer s (FOLATE) 7-07 Oral, ity of tablet 1 mg 14:00: DAILY, [place] 00 First dose Medical on Tue [place] 10/29/20 at 0900, Until Discontinu ed, Routine ferrous Yes 325mg 325 mg, Univer s sulfate 7-07 Oral, TID ity of tablet 325 13:00: MEALS, [place] mg 00 First dose Medical on Tue [place] 10/29/20 at 0800, Until Discontinu ed, Routine ascorbic Yes 500mg 500 mg, Unive rs acid 7-07 Oral, TID, ity of (vitamin C) 13:00: First dose [place] (VITAMIN C) 00 on Tue Medica l tablet 500 10/29/20 at Bran ch mg 0800, Until Discontinu ed, Routine Yes [id number] 1{tbl} Take 1 U nivers vitamin 7-07 tablet by ity of w/FA tablet 00:00: mouth [place] 00 daily. Medical Branch docusate Yes [id number] 240mg Take 1 Un mercedes calcium 240 7-07 capsule by it y of mg capsule 00:00: mouth once [place] 00 daily as Medical needed for Branch Constipati on. ferrous 2020- Yes [id number] 325mg Take 1 Uni vers sulfate 325 7-07 tablet by ity of mg (65 mg 00:00: mouth 2 [place] iron) 00 (two) Medical tablet times Branch daily. ibuprofen Yes [id number] 600mg Take 1 U nivers 600 mg 7-07 tablet by ity of tablet 00:00: mouth [place] 00 every 6 Medical (six) Branch hours as needed (Pain). Take with food or milk. Yes [id number] 1{tbl} Take 1 U nivers vitamin 7-07 tablet by ity of w/FA tablet 00:00: mouth [place] 00 daily. Medical Branch docusate Yes [id number] 240mg Take 1 Un mercedes calcium 240 7-07 capsule by it y of mg capsule 00:00: mouth once [place] 00 daily as Medical needed for Branch Constipati on. ferrous Yes [id number] 325mg Take 1 Uni vers sulfate 325 7-07 tablet by ity of mg (65 mg 00:00: mouth 2 [place] iron) 00 (two) Medical tablet times Branch daily. ibuprofen Yes [id number] 600mg Take 1 U nivers 600 mg 7-07 tablet by ity of tablet 00:00: mouth [place] 00 every 6 Medical (six) Branch hours as needed (Pain). Take with food or milk. 0 Yes [id number] 1{tbl} Take 1 U nivers vitamin 7-07 tablet by ity of w/FA tablet 00:00: mouth [place] 00 daily. Medical Branch docusate 0 Yes [id number] 240mg Take 1 Un mercedes calcium 240 7-07 capsule by it y of mg capsule 00:00: mouth once [place] 00 daily as Medical needed for Branch Constipati on. ferrous 2020-0 Yes [id number] 325mg Take 1 Uni vers sulfate 325 7-07 tablet by ity of mg (65 mg 00:00: mouth 2 [place] iron) 00 (two) Medical tablet times Branch daily. ibuprofen 0 Yes [id number] 600mg Take 1 U nivers 600 mg 7-07 tablet by ity of tablet 00:00: mouth [place] 00 every 6 Medical (six) Branch hours as needed (Pain). Take with food or milk. 2020-0 Yes [id number] 1{tbl} Take 1 U nivers vitamin 7-07 tablet by ity of w/FA tablet 00:00: mouth [place] 00 daily. Medical Branch docusate 0 Yes [id number] 240mg Take 1 Un mercedes calcium 240 7-07 capsule by it y of mg capsule 00:00: mouth once [place] 00 daily as Medical needed for Branch Constipati on. ferrous 0 Yes [id number] 325mg Take 1 Uni vers sulfate 325 7-07 tablet by ity of mg (65 mg 00:00: mouth 2 [place] iron) 00 (two) Medical tablet times Branch daily. ibuprofen Yes [id number] 600mg Take 1 U nivers 600 mg 7-07 tablet by ity of tablet 00:00: mouth [place] 00 every 6 Medical (six) Branch hours as needed (Pain). Take with food or milk. 0 Yes [id number] 1{tbl} Take 1 U nivers vitamin 7-07 tablet by ity of w/FA tablet 00:00: mouth [place] 00 daily. Medical Branch docusate 0 Yes [id number] 240mg Take 1 Un emrcedes calcium 240 7-07 capsule by it y of mg capsule 00:00: mouth once [place] 00 daily as Medical needed for Branch Constipati on. ferrous 2020-0 Yes [id number] 325mg Take 1 Uni vers sulfate 325 7-07 tablet by ity of mg (65 mg 00:00: mouth 2 [place] iron) 00 (two) Medical tablet times Branch daily. ibuprofen 0 Yes [id number] 600mg Take 1 U nivers 600 mg 7-07 tablet by ity of tablet 00:00: mouth [place] 00 every 6 Medical (six) Branch hours as needed (Pain). Take with food or milk. 2020-2020- No [id number] 1{tbl} Take 1 Univers vitamin 7-07 08-17 tablet by ity of w/FA tablet 00:00: 00:00 mouth [place] 00 :00 daily. Medical Branch docusate 2020- No [id number] 240mg Take 1 U nivers calcium 240 10-29 capsule by i ty of mg capsule 00:00: 00:00 mouth once [place] 00 :00 daily as Medical needed for Branch Constipati on. ferrous 2020- No [id number] 325mg Take 1 Un mercedes sulfate 325 10-29 tablet by it y of mg (65 mg 00:00: 00:00 mouth 2 [place] iron) 00 :00 (two) Medical tablet times Branch daily. ibuprofen 2020- No [id number] 600mg Take 1 Univers 600 mg 10-29 tablet by ity of tablet 00:00: 00:00 mouth [place] 00 :00 every 6 Medical (six) Branch hours as needed (Pain). Take with food or milk. 2020- No [id number] 1{tbl} Take 1 Univers vitamin 10-29 tablet by ity of w/FA tablet 00:00: 00:00 mouth [place] 00 :00 daily. Medical Branch docusate 2020- No [id number] 240mg Take 1 U nivers calcium 240 10-29 capsule by i ty of mg capsule 00:00: 00:00 mouth once [place] 00 :00 daily as Medical needed for Branch Constipati on. ferrous 2020- No [id number] 325mg Take 1 Un mercedes sulfate 325 10-29 tablet by it y of mg (65 mg 00:00: 00:00 mouth 2 [place] iron) 00 :00 (two) Medical tablet times Branch daily. ibuprofen 2020- No [id number] 600mg Take 1 Univers 600 mg 10-29 [...] 24 hours. Indication s: acute pain HYDROcodone 2020-2020- No [id number] 1{tbl} Take 1 U nivers -acetaminop 7-10 29-18 tablet by it y of hen 5-325 00:00: 04:59 mouth [place] mg tablet 00 :00 every 6 Medical (six) Branch hours as needed (Pain scale above 4) for up to 10 days. Do not exceed 3 grams of acetaminop hen in 24 hours. Indication s: acute pain acetaminoph 2020- No 1000mg 1,000 mg, Univers en ADULT 10-28 07-06 IV ity of (OFIRMEV) 12:15: 12:40 Infusion, [...] 2020-0 Yes 1{tbl} 1 tablet, Univers -acetaminop 7 Oral, ity of hen (NORCO 11:55: Q6HPRN, [place] 5) 5-325 mg 01 Starting Medi bill tablet 1 Tue10/28/20 Branc h tablet at 0655, Until Discontinu ed, Routine, Pain (scale 4-6), If uncontroll ed by Ibuprofen ibuprofen 2020-0 Yes 600mg 600 mg, Univ ers (IBU) 7-06 Oral, ity of tablet 600 11:55: Q6HPRN, [place] mg 01 Starting Medical Tue10/28/20 Branch at 0655, Until Discontinu ed, Routine, Pain (scale 1-3) diphenhydrA 0 Yes 25mg 25 mg, IV U nivers MINE-0.9 % 7- Piggyback, ity of sod.chlr 11:55: Administer Jung [...] Yes 10mg 10 mg, Univer s (DULCOLAX) 7-06 Rectal, ity of suppository 11:55: QDAILYPRN, [place] 10 mg 01 Starting Medical 10/28/20 Branch at 0655, Until Discontinu ed, Routine, Constipati on docusate Yes 240mg 240 mg, Unive rs calcium 10-28 Oral, ity of (SURFAK) 11:55: QDAILYPRN, Jung as capsule 240 01 Starting Medi bill mg e 10/28/20 Branch at 0655, Until Discontinu ed, Routine, Constipati on magnesium Yes 30mL 30 mL, Univer s hydroxide 10-28 Oral, ity of (MILK OF 11:55: QDAILYPRN, Jung as MAGNESIA) 01 Starting Medica l 400 mg/5 mL Tue10/28/20 Br anch suspension at 0655, 30 mL Until Discontinu ed, Routine, Constipati on nalbuphine Yes 5mg 5 mg, Univer s in NS 10-28 Intravenou ity of (NUBAIN) 10 11:54: s, PRN, 1 [place] mg/mL 56 dose, Medical injection Starting Branch (CNR) 5 mg 10/28/20 at 0654, Until Discontinu ed, Routine, itching, PACU naloxone 2020- No .4mg 0.4 mg, Unive rs (NARCAN) 10-28 Slow IV ity of injection 11:54: 11:53 [...] (NS) 250 mL dose, VIAL-MATE Starting IV Tue 10/28/20 piggyback at 0306, Until Discontinu ed, 250 mL
Reas on for Anti-Infec tive: Surgical Prophylaxi s
Surgi bill Prophylaxi s: SET UP [employer] MACH[employer]ES< br>Duratio n of therapy: within 24 hours of surgery
Reason for Anti-Infec tive: Surgical Prophylaxi s ceFAZolin 2020- No 2000mg 2 g (2,000 Univers in dextrose 10-28-06 mg), IV ity of (iso-os) 08:05: 09:49 [place], [place] (ANCEF) 2 48 :00 O.R. Medical gram/100 mL HOLDING Branc h Piggyback 2 ONCE, 1 g dose, Starting 10/28/20 at 0305, Until Discontinu ed, 100 mL
Reas on for Anti-Infec tive: Surgical Prophylaxi s
Surgi bill Prophylaxi s: SET UP [employer]CH[employer] MACHINES
Duration of therapy: within 24 hours of surgery lactated 2020- No 500mL at 999 Unive rs ringers IV 10-2705 mL/hr, 500 it y of infusion 12:45: [...] 1 [place] mg 00 :00 dose, [facility] 10/27/20 at [place] 0100, Routine butorphanol 2020- No 1mg 1 mg, IV U nivers (STADOL) 10-26-04 Push, ity of injection 1 22:05: 22:21 ONCE, 1 [place] mg 00 :00 dose, [facility] 10/26/20 at [place] 1715, Routine LR 1000 mL No 2mU/min at 6-120 Univers + oxytocin 10-2606 mL/hr, IV ity of 20 units IV 16:15: 11:55 Infusion, [place] Solution 00 :09 CONTINUOUS Medic al , Starting [facility] 10/26/20 at 1115, Until Tue10/28/20 at 0655, KESHIA butorphanol No 1mg 1 mg, IV U nivers (STADOL) 10-26 Push, ity of injection 1 15:55: 16:09 ONCE, 1 [place] mg 00 :00 dose, [facility] 10/26/20 at [place] 1100, Routine D5W-LR IV No 1000mL at 125 Uni vers infusion 10-26 07-06 mL/hr, IV ity o f 1,000 mL 15:15: 11:55 Infusion, Jung as 00 :09 CONTINUOUS Medical , Starting [facility] 10/26/20 at 1015, Until Tue10/28/20 at 0655, Routine sodium No 30mL 30 mL, Univers citrate-cit 10-26 0706 Oral, ity of alberto acid 14:58: 09:48 PRE-PROCED [place] (BICITRA) 17 :00 URE ONCE, Medic al 500-334 1 dose, Branch mg/5 mL Starting solution 30 [place] 10/26/20 mL at 0958, Until Discontinu ed, Routine, Surgery/Pr ocedure lactated No 500mL at 999 Unive rs ringers IV 10-26 07-06 mL/hr, 500 it y of infusion 14:58: 11:55 mL, IV [place] 500 mL 17 :09 Infusion, Medical PRN - SEE [place] INSTRUCTIO NS, Starting [place] 10/26/20 at 0958, Until Tue10/28/20 at 0655, Routine cephALEXin 2020- No [id number] 500mg Take 1 Univers (KEFLEX) 2-13 capsule by ity of 500 mg 00:00: 05:59 mouth 3 [place] capsule 00 :00 (three) Medical times [place] daily for 7 days. cephALEXin 2020- No [id number] 500mg Take 1 Univers (KEFLEX) 05-30 capsule by ity of 500 mg 00:00: 05:59 mouth 3 [place] capsule 00 :00 (three) Medical times Branch daily for 7 days. butalbital- 2019-04- No 1{tbl} 1 tablet, Univers acetaminoph 06-22 Oral, ity of en-caff 05:00: 03:50 ONCE, 1 [place] (ESGIC) 00 :00 dose, [facility] 50-325-40 04/20/20 Branch mg tablet 1 at 2300, tablet Routine cephALEXin 2019-04- No 500mg 500 mg, Un mercedes (KEFLEX) 06-22 Oral, ity of capsule 500 04:45: 03:50 ONCE, 1 [place] mg 00 :00 dose, [facility] 04/20/20 Branch at 2245, KESHIA
Re ason for Anti-Infec tive: Documented Infection< br>Documen tali Infection Site: Urine
D uration of Therapy: 7 days cephALEXin 2019-04- No [id number] 500mg Take 1 Univers 500 mg 06-21 capsule by ity of capsule 00:00: 05:59 mouth 3 [place] 00 :00 (three) Medical times Branch daily for 10 days. cephALEXin 2019-04- No [id number] 500mg Take 1 Univers 500 mg 06-21 capsule by ity of capsule 00:00: 05:59 mouth 3 [place] 00 :00 (three) Medical times Branch daily for 10 days. 2019-04 Yes [id number] 1{packe Take 1 Univers vit 1-30 t} Packet by ity of 33-iron-fol 00:00: mouth [place] ic-dha 00 daily. Medical (SELECT-OB Branch + DHA) 29 mg iron-1 mg -250 mg combo pack 2019-04 Yes [id number] 1{packe Take 1 Univers vit 1-30 t} Packet by ity of 33-iron-fol 00:00: mouth [place] ic-dha 00 daily. Medical (SELECT-OB Branch + DHA) 29 mg iron-1 mg -250 mg combo pack 2019-04 Yes [id number] 1{packe Take 1 Univers vit 1-30 t} Packet by ity of 33-iron-fol 00:00: mouth [place] ic-dha 00 daily. Medical (SELECT-OB Branch + DHA) 29 mg iron-1 mg -250 mg combo pack 2019-04 Yes [id number] 1{packe Take 1 Univers vit 1-30 t} Packet by ity of 33-iron-fol 00:00: mouth [place] ic-dha 00 daily. Medical (SELECT-OB Branch + DHA) 29 mg iron-1 mg -250 mg combo pack 2019-04 Yes [id number] 1{packe Take 1 Univers vit 1-30 t} Packet by ity of 33-iron-fol 00:00: mouth [place] ic-dha 00 daily. Medical (SELECT-OB Branch + DHA) 29 mg iron-1 mg -250 mg combo pack 2019-04 Yes [id number] 1{packe Take 1 Univers vit 1-30 t} Packet by ity of 33-iron-fol 00:00: mouth [place] ic-dha 00 daily. Medical (SELECT-OB Branch + DHA) 29 mg iron-1 mg -250 mg combo pack 2019-04 Yes [id number] 1{packe Take 1 Univers vit 1-30 t} Packet by ity of 33-iron-fol 00:00: mouth [place] ic-dha 00 daily. Medical (SELECT-OB Branch + DHA) 29 mg iron-1 mg -250 mg combo pack 2019-04 Yes [id number] 1{packe Take 1 Univers vit 1-30 t} Packet by ity of 33-iron-fol 00:00: mouth [place] ic-dha 00 daily. Medical (SELECT-OB Branch + DHA) 29 mg iron-1 mg -250 mg combo pack 2019-04 Yes [id number] 1{packe Take 1 Univers vit 1-30 t} Packet by ity of 33-iron-fol 00:00: mouth [place] ic-dha 00 daily. Medical (SELECT-OB Branch + DHA) 29 mg iron-1 mg -250 mg combo pack 2019-04 Yes [id number] 1{packe Take 1 Univers vit 1-30 t} Packet by ity of 33-iron-fol 00:00: mouth [place] ic-dha 00 daily. Medical (SELECT-OB Branch + DHA) 29 mg iron-1 mg -250 mg combo pack 2019-04 Yes [id number] 1{packe Take 1 Univers vit 1-30 t} Packet by ity of 33-iron-fol 00:00: mouth [place] ic-dha 00 daily. Medical (SELECT-OB Branch + DHA) 29 mg iron-1 mg -250 mg combo pack 2019-04 Yes [id number] 1{packe Take 1 Univers vit 1-30 t} Packet by ity of 33-iron-fol 00:00: mouth [place] ic-dha 00 daily. Medical (SELECT-OB Branch + DHA) 29 mg iron-1 mg -250 mg combo pack 2019-04 Yes [id number] 1{packe Take 1 Univers vit 1-30 t} Packet by ity of 33-iron-fol 00:00: mouth [place] ic-dha 00 daily. Medical (SELECT-OB Branch + DHA) 29 mg iron-1 mg -250 mg combo pack 2019-04 Yes [id number] 1{packe Take 1 Univers vit 1-30 t} Packet by ity of 33-iron-fol 00:00: mouth [place] ic-dha 00 daily. Medical (SELECT-OB Branch + DHA) 29 mg iron-1 mg -250 mg combo pack 2019-04 Yes [id number] 1{packe Take 1 Univers vit 1-30 t} Packet by ity of 33-iron-fol 00:00: mouth [place] ic-dha 00 daily. Medical (SELECT-OB Branch + DHA) 29 mg iron-1 mg -250 mg combo pack 2019-04 Yes [id number] 1{packe Take 1 Univers vit 1-30 t} Packet by ity of 33-iron-fol 00:00: mouth [place] ic-dha 00 daily. Medical (SELECT-OB Branch + DHA) 29 mg iron-1 mg -250 mg combo pack 2019-04 Yes [id number] 1{packe Take 1 Univers vit 1-30 t} Packet by ity of 33-iron-fol 00:00: mouth [place] ic-dha 00 daily. Medical (SELECT-OB Branch + DHA) 29 mg iron-1 mg -250 mg combo pack 2019-04 Yes [id number] 1{packe Take 1 Univers vit 1-30 t} Packet by ity of 33-iron-fol 00:00: mouth [place] ic-dha 00 daily. Medical (SELECT-OB Branch + DHA) 29 mg iron-1 mg -250 mg combo pack 2019-04 Yes [id number] 1{packe Take 1 Univers vit 1-30 t} Packet by ity of 33-iron-fol 00:00: mouth [place] ic-dha 00 daily. Medical (SELECT-OB Branch + DHA) 29 mg iron-1 mg -250 mg combo pack 2019-04 Yes [id number] 1{packe Take 1 Univers vit 1-30 t} Packet by ity of 33-iron-fol 00:00: mouth [place] ic-dha 00 daily. Medical (SELECT-OB Branch + DHA) 29 mg iron-1 mg -250 mg combo pack 2019-04 Yes [id number] 1{packe Take 1 Univers vit 1-30 t} Packet by ity of 33-iron-fol 00:00: mouth [place] ic-dha 00 daily. Medical (SELECT-OB Branch + DHA) 29 mg iron-1 mg -250 mg combo pack 2019-04 Yes [id number] 1{packe Take 1 Univers vit 1-30 t} Packet by ity of 33-iron-fol 00:00: mouth [place] ic-dha daily. Medical ([facility] + DHA) 29 mg iron-1 mg -250 mg combo pack 2019-04 Yes [id number] 1{packe Take 1 [facility] vit 1-30 t} Packet by [facility]y of 33-iron-fol 00:00: mouth [place] ic-dha daily. Medical ([facility] + DHA) 29 mg iron-1 mg -250 mg combo pack 2019-04 Yes [id number] 1{packe Take 1 [facility] vit 1-30 t} Packet by ity of 33-iron-fol 00:00: mouth [place] ic-dha daily. Medical ([facility] + DHA) 29 mg iron-1 mg -250 mg combo pack 2019-04 Yes [id number] 1{packe Take 1 [facility] vit 1-30 t} Packet by ity of 33-iron-fol 00:00: mouth [place] ic-dha 00 daily. Medical ([facility] + DHA) 29 mg iron-1 mg -250 mg combo pack 2019-04 Yes [id number] 1{packe Take 1 [facility] vit 1-30 t} Packet by ity of 33-iron-fol 00:00: mouth [place] ic-dha 00 daily. Medical ([facility] + DHA) 29 mg iron-1 mg -250 mg combo pack 2020 Yes [id number] 1{packe Take 1 [facility] vit 1-30 t} Packet by ity of 33-iron-fol 00:00: mouth [place] ic-dha 00 daily. Medical ([facility] + DHA) 29 mg iron-1 mg -250 mg combo pack 2020- Yes [id number] 1{packe Take 1 [facility] vit 1-30 t} Packet by ity of 33-iron-fol 00:00: mouth [place] ic-dha 00 daily. Medical ([facility] + DHA) 29 mg iron-1 mg -250 mg combo pack 2020 Yes [id number] 1{packe Take 1 [facility] vit 1-30 t} Packet by ity of 33-iron-fol 00:00: mouth [place] ic-dha 00 daily. Medical ([facility] + DHA) 29 mg iron-1 mg -250 mg combo pack 2019-04 Yes [id number] 1{packe Take 1 [facility] vit 1-30 t} Packet by ity of 33-iron-fol 00:00: mouth [place] ic-dha daily. Medical ([facility] + DHA) 29 mg iron-1 mg -250 mg combo pack 2020 Yes [id number] 1{packe Take 1 [facility] vit 1-30 t} Packet by ity of 33-iron-fol 00:00: mouth [place] ic-dha daily. Medical ([facility] + DHA) 29 mg iron-1 mg -250 mg combo pack 2020 Yes [id number] 1{packe Take 1 [facility] vit 1-30 t} Packet by ity of 33-iron-fol 00:00: mouth [place] ic-dha daily. Medical ([facility] + DHA) 29 mg iron-1 mg -250 mg combo pack 2020- Yes [id number] 1{packe Take 1 [facility] vit 1-30 t} Packet by ity of 33-iron-fol 00:00: mouth [place] ic-dha 00 daily. Medical ([facility] + DHA) 29 mg iron-1 mg -250 mg combo pack 2020 Yes [id number] 1{packe Take 1 [facility] vit 1-30 t} Packet by ity of 33-iron-fol 00:00: mouth [place] ic-dha 00 daily. Medical ([facility] + DHA) 29 mg iron-1 mg -250 mg combo pack 2020- Yes [id number] 1{packe Take 1 [facility] vit 1-30 t} Packet by [facility]y of 33-iron-fol 00:00: mouth [place] ic-dha 00 daily. Medical ([facility] + DHA) 29 mg iron-1 mg -250 mg combo pack 2020- Yes [id number] 1{packe Take 1 [facility] vit 1-30 t} Packet by [facility]y of 33-iron-fol 00:00: mouth [place] ic-dha 00 daily. Medical ([facility] + DHA) 29 mg iron-1 mg -250 mg combo pack 2020- Yes [id number] 1{packe Take 1 [facility] vit 1-30 t} Packet by ity of 33-iron-fol 00:00: mouth [place] ic-dha 00 daily. Medical ([facility] + DHA) 29 mg iron-1 mg -250 mg combo pack 2019-04 Yes [id number] 1{packe Take 1 [facility] vit 1-30 t} Packet by ity of 33-iron-fol 00:00: mouth [place] ic-dha 00 daily. Medical ([facility] + DHA) 29 mg iron-1 mg -250 mg combo pack 2020 Yes [id number] 1{packe Take 1 [facility] vit 1-30 t} Packet by ity of 33-iron-fol 00:00: mouth [place] ic-dha 00 daily. Medical ([facility] + DHA) 29 mg iron-1 mg -250 mg combo pack 2020- Yes [id number] 1{packe Take 1 [facility] vit 1-30 t} Packet by ity of 33-iron-fol 00:00: mouth [place] ic-dha 00 daily. Medical ([facility] + DHA) 29 mg iron-1 mg -250 mg combo pack 2020- Yes [id number] 1{packe Take 1 [facility] vit 1-30 t} Packet by ity of 33-iron-fol 00:00: mouth [place] ic-dha 00 daily. Medical ([facility] + DHA) 29 mg iron-1 mg -250 mg combo pack 2020- Yes [id number] 1{packe Take 1 [facility] vit 1-30 t} Packet by ity of 33-iron-fol 00:00: mouth [place] ic-dha 00 daily. Medical ([facility] + DHA) 29 mg iron-1 mg -250 mg combo pack 2019-04 Yes [id number] 1{packe Take 1 [facility] vit 1-30 t} Packet by ity of 33-iron-fol 00:00: mouth [place] ic-dha 00 daily. Medical ([facility] + DHA) 29 mg iron-1 mg -250 mg combo pack 2019-04 Yes [id number] 1{packe Take 1 [facility] vit 1-30 t} Packet by ity of 33-iron-fol 00:00: mouth [place] ic-dha 00 daily. Medical ([facility] + DHA) 29 mg iron-1 mg -250 mg combo pack 2019-04 Yes [id number] 1{packe Take 1 [facility] vit 1-30 t} Packet by ity of 33-iron-fol 00:00: mouth [place] ic-dha 00 daily. Medical ([facility] + DHA) 29 mg iron-1 mg -250 mg combo pack 2019-04 Yes [id number] 1{packe Take 1 [facility] vit 1-30 t} Packet by [facility]y of 33-iron-fol 00:00: mouth [place] ic-dha 00 daily. Medical ([facility] + DHA) 29 mg iron-1 mg -250 mg combo pack 2019-04 Yes [id number] 1{packe Take 1 [facility] vit 1-30 t} Packet by ity of 33-iron-fol 00:00: mouth [place] ic-dha 00 daily. Medical ([facility] + DHA) 29 mg iron-1 mg -250 mg combo pack 2019-04 Yes [id number] 1{packe Take 1 [facility] vit 1-30 t} Packet by ity of 33-iron-fol 00:00: mouth [place] ic-dha 00 daily. Medical ([facility] + DHA) 29 mg iron-1 mg -250 mg combo pack 2019-04 Yes [id number] 1{packe Take 1 [facility] vit 1-30 t} Packet by ity of 33-iron-fol 00:00: mouth [place] ic-dha 00 daily. Medical ([facility] + DHA) 29 mg iron-1 mg -250 mg combo pack 2019-04 Yes [id number] 1{packe Take 1 [facility] vit 1-30 t} Packet by ity of 33-iron-fol 00:00: mouth [place] ic-dha 00 daily. Medical ([facility] + DHA) 29 mg iron-1 mg -250 mg combo pack 2019-04 Yes [id number] 1{packe Take 1 [facility] vit 1-30 t} Packet by ity of 33-iron-fol 00:00: mouth [place] ic-dha 00 daily. Medical ([facility] + DHA) 29 mg iron-1 mg -250 mg combo pack 2019-04- No [id number] 1{packe Take 1 [facility] vit 1-30 07-07 t} Packet by [facility] of 33-iron-fol 00:00: 00:00 [place] ic[place] 00 :00 daily. [facility] ([facility] + DHA) 29 mg iron-1 mg -250 mg combo pack doxylamine- 2019-04 Yes [id number] 1{tbl} Take 1 [facility] pyridoxine, 1-23 tablet by ity of vit B6, 00:00: mouth 3 (DICLEGI) 00 (three) Medica l 10-10 mg times Branch per tablet daily. Nitrofurant 2019-04 Yes [id number] 100mg Take 1 [facility] oin&Nit. 1-23 capsule by ity o f Macrocryst 00:00: mouth [place] (MACROBID) 00 (two) Medical 100 mg times Branch capsule daily. doxylamine- 2019-04 Yes [id number] 1{tbl} Take 1 [facility] pyridoxine, 1-23 tablet by ity of vit B6, 00:00: mouth 3 (DICLE) 00 (three) Medica l 10-10 mg times Branch per tablet daily. Nitrofurant 2019-04 Yes [id number] 100mg Take 1 [facility] oin&Nit. 1-23 capsule by it[facility] o f Macrocryst 00:00: mouth [place] (MACROBID) 00 (two) Medical 100 mg times Branch capsule daily. doxylamine- 2019-04 Yes [id number] 1{tbl} Take 1 [facility] pyridoxine, 1-23 tablet by ity of vit B6, 00:00: mouth 3 (DICLEGIS) 00 (three) Medica l 10-10 mg times Branch per tablet daily. Nitrofurant 2019-04 Yes [id number] 100mg Take 1 [facility] oin&Nit. 1-23 capsule by it[facility] o f Macrocryst 00:00: mouth [place] (MACROBID) 00 (two) Medical 100 mg times Branch capsule daily. doxylamine- 2019-04 Yes [id number] 1{tbl} Take 1 [facility] pyridoxine, 1-23 tablet by ity of vit B6, 00:00: mouth 3 (DICLEGI) 00 (three) Medica l 10-10 mg times Branch per tablet daily. Nitrofurant 2019-04 Yes [id number] 100mg Take 1 [facility] oin&Nit. 1-23 capsule by it[facility] o f Mac[place]ryst 00:00: mouth [place] (MACROBID) 00 (two) Medical 100 mg times Branch capsule daily. doxylamine- 2019-04 Yes [id number] 1{tbl} Take 1 [facility] pyridoxine, 1-23 tablet by ity of vit B6, 00:00: mouth 3 (DICLE) 00 (three) Medica l 10-10 mg times Branch per tablet daily. Nitrofurant 2019-04 Yes [id number] 100mg Take 1 [facility] oin&Nit. 1-23 capsule by it[facility] o f Macrocryst 00:00: mouth [place] (MACROBID) 00 (two) Medical 100 mg times Branch capsule daily. doxylamine- 2019-04 Yes [id number] 1{tbl} Take 1 [facility] pyridoxine, 1-23 tablet by ity of vit B6, 00:00: mouth 3 (DICLE) 00 (three) Medica l 10-10 mg times Branch per tablet daily. Nitrofurant 2019-04 Yes [id number] 100mg Take 1 [facility] oin&Nit. 1-23 capsule by it[facility] o f [place]ryst 00:00: mouth [place] (MACROBID) 00 (two) Medical 100 mg times Branch capsule daily. doxylamine- 2019-04 Yes [id number] 1{tbl} Take 1 [facility] pyridoxine, 1-23 tablet by ity of vit B6, 00:00: mouth 3 (DICLEGIS) 00 (three) Medica l 10-10 mg times Branch per tablet daily. Nitrofurant 2019-04 Yes [id number] 100mg Take 1 [facility] oin&Nit. 1-23 capsule by it[facility] o f Macrocryst 00:00: mouth [place] (MACROBID) 00 (two) Medical 100 mg times Branch capsule daily. doxylamine- 2019-04 Yes [id number] 1{tbl} Take 1 [facility] pyridoxine, 1-23 tablet by ity of vit B6, 00:00: mouth 3 [place] (DICLEGIS) 00 (three) Medica l 10-10 mg times Branch per tablet daily. Nitrofurant 2019-04 Yes [id number] 100mg Take 1 [facility] oin&Nit. 1-23 capsule by ity o f Mac[place]ryst 00:00: mouth [place] (MACROBID) 00 (two) Medical 100 mg times Branch capsule daily. doxylamine- 2019-04 Yes [id number] 1{tbl} Take 1 [facility] pyridoxine, 1-23 tablet by ity of vit B6, 00:00: mouth 3 (DICLEGIS) 00 (three) Medica l 10-10 mg times Branch per tablet daily. Nitrofurant 2019-04 Yes [id number] 100mg Take 1 [facility] oin&Nit. 1-23 capsule by it[facility] o f Mac[place]ryst 00:00: mouth 2 [place] (MACROBID) 00 (two) Medical 100 mg times Branch capsule daily. doxylamine- 2019-04 Yes [id number] 1{tbl} Take 1 [facility] pyridoxine, 1-23 tablet by ity of vit B6, 00:00: mouth 3 (DICLEGIS) 00 (three) Medica l 10-10 mg times Branch per tablet daily. doxylamine- 2019-04 Yes [id number] 1{tbl} Take 1 [facility] pyridoxine, 1-23 tablet by ity of vit B6, 00:00: mouth 3 [place] (DICLEGIS) 00 (three) Medica l 10-10 mg times Branch per tablet daily. doxylamine- 2019-04 Yes [id number] 1{tbl} Take 1 [facility] pyridoxine, 1-23 tablet by ity of vit B6, 00:00: mouth 3 [place] (DICLEGIS) 00 (three) Medica l 10-10 mg times Branch per tablet daily. doxylamine- 2019-04 Yes [id number] 1{tbl} Take 1 [facility] pyridoxine, 1-23 tablet by ity of vit B6, 00:00: mouth 3 [place] (DICLEGIS) 00 (three) Medica l 10-10 mg times Branch per tablet daily. doxylamine- 2019-04 Yes [id number] 1{tbl} Take 1 [facility] pyridoxine, 1-23 tablet by ity of vit B6, 00:00: mouth 3 [place] (DICLEGIS) 00 (three) Medica l 10-10 mg times Branch per tablet daily. doxylamine- 2019-04 Yes [id number] 1{tbl} Take 1 [facility] pyridoxine, 1-23 tablet by ity of vit B6, 00:00: mouth 3 [place] (DICLEGIS) 00 (three) Medica l 10-10 mg times Branch per tablet daily. doxylamine- 2019-04 Yes [id number] 1{tbl} Take 1 [facility] pyridoxine, 1-23 tablet by ity of vit B6, 00:00: mouth 3 [place] (DICLEGI) 00 (three) Medica l 10-10 mg times Branch per tablet daily. doxylamine- 2019-04 Yes [id number] 1{tbl} Take 1 [facility] pyridoxine, 1-23 tablet by ity of vit B6, 00:00: mouth 3 [place] (DICLEGI) 00 (three) Medica l 10-10 mg times Branch per tablet daily. doxylamine- 2019-04 Yes [id number] 1{tbl} Take 1 [facility] pyridoxine, 1-23 tablet by ity of vit B6, 00:00: mouth 3 [place] (DICLEGI) 00 (three) Medica l 10-10 mg times Branch per tablet daily. doxylamine- 2019-04 Yes [id number] 1{tbl} Take 1 [facility] pyridoxine, 1-23 tablet by ity of vit B6, 00:00: mouth 3 [place] (DICLEGIS) 00 (three) Medica l 10-10 mg times Branch per tablet daily. doxylamine- 2019-04 Yes [id number] 1{tbl} Take 1 [facility] pyridoxine, 1-23 tablet by ity of vit B6, 00:00: mouth 3 [place] (DICLEGIS) 00 (three) Medica l 10-10 mg times Branch per tablet daily. doxylamine- 2019-04 Yes [id number] 1{tbl} Take 1 [facility] pyridoxine, 1-23 tablet by ity of vit B6, 00:00: mouth 3 [place] (DICLEGIS) 00 (three) Medica l 10-10 mg times Branch per tablet daily. doxylamine- 2019-04 Yes [id number] 1{tbl} Take 1 [facility] pyridoxine, 1-23 tablet by ity of vit B6, 00:00: mouth 3 [place] (DICLEGIS) 00 (three) Medica l 10-10 mg times Branch per tablet daily. doxylamine- 2019-04 Yes [id number] 1{tbl} Take 1 [facility] pyridoxine, 1-23 tablet by ity of vit B6, 00:00: mouth 3 [place] (DICLEGIS) 00 (three) Medica l 10-10 mg times Branch per tablet daily. doxylamine- 2019-04 Yes [id number] 1{tbl} Take 1 [facility] pyridoxine, 1-23 tablet by ity of vit B6, 00:00: mouth 3 [place] (DICLEGIS) 00 (three) Medica l 10-10 mg times Branch per tablet daily. doxylamine- 2019-04 Yes [id number] 1{tbl} Take 1 [facility] pyridoxine, 1-23 tablet by ity of vit B6, 00:00: mouth 3 [place] (DICLEGIS) 00 (three) Medica l 10-10 mg times Branch per tablet daily. doxylamine- 2019-04 Yes [id number] 1{tbl} Take 1 [facility] pyridoxine, 1-23 tablet by ity of vit B6, 00:00: mouth 3 [place] (DICLEGIS) 00 (three) Medica l 10-10 mg times Branch per tablet daily. doxylamine- 2019-04 Yes [id number] 1{tbl} Take 1 [facility] pyridoxine, 1-23 tablet by ity of vit B6, 00:00: mouth 3 [place] (DICLEGIS) 00 (three) Medica l 10-10 mg times Branch per tablet daily. doxylamine- 2019-04 Yes [id number] 1{tbl} Take 1 [facility] pyridoxine, 1-23 tablet by ity of vit B6, 00:00: mouth 3 (DICLEGIS) 00 (three) Medica l 10-10 mg times Branch per tablet daily. doxylamine- 2019-04 Yes [id number] 1{tbl} Take 1 [facility] pyridoxine, 1-23 tablet by ity of vit B6, 00:00: mouth 3 (DICLEGIS) 00 (three) Medica l 10-10 mg times Branch per tablet daily. doxylamine- 2019-04 Yes [id number] 1{tbl} Take 1 [facility] pyridoxine, 1-23 tablet by ity of vit B6, 00:00: mouth 3 [place] (DICLEGIS) 00 (three) Medica l 10-10 mg times Branch per tablet daily. doxylamine- 2019-04 Yes [id number] 1{tbl} Take 1 [facility] pyridoxine, 1-23 tablet by ity of vit B6, 00:00: mouth 3 [place] (DICLEGIS) 00 (three) Medica l 10-10 mg times Branch per tablet daily. Nitrofurant 2019-04 Yes [id number] 100mg Take 1 [facility] oin&Nit. 1-23 capsule by it[facility] o f [facility]ryst 00:00: mouth 2 [place] (MACROBID) 00 (two) Medical 100 mg times Branch capsule daily. doxylamine- 2019-04 Yes [id number] 1{tbl} Take 1 [facility] pyridoxine, 1-23 tablet by ity of vit B6, 00:00: mouth 3 [place] (DICLEGI) 00 (three) Medica l 10-10 mg times Branch per tablet daily. Nitrofurant 2019-04 Yes [id number] 100mg Take 1 [facility] oin&Nit. 1-23 capsule by ity o f Mac[facility]ryst 00:00: mouth 2 [place] (MACROBID) 00 (two) Medical 100 mg times Branch capsule daily. doxylamine- 2019-04 Yes [id number] 1{tbl} Take 1 [facility] pyridoxine, 1-23 tablet by ity of vit B6, 00:00: mouth 3 [place] (DICLEGIS) 00 (three) Medica l 10-10 mg times Branch per tablet daily. Nitrofurant 2019-04 Yes [id number] 100mg Take 1 [facility] oin&Nit. 1-23 capsule by ity o f Macrocryst 00:00: mouth 2 [place] (MACROBID) 00 (two) Medical 100 mg times Branch capsule daily. doxylamine- 2019-04 Yes [id number] 1{tbl} Take 1 [facility] pyridoxine, 1-23 tablet by ity of vit B6, 00:00: mouth 3 [place] (DICLEGIS) 00 (three) Medica l 10-10 mg times Branch per tablet daily. Nitrofurant 2019-04 Yes [id number] 100mg Take 1 [facility] oin&Nit. 1-23 capsule by ity o f Mac[facility]ryst 00:00: mouth 2 [place] (MACROBID) 00 (two) Medical 100 mg times Branch capsule daily. doxylamine- 2019-04- No [id number] 1{tbl} Take 1 [facility] pyridoxine, 1-15 08-19 tablet by it y of vit B6, 00:00: 00:00 mouth 3 [place] (DICLEGIS) 00 :00 (three) Medica l 10-10 mg times Branch per tablet daily. doxylamine- 2019-04- No [id number] 1{tbl} Take 1 [facility] pyridoxine, 05-17 04-19 tablet by it y of vit B6, 00:00: 00:00 mouth 3 [place] (DICLEGIS) 00 :00 (three) Medica l 10-10 mg times Branch per tablet daily. Nitrofurant 2019-04 2020- No [id number] 100mg Take 1 [facility] oin&Nit. 1-23 12-27 capsule by ity of Macrocryst 00:00: 00:00 mouth 2 [place] (MACROBID) 00 :00 (two) Medical 100 mg times Branch capsule daily. permethrin 2020-0 Yes [id number] Apply ONCE [facility] 5 % cream 6-27 to all ity of 00:00: skin [place] 00 surfaces, Medical leave on Branch for 8-14 hours, then remove by bathing. permethrin 2020-0 Yes [id number] Apply ONCE [facility] 5 % cream 6-27 to all ity of 00:00: skin [place] 00 surfaces, Medical leave on Branch for 8-14 hours, then remove by bathing. permethrin 2020-0 Yes [id number] Apply ONCE [facility] 5 % cream 6-27 to all ity of 00:00: skin [place] 00 surfaces, Medical leave on Branch for 8-14 hours, then remove by bathing. permethrin 2020-0 Yes [id number] Apply ONCE [facility] 5 % cream 6-27 to all ity of 00:00: skin [place] 00 surfaces, Medical leave on Branch for 8-14 hours, then remove by bathing. permethrin 2020-0 Yes [id number] Apply ONCE [facility] 5 % cream 6-27 to all ity of 00:00: skin [place] 00 surfaces, Medical leave on Branch for 8-14 hours, then remove by bathing. permethrin 2020-0 Yes [id number] Apply ONCE [facility] 5 % cream 6-27 to all ity of 00:00: skin [place] 00 surfaces, Medical leave on Branch for 8-14 hours, then remove by bathing. permethrin 2020-0 Yes [id number] Apply ONCE [facility] 5 % cream 6-27 to all ity of 00:00: skin [place] 00 surfaces, Medical leave on Branch for 8-14 hours, then remove by bathing. permethrin 2020-0 Yes [id number] Apply ONCE [facility] 5 % cream 6-27 to all ity of 00:00: skin [place] 00 surfaces, Medical leave on Branch for 8-14 hours, then remove by bathing. permethrin 2020-0 Yes [id number] Apply ONCE [facility] 5 % cream 6-27 to all ity of 00:00: skin [place] 00 surfaces, Medical leave on Branch for 8-14 hours, then remove by bathing. permethrin 2020-0 2020- No [id number] Apply ONCE [facility] 5 % cream 6-27 30 to all ity of 00:00: 00:00 skin [place] 00 :00 surfaces, Medical leave on Branch for 8-14 hours, then remove by bathing. permethrin 2020-0 2020- No [id number] Apply ONCE [facility] 5 % cream 6-27 -30 to all ity of 00:00: 00:00 skin [place] 00 :00 surfaces, Medical leave on Branch for 8-14 hours, then remove by bathing. permethrin 2020-0 2020- No [id number] Apply ONCE [facility] 5 % cream 6-27 30 to all ity of 00:00: 00:00 skin [place] 00 :00 surfaces, Medical leave on Branch for 8-14 hours, then remove by bathing. permethrin 0 2020- No [id number] Apply ONCE [facility] 5 % cream 10-19 to all ity of 00:00: 00:00 skin [place] 00 :00 surfaces, Medical leave on Branch for 8-14 hours, then remove by bathing. traMADol 2018-04 Yes [id number] 50mg Take 1 [facility] (ULTRAM) 50 0-12 [id number] tablet by i ty of mg tablet 00:00: mouth [place] 00 every 8 Medical (eight) Branch hours as needed for Pain (scale 4-6). traMADol 2018-04 Yes [id number] 50mg Take 1 [facility] (ULTRAM) 50 0-12 [id number] tablet by i ty of mg tablet 00:00: mouth [place] 00 every 8 Medical (eight) Branch hours as needed for Pain (scale 4-6). traMADol 2018-04 Yes [id number] 50mg Take 1 [facility] (ULTRAM) 50 0-12 [id number] tablet by i ty of mg tablet 00:00: mouth [place] 00 every 8 Medical (eight) Branch hours as needed for Pain (scale 4-6). traMADol 2018-04 Yes [id number] 50mg Take 1 [facility] (ULTRAM) 50 0-12 [id number] tablet by i ty of mg tablet 00:00: mouth [place] 00 every 8 Medical (eight) Branch hours as needed for Pain (scale 4-6). traMADol 2018-04 Yes [id number] 50mg Take 1 [facility] (ULTRAM) 50 0-12 [id number] tablet by i ty of mg tablet 00:00: mouth [place] 00 every 8 Medical (eight) Branch hours as needed for Pain (scale 4-6). traMADol 2018-04 Yes [id number] 50mg Take 1 [facility] (ULTRAM) 50 0-12 [id number] tablet by i ty of mg tablet 00:00: mouth [place] 00 every 8 Medical (eight) Branch hours as needed for Pain (scale 4-6). traMADol 2018-04 Yes [id number] 50mg Take 1 [facility] (ULTRAM) 50 0-12 [id number] tablet by i ty of mg tablet 00:00: mouth [place] 00 every 8 Medical (eight) Branch hours as needed for Pain (scale 4-6). traMADol 2018-04 Yes [id number] 50mg Take 1 [facility] (ULTRAM) 50 0-12 [id number] tablet by i ty of mg tablet 00:00: mouth [place] 00 every 8 Medical (eight) Branch hours as needed for Pain (scale 4-6). traMADol 2018-04 Yes [id number] 50mg Take 1 [facility] (ULTRAM) 50 0-12 [id number] tablet by i ty of mg tablet 00:00: mouth [place] 00 every 8 Medical (eight) Branch hours as needed for Pain (scale 4-6). traMADol 2018-04 Yes [id number] 50mg Take 1 [facility] (ULTRAM) 50 0-12 [id number] tablet by i ty of mg tablet 00:00: mouth [place] 00 every 8 Medical (eight) Branch hours as needed for Pain (scale 4-6). traMADol 2018-04 Yes [id number] 50mg Take 1 [facility] (ULTRAM) 50 0-12 [id number] tablet by i ty of mg tablet 00:00: mouth [place] 00 every 8 Medical (eight) Branch hours as needed for Pain (scale 4-6). traMADol 2018-04 2020- No [id number] 50mg Take 1 [facility] (ULTRAM) 50 0-12 11-30 [id number] tablet by ity of mg tablet 00:00: 00:00 mouth [place] 00 :00 every 8 Medical (eight) Branch hours as needed for Pain (scale 4-6). traMADol 2018-04 2020- No [id number] 50mg Take 1 [facility] (ULTRAM) 50 0-12 11-30 [id number] tablet by ity of mg tablet 00:00: 00:00 mouth [place] 00 :00 every 8 Medical (eight) Branch hours as needed for Pain (scale 4-6). traMADol 2018-04 2020- No [id number] 50mg Take 1 [facility] (ULTRAM) 50 0-12 11-30 [id number] tablet by ity of mg tablet 00:00: 00:00 mouth [place] 00 :00 every 8 Medical (eight) Branch hours as needed for Pain (scale 4-6). traMADol 2018-04 2020- No [id number] 50mg Take 1 [facility] (ULTRAM) 50 0-12 11-30 [id number] tablet by ity of mg tablet 00:00: 00:00 mouth [place] 00 :00 every 8 Medical (eight) Branch hours as needed for Pain (scale 4-6). metroNIDAZO 2018-04 Yes [id number] 500mg Take 1 [facility] LE 500 mg 0-01 tablet by ity o f tablet 00:00: mouth [place] 00 every 12 Medical (twelve) Branch hours. metroNIDAZO 2018-04 Yes [id number] 500mg Take 1 [facility] LE 500 mg 0-01 tablet by ity o f tablet 00:00: mouth [place] 00 every 12 Medical (twelve) Branch hours. metroNIDAZO 2018-04 Yes [id number] 500mg Take 1 [facility] LE 500 mg 0-01 tablet by ity o f tablet 00:00: mouth [place] 00 every 12 Medical (twelve) Branch hours. metroNIDAZO 2018-04 Yes [id number] 500mg Take 1 [facility] LE 500 mg 0-01 tablet by ity o f tablet 00:00: mouth [place] 00 every 12 Medical (twelve) Branch hours. metroNIDAZO 2018-04 Yes [id number] 500mg Take 1 [facility] LE 500 mg 0-01 tablet by ity o f tablet 00:00: mouth [place] 00 every 12 Medical (twelve) Branch hours. metroNIDAZO 2018-04 Yes [id number] 500mg Take 1 [facility] LE 500 mg 0-01 tablet by ity o f tablet 00:00: mouth [place] 00 every 12 Medical (twelve) Branch hours. metroNIDAZO 2018-04 Yes [id number] 500mg Take 1 [facility] LE 500 mg 0-01 tablet by ity o f tablet 00:00: mouth [place] 00 every 12 Medical (twelve) Branch hours. metroNIDAZO 2018-04 Yes [id number] 500mg Take 1 [facility] LE 500 mg 0-01 tablet by ity o f tablet 00:00: mouth [place] 00 every 12 Medical (twelve) Branch hours. metroNIDAZO 2018-04 Yes [id number] 500mg Take 1 [facility] LE 500 mg 0-01 tablet by ity o f tablet 00:00: mouth [place] 00 every 12 Medical (twelve) Branch hours. metroNIDAZO 2018-04 Yes [id number] 500mg Take 1 [facility] LE 500 mg 0-01 tablet by ity o f tablet 00:00: mouth [place] 00 every 12 Medical (twelve) Branch hours. metroNIDAZO 2018- Yes [id number] 500mg Take 1 [facility] LE 500 mg 0-01 tablet by ity o f tablet 00:00: mouth [place] 00 every 12 Medical (twelve) Branch hours. metroNIDAZO 2018-04 Yes [id number] 500mg Take 1 [facility] LE 500 mg 0-01 tablet by ity o f tablet 00:00: mouth [place] 00 every 12 Medical (twelve) Branch hours. metroNIDAZO 2018-04 Yes [id number] 500mg Take 1 [facility] LE 500 mg 0-01 tablet by ity o f tablet 00:00: mouth [place] 00 every 12 Medical (twelve) Branch hours. metroNIDAZO 2018-04 Yes [id number] 500mg Take 1 [facility] LE 500 mg 0-01 tablet by ity o f tablet 00:00: mouth [place] 00 every 12 Medical (twelve) Branch hours. metroNIDAZO 2018-04 Yes [id number] 500mg Take 1 [facility] LE 500 mg 0-01 tablet by ity o f tablet 00:00: mouth [place] 00 every 12 Medical (twelve) Branch hours. metroNIDAZO 2018-04 Yes [id number] 500mg Take 1 [facility] LE 500 mg 0-01 tablet by ity o f tablet 00:00: mouth [place] 00 every 12 Medical (twelve) Branch hours. metroNIDAZO 2018-04 Yes [id number] 500mg Take 1 [facility] LE 500 mg 0-01 tablet by ity o f tablet 00:00: mouth [place] 00 every 12 Medical (twelve) Branch hours. metroNIDAZO 2018-04 Yes [id number] 500mg Take 1 [facility] LE 500 mg 0-01 tablet by ity o f tablet 00:00: mouth [place] 00 every 12 Medical (twelve) Branch hours. metroNIDAZO 2018-04 Yes [id number] 500mg Take 1 [facility] LE 500 mg 0-01 tablet by ity o f tablet 00:00: mouth [place] 00 every 12 Medical (twelve) Branch hours. metroNIDAZO 2018-04 Yes [id number] 500mg Take 1 [facility] LE 500 mg 0-01 tablet by ity o f tablet 00:00: mouth [place] 00 every 12 Medical (twelve) Branch hours. metroNIDAZO 2018-04 Yes [id number] 500mg Take 1 [facility] LE 500 mg 0-01 tablet by ity o f tablet 00:00: mouth [place] 00 every 12 Medical (twelve) Branch hours. metroNIDAZO 2018- Yes [id number] 500mg Take 1 [facility] LE 500 mg 0-01 tablet by ity o f tablet 00:00: mouth [place] 00 every 12 Medical (twelve) Branch hours. metroNIDAZO 2018-04 2020- No [id number] 500mg Take 1 [facility] LE 500 mg 0-01 -27 tablet by ity of tablet 00:00: 00:00 [...] of 1,000 mg in 20:45: 20:43 Piggyback, [place] NaCl 0.9% 00 :00 ONCE, 1 Medical (NS) 50 mL dose, Sat Bran ch MINI-BAG 11/18/18 at 1545, 50 mL
Reas on for Anti-Infec tive: Documented Infection< br>Documen tali Infection Site: Urine
D uration of Therapy: Other (see Comments) ondansetron Yes [id number] 4mg Take 1 [facility] (ZOFRAN 7-27 tablet by ity of ODT) 4 mg 00:00: mouth [place] disintegrat 00 every 8 Medic al ing tablet (eight) Branch hours as needed for Nausea and Vomiting (N/V). ondansetron Yes [id number] 4mg Take 1 [facility] (ZOFRAN 7-27 tablet by ity of ODT) 4 mg 00:00: mouth [place] disintegrat 00 every 8 Medic al ing tablet (eight) Branch hours as needed for Nausea and Vomiting (N/V). ondansetron Yes [id number] 4mg Take 1 [facility] (ZOFRAN 7-27 tablet by ity of ODT) 4 mg 00:00: mouth [place] disintegrat 00 every 8 Medic al ing tablet (eight) Branch hours as needed for Nausea and Vomiting (N/V). ondansetron Yes [id number] 4mg Take 1 [facility] (ZOFRAN 7-27 tablet by ity of ODT) 4 mg 00:00: mouth [place] disintegrat 00 every 8 Medic al ing tablet (eight) Branch hours as needed for Nausea and Vomiting (N/V). ondansetron 2019-0 Yes [id number] 4mg Take 1 [facility] (ZOFRAN 7-27 tablet by ity of ODT) 4 mg 00:00: mouth [place] disintegrat 00 every 8 Medic al ing tablet (eight) Branch hours as needed for Nausea and Vomiting (N/V). ondansetron 2019-0 Yes [id number] 4mg Take 1 [facility] (ZOFRAN 7-27 tablet by ity of ODT) 4 mg 00:00: mouth [place] disintegrat 00 every 8 Medic al ing tablet (eight) Branch hours as needed for Nausea and Vomiting (N/V). ondansetron 2019-0 Yes [id number] 4mg Take 1 [facility] (ZOFRAN 7-27 tablet by ity of ODT) 4 mg 00:00: mouth [place] disintegrat 00 every 8 Medic al ing tablet (eight) Branch hours as needed for Nausea and Vomiting (N/V). ondansetron 2019-0 Yes [id number] 4mg Take 1 [facility] (ZOFRAN 7-27 tablet by ity of ODT) 4 mg 00:00: mouth [place] disintegrat 00 every 8 Medic al ing tablet (eight) Branch hours as needed for Nausea and Vomiting (N/V). ondansetron 2019-0 Yes [id number] 4mg Take 1 [facility] (ZOFRAN 7-27 tablet by ity of ODT) 4 mg 00:00: mouth [place] disintegrat 00 every 8 Medic al ing tablet (eight) Branch hours as needed for Nausea and Vomiting (N/V). ciprofloxac 2019-0 Yes [id number] 500mg Take 1 [facility] in HCl 500 7-27 tablet by ity of mg tablet 00:00: mouth 2 [place] 00 (two) Medical times Branch daily. ondansetron 2019-0 Yes [id number] 4mg Take 1 [facility] (ZOFRAN 7-27 tablet by ity of ODT) 4 mg 00:00: mouth [place] disintegrat 00 every 8 Medic al ing tablet (eight) Branch hours as needed for Nausea and Vomiting (N/V). ciprofloxac 2019-0 Yes [id number] 500mg Take 1 [facility] in HCl 500 7-27 tablet by ity of mg tablet 00:00: mouth 2 [place] 00 (two) Medical times Branch daily. ondansetron 2019-0 Yes [id number] 4mg Take 1 [facility] (ZOFRAN 7-27 tablet by ity of ODT) 4 mg 00:00: mouth [place] disintegrat 00 every 8 Medic al ing tablet (eight) Branch hours as needed for Nausea and Vomiting (N/V). ciprofloxac 2019-0 Yes [id number] 500mg Take 1 [facility] in HCl 500 7-27 tablet by ity of mg tablet 00:00: mouth 2 [place] (two) Medical times Branch daily. ondansetron 2019-0 Yes [id number] 4mg Take 1 [facility] (ZOFRAN 7-27 tablet by ity of ODT) 4 mg 00:00: mouth [place] disintegrat 00 every 8 Medic al ing tablet (eight) Branch hours as needed for Nausea and Vomiting (N/V). ciprofloxac 2019-0 Yes [id number] 500mg Take 1 [facility] in HCl 500 7-27 tablet by ity of mg tablet 00:00: mouth 2 (two) Medical times Branch daily. ondansetron 2019-0 Yes [id number] 4mg Take 1 [facility] (ZOFRAN 7-27 tablet by ity of ODT) 4 mg 00:00: mouth [place] disintegrat 00 every 8 Medic al ing tablet (eight) Branch hours as needed for Nausea and Vomiting (N/V). ciprofloxac 2019-0 Yes [id number] 500mg Take 1 [facility] in HCl 500 7-27 tablet by ity of mg tablet 00:00: mouth 2 (two) Medical times Branch daily. ondansetron 2019-0 Yes [id number] 4mg Take 1 [facility] (ZOFRAN 7-27 tablet by ity of ODT) 4 mg 00:00: mouth [place] disintegrat 00 every 8 Medic al ing tablet (eight) Branch hours as needed for Nausea and Vomiting (N/V). ciprofloxac 2019-0 Yes [id number] 500mg Take 1 [facility] in HCl 500 7-27 tablet by ity of mg tablet 00:00: mouth 2 [place] (two) Medical times Branch daily. ondansetron 2019-0 Yes [id number] 4mg Take 1 [facility] (ZOFRAN 7-27 tablet by ity of ODT) 4 mg 00:00: mouth [place] disintegrat 00 every 8 Medic al ing tablet (eight) Branch hours as needed for Nausea and Vomiting (N/V). ciprofloxac 2019-0 Yes [id number] 500mg Take 1 [facility] in HCl 500 7-27 tablet by ity of mg tablet 00:00: mouth 2 [place] 00 (two) Medical times Branch daily. ondansetron 2019-0 Yes [id number] 4mg Take 1 [facility] (ZOFRAN 7-27 tablet by ity of ODT) 4 mg 00:00: mouth [place] disintegrat 00 every 8 Medic al ing tablet (eight) Branch hours as needed for Nausea and Vomiting (N/V). ciprofloxac 2019-0 Yes [id number] 500mg Take 1 [facility] in HCl 500 7-27 tablet by ity of mg tablet 00:00: mouth 2 [place] 00 (two) Medical times Branch daily. ondansetron 2019-0 Yes [id number] 4mg Take 1 [facility] (ZOFRAN 7-27 tablet by ity of ODT) 4 mg 00:00: mouth [place] disintegrat 00 every 8 Medic al ing tablet (eight) Branch hours as needed for Nausea and Vomiting (N/V). ciprofloxac 2019-0 Yes [id number] 500mg Take 1 [facility] in HCl 500 7-27 tablet by ity of mg tablet 00:00: mouth 2 [place] 00 (two) Medical times Branch daily. ondansetron 2019-0 Yes [id number] 4mg Take 1 [facility] (ZOFRAN 7-27 tablet by ity of ODT) 4 mg 00:00: mouth [place] disintegrat 00 every 8 Medic al ing tablet (eight) Branch hours as needed for Nausea and Vomiting (N/V). ciprofloxac 2019-0 Yes [id number] 500mg Take 1 [facility] in HCl 500 7-27 tablet by ity of mg tablet 00:00: mouth 2 [place] 00 (two) Medical times Branch daily. ondansetron 2019-0 Yes [id number] 4mg Take 1 [facility] (ZOFRAN 7-27 tablet by ity of ODT) 4 mg 00:00: mouth [place] disintegrat 00 every 8 Medic al ing tablet (eight) Branch hours as needed for Nausea and Vomiting (N/V). ciprofloxac 2019-0 Yes [id number] 500mg Take 1 [facility] in HCl 500 7-27 tablet by ity of mg tablet 00:00: mouth 2 [place] 00 (two) Medical times Branch daily. ondansetron 2019-0 Yes [id number] 4mg Take 1 [facility] (ZOFRAN 7-27 tablet by ity of ODT) 4 mg 00:00: mouth [place] disintegrat 00 every 8 Medic al ing tablet (eight) Branch hours as needed for Nausea and Vomiting (N/V). ciprofloxac 2019-0 Yes [id number] 500mg Take 1 [facility] in HCl 500 7-27 tablet by ity of mg tablet 00:00: mouth 2 [place] 00 (two) Medical times Branch daily. ondansetron 2019-0 Yes [id number] 4mg Take 1 [facility] (ZOFRAN 7-27 tablet by ity of ODT) 4 mg 00:00: mouth [place] disintegrat 00 every 8 Medic al ing tablet (eight) Branch hours as needed for Nausea and Vomiting (N/V). ciprofloxac 2019-0 Yes [id number] 500mg Take 1 [facility] in HCl 500 7-27 tablet by ity of mg tablet 00:00: mouth 2 [place] (two) Medical times Branch daily. ondansetron 2019-0 Yes [id number] 4mg Take 1 [facility] (ZOFRAN 7-27 tablet by ity of ODT) 4 mg 00:00: mouth [place] disintegrat 00 every 8 Medic al ing tablet (eight) Branch hours as needed for Nausea and Vomiting (N/V). ciprofloxac 2019-0 Yes [id number] 500mg Take 1 [facility] in HCl 500 7-27 tablet by ity of mg tablet 00:00: mouth 2 [place] 00 (two) Medical times Branch daily. ondansetron 2019-0 Yes [id number] 4mg Take 1 [facility] (ZOFRAN 7-27 tablet by ity of ODT) 4 mg 00:00: mouth [place] disintegrat 00 every 8 Medic al ing tablet (eight) Branch hours as needed for Nausea and Vomiting (N/V). ondansetron 2019-0 Yes [id number] 4mg Take 1 [facility] (ZOFRAN 7-27 tablet by ity of ODT) 4 mg 00:00: mouth [place] disintegrat 00 every 8 Medic al ing tablet (eight) Branch hours as needed for Nausea and Vomiting (N/V). ondansetron 2019-0 Yes [id number] 4mg Take 1 [facility] (ZOFRAN 7-27 tablet by ity of ODT) 4 mg 00:00: mouth [place] disintegrat 00 every 8 Medic al ing tablet (eight) Branch hours as needed for Nausea and Vomiting (N/V). ondansetron 2018- 2020- No [id number] 4mg Take 1 [facility] (ZOFRAN 7-27 12-27 tablet by ity of ODT) 4 mg 00:00: 00:00 mouth [place] disintegrat 00 :00 every 8 Medic al ing tablet (eight) Branch hours as needed for Nausea and Vomiting (N/V). ciprofloxac 2018- 2020- No [id number] 500mg Take 1 [facility] in HCl 500 7-27 11-30 tablet by ity of mg tablet 00:00: 00:00 mouth 2 [place] :[place] (two) Medical times Branch daily. ciprofloxac 2018- 2020- No [id number] 500mg Take 1 [facility] in HCl 500 7-27 11-30 tablet by ity of mg tablet 00:00: 00:00 mouth 2 [place] 00 :00 (two) Medical times Branch daily. ciprofloxac 2018- 2020- No [id number] 500mg Take 1 [facility] in HCl 500 7-27 11-30 tablet by ity of mg tablet 00:00: 00:00 mouth 2 [place] 00 :00 (two) Medical times Branch daily. ciprofloxac 2018- 2020- No [id number] 500mg Take 1 [facility] in HCl 500 7-27 11-30 tablet by ity of mg tablet 00:00: 00:00 mouth 2 [place] 00 :00 (two) Medical times Branch daily. medroxyPROG 2019- No [id number] 150mg [facility] ESTERone 08-17- ity of (DEPO-PROVE 15:15: 15:14 [place] RA) 00 :00 Medical injection Branch 150 mg medroxyPROG 2018- 2020- No [id number] 150mg [facility] ESTERone 08-17- ity of (DEPO-PROVE 15:15: 15:14 [place] RA) 00 :00 Medical injection Branch 150 mg medroxyPROG 2019- No [id number] 150mg [facility] ESTERone 08-17- ity of (DEPO-PROVE 15:15: 15:14 [place] RA) 00 :00 Medical injection Branch 150 mg medroxyPROG 2019- No [id number] 150mg [facility] ESTERone 08-17 ity of (DEPO-PROVE 15:15: 15:14 [place] ) 00 :00 Medical injection Branch 150 mg amoxicillin 2019-0 Yes [id number] 500mg Take 1 [facility] 500 mg 3-22 capsule by ity of capsule 00:00: mouth 3 [place] (three) Medical times Branch daily. amoxicillin 2019-0 Yes [id number] 500mg Take 1 [facility] 500 mg 3-22 capsule by ity of capsule 00:00: mouth 3 [place] (three) Medical times Branch daily. amoxicillin 2019-0 Yes [id number] 500mg Take 1 [facility] 500 mg 3-22 capsule by ity of capsule 00:00: mouth 3 [place] (three) Medical times Branch daily. amoxicillin 2019-0 Yes [id number] 500mg Take 1 [facility] 500 mg 3-22 capsule by ity of capsule 00:00: mouth 3 [place] (three) Medical times Branch daily. amoxicillin 2019-0 Yes [id number] 500mg Take 1 [facility] 500 mg 3-22 capsule by ity of capsule 00:00: mouth 3 [place] ([facility]) Medical times Branch daily. amoxicillin 2019-0 Yes [id number] 500mg Take 1 [facility] 500 mg 3-22 capsule by ity of capsule 00:00: mouth 3 [place] ([facility]) Medical times Branch daily. amoxicillin 2019-0 Yes [id number] 500mg Take 1 [facility] 500 mg 3-22 capsule by ity of capsule 00:00: mouth 3 [place] (three) Medical times Branch daily. amoxicillin 2019-0 Yes [id number] 500mg Take 1 [facility] 500 mg 3-22 capsule by ity of capsule 00:00: mouth 3 [place] ([facility]) Medical times Branch daily. amoxicillin 2019-0 Yes [id number] 500mg Take 1 [facility] 500 mg 3-22 capsule by ity of capsule 00:00: mouth 3 [place] (three) Medical times Branch daily. amoxicillin 2019-0 Yes [id number] 500mg Take 1 [facility] 500 mg 3-22 capsule by ity of capsule 00:00: mouth 3 [place] ([facility]) Medical times Branch daily. amoxicillin 2019-0 Yes [id number] 500mg Take 1 [facility] 500 mg 3-22 capsule by ity of capsule 00:00: mouth 3 [place] (three) Medical times Branch daily. amoxicillin 2019-0 Yes [id number] 500mg Take 1 [facility] 500 mg 3-22 capsule by ity of capsule 00:00: mouth 3 [place] 00 (three) Medical times Branch daily. amoxicillin 2019-0 Yes [id number] 500mg Take 1 [facility] 500 mg 3-22 capsule by ity of capsule 00:00: mouth 3 [place] 00 (three) Medical times Branch daily. amoxicillin 2019-0 Yes [id number] 500mg Take 1 [facility] 500 mg 3-22 capsule by ity of capsule 00:00: mouth 3 [place] 00 (three) Medical times Branch daily. amoxicillin 2019-0 Yes [id number] 500mg Take 1 [facility] 500 mg 3-22 capsule by ity of capsule 00:00: mouth 3 [place] 00 (three) Medical times Branch daily. amoxicillin 2019- 2020- No [id number] 500mg Take 1 [facility] 500 mg 3-22 11-30 capsule by ity of capsule 00:00: 00:00 mouth 3 [place] 00 :00 (three) Medical times Branch daily. amoxicillin 2018-0 2020- No [id number] 500mg Take 1 [facility] 500 mg 3-22 11-30 capsule by ity of capsule 00:00: 00:00 mouth 3 [place] 00 :00 (three) Medical times Branch daily. amoxicillin 2019-0 2020- No [id number] 500mg Take 1 [facility] 500 mg 3-22 11-30 capsule by ity of capsule 00:00: 00:00 mouth 3 [place] 00 :00 (three) Medical times Branch daily. amoxicillin 2019-0 2020- No [id number] 500mg Take 1 [facility] 500 mg 3-22 11-30 capsule by ity of capsule 00:00: 00:00 mouth 3 [place] 00 :00 (three) Medical times Branch daily. amoxicillin 2019-0 Yes [id number] 500mg Take 1 [facility] -pot 1-17 tablet by ity of clavulanate 00:00: mouth [place] 500 mg 00 every 8 Medical 500-125 mg (eight) Branch tablet hours. amoxicillin 2019-0 Yes [id number] 500mg Take 1 [facility] -pot 1-17 tablet by ity of clavulanate 00:00: mouth [place] 500 mg 00 every 8 Medical 500-125 mg (eight) Branch tablet hours. amoxicillin 2019-0 Yes [id number] 500mg Take 1 [facility] -pot 1-17 tablet by ity of clavulanate 00:00: mouth [place] 500 mg 00 every 8 Medical 500-125 mg (eight) Branch tablet hours. amoxicillin 2019-0 Yes [id number] 500mg Take 1 [facility] -pot 1-17 tablet by ity of clavulanate 00:00: mouth [place] 500 mg 00 every 8 Medical 500-125 mg (eight) Branch tablet hours. amoxicillin 2019-0 Yes [id number] 500mg Take 1 [facility] -pot 1-17 tablet by ity of clavulanate 00:00: mouth [place] 500 mg 00 every 8 Medical 500-125 mg (eight) Branch tablet hours. amoxicillin 2019-0 Yes [id number] 500mg Take 1 [facility] -pot 1-17 tablet by ity of clavulanate 00:00: mouth [place] 500 mg 00 every 8 Medical 500-125 mg (eight) Branch tablet hours. amoxicillin 2019-0 Yes [id number] 500mg Take 1 [facility] -pot 1-17 tablet by ity of clavulanate 00:00: mouth [place] 500 mg 00 every 8 Medical 500-125 mg (eight) Branch tablet hours. amoxicillin 2019-0 Yes [id number] 500mg Take 1 [facility] -pot 1-17 tablet by ity of clavulanate 00:00: mouth [place] 500 mg 00 every 8 Medical 500-125 mg (eight) Branch tablet hours. amoxicillin 2019-0 Yes [id number] 500mg Take 1 [facility] -pot 1-17 tablet by ity of clavulanate 00:00: mouth [place] 500 mg 00 every 8 Medical 500-125 mg (eight) Branch tablet hours. amoxicillin 2019-0 Yes [id number] 500mg Take 1 [facility] -pot 1-17 tablet by ity of clavulanate 00:00: mouth [place] 500 mg 00 every 8 Medical 500-125 mg (eight) Branch tablet hours. amoxicillin 2019-0 Yes [id number] 500mg Take 1 [facility] -pot 1-17 tablet by ity of clavulanate 00:00: mouth [place] 500 mg 00 every 8 Medical 500-125 mg (eight) Branch tablet hours. amoxicillin 2019-0 Yes [id number] 500mg Take 1 [facility] -pot 1-17 tablet by ity of clavulanate 00:00: mouth [place] 500 mg 00 every 8 Medical 500-125 mg (eight) Branch tablet hours. amoxicillin 2019-0 Yes [id number] 500mg Take 1 [facility] -pot 1-17 tablet by ity of clavulanate 00:00: mouth [place] 500 mg 00 every 8 Medical 500-125 mg (eight) Branch tablet hours. amoxicillin 2019-0 Yes [id number] 500mg Take 1 [facility] -pot 1-17 tablet by ity of clavulanate 00:00: mouth [place] 500 mg 00 every 8 Medical 500-125 mg (eight) Branch tablet hours. amoxicillin Yes [id number] 500mg Take 1 [facility] -pot 1-17 tablet by ity of clavulanate 00:00: mouth [place] 500 mg 00 every 8 Medical 500-125 mg (eight) Branch tablet hours. amoxicillin 2019- No [id number] 500mg Take 1 [facility] -pot 1-17 11-30 tablet by ity of clavulanate 00:00: 00:00 mouth [place] 500 mg 00 :00 every 8 Medical 500-125 mg (eight) Branch tablet hours. amoxicillin 2019- No [id number] 500mg Take 1 [facility] -pot 1-17 11-30 tablet by ity of clavulanate 00:00: 00:00 mouth [place] 500 mg 00 :00 every 8 Medical 500-125 mg (eight) Branch tablet hours. amoxicillin 2019- No [id number] 500mg Take 1 [facility] -pot 1-17 11-30 tablet by ity of clavulanate 00:00: 00:00 mouth [place] 500 mg 00 :00 every 8 Medical 500-125 mg (eight) Branch tablet hours. amoxicillin 2019- No [id number] 500mg Take 1 [facility] -pot 1-17 11-30 tablet by ity of clavulanate 00:00: 00:00 mouth [place] 500 mg 00 :00 every 8 Medical 500-125 mg (eight) Branch tablet hours. Nitrofurant 2017- Yes 100mg Take 1 Uni vers oin&Nit. 7-19 capsule by ity o f Macrocryst 00:00: mouth 2 [place] (MACROBID[place] 00 (two) Medical 100 mg times Branch capsule daily. Nitrofurant 2017- 2019- No 100mg Take 1 Un mercedes oin&Nit. 7-19 07-27 capsule by ity of Macrocryst 00:00: 00:00 mouth 2 [place] (MACROBID) 00 :00 (two) Medical 100 mg times Branch capsule daily. azithromyci 2017-0 Yes 250mg Take 1 Uni vers n 5-29 tablet by ity of (ZITHROMAX 00:00: mouth [place] Z-ARTHUR) 250 00 SEE-INSTRU Med ical mg tablet CTIONS. Branch Take 500 mg day 1, then 250 mg days 2 to 5. laura 2019- No 250mg Take 1 Un mercedes n 5-29 11-18 tablet by ity of (ZITHROMAX 00:00: 00:00 mouth [place] Z-ARTHUR) 250 00 :00 SEE-INSTRU Med ical mg tablet CTIONS. Branch Take 500 mg day 1, then 250 mg days 2 to 5. No known No [facility] Immunizations Ordered Filled Immunization Date Status Comments [facility] e Immunization Name Name [facility] 2020-12-09 Completed University of 00:00:00 [facility] HPV9 2020-12-09 Completed University of 00:00:00 [facility] HPV9 2020-12-09 Completed University of 00:00:00 [facility] HPV9 2020-12-09 Completed University of 00:00:00 [facility] HPV9 2020-12-09 Completed University of 00:00:00 [facility] HPV9 2020-12-09 Completed University of 00:00:00 [facility] HPV9 2020-10-29 Completed University of 00:00:00 [facility] HPV9 2020-10-29 Completed University of 00:00:00 [facility] HPV9 2020-10-29 Completed University of 00:00:00 [facility] HPV9 2020-10-29 Completed University of 00:00:00 [facility] HPV9 2020-10-29 Completed University of 00:00:00 [facility] HPV9 2020-10-29 Completed University of 00:00:00 [facility] HPV9 2020-10-29 Completed University of 00:00:00 [facility] HPV9 2020-10-29 Completed University of 00:00:00 [facility] HPV9 2020-10-29 Completed University of 00:00:00 [facility] HPV9 2020-10-29 Completed University of 00:00:00 [facility] TDAP 2020-08-11 Completed University of 00:00:00 [facility] TDAP 2020-08-11 Completed University of 00:00:00 [facility] TDAP 2020-08-11 Completed University of 00:00:00 [place] [facility] TDAP 2020-08-11 Completed University of 00:00:00 [place] [facility] TDAP 2020-08-11 Completed University of 00:00:00 [place] [facility] TDAP 2020-08-11 Completed University of 00:00:00 [place] [facility] TDAP 2020-08-11 Completed University of 00:00:00 [place] [facility] TDAP 2020-08-11 Completed University of 00:00:00 [place] [facility] TDAP 2020-08-11 Completed University of 00:00:00 [place] [facility] TDAP 2020-08-11 Completed University of 00:00:00 [place] [facility] TDAP 2020-08-11 Completed University of 00:00:00 [place] [facility] TDAP 2020-08-11 Completed University of 00:00:00 [place] [facility] Branch TDAP 2020-08-11 Completed University of 00:00:00 [facility] Branch TDAP 2020-08-11 Completed University of 00:00:00 [place] [facility] TDAP 2020-08-11 Completed University of 00:00:00 [facility] Branch TDAP 2020-08-11 Completed University of 00:00:00 [facility] Branch TDAP 2020-08-11 Completed University of 00:00:00 [facility] Branch TDAP 2020-08-11 Completed University of 00:00:00 [place] [facility] Branch TDAP 2020-08-11 Completed University of 00:00:00 [place] [facility] Branch TDAP 2020-08-11 Completed University of 00:00:00 [place] [facility] Branch TDAP 2020-08-11 Completed University of 00:00:00 [place] [facility] TDAP 2020-08-11 Completed University of 00:00:00 [place] [facility] TDAP 2020-08-11 Completed University of 00:00:00 [place] [facility] TDAP 2020-08-11 Completed University of 00:00:00 [place] [facility] TDAP 2020-08-11 Completed University of 00:00:00 [place] [facility] TDAP 2020-08-11 Completed University of 00:00:00 [place] [facility] Branch TDAP 2020-08-11 Completed University of 00:00:00 [place] [facility] TDAP 2020-08-11 Completed University of 00:00:00 [place] [facility] Branch TDAP 2020-08-11 Completed University of 00:00:00 [facility] TDAP 2020-08-11 Completed University of 00:00:00 [facility] Influenza Virus 2020-03-24 Completed Universit y of [...] y of Vaccine Quad .5 mL 00:00:00 [place] [facility] IM 6+ MO Branch Influenza Virus [...] y of Vaccine Quad .5 mL 00:00:00 [place] [facility] IM 6+ MO Branch Influenza Virus [...] y of Vaccine [place] .5 mL 00:00:00 [place] [facility] IM 6+ MO Branch Influenza Virus 2020-03-24 Completed Universit y of Vaccine Quad .5 mL 00:00:00 [place] [facility] IM 6+ MO Branch Influenza Virus 2020-03-24 Completed Universit y of Vaccine [place] .5 mL 00:00:00 [place] [facility] IM 6+ MO Branch Influenza Virus 2020-03-24 Completed Universit y of Vaccine [place] .5 mL 00:00:00 [place] [facility] IM 6+ MO Branch Influenza Virus 2020-03-24 Completed Universit y of Vaccine Quad .5 mL 00:00:00 [place] [facility] 6+ MO Branch Influenza Virus 2020-03-24 Completed Universit y of Vaccine Quad .5 mL 00:00:00 [place] [facility] 6+ MO Branch Td 2018-05-11 Completed University of 00:00:00 [facility] Td 2018-05-11 Completed University of 00:00:00 [facility] Td 2018-05-11 Completed University of 00:00:00 [place] [facility] [place] Td 2018-05-11 Completed University of 00:00:00 [place] [facility] [place] Td 2018-05-11 Completed University of 00:00:00 [place] [facility] [place] Td 2018-05-11 Completed University of 00:00:00 [facility] Td 2018-05-11 Completed University of 00:00:00 [facility] Td 2018-05-11 Completed University of 00:00:00 [facility] Td 2018-05-11 Completed University of 00:00:00 [facility] Td 2018-05-11 Completed University of 00:00:00 [facility] Td 2018-05-11 Completed University of 00:00:00 [place] [facility] Td 2018-05-11 Completed University of 00:00:00 [place] [facility] Td 2018-05-11 Completed University of 00:00:00 [place] [facility] Td 2018-05-11 Completed University of 00:00:00 [place] [facility] Td 2018-05-11 Completed University of 00:00:00 [place] [facility] Td 2018-05-11 Completed University of 00:00:00 [place] [facility] Td 2018-05-11 Completed University of 00:00:00 [place] [facility] Td 2018-05-11 Completed University of 00:00:00 [place] [facility] Td 2018-05-11 Completed University of 00:00:00 [place] [facility] Td 2018-05-11 Completed University of 00:00:00 [place] [facility] Td 2018-05-11 Completed University of 00:00:00 [place] [facility] Td 2018-05-11 Completed University of 00:00:00 [place] [facility] Td 2018-05-11 Completed University of 00:00:00 [place] [facility] Td 2018-05-11 Completed University of 00:00:00 [place] [facility] Td 2018-05-11 Completed University of 00:00:00 [place] [facility] Td 2018-05-11 Completed University of 00:00:00 [place] [facility] Td 2018-05-11 Completed University of 00:00:00 [place] [facility] Td 2018-05-11 Completed University of 00:00:00 [place] [facility] Td 2018-05-11 Completed University of 00:00:00 [place] [facility] Td 2018-05-11 Completed University of 00:00:00 [place] [facility] Td 2018-05-11 Completed University of 00:00:00 [place] [facility] Td 2018-05-11 Completed [facility] 00:00:00 [facility] Td 2018-05-11 Completed [facility] 00:00:00 [facility] Td 2018-05-11 Completed [facility] 00:00:00 [facility] Td 2018-05-11 Completed [facility] 00[facility]00:00 [facility] Td 2018-05-11 Completed [facility] 00:00:00 [facility] Td 2018-05-11 Completed [facility] 00:00:00 [facility] Td 2018-05-11 Completed [facility] 00:00:00 [facility] Td 2018-05-11 Completed [facility] 00:00:00 [facility] Td 2018-05-11 Completed [facility] 00:00:00 [facility] Td 2018-05-11 Completed [facility] 00:00:00 [facility] Td 2018-05-11 Completed [facility] 00:00:00 [facility] Td 2018-05-11 Completed [facility] 00:00:00 [facility] Td 2018-05-11 Completed [facility] 00:00:00 [facility] Td 2018-05-11 Completed [facility] 00:00:00 [facility] Td 2018-05-11 Completed [facility] 00:00:00 [facility] Td 2018-05-11 Completed [facility] 00:00:00 [facility] Td 2018-05-11 Completed [facility] 00:00:00 [facility] Td 2018-05-11 Completed [facility] 00:00:00 [facility] Td 2018-05-11 Completed [facility] 00:00:00 [facility] Td 2018-05-11 Completed [facility] 00:00:00 [facility] Td 2018-05-11 Completed [facility] 00:00:00 [facility] Td 2018-05-11 Completed [facility] 00:00:00 [facility] Td 2018-05-11 Completed [facility] 00:00:00 [facility] Td 2018-05-11 Completed [facility] 00:00:00 [facility] Td 2018-05-11 Completed [facility] 00:00:00 [facility] Td 2018-05-11 Completed [facility] 00:00:00 [facility] Td 2018-05-11 Completed [facility] 00:00:00 [facility] Td 2018-05-11 Completed [facility] 00:00:00 [facility] Td 2018-05-11 Completed [facility] 00:00:00 [facility] Td 2018-05-11 Completed [facility] 00:00:00 [facility] Td 2018-05-11 Completed [facility] 00[facility]00:00 [facility] Td 2018-05-11 Completed [facility] 00:00:00 [facility] Td 2018-05-11 Completed [facility] 00:00:00 [facility] Td 2018-05-11 Completed [facility] 00:00:00 [facility] Td 2018-05-11 Completed [facility] 00:00:00 [facility] Td 2018-05-11 Completed [facility] 00:00:00 [facility] Td 2018-05-11 Completed [facility] 00:00:00 [facility] Td 2018-05-11 Completed [facility] 00:00:00 [facility] Td 2018-05-11 Completed [facility] 00:00:00 [facility] Td 2018-05-11 Completed [facility] 00:00:00 [facility] Td 2018-05-11 Completed [facility] 00:00:00 [facility] Td 2018-05-11 Completed [facility] 00[facility]00:00 [facility] Td 2018-05-11 Completed [facility] 00:00:00 [facility] Td 2018-05-11 Completed [facility] 00:00:00 [facility] Td 2018-05-11 Completed [facility] 00:00:00 [facility] Td 2018-05-11 Completed [facility] 00[facility]00:00 [facility] TDAP 2013-04-25 Completed [facility] 00:00:00 [facility] TDAP 2013-04-25 Completed [facility] 00:00:00 [facility] TDAP 2013-04-25 Completed [facility] 00:00:00 [facility] TDAP 2013-04-25 Completed [facility] 00:00:00 [facility] TDAP 2013-04-25 Completed [facility] 00:00:00 [facility] TDAP 2013-04-25 Completed [facility] 00:00:00 [facility] TDAP 2013-04-25 Completed [facility] 00:00:00 [facility] TDAP 2013-04-25 Completed [facility] 00:00:00 [facility] TDAP 2013-04-25 Completed [facility] 00:00:00 [facility] TDAP 2013-04-25 Completed [facility] 00:00:00 [facility] TDAP 2013-04-25 Completed [facility] 00:00:00 [facility] TDAP 2013-04-25 Completed [facility] 00:00:00 [facility] TDAP 2013-04-25 Completed [facility] 00:00:00 [facility] TDAP 2013-04-25 Completed [facility] 00:00:00 [facility] TDAP 2013-04-25 Completed [facility] 00:00:00 [facility] TDAP 2013-04-25 Completed [facility] 00:00:00 [facility] TDAP 2013-04-25 Completed [facility] 00:00:00 [facility] TDAP 2013-04-25 Completed [facility] 00:00:00 [facility] TDAP 2013-04-25 Completed [facility] 00:00:00 [facility] TDAP 2013-04-25 Completed [facility] 00:00:00 [facility] TDAP 2013-04-25 Completed [facility] 00:00:00 [facility] TDAP 2013-04-25 Completed [facility] 00:00:00 [facility] TDAP 2013-04-25 Completed [facility] 00:00:00 [facility] TDAP 2013-04-25 Completed [facility] 00:00:00 [facility] TDAP 2013-04-25 Completed [facility] 00:00:00 [facility] TDAP 2013-04-25 Completed [facility] 00:00:00 [facility] TDAP 2013-04-25 Completed [facility] 00:00:00 [facility] TDAP 2013-04-25 Completed [facility] 00:00:00 [facility] TDAP 2013-04-25 Completed [facility] 00:00:00 [facility] TDAP 2013-04-25 Completed [facility] 00:00:00 [facility] TDAP 2013-04-25 Completed [facility] 00:00:00 [facility] TDAP 2013-04-25 Completed [facility] 00:00:00 [facility] TDAP 2013-04-25 Completed [facility] 00:00:00 [facility] TDAP 2013-04-25 Completed [facility] 00:00:00 [facility] TDAP 2013-04-25 Completed [facility] 00:00:00 [facility] TDAP 2013-04-25 Completed [facility] 00:00:00 [facility] TDAP 2013-04-25 Completed [facility] 00:00:00 [facility] TDAP 2013-04-25 Completed [facility] 00:00:00 [facility] TDAP 2013-04-25 Completed [facility] 00:00:00 [facility] TDAP 2013-04-25 Completed [facility] 00:00:00 [facility] TDAP 2013-04-25 Completed [facility] 00:00:00 [facility] TDAP 2013-04-25 Completed [facility] 00:00:00 [facility] TDAP 2013-04-25 Completed [facility] 00:00:00 [facility] TDAP 2013-04-25 Completed [facility] 00:00:00 [facility] TDAP 2013-04-25 Completed [facility] 00:00:00 [facility] TDAP 2013-04-25 Completed [facility] 00:00:00 [facility] Tdap 2013-04-25 Completed [facility] 00:00:00 [facility] TDAP 2013-04-25 Completed [facility] 00:00:00 [facility] TDAP 2013-04-25 Completed [facility] 00:00:00 [facility] TDAP 2013-04-25 Completed [facility] 00:00:00 [facility] TDAP 2013-04-25 Completed [facility] 00:00:00 [facility] TDAP 2013-04-25 Completed [facility] 00:00:00 [facility] TDAP 2013-04-25 Completed [facility] 00:00:00 [facility] TDAP 2013-04-25 Completed [facility] 00:00:00 [facility] TDAP 2013-04-25 Completed [facility] 00:00:00 [facility] TDAP 2013-04-25 Completed [facility] 00:00:00 [facility] Tdap 2013-04-25 Completed [facility] 00:00:00 [facility] TDAP 2013-04-25 Completed [facility] 00:00:00 [facility] TDAP 2013-04-25 Completed [facility] 00:00:00 [facility] TDAP 2013-04-25 Completed [facility] 00:00:00 [facility] TDAP 2013-04-25 Completed [facility] 00:00:00 [facility] TDAP 2013-04-25 Completed [facility] 00:00:00 [facility] TDAP 2013-04-25 Completed [facility] 00:00:00 [facility] Tdap 2013-04-25 Completed [facility] 00:00:00 [facility] Tdap 2013-04-25 Completed [facility] 00:00:00 [facility] Tdap 2013-04-25 Completed [facility] 00:00:00 [facility] TDAP 2013-04-25 Completed [facility] 00:00:00 [facility] TDAP 2013-04-25 Completed [facility] 00:00:00 [facility] TDAP 2013-04-25 Completed [facility] 00:00:00 [facility] TDAP 2013-04-25 Completed [facility] 00:00:00 [facility] TDAP 2013-04-25 Completed [facility] 00:00:00 [facility] TDAP 2013-04-25 Completed [facility] 00:00:00 [facility] TDAP 2013-04-25 Completed [facility] 00:00:00 [facility] TDAP 2013-04-25 Completed [facility] 00:00:00 [facility] TDAP 2013-04-25 Completed [facility] 00:00:00 [facility] TDAP 2013-04-25 Completed [facility] 00:00:00 [facility] TDAP 2013-04-25 Completed [facility] 00:00:00 [facility] Influenza Virus 2013-01-05 Completed [facility] Vaccine 00:00:00 [facility] Influenza Virus 2013-01-05 Completed [facility] Vaccine 00:00:00 [facility] Influenza Virus 2013-01-05 Completed [facility] Vaccine 00:00:00 [facility] Influenza Virus 2013-01-05 Completed [facility] Vaccine 00:00:00 [facility] Influenza Virus 2013-01-05 Completed [facility] Vaccine 00:00:00 [facility] Influenza Virus 2013-01-05 Completed [facility] Vaccine 00:00:00 [facility] Influenza Virus 2013-01-05 Completed [facility] Vaccine 00:00:00 [facility] Influenza Virus 2013-01-05 Completed [facility] Vaccine 00:00:00 [facility] Influenza Virus 2013-01-05 Completed [facility] Vaccine 00:00:00 [facility] Influenza Virus 2013-01-05 Completed [facility] Vaccine 00:00:00 [facility] Influenza Virus 2013-01-05 Completed [facility] Vaccine 00:00:00 [facility] Influenza Virus 2013-01-05 Completed [facility] Vaccine 00:00:00 [facility] Influenza Virus 2013-01-05 Completed [facility] Vaccine 00:00:00 [facility] Influenza Virus 2013-01-05 Completed [facility] Vaccine 00:00:00 [facility] Influenza Virus 2013-01-05 Completed [facility] Vaccine 00:00:00 [facility] Influenza Virus 2013-01-05 Completed [facility] Vaccine 00:00:00 [facility] Influenza Virus 2013-01-05 Completed [facility] Vaccine 00:00:00 [facility] Influenza Virus 2013-01-05 Completed [facility] Vaccine 00:00:00 [facility] Influenza Virus 2013-01-05 Completed [facility] Vaccine 00:00:00 [facility] Influenza Virus 2013-01-05 Completed [facility] Vaccine 00:00:00 [facility] Influenza Virus 2013-01-05 Completed [facility] Vaccine 00:00:00 [facility] Influenza Virus 2013-01-05 Completed [facility] Vaccine 00:00:00 [facility] Influenza Virus 2013-01-05 Completed [facility] Vaccine 00:00:00 [facility] Influenza Virus 2013-01-05 Completed [facility] Vaccine 00:00:00 [facility] Influenza Virus 2013-01-05 Completed [facility] Vaccine 00:00:00 [facility] Influenza Virus 2013-01-05 Completed [facility] Vaccine 00:00:00 [facility] Influenza Virus 2013-01-05 Completed [facility] Vaccine 00:00:00 [facility] Influenza Virus 2013-01-05 Completed [facility] Vaccine 00:00:00 [facility] Influenza Virus 2013-01-05 Completed [facility] Vaccine 00:00:00 [facility] Influenza Virus 2013-01-05 Completed [facility] Vaccine 00:00:00 [facility] Influenza Virus 2013-01-05 Completed [facility] Vaccine 00:00:00 [facility] Influenza Virus 2013-01-05 Completed [facility] Vaccine 00:00:00 [facility] Influenza Virus 2013-01-05 Completed [facility] Vaccine 00:00:00 [facility] Influenza Virus 2013-01-05 Completed [facility] Vaccine 00:00:00 [facility] Influenza Virus 2013-01-05 Completed [facility] Vaccine 00:00:00 [facility] Influenza Virus 2013-01-05 Completed [facility] Vaccine 00:00:00 [facility] Influenza Virus 2013-01-05 Completed [facility] Vaccine 00:00:00 [facility] Influenza Virus 2013-01-05 Completed [facility] Vaccine 00:00:00 [facility] Influenza Virus 2013-01-05 Completed [facility] Vaccine 00:00:00 [facility] Influenza Virus 2013-01-05 Completed [facility] Vaccine 00:00:00 [facility] Influenza Virus 2013-01-05 Completed [facility] Vaccine 00:00:00 [facility] Influenza Virus 2013-01-05 Completed [facility] Vaccine 00:00:00 [facility] Influenza Virus 2013-01-05 Completed [facility] Vaccine 00:00:00 [facility] Influenza Virus 2013-01-05 Completed [facility] Vaccine 00:00:00 [facility] Influenza Virus 2013-01-05 Completed [facility] Vaccine 00:00:00 [facility] Influenza Virus 2013-01-05 Completed [facility] Vaccine 00:00:00 [facility] Influenza Virus 2013-01-05 Completed [facility] Vaccine 00:00:00 [facility] Influenza Virus 2013-01-05 Completed [facility] Vaccine 00:00:00 [facility] Influenza Virus 2013-01-05 Completed [facility] Vaccine 00:00:00 [facility] Influenza Virus 2013-01-05 Completed [facility] Vaccine 00:00:00 [facility] Influenza Virus 2013-01-05 Completed [facility] Vaccine 00:00:00 [facility] Influenza Virus 2013-01-05 Completed [facility] Vaccine 00:00:00 [facility] Influenza Virus 2013-01-05 Completed [facility] Vaccine 00:00:00 [facility] Influenza Virus 2013-01-05 Completed [facility] Vaccine 00:00:00 [facility] Influenza Virus 2013-01-05 Completed [facility] Vaccine 00:00:00 [facility] Influenza Virus 2013-01-05 Completed [facility] Vaccine 00:00:00 [facility] Influenza Virus 2013-01-05 Completed [facility] Vaccine 00:00:00 [facility] Influenza Virus 2013-01-05 Completed [facility] Vaccine 00:00:00 [facility] Influenza Virus 2013-01-05 Completed [facility] Vaccine 00:00:00 [facility] Influenza Virus 2013-01-05 Completed [facility] Vaccine 00:00:00 [facility] Influenza Virus 2013-01-05 Completed [facility] Vaccine 00:00:00 [facility] Influenza Virus 2013-01-05 Completed [facility] Vaccine 00:00:00 [facility] Influenza Virus 2013-01-05 Completed [facility] Vaccine 00:00:00 [facility] Influenza Virus 2013-01-05 Completed [facility] Vaccine 00:00:00 [facility] Influenza Virus 2013-01-05 Completed [facility] Vaccine 00:00:00 [facility] Influenza Virus 2013-01-05 Completed [facility] Vaccine 00:00:00 [facility] Influenza Virus 2013-01-05 Completed [facility] Vaccine 00:00:00 [facility] Influenza Virus 2013-01-05 Completed [facility] Vaccine 00:00:00 [facility] Influenza Virus 2013-01-05 Completed [facility] Vaccine 00:00:00 [facility] Influenza Virus 2013-01-05 Completed [facility] Vaccine 00:00:00 [facility] Influenza Virus 2013-01-05 Completed [facility] Vaccine 00:00:00 [facility] Influenza Virus 2013-01-05 Completed [facility] Vaccine 00:00:00 [facility] Influenza Virus 2013-01-05 Completed [facility] Vaccine 00:00:00 [facility] Influenza Virus 2013-01-05 Completed [facility] Vaccine 00:00:00 [facility] Influenza Virus 2013-01-05 Completed [facility] Vaccine 00:00:00 [facility] Influenza Virus 2013-01-05 Completed [facility] Vaccine 00:00:00 [facility] Influenza Virus 2013-01-05 Completed [facility] Vaccine 00:00:00 [facility] Varicella 2008-07-24 Completed [facility] (varivax)(chicken 00:00:00 [...] HEPATITIS A 2005-09-09 Completed [facility] 00:00:00 [facility] HEPATITIS A 2005-09-09 Completed [facility] 00:00:00 [facility] HEPATITIS A 2005-09-09 Completed [facility] 00:00:00 [facility] HEPATITIS A 2005-09-09 Completed [facility] 00:00:00 [facility] HEPATITIS A 2005-09-09 Completed [facility] 00:00:00 [facility] HEPATITIS A 2005-09-09 Completed [facility] 00:00:00 [facility] HEPATITIS A 2005-09-09 Completed [facility] 00:00:00 [facility] HEPATITIS A 2005-09-09 Completed [facility] 00:00:00 [facility] HEPATITIS A 2005-09-09 Completed [facility] 00:00:00 [facility] HEPATITIS A 2005-09-09 Completed [facility] 00:00:00 [facility] HEPATITIS A 2005-09-09 Completed [facility] 00:00:00 [facility] HEPATITIS A 2005-09-09 Completed [facility] 00:00:00 [facility] HEPATITIS A 2005-09-09 Completed [facility] 00:00:00 [facility] HEPATITIS A 2005-09-09 Completed [facility] 00:00:00 [facility] HEPATITIS A 2005-09-09 Completed [facility] 00:00:00 [facility] HEPATITIS A 2005-09-09 Completed [facility] 00:00:00 [facility] HEPATITIS A 2005-09-09 Completed [facility] 00:00:00 [facility] HEPATITIS A 2005-09-09 Completed [facility] 00:00:00 [facility] HEPATITIS A 2005-09-09 Completed [facility] 00:00:00 [facility] HEPATITIS A 2005-09-09 Completed [facility] 00:00:00 [facility] HEPATITIS A 2005-09-09 Completed [facility] 00:00:00 [facility] HEPATITIS A 2005-09-09 Completed [facility] 00:00:00 [facility] HEPATITIS A 2005-09-09 Completed [facility] 00:00:00 [facility] HEPATITIS A 2005-09-09 Completed [facility] 00:00:00 [facility] HEPATITIS A 2005-09-09 Completed [facility] 00:00:00 [facility] HEPATITIS A 2005-09-09 Completed [facility] 00:00:00 [facility] HEPATITIS A 2005-09-09 Completed [facility] 00:00:00 [facility] HEPATITIS A 2005-09-09 Completed [facility] 00:00:00 [facility] HEPATITIS A 2005-09-09 Completed [facility] 00:00:00 [facility] HEPATITIS A 2005-09-09 Completed [facility] 00:00:00 [facility] HEPATITIS A 2005-09-09 Completed [facility] 00:00:00 [facility] HEPATITIS A 2005-09-09 Completed [facility] 00:00:00 [facility] HEPATITIS A 2005-09-09 Completed [facility] 00:00:00 [facility] HEPATITIS A 2005-09-09 Completed [facility] 00:00:00 [facility] HEPATITIS A 2005-09-09 Completed [facility] 00:00:00 [facility] HEPATITIS A 2005-09-09 Completed [facility] 00:00:00 [facility] HEPATITIS A 2005-09-09 Completed [facility] 00:00:00 [facility] HEPATITIS A 2005-09-09 Completed [facility] 00:00:00 [facility] HEPATITIS A 2005-09-09 Completed [facility] 00:00:00 [facility] HEPATITIS A 2005-09-09 Completed [facility] 00:00:00 [facility] HEPATITIS A 2005-09-09 Completed [facility] 00:00:00 [facility] HEPATITIS A 2005-09-09 Completed [facility] 00:00:00 [facility] HEPATITIS A 2005-09-09 Completed [facility] 00:00:00 [facility] HEPATITIS A 2005-09-09 Completed [facility] 00:00:00 [facility] HEPATITIS A 2005-09-09 Completed [facility] 00:00:00 [facility] HEPATITIS A 2005-09-09 Completed [facility] 00:00:00 [facility] HEPATITIS A 2005-09-09 Completed [facility] 00:00:00 [facility] HEPATITIS A 2005-09-09 Completed [facility] 00:00:00 [facility] HEPATITIS A 2005-09-09 Completed [facility] 00:00:00 [facility] HEPATITIS A 2005-09-09 Completed [facility] 00:00:00 [facility] HEPATITIS A 2005-09-09 Completed [facility] 00:00:00 [facility] HEPATITIS A 2005-09-09 Completed [facility] 00:00:00 [facility] HEPATITIS A 2005-09-09 Completed [facility] 00:00:00 [facility] HEPATITIS A 2005-09-09 Completed [facility] 00:00:00 [facility] HEPATITIS A 2005-09-09 Completed [facility] 00:00:00 [facility] HEPATITIS A 2005-09-09 Completed [facility] 00:00:00 [facility] HEPATITIS A 2005-09-09 Completed [facility] 00:00:00 [facility] HEPATITIS A 2005-09-09 Completed [facility] 00:00:00 [facility] HEPATITIS A 2005-09-09 Completed [facility] 00:00:00 [facility] HEPATITIS A 2005-09-09 Completed [facility] 00:00:00 [facility] HEPATITIS A 2005-09-09 Completed [facility] 00:00:00 [facility] HEPATITIS A 2005-09-09 Completed [facility] 00:00:00 [facility] HEPATITIS A 2005-09-09 Completed [facility] 00:00:00 [facility] HEPATITIS A 2005-09-09 Completed [facility] 00:00:00 [facility] HEPATITIS A 2005-09-09 Completed [facility] 00:00:00 [facility] HEPATITIS A 2005-09-09 Completed [facility] 00:00:00 [facility] HEPATITIS A 2005-09-09 Completed [facility] 00:00:00 [facility] HEPATITIS A 2005-09-09 Completed [facility] 00:00:00 [facility] HEPATITIS A 2005-09-09 Completed [facility] 00:00:00 [facility] HEPATITIS A 2005-09-09 Completed [facility] 00:00:00 [facility] HEPATITIS A 2005-09-09 Completed [facility] 00:00:00 [facility] HEPATITIS A 2005-09-09 Completed [facility] 00:00:00 [facility] HEPATITIS A 2005-09-09 Completed [facility] 00:00:00 [facility] HEPATITIS A 2005-09-09 Completed [facility] 00:00:00 [facility] HEPATITIS A 2005-09-09 Completed [facility] 00:00:00 [facility] HEPATITIS A 2005-09-09 Completed [facility] 00:00:00 [facility] HEPATITIS A 2005-09-09 Completed [facility] 00:00:00 [facility] Polio (IPV/OPV) 2005-07-22 Completed [facility] 00:00:00 [facility] DTAP 2005-07-22 Completed [facility] 00:00:00 [facility] MMR 2005-07-22 Completed [facility] 00:00:00 [facility] Polio (IPV/OPV) 2005-07-22 Completed [facility] 00:00:00 [facility] DTAP 2005-07-22 Completed [facility] 00:00:00 [facility] MMR 2005-07-22 Completed [facility] 00:00:00 [facility] Polio (IPV/OPV) 2005-07-22 Completed [facility] 00:00:00 [facility] DTAP 2005-07-22 Completed [facility] 00:00:00 [facility] MMR 2005-07-22 Completed [facility] 00:00:00 [facility] Polio (IPV/OPV) 2005-07-22 Completed [facility] 00:00:00 [facility] DTAP 2005-07-22 Completed [facility] 00:00:00 [facility] MMR 2005-07-22 Completed [facility] 00:00:00 [facility] Polio (IPV/OPV) 2005-07-22 Completed [facility] 00:00:00 [facility] DTAP 2005-07-22 Completed [facility] 00:00:00 [facility] MMR 2005-07-22 Completed [facility] 00:00:00 [facility] Polio (IPV/OPV) 2005-07-22 Completed [facility] 00:00:00 [facility] DTAP 2005-07-22 Completed [facility] 00:00:00 [facility] MMR 2005-07-22 Completed [facility] 00:00:00 [facility] Polio (IPV/OPV) 2005-07-22 Completed [facility] 00:00:00 [facility] DTAP 2005-07-22 Completed [facility] 00:00:00 [facility] MMR 2005-07-22 Completed [facility] 00:00:00 [facility] Polio (IPV/OPV) 2005-07-22 Completed [facility] 00:00:00 [facility] DTAP 2005-07-22 Completed [facility] 00:00:00 [facility] MMR 2005-07-22 Completed [facility] 00:00:00 [facility] Polio (IPV/OPV) 2005-07-22 Completed [facility] 00:00:00 [facility] DTAP 2005-07-22 Completed [facility] 00:00:00 [facility] MMR 2005-07-22 Completed [facility] 00:00:00 [facility] Polio (IPV/OPV) 2005-07-22 Completed [facility] 00:00:00 [facility] DTAP 2005-07-22 Completed [facility] 00:00:00 [facility] MMR 2005-07-22 Completed [facility] 00:00:00 [facility] Polio (IPV/OPV) 2005-07-22 Completed [facility] 00:00:00 [facility] DTAP 2005-07-22 Completed [facility] 00:00:00 [facility] MMR 2005-07-22 Completed [facility] 00:00:00 [facility] Polio (IPV/OPV) 2005-07-22 Completed [facility] 00:00:00 [facility] DTAP 2005-07-22 Completed [facility] 00:00:00 [facility] MMR 2005-07-22 Completed [facility] 00:00:00 [facility] Polio (IPV/OPV) 2005-07-22 Completed [facility] 00:00:00 [facility] DTAP 2005-07-22 Completed [facility] 00:00:00 [facility] MMR 2005-07-22 Completed [facility] 00:00:00 [facility] Polio (IPV/OPV) 2005-07-22 Completed [facility] 00:00:00 [facility] DTAP 2005-07-22 Completed [facility] 00:00:00 [facility] MMR 2005-07-22 Completed [facility] 00:00:00 [facility] Polio (IPV/OPV) 2005-07-22 Completed [facility] 00:00:00 [facility] DTAP 2005-07-22 Completed [facility] 00:00:00 [facility] MMR 2005-07-22 Completed [facility] 00:00:00 [facility] Polio (IPV/OPV) 2005-07-22 Completed [facility] 00:00:00 [facility] DTAP 2005-07-22 Completed [facility] 00:00:00 [facility] MMR 2005-07-22 Completed [facility] 00:00:00 [facility] Polio (IPV/OPV) 2005-07-22 Completed [facility] 00:00:00 [facility] DTAP 2005-07-22 Completed [facility] 00:00:00 [facility] MMR 2005-07-22 Completed [facility] 00:00:00 [facility] Polio (IPV/OPV) 2005-07-22 Completed [facility] 00:00:00 [facility] DTAP 2005-07-22 Completed [facility] 00:00:00 [facility] MMR 2005-07-22 Completed [facility] 00:00:00 [facility] Polio (IPV/OPV) 2005-07-22 Completed [facility] 00:00:00 [facility] DTAP 2005-07-22 Completed [facility] 00:00:00 [facility] MMR 2005-07-22 Completed [facility] 00:00:00 [facility] Polio (IPV/OPV) 2005-07-22 Completed [facility] 00:00:00 [facility] DTAP 2005-07-22 Completed [facility] 00:00:00 [facility] MMR 2005-07-22 Completed [facility] 00:00:00 [facility] Polio (IPV/OPV) 2005-07-22 Completed [facility] 00:00:00 [facility] DTAP 2005-07-22 Completed [facility] 00:00:00 [facility] MMR 2005-07-22 Completed [facility] 00:00:00 [facility] Polio (IPV/OPV) 2005-07-22 Completed [facility] 00:00:00 [facility] DTAP 2005-07-22 Completed [facility] 00:00:00 [facility] MMR 2005-07-22 Completed [facility] 00:00:00 [facility] Polio (IPV/OPV) 2005-07-22 Completed [facility] 00:00:00 [facility] DTAP 2005-07-22 Completed [facility] 00:00:00 [facility] MMR 2005-07-22 Completed [facility] 00:00:00 [facility] Polio (IPV/OPV) 2005-07-22 Completed [facility] 00:00:00 [facility] DTAP 2005-07-22 Completed [facility] 00:00:00 [facility] MMR 2005-07-22 Completed [facility] 00:00:00 [facility] Polio (IPV/OPV) 2005-07-22 Completed [facility] 00:00:00 [facility] DTAP 2005-07-22 Completed [facility] 00:00:00 [facility] MMR 2005-07-22 Completed [facility] 00:00:00 [facility] Polio (IPV/OPV) 2005-07-22 Completed [facility] 00:00:00 [facility] DTAP 2005-07-22 Completed [facility] 00:00:00 [facility] MMR 2005-07-22 Completed [facility] 00:00:00 [facility] Polio (IPV/OPV) 2005-07-22 Completed [facility] 00:00:00 [facility] DTAP 2005-07-22 Completed [facility] 00:00:00 [facility] MMR 2005-07-22 Completed [facility] 00:00:00 [facility] Polio (IPV/OPV) 2005-07-22 Completed [facility] 00:00:00 [facility] DTAP 2005-07-22 Completed [facility] 00:00:00 [facility] DTAP 2005-07-22 Completed [facility] 00:00:00 [facility] MMR 2005-07-22 Completed [facility] 00:00:00 [facility] Polio (IPV/OPV) 2005-07-22 Completed [facility] 00:00:00 [facility] DTAP 2005-07-22 Completed [facility] 00:00:00 [facility] MMR 2005-07-22 Completed [facility] 00:00:00 [facility] Polio (IPV/OPV) 2005-07-22 Completed [facility] 00:00:00 [facility] DTAP 2005-07-22 Completed [facility] 00:00:00 [facility] MMR 2005-07-22 Completed [facility] 00:00:00 [facility] Polio (IPV/OPV) 2005-07-22 Completed [facility] 00:00:00 [facility] MMR 2005-07-22 Completed [facility] 00:00:00 [facility] DTAP 2005-07-22 Completed [facility] 00:00:00 [facility] MMR 2005-07-22 Completed [facility] 00:00:00 [facility] Polio (IPV/OPV) 2005-07-22 Completed [facility] 00:00:00 [facility] DTAP 2005-07-22 Completed [facility] 00:00:00 [facility] MMR 2005-07-22 Completed [facility] 00:00:00 [facility] Polio (IPV/OPV) 2005-07-22 Completed [facility] 00:00:00 [facility] Polio (IPV/OPV) 2005-07-22 Completed [facility] 00:00:00 [facility] DTAP 2005-07-22 Completed [facility] 00:00:00 [facility] MMR 2005-07-22 Completed [facility] 00:00:00 [facility] Polio (IPV/OPV) 2005-07-22 Completed [facility] 00:00:00 [facility] DTAP 2005-07-22 Completed [facility] 00:00:00 [facility] MMR 2005-07-22 Completed [facility] 00:00:00 [facility] Polio (IPV/OPV) 2005-07-22 Completed [facility] 00:00:00 [facility] DTAP 2005-07-22 Completed [facility] 00:00:00 [facility] MMR 2005-07-22 Completed [facility] 00:00:00 [facility] Polio (IPV/OPV) 2005-07-22 Completed [facility] 00:00:00 [facility] DTAP 2005-07-22 Completed [facility] 00:00:00 [facility] MMR 2005-07-22 Completed [facility] 00:00:00 [facility] Polio (IPV/OPV) 2005-07-22 Completed [facility] 00:00:00 [facility] DTAP 2005-07-22 Completed [facility] 00:00:00 [facility] MMR 2005-07-22 Completed [facility] 00:00:00 [facility] Polio (IPV/OPV) 2005-07-22 Completed [facility] 00:00:00 [facility] DTAP 2005-07-22 Completed [facility] 00:00:00 [facility] MMR 2005-07-22 Completed [facility] 00:00:00 [facility] Polio (IPV/OPV) 2005-07-22 Completed [facility] 00:00:00 [facility] DTAP 2005-07-22 Completed [facility] 00:00:00 [facility] MMR 2005-07-22 Completed [facility] 00:00:00 [facility] Polio (IPV/OPV) 2005-07-22 Completed [facility] 00:00:00 [facility] DTAP 2005-07-22 Completed [facility] 00:00:00 [facility] DTAP 2005-07-22 Completed [facility] 00:00:00 [facility] MMR 2005-07-22 Completed [facility] 00:00:00 [facility] Polio (IPV/OPV) 2005-07-22 Completed [facility] 00:00:00 [facility] DTAP 2005-07-22 Completed [facility] 00:00:00 [facility] MMR 2005-07-22 Completed [facility] 00:00:00 [facility] Polio (IPV/OPV) 2005-07-22 Completed [facility] 00:00:00 [facility] DTAP 2005-07-22 Completed [facility] 00:00:00 [facility] MMR 2005-07-22 Completed [facility] 00:00:00 [facility] Polio (IPV/OPV) 2005-07-22 Completed [facility] 00:00:00 [facility] MMR 2005-07-22 Completed [facility] 00:00:00 [facility] DTAP 2005-07-22 Completed [facility] 00:00:00 [facility] MMR 2005-07-22 Completed [facility] 00:00:00 [facility] Polio (IPV/OPV) 2005-07-22 Completed [facility] 00:00:00 [facility] DTAP 2005-07-22 Completed [facility] 00:00:00 [facility] MMR 2005-07-22 Completed [facility] 00:00:00 [facility] Polio (IPV/OPV) 2005-07-22 Completed [facility] 00:00:00 [facility] Polio (IPV/OPV) 2005-07-22 Completed [facility] 00:00:00 [facility] DTAP 2005-07-22 Completed [facility] 00:00:00 [facility] MMR 2005-07-22 Completed [facility] 00:00:00 [facility] Polio (IPV/OPV) 2005-07-22 Completed [facility] 00:00:00 [facility] DTAP 2005-07-22 Completed [facility] 00:00:00 [facility] MMR 2005-07-22 Completed [facility] 00:00:00 [facility] Polio (IPV/OPV) 2005-07-22 Completed [facility] 00:00:00 [facility] DTAP 2005-07-22 Completed [facility] 00:00:00 [facility] MMR 2005-07-22 Completed [facility] 00:00:00 [facility] Polio (IPV/OPV) 2005-07-22 Completed [facility] 00:00:00 [facility] DTAP 2005-07-22 Completed [facility] 00:00:00 [facility] MMR 2005-07-22 Completed [facility] 00:00:00 [facility] Polio (IPV/OPV) 2005-07-22 Completed [facility] 00:00:00 [facility] DTAP 2005-07-22 Completed [facility] 00:00:00 [facility] MMR 2005-07-22 Completed [facility] 00:00:00 [facility] Polio (IPV/OPV) 2005-07-22 Completed [facility] 00:00:00 [facility] DTAP 2005-07-22 Completed [facility] 00:00:00 [facility] DTAP 2005-07-22 Completed [facility] 00:00:00 [facility] MMR 2005-07-22 Completed [facility] 00:00:00 [facility] Polio (IPV/OPV) 2005-07-22 Completed [facility] 00:00:00 [facility] DTAP 2005-07-22 Completed [facility] 00:00:00 [facility] MMR 2005-07-22 Completed [facility] 00:00:00 [facility] Polio (IPV/OPV) 2005-07-22 Completed [facility] 00:00:00 [facility] MMR 2005-07-22 Completed [facility] 00:00:00 [facility] DTAP 2005-07-22 Completed [facility] 00:00:00 [facility] MMR 2005-07-22 Completed [facility] 00:00:00 [facility] Polio (IPV/OPV) 2005-07-22 Completed [facility] 00:00:00 [facility] DTAP 2005-07-22 Completed [facility] 00:00:00 [facility] Polio (IPV/OPV) 2005-07-22 Completed [facility] 00:00:00 [facility] MMR 2005-07-22 Completed [facility] 00:00:00 [facility] Polio (IPV/OPV) 2005-07-22 Completed [facility] 00:00:00 [facility] DTAP 2005-07-22 Completed [facility] 00:00:00 [facility] MMR 2005-07-22 Completed [facility] 00:00:00 [facility] Polio (IPV/OPV) 2005-07-22 Completed [facility] 00:00:00 [facility] DTAP 2005-07-22 Completed [facility] 00:00:00 [facility] MMR 2005-07-22 Completed [facility] 00:00:00 [facility] Polio (IPV/OPV) 2005-07-22 Completed [facility] 00:00:00 [facility] DTAP 2005-07-22 Completed [facility] 00:00:00 [facility] MMR 2005-07-22 Completed [facility] 00:00:00 [facility] Polio (IPV/OPV) 2005-07-22 Completed [facility] 00:00:00 [facility] DTAP 2005-07-22 Completed [facility] 00:00:00 [facility] MMR 2005-07-22 Completed [facility] 00:00:00 [facility] Polio (IPV/OPV) 2005-07-22 Completed [facility] 00:00:00 [facility] DTAP 2005-07-22 Completed [facility] 00:00:00 [facility] DTAP 2005-07-22 Completed [facility] 00:00:00 [facility] MMR 2005-07-22 Completed [facility] 00:00:00 [facility] Polio (IPV/OPV) 2005-07-22 Completed [facility] 00:00:00 [facility] DTAP 2005-07-22 Completed [facility] 00:00:00 [facility] MMR 2005-07-22 Completed [facility] 00:00:00 [facility] Polio (IPV/OPV) 2005-07-22 Completed [facility] 00:00:00 [facility] MMR 2005-07-22 Completed [facility] 00:00:00 [facility] Polio (IPV/OPV) 2005-07-22 Completed [facility] 00:00:00 [facility] DTAP 2005-07-22 Completed [facility] 00:00:00 [facility] MMR 2005-07-22 Completed [facility] 00:00:00 [facility] Polio (IPV/OPV) 2005-07-22 Completed [facility] 00:00:00 [facility] DTAP 2005-07-22 Completed [facility] 00:00:00 [facility] MMR 2005-07-22 Completed [facility] 00:00:00 [facility] Polio (IPV/OPV) 2005-07-22 Completed [facility] 00:00:00 [facility] DTAP 2005-07-22 Completed [facility] 00:00:00 [facility] MMR 2005-07-22 Completed [facility] 00:00:00 [facility] Polio (IPV/OPV) 2005-07-22 Completed [facility] 00:00:00 [facility] DTAP 2005-07-22 Completed [facility] 00:00:00 [facility] MMR 2005-07-22 Completed [facility] 00:00:00 [facility] Polio (IPV/OPV) 2005-07-22 Completed [facility] 00:00:00 [facility] DTAP 2005-07-22 Completed [facility] 00:00:00 [facility] MMR 2005-07-22 Completed [facility] 00:00:00 [facility] Polio (IPV/OPV) 2005-07-22 Completed [facility] 00:00:00 [facility] DTAP 2005-07-22 Completed [facility] 00:00:00 [facility] MMR 2005-07-22 Completed [facility] 00:00:00 [facility] Polio (IPV/OPV) 2005-07-22 Completed [facility] 00:00:00 [facility] DTAP 2005-07-22 Completed [facility] 00:00:00 [facility] MMR 2005-07-22 Completed [facility] 00:00:00 [facility] Polio (IPV/OPV) 2005-07-22 Completed [facility] 00:00:00 [facility] DTAP 2005-07-22 Completed [facility] 00:00:00 [facility] MMR 2005-07-22 Completed [facility] 00:00:00 [facility] Polio (IPV/OPV) 2005-07-22 Completed [facility] 00:00:00 [facility] DTAP 2005-07-22 Completed [facility] 00:00:00 [facility] MMR 2005-07-22 Completed [facility] 00:00:00 [facility] Polio (IPV/OPV) 2005-07-22 Completed [facility] 00:00:00 [facility] DTAP 2005-07-22 Completed [facility] 00:00:00 [facility] MMR 2005-07-22 Completed [facility] 00:00:00 [facility] Polio (IPV/OPV) 2005-07-22 Completed [facility] 00:00:00 [facility] DTAP 2005-07-22 Completed [facility] 00:00:00 [facility] MMR 2005-07-22 Completed [facility] 00:00:00 [facility] Polio (IPV/OPV) 2005-07-22 Completed [facility] 00:00:00 [facility] DTAP 2005-07-22 Completed [facility] 00:00:00 [facility] MMR 2005-07-22 Completed [facility] 00:00:00 [facility] Polio (IPV/OPV) 2005-07-22 Completed [facility] 00:00:00 [facility] DTAP 2005-07-22 Completed [facility] 00:00:00 [facility] MMR 2005-07-22 Completed [facility] 00:00:00 [facility] Polio (IPV/OPV) 2005-07-22 Completed [facility] 00:00:00 [facility] DTAP 2005-07-22 Completed [facility] 00:00:00 [facility] MMR 2005-07-22 Completed [facility] 00:00:00 [facility] HEPATITIS A 2005-03-04 Completed [facility] 00:00:00 [facility] HEPATITIS A 2005-03-04 Completed [facility] 00:00:00 [facility] HEPATITIS A 2005-03-04 Completed [facility] 00:00:00 [facility] HEPATITIS A 2005-03-04 Completed [facility] 00:00:00 [facility] HEPATITIS A 2005-03-04 Completed [facility] 00:00:00 [facility] HEPATITIS A 2005-03-04 Completed [facility] 00:00:00 [facility] HEPATITIS A 2005-03-04 Completed [facility] 00:00:00 [facility] HEPATITIS A 2005-03-04 Completed [facility] 00:00:00 [facility] HEPATITIS A 2005-03-04 Completed [facility] 00:00:00 [facility] HEPATITIS A 2005-03-04 Completed [facility] 00:00:00 [facility] HEPATITIS A 2005-03-04 Completed [facility] 00:00:00 [facility] HEPATITIS A 2005-03-04 Completed [facility] 00:00:00 [facility] HEPATITIS A 2005-03-04 Completed [facility] 00:00:00 [facility] HEPATITIS A 2005-03-04 Completed [facility] 00:00:00 [facility] HEPATITIS A 2005-03-04 Completed [facility] 00:00:00 [facility] HEPATITIS A 2005-03-04 Completed [facility] 00:00:00 [facility] HEPATITIS A 2005-03-04 Completed [facility] 00:00:00 [facility] HEPATITIS A 2005-03-04 Completed [facility] 00:00:00 [facility] HEPATITIS A 2005-03-04 Completed [facility] 00:00:00 [facility] HEPATITIS A 2005-03-04 Completed [facility] 00:00:00 [facility] HEPATITIS A 2005-03-04 Completed [facility] 00:00:00 [facility] HEPATITIS A 2005-03-04 Completed [facility] 00:00:00 [facility] HEPATITIS A 2005-03-04 Completed [facility] 00:00:00 [facility] HEPATITIS A 2005-03-04 Completed [facility] 00:00:00 [facility] HEPATITIS A 2005-03-04 Completed [facility] 00:00:00 [facility] HEPATITIS A 2005-03-04 Completed [facility] 00:00:00 [facility] HEPATITIS A 2005-03-04 Completed [facility] 00:00:00 [facility] HEPATITIS A 2005-03-04 Completed [facility] 00:00:00 [facility] HEPATITIS A 2005-03-04 Completed [facility] 00:00:00 [facility] HEPATITIS A 2005-03-04 Completed [facility] 00:00:00 [facility] HEPATITIS A 2005-03-04 Completed [facility] 00:00:00 [facility] HEPATITIS A 2005-03-04 Completed [facility] 00:00:00 [facility] HEPATITIS A 2005-03-04 Completed [facility] 00:00:00 [facility] HEPATITIS A 2005-03-04 Completed [facility] 00:00:00 [facility] HEPATITIS A 2005-03-04 Completed [facility] 00:00:00 [facility] HEPATITIS A 2005-03-04 Completed [facility] 00:00:00 [facility] HEPATITIS A 2005-03-04 Completed [facility] 00:00:00 [facility] HEPATITIS A 2005-03-04 Completed [facility] 00:00:00 [facility] HEPATITIS A 2005-03-04 Completed [facility] 00:00:00 [facility] HEPATITIS A 2005-03-04 Completed [facility] 00:00:00 [facility] HEPATITIS A 2005-03-04 Completed [facility] 00:00:00 [facility] HEPATITIS A 2005-03-04 Completed [facility] 00:00:00 [facility] HEPATITIS A 2005-03-04 Completed [facility] 00:00:00 [facility] HEPATITIS A 2005-03-04 Completed [facility] 00:00:00 [facility] HEPATITIS A 2005-03-04 Completed [facility] 00:00:00 [facility] HEPATITIS A 2005-03-04 Completed [facility] 00:00:00 [facility] HEPATITIS A 2005-03-04 Completed [facility] 00:00:00 [facility] HEPATITIS A 2005-03-04 Completed [facility] 00:00:00 [facility] HEPATITIS A 2005-03-04 Completed [facility] 00:00:00 [facility] HEPATITIS A 2005-03-04 Completed [facility] 00:00:00 [facility] HEPATITIS A 2005-03-04 Completed [facility] 00:00:00 [facility] HEPATITIS A 2005-03-04 Completed [facility] 00:00:00 [facility] HEPATITIS A 2005-03-04 Completed [facility] 00:00:00 [facility] HEPATITIS A 2005-03-04 Completed [facility] 00:00:00 [facility] HEPATITIS A 2005-03-04 Completed [facility] 00:00:00 [facility] HEPATITIS A 2005-03-04 Completed [facility] 00:00:00 [facility] HEPATITIS A 2005-03-04 Completed [facility] 00:00:00 [facility] HEPATITIS A 2005-03-04 Completed [facility] 00:00:00 [facility] HEPATITIS A 2005-03-04 Completed [facility] 00:00:00 [facility] HEPATITIS A 2005-03-04 Completed [facility] 00:00:00 [facility] HEPATITIS A 2005-03-04 Completed [facility] 00:00:00 [facility] HEPATITIS A 2005-03-04 Completed [facility] 00:00:00 [facility] HEPATITIS A 2005-03-04 Completed [facility] 00:00:00 [facility] HEPATITIS A 2005-03-04 Completed [facility] 00:00:00 [facility] HEPATITIS A 2005-03-04 Completed [facility] 00:00:00 [facility] HEPATITIS A 2005-03-04 Completed [facility] 00:00:00 [facility] HEPATITIS A 2005-03-04 Completed [facility] 00:00:00 [facility] HEPATITIS A 2005-03-04 Completed [facility] 00:00:00 [facility] HEPATITIS A 2005-03-04 Completed [facility] 00:00:00 [facility] HEPATITIS A 2005-03-04 Completed [facility] 00:00:00 [facility] HEPATITIS A 2005-03-04 Completed [facility] 00:00:00 [facility] HEPATITIS A 2005-03-04 Completed [facility] 00:00:00 [facility] HEPATITIS A 2005-03-04 Completed [facility] 00:00:00 [facility] HEPATITIS A 2005-03-04 Completed [facility] 00:00:00 [facility] HEPATITIS A 2005-03-04 Completed [facility] 00:00:00 [facility] HEPATITIS A 2005-03-04 Completed [facility] 00:00:00 [facility] HEPATITIS A 2005-03-04 Completed [facility] 00:00:00 [facility] Pneumococcal 7 2002-10-22 Completed [facility] of Conjugate, PCV7 00:00:00 [facility] (Pre[facility]) [facility] 2002-10-22 Completed [facility] 00:00:00 [facility] Pneumococcal 7 2002-10-22 Completed [facility] Conjugate, PCV7 00:00:00 [facility] 2002-10-22 Completed [facility] 00:00:00 [facility] Pneumococcal 7 2002-10-22 Completed [facility] Conjugate, PCV7 00:00:00 [facility] (Pre[facility] 2002-10-22 Completed [facility] 00:00:00 [facility] Pneumococcal 7 2002-10-22 Completed [facility] Conjugate, PCV7 00:00:00 [facility] (Pre[facility] 2002-10-22 Completed [facility] 00:00:00 [facility] Pneumococcal 7 2002-10-22 Completed [facility] Conjugate, PCV7 00:00:00 [facility] (Pre[facility]ar7) [facility] 2002-10-22 Completed [facility] 00:00:00 [facility] Pneumococcal 7 2002-10-22 Completed [facility] Conjugate, PCV7 00:00:00 [facility] (Pre[facility]ar7[facility] DTAP 2002-10-22 Completed [facility] 00:00:00 [facility] Pneumococcal 7 2002-10-22 Completed [facility] Conjugate, PCV7 00:00:00 [facility] (Prevnar7) [facility] DTAP 2002-10-22 Completed [facility] 00:00:00 [facility] Pneumococcal 7 2002-10-22 Completed [facility] Conjugate, PCV7 00:00:00 [facility] (Prevnar7) [facility] DTAP 2002-10-22 Completed [facility] 00:00:00 [facility] Pneumococcal 7 2002-10-22 Completed [facility] Conjugate, PCV7 00:00:00 [facility] (Prevnar7) [facility] DTAP 2002-10-22 Completed [facility] 00:00:00 [facility] Pneumococcal 7 2002-10-22 Completed [facility] Conjugate, PCV7 00:00:00 [facility] (Prevnar7) [facility] DTAP 2002-10-22 Completed [facility] 00:00:00 [facility] Pneumococcal 7 2002-10-22 Completed [facility] Conjugate, PCV7 00:00:00 [facility] (Prevnar7) [facility] DTAP 2002-10-22 Completed [facility] 00:00:00 [facility] Pneumococcal 7 2002-10-22 Completed [facility] Conjugate, PCV7 00:00:00 [facility] (Prevnar7) [facility] DTAP 2002-10-22 Completed [facility] 00:00:00 [facility] Pneumococcal 7 2002-10-22 Completed [facility] Conjugate, PCV7 00:00:00 [facility] (Prevnar7) [facility] DTAP 2002-10-22 Completed [facility] 00:00:00 [facility] Pneumococcal 7 2002-10-22 Completed [facility] Conjugate, PCV7 00:00:00 [facility] (Prevnar7) [facility] DTAP 2002-10-22 Completed [facility] 00:00:00 [facility] Pneumococcal 7 2002-10-22 Completed [facility] Conjugate, PCV7 00:00:00 [facility] (Prevnar7) [facility] DTAP 2002-10-22 Completed [facility] 00:00:00 [facility] Pneumococcal 7 2002-10-22 Completed [facility] Conjugate, PCV7 00:00:00 [facility] (Prevnar7) [facility] DTAP 2002-10-22 Completed [facility] 00:00:00 [facility] Pneumococcal 7 2002-10-22 Completed [facility] Conjugate, PCV7 00:00:00 [facility] (Prevnar7) [facility] DTAP 2002-10-22 Completed [facility] 00:00:00 [facility] Pneumococcal 7 2002-10-22 Completed [facility] Conjugate, PCV7 00:00:00 [facility] (Prevnar7) [facility] DTAP 2002-10-22 Completed [facility] 00:00:00 [facility] Pneumococcal 7 2002-10-22 Completed [facility] Conjugate, PCV7 00:00:00 [facility] (Prevnar7) [facility] DTAP 2002-10-22 Completed [facility] 00:00:00 [facility] Pneumococcal 7 2002-10-22 Completed [facility] Conjugate, PCV7 00:00:00 [facility] (Prevnar7) [facility] DTAP 2002-10-22 Completed [facility] 00:00:00 [facility] Pneumococcal 7 2002-10-22 Completed [facility] Conjugate, PCV7 00:00:00 [facility] (Prevnar7) [facility] DTAP 2002-10-22 Completed [facility] 00:00:00 [facility] Pneumococcal 7 2002-10-22 Completed [facility] Conjugate, PCV7 00:00:00 [facility] (Prevnar7) [facility] DTAP 2002-10-22 Completed [facility] 00:00:00 [facility] Pneumococcal 7 2002-10-22 Completed [facility] Conjugate, PCV7 00:00:00 [facility] (Prevnar7) [facility] DTAP 2002-10-22 Completed [facility] 00:00:00 [facility] Pneumococcal 7 2002-10-22 Completed [facility] Conjugate, PCV7 00:00:00 [facility] (Prevnar7) [facility] DTAP 2002-10-22 Completed [facility] 00:00:00 [facility] Pneumococcal 7 2002-10-22 Completed [facility] Conjugate, PCV7 00:00:00 [facility] (Prevnar7) [facility] DTAP 2002-10-22 Completed [facility] 00:00:00 [facility] Pneumococcal 7 2002-10-22 Completed [facility] Conjugate, PCV7 00:00:00 [facility] (Prevnar7) [facility] DTAP 2002-10-22 Completed [facility] 00:00:00 [facility] Pneumococcal 7 2002-10-22 Completed [facility] Conjugate, PCV7 00:00:00 [facility] (Prevnar7) [facility] DTAP 2002-10-22 Completed [facility] 00:00:00 [facility] Pneumococcal 7 2002-10-22 Completed [facility] Conjugate, PCV7 00:00:00 [facility] (Prevnar7) [facility] DTAP 2002-10-22 Completed [facility] 00:00:00 [facility] DTAP 2002-10-22 Completed [facility] 00:00:00 [facility] Pneumococcal 7 2002-10-22 Completed [facility] Conjugate, PCV7 00:00:00 [facility] (Prevnar7) [facility] DTAP 2002-10-22 Completed [facility] 00:00:00 [facility] Pneumococcal 7 2002-10-22 Completed [facility] Conjugate, PCV7 00:00:00 [facility] (Prevnar7) [facility] DTAP 2002-10-22 Completed [facility] 00:00:00 [facility] Pneumococcal 7 2002-10-22 Completed [facility] Conjugate, PCV7 00:00:00 [facility] (Prevnar7) [facility] DTAP 2002-10-22 Completed [facility] 00:00:00 [facility] Pneumococcal 7 2002-10-22 Completed [facility] Conjugate, PCV7 00:00:00 [facility] (Prevnar7) [facility] Pneumococcal 7 2002-10-22 Completed [facility] Conjugate, PCV7 00:00:00 [facility] (Prevnar7) [facility] DTAP 2002-10-22 Completed [facility] 00:00:00 [facility] Pneumococcal 7 2002-10-22 Completed [facility] Conjugate, PCV7 00:00:00 [facility] (Prevnar7) [facility] DTAP 2002-10-22 Completed [facility] 00:00:00 [facility] Pneumococcal 7 2002-10-22 Completed [facility] Conjugate, PCV7 00:00:00 [facility] (Prevnar7) [facility] DTAP 2002-10-22 Completed [facility] 00:00:00 [facility] Pneumococcal 7 2002-10-22 Completed [facility] Conjugate, PCV7 00:00:00 [facility] (Prevnar7) [facility] DTAP 2002-10-22 Completed [facility] 00:00:00 [facility] Pneumococcal 7 2002-10-22 Completed [facility] Conjugate, PCV7 00:00:00 [facility] (Prevnar7) [facility] DTAP 2002-10-22 Completed [facility] 00:00:00 [facility] Pneumococcal 7 2002-10-22 Completed [facility] Conjugate, PCV7 00:00:00 [facility] (Prevnar7) [facility] DTAP 2002-10-22 Completed [facility] 00:00:00 [facility] Pneumococcal 7 2002-10-22 Completed [facility] Conjugate, PCV7 00:00:00 [facility] (Prevnar7) [facility] DTAP 2002-10-22 Completed [facility] 00:00:00 [facility] Pneumococcal 7 2002-10-22 Completed [facility] Conjugate, PCV7 00:00:00 [facility] (Prevnar7) [facility] DTAP 2002-10-22 Completed [facility] 00:00:00 [facility] Pneumococcal 7 2002-10-22 Completed [facility] Conjugate, PCV7 00:00:00 [facility] ([facility]ar[facility] DTAP 2002-10-22 Com[facility]00 [facility] Pneumococcal 7 2002-10-22 Completed [facility] Conjugate, PCV7 00:00:00 [facility] (Prevnar7) [facility] DTAP 2002-10-22 Completed [facility] 00:00:00 [facility] Pneumococcal 7 2002-10-22 Completed [facility] Conjugate, PCV7 00:00:00 [facility] (Prevnar7) [facility] DTAP 2002-10-22 Completed [facility] 00:00:00 [facility] Pneumococcal 7 2002-10-22 Completed [facility] Conjugate, PCV7 00:00:00 [facility] (Prevnar7) [facility] DTAP 2002-10-22 Completed [facility] 00:00:00 [facility] Pneumococcal 7 2002-10-22 Completed [facility] Conjugate, PCV7 00:00:00 [facility] (Prevnar7) [facility] Pneumococcal 7 2002-10-22 Completed [facility] Conjugate, PCV7 00:00:00 [facility] (Prevnar7) [facility] DTAP 2002-10-22 Completed [facility] 00:00:00 [facility] Pneumococcal 7 2002-10-22 Completed [facility] Conjugate, PCV7 00:00:00 [facility] (Prevnar7) [facility] DTAP 2002-10-22 Completed [facility] 00:00:00 [facility] Pneumococcal 7 2002-10-22 Completed [facility] Conjugate, PCV7 00:00:00 [facility] (Prevnar7) [facility] DTAP 2002-10-22 Completed [facility] 00:00:00 [facility] Pneumococcal 7 2002-10-22 Completed [facility] Conjugate, PCV7 00:00:00 [facility] (Prevnar7) [facility] DTAP 2002-10-22 Completed [facility] 00:00:00 [facility] Pneumococcal 7 2002-10-22 Completed [facility] Conjugate, PCV7 00:00:00 [facility] (Prevnar7) [facility] DTAP 2002-10-22 Completed [facility] 00:00:00 [facility] Pneumococcal 7 2002-10-22 Completed [facility] Conjugate, PCV7 00:00:00 [facility] (Prevnar7) [facility] DTAP 2002-10-22 Completed [facility] 00:00:00 [facility] Pneumococcal 7 2002-10-22 Completed [facility] Conjugate, PCV7 00:00:00 [facility] (Prevnar7) [facility] DTAP 2002-10-22 Completed [facility] 00:00:00 [facility] DTAP 2002-10-22 Completed [facility] 00:00:00 [facility] Pneumococcal 7 2002-10-22 Completed [facility] Conjugate, PCV7 00:00:00 [facility] (Prevnar7) [facility] DTAP 2002-10-22 Completed [facility] 00:00:00 [facility] Pneumococcal 7 2002-10-22 Completed [facility] Conjugate, PCV7 00:00:00 [facility] (Prevnar7) [facility] DTAP 2002-10-22 Completed [facility] 00:00:00 [facility] Pneumococcal 7 2002-10-22 Completed [facility] Conjugate, PCV7 00:00:00 [facility] (Prevnar7[facility] Pneumococcal 7 2002-10-22 Completed [facility] Conjugate, PCV7 00:00:00 [facility] (Prevnar7) [facility] DTAP 2002-10-22 Completed [facility] 00:00:00 [facility] Pneumococcal 7 2002-10-22 Completed [facility] Conjugate, PCV7 00:00:00 [facility] (Prevnar7) [facility] DTAP 2002-10-22 Completed [facility] 00:00:00 [facility] Pneumococcal 7 2002-10-22 Completed [facility] Conjugate, PCV7 00:00:00 [facility] (Prevnar7) [facility] DTAP 2002-10-22 Completed [facility] 00:00:00 [facility] Pneumococcal 7 2002-10-22 Completed [facility] Conjugate, PCV7 00:00:00 [facility] (Prevnar7) [facility] DTAP 2002-10-22 Completed [facility] 00:00:00 [facility] Pneumococcal 7 2002-10-22 Completed [facility] Conjugate, PCV7 00:00:00 [facility] (Prevnar7) [facility] DTAP 2002-10-22 Completed [facility] 00:00:00 [facility] Pneumococcal 7 2002-10-22 Completed [facility] Conjugate, PCV7 00:00:00 [facility] (Prevnar7) [facility] DTAP 2002-10-22 Completed [facility] 00:00:00 [facility] DTAP 2002-10-22 Completed [facility] 00:00:00 [facility] Pneumococcal 7 2002-10-22 Completed [facility] Conjugate, PCV7 00:00:00 [facility] (Prevnar7) [facility] DTAP 2002-10-22 Completed [facility] 00:00:00 [facility] Pneumococcal 7 2002-10-22 Completed [facility] Conjugate, PCV7 00:00:00 [facility] (Prevnar7) [facility] Pneumococcal 7 2002-10-22 Completed [facility] Conjugate, PCV7 00:00:00 [facility] (Prevnar7) [facility] DTAP 2002-10-22 Completed [facility] 00:00:00 [facility] Pneumococcal 7 2002-10-22 Completed [facility] Conjugate, PCV7 00:00:00 [facility] (Prevnar7) [facility] DTAP 2002-10-22 Completed [facility] 00:00:00 [facility] Pneumococcal 7 2002-10-22 Completed [facility] Conjugate, PCV7 00:00:00 [place] [facility] (Prevnar7) [facility] DTAP 2002-10-22 Completed [facility] 00:00:00 [facility] Pneumococcal 7 2002-10-22 Completed [facility] Conjugate, PCV7 00:00:00 [facility] (Prevnar7) [facility] DTAP 2002-10-22 Completed [facility] 00:00:00 [facility] Pneumococcal 7 2002-10-22 Completed [facility] Conjugate, PCV7 00:00:00 [facility] (Prevnar7) [facility] DTAP 2002-10-22 Completed [facility] 00:00:00 [facility] Pneumococcal 7 2002-10-22 Completed [facility] Conjugate, PCV7 00:00:00 [facility] (Prevnar7) [facility] DTAP 2002-10-22 Completed [facility] 00:00:00 [facility] Pneumococcal 7 2002-10-22 Completed [facility] Conjugate, PCV7 00:00:00 [facility] (Prevnar7) [facility] DTAP 2002-10-22 Completed [facility] 00:00:00 [facility] Pneumococcal 7 2002-10-22 Completed [facility] Conjugate, PCV7 00:00:00 [facility] (Prevnar7) [facility] DTAP 2002-10-22 Completed [facility] 00:00:00 [facility] Pneumococcal 7 2002-10-22 Completed [facility] Conjugate, PCV7 00:00:00 [facility] (Prevnar7) [facility] DTAP 2002-10-22 Completed [facility] 00:00:00 [facility] Pneumococcal 7 2002-10-22 Completed [facility] Conjugate, PCV7 00:00:00 [facility] (Prevnar7) [facility] DTAP 2002-10-22 Completed [facility] 00:00:00 [facility] Pneumococcal 7 2002-10-22 Completed [facility] Conjugate, PCV7 00:00:00 [facility] (Prevnar7) [facility] DTAP 2002-10-22 Completed [facility] 00:00:00 [facility] Pneumococcal 7 2002-10-22 Completed [facility] Conjugate, PCV7 00:00:00 [facility] (Prevnar7) [facility] DTAP 2002-10-22 Completed [facility] 00:00:00 [facility] Pneumococcal 7 2002-10-22 Completed [facility] Conjugate, PCV7 00:00:00 [facility] (Prevnar7) [facility] DTAP 2002-10-22 Completed [facility] 00:00:00 [facility] Pneumococcal 7 2002-10-22 Completed [facility] Conjugate, PCV7 00:00:00 [facility] (Prevnar7) [facility] DTAP 2002-10-22 Completed [facility] 00:00:00 [facility] Pneumococcal 7 2002-07-02 Completed [facility] Conjugate, PCV7 00:00:00 [facility] (Prevnar7) [facility] Varicella 2002-07-02 Completed [facility] of (varivax)(chicken 00:00:00 [facility] pox) [facility] HIB 4 Dose Schedule 2002-07-02 Completed Unive rsity of 00:00:00 [facility] MMR 2002-07-02 Completed [facility] 00:00:00 [facility] Pneumococcal 7 2002-07-02 Completed [facility] Conjugate, PCV7 00:00:00 [facility] (Prevnar7) [facility] Varicella 2002-07-02 Completed [facility] (varivax)(chicken 00:00:00 [facility] pox[facility] HIB 4 Dose Schedule 2002-07-02 Completed Unive rsity of 00:00:00 [facility] MMR 2002-07-02 Completed [facility] 00:00:00 [facility] Pneumococcal 7 2002-07-02 Completed [facility] Conjugate, PCV7 00:00:00 [facility] (Prevnar7) [facility] Varicella 2002-07-02 Completed [facility] (varivax)(chicken 00:00:00 [facility] pox) [facility] HIB 4 Dose Schedule 2002-07-02 Completed Unive rsity of 00:00:00 [facility] MMR 2002-07-02 Completed [facility] 00:00:00 [facility] Pneumococcal 7 2002-07-02 Completed [facility] Conjugate, PCV7 00:00:00 [facility] (Prevnar7) [facility] Varicella 2002-07-02 Completed [facility] (varivax)(chicken 00:00:00 [facility]ox[facility] HIB 4 Dose Schedule 2002-07-02 Completed Unive rsity of 00:00:00 [facility] MMR 2002-07-02 Completed [facility] 00:00:00 [facility] Pneumococcal 7 2002-07-02 Completed [facility] of Conjugate, PCV7 00:00:00 [facility] (Prevnar7) [facility] Varicella 2002-07-02 Completed [facility] (varivax)(chicken 00:00:00 [facility] pox) [facility] HIB 4 Dose Schedule 2002-07-02 Completed Unive rsity of 00:00:00 [facility] MMR 2002-07-02 Completed [facility] 00:00:00 [facility] Pneumococcal 7 2002-07-02 Completed [facility] Conjugate, PCV7 00:00:00 [facility] (Prevnar7) [facility] Varicella 2002-07-02 Completed [facility] (varivax)(chicken 00:00:00 [facility]ox[facility] HIB 4 Dose Schedule 2002-07-02 Completed [facility]ive rsity of 00:00:00 [facility] MMR 2002-07-02 Completed [facility] 00:00:00 [facility] Pneumococcal 7 2002-07-02 Completed [facility] Conjugate, PCV7 00:00:00 [facility] (Prevnar7) [facility] Varicella 2002-07-02 Completed [facility] (varivax)(chicken 00:00:00 [facility]ox[facility] HIB 4 Dose Schedule 2002-07-02 Completed Unive rsity of 00:00:00 [facility] MMR 2002-07-02 Completed [facility] 00:00:00 [facility] Pneumococcal 7 2002-07-02 Completed [facility] Conjugate, PCV7 00:00:00 [facility] (Prevnar7) [facility] Varicella 2002-07-02 Completed [facility] (varivax)(chicken 00:00:00 [facility] pox) [facility] HIB 4 Dose Schedule 2002-07-02 Completed [facility]ive rsity of 00:00:00 [facility] MMR 2002-07-02 Completed [facility] 00:00:00 [facility] Pneumococcal 7 2002-07-02 Completed [facility] of Conjugate, PCV7 00:00:00 [facility] (Prevnar7) [facility] Varicella 2002-07-02 Completed [facility] (varivax)(chicken 00:00:00 [facility] pox) [facility] HIB 4 Dose Schedule 2002-07-02 Completed [facility] rs[facility] of 00:00:00 [facility] MMR 2002-07-02 Completed [facility] 00:00:00 [facility] Pneumococcal 7 2002-07-02 Completed [facility] Conjugate, PCV7 00:00:00 [facility] (Prevnar7) [facility] Varicella 2002-07-02 Completed [facility] (varivax)(chicken 00:00:00 [facility] pox) [facility] HIB 4 Dose Schedule 2002-07-02 Completed [facility]ive rsity of 00:00:00 [facility] MMR 2002-07-02 Completed [facility] 00:00:00 [facility] Pneumococcal 7 2002-07-02 Completed [facility] Conjugate, PCV7 00:00:00 [place] [facility] (Prevnar7) [facility] Varicella 2002-07-02 Completed [facility] (varivax)(chicken 00:00:00 [facility] pox) [facility] HIB 4 Dose Schedule 2002-07-02 Completed [facility]ive rs[facility] 00:00:00 [facility] MMR 2002-07-02 Completed [facility] 00:00:00 [facility] Pneumococcal 7 2002-07-02 Completed [facility] Conjugate, PCV7 00:00:00 [place] [facility] (Prevnar7) [facility] Varicella 2002-07-02 Completed [facility] (varivax)(chicken 00:00:00 [facility] pox) [facility] HIB 4 Dose Schedule 2002-07-02 Completed [facility]ive rsity of 00:00:00 [facility] MMR 2002-07-02 Completed [facility] 00:00:00 [facility] Pneumococcal 7 2002-07-02 Completed [facility] Conjugate, PCV7 00:00:00 [place] [facility] (Prevnar7) [facility] Varicella 2002-07-02 Completed [facility] (varivax)(chicken 00:00:00 [facility] pox) [facility] HIB 4 Dose Schedule 2002-07-02 Completed Unive rsity of 00:00:00 [facility] MMR 2002-07-02 Completed [facility] 00:00:00 [facility] Pneumococcal 7 2002-07-02 Completed [facility] of Conjugate, PCV7 00:00:00 [facility] (Prevnar7) [facility] Varicella 2002-07-02 Completed [facility] (varivax)(chicken 00:00:00 [place] [facility]ox[facility] HIB 4 Dose Schedule 2002-07-02 Completed Unive rsity of 00:00:00 [facility] MMR 2002-07-02 Completed [facility] 00:00:00 [facility] Pneumococcal 7 2002-07-02 Completed [facility] of Conjugate, PCV7 00:00:00 [place] [facility] (Prevnar7) [facility] Varicella 2002-07-02 Completed [facility] (varivax)(chicken 00:00:00 [place] [facility] pox[facility] HIB 4 Dose Schedule 2002-07-02 Completed [facility]ive rsity of 00:00:00 [facility] MMR 2002-07-02 Completed [facility] 00:00:00 [facility] Pneumococcal 7 2002-07-02 Completed [facility] Conjugate, PCV7 00:00:00 [place] [facility] (Prevnar7) [facility] Varicella 2002-07-02 Completed [facility] (varivax)([facility] 00:00:00 [place] [facility] HIB 4 Dose Schedule 2002-07-02 Completed [facility] 00:00:00 [facility] MMR 2002-07-02 Completed [facility] 00:00:00 [facility] Pneumococcal 7 2002-07-02 Completed [facility] Conjugate, PCV7 00:00:00 [place] [facility] (Prevnar7) [facility] Varicella 2002-07-02 Completed [facility] (varivax)([facility] 00:00:00 [place] [facility] HIB 4 Dose Schedule 2002-07-02 Completed [facility] 00:00:00 [facility] MMR 2002-07-02 Completed [facility] 00:00:00 [facility] Pneumococcal 7 2002-07-02 Completed [facility] Conjugate, PCV7 00:00:00 [place] [facility] (Prevnar7[facility] Varicella 2002-07-02 Completed [facility] (varivax)(chicken 00:00:00 [place] [facility] HIB 4 Dose Schedule 2002-07-02 Completed [facility] 00:00:00 [facility] MMR 2002-07-02 Completed [facility] 00:00:00 [facility] Pneumococcal 7 2002-07-02 Completed [facility] Conjugate, PCV7 00:00:00 [place] [facility] (Pre[facility]ar[facility] Varicella 2002-07-02 Completed [facility] (varivax)([facility] 00:00:00 [place] [facility] HIB 4 Dose Schedule 2002-07-02 Completed [facility] 00:00:00 [facility] MMR 2002-07-02 Completed [facility] 00:00:00 [facility] Pneumococcal 7 2002-07-02 Completed [facility] Conjugate, PCV7 00:00:00 [place] [facility] (Pre[facility]ar[facility] Varicella 2002-07-02 Completed [facility] (varivax)([facility]icken 00:00:00 [place] [facility] HIB 4 Dose Schedule 2002-07-02 Completed [facility] 00:00:00 [facility] MMR 2002-07-02 Completed [facility] 00:00:00 [facility] Pneumococcal 7 2002-07-02 Completed [facility] Conjugate, PCV7 00:00:00 [place] [facility] (Prevnar7[facility] Varicella 2002-07-02 Completed [facility] (varivax)(chicken 00:00:00 [place] [facility] HIB 4 Dose Schedule 2002-07-02 Completed [facility] 00:00:00 [facility] MMR 2002-07-02 Completed [facility] 00:00:00 [facility] Pneumococcal 7 2002-07-02 Completed [facility] Conjugate, PCV7 00:00:00 [place] [facility] (Prevnar7[facility] Varicella 2002-07-02 Completed [facility] (varivax)(chicken 00:00:00 [place] [facility] HIB 4 Dose Schedule 2002-07-02 Completed [facility] 00:00:00 [facility] MMR 2002-07-02 Completed [facility] 00:00:00 [facility] Pneumococcal 7 2002-07-02 Completed [facility] Conjugate, PCV7 00:00:00 [place] [facility] (Prevnar7[facility] Varicella 2002-07-02 Completed [facility] (varivax)([facility]icken 00:00:00 [place] [facility] HIB 4 Dose Schedule 2002-07-02 Completed [facility] 00:00:00 [facility] MMR 2002-07-02 Completed [facility] 00:00:00 [facility] Pneumococcal 7 2002-07-02 Completed [facility] Conjugate, PCV7 00:00:00 [place] [facility] (Prevnar[facility] Varicella 2002-07-02 Completed [facility] (varivax)([facility]icken 00:00:00 [place] [facility] HIB 4 Dose Schedule 2002-07-02 Completed [facility] 00:00:00 [facility] MMR 2002-07-02 Completed [facility] 00:00:00 [facility] Pneumococcal 7 2002-07-02 Completed [facility] Conjugate, PCV7 00:00:00 [place] [facility] (Prevnar7[facility] Varicella 2002-07-02 Completed [facility] (varivax)([facility]icken 00:00:00 [place] [facility] HIB 4 Dose Schedule 2002-07-02 Completed [facility] 00:00:00 [facility] MMR 2002-07-02 Completed [facility] 00:00:00 [facility] Pneumococcal 7 2002-07-02 Completed [facility] Conjugate, PCV7 00:00:00 [place] [facility] (Prevnar7[facility] Varicella 2002-07-02 Completed [facility] (varivax)(chicken 00:00:00 [place] [facility] HIB 4 Dose Schedule 2002-07-02 Completed [facility] 00:00:00 [facility] MMR 2002-07-02 Completed [facility] 00:00:00 [facility] Pneumococcal 7 2002-07-02 Completed [facility] Conjugate, PCV7 00:00:00 [place] [facility] (Prevnar7[facility] Varicella 2002-07-02 Completed [facility] (varivax)(chicken 00:00:00 [place] [facility] HIB 4 Dose Schedule 2002-07-02 Completed [facility] 00:00:00 [facility] MMR 2002-07-02 Completed [facility] 00:00:00 [facility] Pneumococcal 7 2002-07-02 Completed [facility] Conjugate, PCV7 00:00:00 [place] [facility] (Prevnar7[facility] Varicella 2002-07-02 Completed [facility] (varivax)(chicken 00:00:00 [place] [facility] HIB 4 Dose Schedule 2002-07-02 Completed [facility] 00:00:00 [facility] MMR 2002-07-02 Completed [facility] 00:00:00 [facility] Pneumococcal 7 2002-07-02 Completed [facility] Conjugate, PCV7 00:00:00 [place] [facility] (Prevnar7[facility] Varicella 2002-07-02 Completed [facility] (varivax)(chicken 00:00:00 [place] [facility] HIB 4 Dose Schedule 2002-07-02 Completed [facility] 00:00:00 [facility] HIB 4 Dose Schedule 2002-07-02 Completed [facility] 00:00:00 [facility] MMR 2002-07-02 Completed [facility] 00:00:00 [facility] Pneumococcal 7 2002-07-02 Completed [facility] Conjugate, PCV7 00:00:00 [place] [facility] (Prevnar7[facility] Varicella 2002-07-02 Completed [facility] (varivax)(chicken 00:00:00 [place] [facility] HIB 4 Dose Schedule 2002-07-02 Completed [facility] 00:00:00 [facility] MMR 2002-07-02 Completed [facility] 00:00:00 [facility] MMR 2002-07-02 Completed [facility] 00:00:00 [facility] Pneumococcal 7 2002-07-02 Completed [facility] Conjugate, PCV7 00:00:00 [place] [facility] (Prevnar7[facility] Varicella 2002-07-02 Completed [facility] (varivax)(chicken 00:00:00 [place] [facility] HIB 4 Dose Schedule 2002-07-02 Completed [facility] 00:00:00 [facility] Pneumococcal 7 2002-07-02 Completed [facility] Conjugate, PCV7 00:00:00 [place] [facility] (Prevnar7) [facility] MMR 2002-07-02 Completed [facility] 00:00:00 [facility] Pneumococcal 7 2002-07-02 Completed [facility] Conjugate, PCV7 00:00:00 [place] [facility] (Prevnar7[facility] Varicella 2002-07-02 Completed [facility] (varivax)(chicken 00:00:00 [place] [facility] HIB 4 Dose Schedule 2002-07-02 Completed [facility] 00:00:00 [facility] MMR 2002-07-02 Completed [facility] 00:00:00 [facility] Pneumococcal 7 2002-07-02 Completed [facility] Conjugate, PCV7 00:00:00 [place] [facility] (Prevnar7[facility] Varicella 2002-07-02 Completed [facility] (varivax)(chicken 00:00:00 [place] [facility] Varicella 2002-07-02 Completed [facility] (varivax)(chicken 00:00:00 [place] [facility] HIB 4 Dose Schedule 2002-07-02 Completed [facility] 00:00:00 [facility] MMR 2002-07-02 Completed [facility] 00:00:00 [facility] Pneumococcal 7 2002-07-02 Completed [facility] Conjugate, PCV7 00:00:00 [place] [facility] (Prevnar7[facility] Varicella 2002-07-02 Completed [facility] (varivax)(chicken 00:00:00 [place] [facility] HIB 4 Dose Schedule 2002-07-02 Completed [facility] 00:00:00 [facility] MMR 2002-07-02 Completed [facility] 00:00:00 [facility] Pneumococcal 7 2002-07-02 Completed [facility] Conjugate, PCV7 00:00:00 [place] [facility] (Prevnar7[facility] Varicella 2002-07-02 Completed [facility] (varivax)(chicken 00:00:00 [place] [facility] HIB 4 Dose Schedule 2002-07-02 Completed [facility] 00:00:00 [facility] MMR 2002-07-02 Completed [facility] 00:00:00 [facility] Pneumococcal 7 2002-07-02 Completed [facility] Conjugate, PCV7 00:00:00 [place] [facility] (Prevnar7[facility] Varicella 2002-07-02 Completed [facility] (varivax)(chicken 00:00:00 [place] [facility] HIB 4 Dose Schedule 2002-07-02 Completed [facility] 00:00:00 [facility] MMR 2002-07-02 Completed [facility] 00:00:00 [facility] Pneumococcal 7 2002-07-02 Completed [facility] Conjugate, PCV7 00:00:00 [place] [facility] (Prevnar7[facility] Varicella 2002-07-02 Completed [facility] (varivax)(chicken 00:00:00 [place] [facility] HIB 4 Dose Schedule 2002-07-02 Completed [facility] 00:00:00 [facility] MMR 2002-07-02 Completed [facility] 00:00:00 [facility] Pneumococcal 7 2002-07-02 Completed [facility] Conjugate, PCV7 00:00:00 [place] [facility] (Prevnar7) [facility] Varicella 2002-07-02 Completed [facility] (varivax)(chicken 00:00:00 [place] [facility] HIB 4 Dose Schedule 2002-07-02 Completed [facility] 00:00:00 [facility] MMR 2002-07-02 Completed [facility] 00:00:00 [facility] Pneumococcal 7 2002-07-02 Completed [facility] Conjugate, PCV7 00:00:00 [place] [facility] (Prevnar7[facility] Varicella 2002-07-02 Completed [facility] (varivax)(chicken 00:00:00 [place] [facility] HIB 4 Dose Schedule 2002-07-02 Completed [facility] 00:00:00 [facility] MMR 2002-07-02 Completed [facility] 00:00:00 [facility] Pneumococcal 7 2002-07-02 Completed [facility] Conjugate, PCV7 00:00:00 [place] [facility] (Prevnar7) [facility] Varicella 2002-07-02 Completed [facility] (varivax)(chicken 00:00:00 [place] [facility] HIB 4 Dose Schedule 2002-07-02 Completed [facility] 00:00:00 [facility] MMR 2002-07-02 Completed [facility] 00:00:00 [facility] Pneumococcal 7 2002-07-02 Completed [facility] Conjugate, PCV7 00:00:00 [place] [facility] (Prevnar7) [facility] Varicella 2002-07-02 Completed [facility] (varivax)(chicken 00:00:00 [place] [facility] HIB 4 Dose Schedule 2002-07-02 Completed [facility] 00:00:00 [facility] HIB 4 Dose Schedule 2002-07-02 Completed [facility] 00:00:00 [facility] MMR 2002-07-02 Completed [facility] 00:00:00 [facility] Pneumococcal 7 2002-07-02 Completed [facility] Conjugate, PCV7 00:00:00 [place] [facility] (Prevnar7[facility] Varicella 2002-07-02 Completed [facility] (varivax)(chicken 00:00:00 [place] [facility] HIB 4 Dose Schedule 2002-07-02 Completed [facility] 00:00:00 [facility] MMR 2002-07-02 Completed [facility] 00:00:00 [facility] Pneumococcal 7 2002-07-02 Completed [facility] Conjugate, PCV7 00:00:00 [place] [facility] (Prevnar7[facility] Varicella 2002-07-02 Completed [facility] (varivax)(chicken 00:00:00 [place] [facility] MMR 2002-07-02 Completed [facility] 00:00:00 [facility] HIB 4 Dose Schedule 2002-07-02 Completed [facility] 00:00:00 [facility] MMR 2002-07-02 Completed [facility] 00:00:00 [facility] Pneumococcal 7 2002-07-02 Completed [facility] Conjugate, PCV7 00:00:00 [place] [facility] (Prevnar7) [facility] Pneumococcal 7 2002-07-02 Completed [facility] Conjugate, PCV7 00:00:00 [place] [facility] (Prevnar7) [facility] Varicella 2002-07-02 Completed [facility] (varivax)(chicken 00:00:00 [place] [facility] HIB 4 Dose Schedule 2002-07-02 Completed [facility] 00:00:00 [facility] MMR 2002-07-02 Completed [facility] 00:00:00 [facility] Pneumococcal 7 2002-07-02 Completed [facility] Conjugate, PCV7 00:00:00 [place] [facility] (Prevnar7[facility] Varicella 2002-07-02 Completed [facility] (varivax)(chicken 00:00:00 [place] [facility] Varicella 2002-07-02 Completed [facility] (varivax)(chicken 00:00:00 [place] [facility] HIB 4 Dose Schedule 2002-07-02 Completed [facility] 00:00:00 [facility] MMR 2002-07-02 Completed [facility] 00:00:00 [facility] Pneumococcal 7 2002-07-02 Completed [facility] Conjugate, PCV7 00:00:00 [place] [facility] (Prevnar7) [facility] Varicella 2002-07-02 Completed [facility] (varivax)(chicken 00:00:00 [place] [facility] HIB 4 Dose Schedule 2002-07-02 Completed [facility] 00:00:00 [facility] MMR 2002-07-02 Completed [facility] 00:00:00 [facility] Pneumococcal 7 2002-07-02 Completed [facility] Conjugate, PCV7 00:00:00 [place] [facility] (Prevnar7) [facility] Varicella 2002-07-02 Completed [facility] (varivax)(chicken 00:00:00 [place] [facility] HIB 4 Dose Schedule 2002-07-02 Completed [facility] 00:00:00 [facility] MMR 2002-07-02 Completed [facility] 00:00:00 [facility] Pneumococcal 7 2002-07-02 Completed [facility] Conjugate, PCV7 00:00:00 [place] [facility] (Prevnar7) [facility] Varicella 2002-07-02 Completed [facility] (varivax)(chicken 00:00:00 [facility] ed[facility] pox) Branch HIB 4 Dose Schedule 2002-07-02 Completed [facility] of 00:00:00 [facility] MMR 2002-07-02 Completed [facility] 00:00:00 [facility] Pneumococcal 7 2002-07-02 Completed [facility] Conjugate, PCV7 00:00:00 [place] [facility] (Prevnar7) [facility] Varicella 2002-07-02 Completed [facility] (varivax)(chicken 00:00:00 [facility] edical pox) Branch HIB 4 Dose Schedule 2002-07-02 Completed [facility] 00:00:00 [facility] MMR 2002-07-02 Completed [facility] 00:00:00 [facility] Pneumococcal 7 2002-07-02 Completed [facility] Conjugate, PCV7 00:00:00 [place] [facility] (Prevnar7) [facility] Varicella 2002-07-02 Completed [facility] (varivax)(chicken 00:00:00 [facility] edical pox) Branch HIB 4 Dose Schedule 2002-07-02 Completed [facility] 00:00:00 [facility] MMR 2002-07-02 Completed [facility] 00:00:00 [facility] Pneumococcal 7 2002-07-02 Completed [facility] Conjugate, PCV7 00:00:00 [place] [facility] (Prevnar7) [facility] HIB 4 Dose Schedule 2002-07-02 Completed [facility] 00:00:00 [facility] Varicella 2002-07-02 Completed [facility] (varivax)(chicken 00:00:00 [place] [facility] HIB 4 Dose Schedule 2002-07-02 Completed [facility] 00:00:00 [facility] MMR 2002-07-02 Completed [facility] 00:00:00 [facility] MMR 2002-07-02 Completed [facility] 00:00:00 [facility] Pneumococcal 7 2002-07-02 Completed [facility] Conjugate, PCV7 00:00:00 [place] [facility] (Prevnar7) [facility] Varicella 2002-07-02 Completed [facility] (varivax)(chicken 00:00:00 [place] [facility] HIB 4 Dose Schedule 2002-07-02 Completed [facility] 00:00:00 [facility] Pneumococcal 7 2002-07-02 Completed [facility] Conjugate, PCV7 00:00:00 [place] [facility] (Prevnar7) [facility] MMR 2002-07-02 Completed [facility] 00:00:00 [facility] Pneumococcal 7 2002-07-02 Completed [facility] Conjugate, PCV7 00:00:00 [place] [facility] (Prevnar7) [facility] Varicella 2002-07-02 Completed [facility] (varivax)(chicken 00:00:00 [facility] edical pox) Branch HIB 4 Dose Schedule 2002-07-02 Completed [facility] 00:00:00 [facility] MMR 2002-07-02 Completed [facility] 00:00:00 [facility] Pneumococcal 7 2002-07-02 Completed [facility] Conjugate, PCV7 00:00:00 [place] [facility] (Prevnar7) [facility] Varicella 2002-07-02 Completed [facility] (varivax)(chicken 00:00:00 [place] [facility] Varicella 2002-07-02 Completed [facility] (varivax)(chicken 00:00:00 [place] [facility] HIB 4 Dose Schedule 2002-07-02 Completed [facility] 00:00:00 [facility] MMR 2002-07-02 Completed [facility] 00:00:00 [facility] Pneumococcal 7 2002-07-02 Completed [facility] Conjugate, PCV7 00:00:00 [place] [facility] (Prevnar7) [facility] Varicella 2002-07-02 Completed [facility] (varivax)(chicken 00:00:00 [place] [facility] HIB 4 Dose Schedule 2002-07-02 Completed [facility] 00[facility]00:00 [facility] MMR 2002-07-02 Completed [facility] 00:00:00 [facility] Pneumococcal 7 2002-07-02 Completed [facility] Conjugate, PCV7 00:00:00 [place] [facility] (Prevnar7) [facility] Varicella 2002-07-02 Completed [facility] (varivax)(chicken 00:00:00 [place] [facility] HIB 4 Dose Schedule 2002-07-02 Completed [facility] 00:00:00 [facility] MMR 2002-07-02 Completed [facility] 00:00:00 [facility] Pneumococcal 7 2002-07-02 Completed [facility] Conjugate, PCV7 00:00:00 [place] [facility] (Prevnar7) [facility] Varicella 2002-07-02 Completed [facility] (varivax)(chicken 00:00:00 [place] [facility] HIB 4 Dose Schedule 2002-07-02 Completed [facility] 00:00:00 [facility] MMR 2002-07-02 Completed [facility] 00:00:00 [facility] Pneumococcal 7 2002-07-02 Completed [facility] Conjugate, PCV7 00:00:00 [place] [facility] (Prevnar7) [facility] Varicella 2002-07-02 Completed [facility] (varivax)(chicken 00:00:00 [place] [facility] HIB 4 Dose Schedule 2002-07-02 Completed [facility] 00:00:00 [facility] MMR 2002-07-02 Completed [facility] 00:00:00 [facility] Pneumococcal 7 2002-07-02 Completed [facility] Conjugate, PCV7 00:00:00 [place] [facility] (Prevnar7) [facility] HIB 4 Dose Schedule 2002-07-02 Completed [facility] 00:00:00 [facility] Varicella 2002-07-02 Completed [facility] (varivax)(chicken 00:00:00 [place] [facility] HIB 4 Dose Schedule 2002-07-02 Completed [facility] 00:00:00 [facility] MMR 2002-07-02 Completed [facility] 00:00:00 [facility] Pneumococcal 7 2002-07-02 Completed [facility] Conjugate, PCV7 00:00:00 [place] [facility] (Prevnar7) [facility] MMR 2002-07-02 Completed [facility] 00:00:00 [facility] Varicella 2002-07-02 Completed [facility] (varivax)(chicken 00:00:00 [place] [facility] Pneumococcal 7 2002-07-02 Completed [facility] Conjugate, PCV7 00:00:00 [place] [facility] (Prevnar7) [facility] Varicella 2002-07-02 Completed [facility] (varivax)(chicken 00:00:00 [place] [facility] HIB 4 Dose Schedule 2002-07-02 Completed [facility] 00:00:00 [facility] MMR 2002-07-02 Completed [facility] 00:00:00 [facility] Pneumococcal 7 2002-07-02 Completed [facility] Conjugate, PCV7 00:00:00 [place] [facility] (Prevnar7) [facility] Varicella 2002-07-02 Completed [facility] (varivax)(chicken 00:00:00 [place] [facility] HIB 4 Dose Schedule 2002-07-02 Completed [facility] 00:00:00 [facility] MMR 2002-07-02 Completed [facility] 00:00:00 [facility] Pneumococcal 7 2002-07-02 Completed [facility] Conjugate, PCV7 00:00:00 [place] [facility] (Prevnar7) [facility] Varicella 2002-07-02 Completed [facility] (varivax)(chicken 00:00:00 [place] [facility] HIB 4 Dose Schedule 2002-07-02 Completed [facility] 00:00:00 [facility] MMR 2002-07-02 Completed [facility] 00:00:00 [facility] Pneumococcal 7 2002-07-02 Completed [facility] Conjugate, PCV7 00:00:00 [place] [facility] (Prevnar7) [facility] Varicella 2002-07-02 Completed [facility] (varivax)(chicken 00:00:00 [place] [facility] HIB 4 Dose Schedule 2002-07-02 Completed [facility] 00:00:00 [facility] MMR 2002-07-02 Completed [facility] 00:00:00 [facility] Pneumococcal 7 2002-07-02 Completed [facility] Conjugate, PCV7 00:00:00 [place] [facility] (Prevnar7[facility] Varicella 2002-07-02 Completed [facility] (varivax)(chicken 00:00:00 [place] [facility] HIB 4 Dose Schedule 2002-07-02 Completed [facility] 00:00:00 [facility] MMR 2002-07-02 Completed [facility] 00:00:00 [facility] Pneumococcal 7 2002-07-02 Completed [facility] Conjugate, PCV7 00:00:00 [place] [facility] (Prevnar7[facility] Varicella 2002-07-02 Completed [facility] (varivax)(chicken 00:00:00 [place] [facility] HIB 4 Dose Schedule 2002-07-02 Completed [facility] 00:00:00 [facility] MMR 2002-07-02 Completed [facility] 00:00:00 [facility] Pneumococcal 7 2002-07-02 Completed [facility] Conjugate, PCV7 00:00:00 [place] [facility] (Prevnar7) [facility] Varicella 2002-07-02 Completed [facility] (varivax)(chicken 00:00:00 [place] [facility] HIB 4 Dose Schedule 2002-07-02 Completed [facility] 00:00:00 [facility] MMR 2002-07-02 Completed [facility] 00:00:00 [facility] Pneumococcal 7 2002-07-02 Completed [facility] Conjugate, PCV7 00:00:00 [place] [facility] (Prevnar7[facility] Varicella 2002-07-02 Completed [facility] (varivax)(chicken 00:00:00 [place] [facility] HIB 4 Dose Schedule 2002-07-02 Completed [facility] 00:00:00 [facility] MMR 2002-07-02 Completed [facility] 00:00:00 [facility] Pneumococcal 7 2002-07-02 Completed [facility] Conjugate, PCV7 00:00:00 [place] [facility] (Prevnar7) [facility] Varicella 2002-07-02 Completed [facility] (varivax)(chicken 00:00:00 [place] [facility] HIB 4 Dose Schedule 2002-07-02 Completed [facility] 00:00:00 [facility] MMR 2002-07-02 Completed [facility] 00:00:00 [facility] Pneumococcal 7 2002-07-02 Completed [facility] Conjugate, PCV7 00:00:00 [place] [facility] (Prevnar7[facility] Varicella 2002-07-02 Completed [facility] (varivax)(chicken 00:00:00 [place] [facility] HIB 4 Dose Schedule 2002-07-02 Completed [facility] 00:00:00 [facility] MMR 2002-07-02 Completed [facility] 00:00:00 [facility] Pneumococcal 7 2002-07-02 Completed [facility] Conjugate, PCV7 00:00:00 [place] [facility] (Prevnar7[facility] Varicella 2002-07-02 Completed [facility] (varivax)(chicken 00:00:00 [place] [facility] HIB 4 Dose Schedule 2002-07-02 Completed [facility] 00:00:00 [facility] MMR 2002-07-02 Completed [facility] 00:00:00 [facility] Pneumococcal 7 2002-07-02 Completed [facility] Conjugate, PCV7 00:00:00 [place] [facility] (Prevnar7[facility] Varicella 2002-07-02 Completed [facility] (varivax)(chicken 00:00:00 [place] [facility] HIB 4 Dose Schedule 2002-07-02 Completed [facility] 00:00:00 [facility] MMR 2002-07-02 Completed [facility] 00:00:00 [facility] Pneumococcal 7 2002-07-02 Completed [facility] Conjugate, PCV7 00:00:00 [place] [facility] (Prevnar[facility] Varicella 2002-07-02 Completed [facility] (varivax)([place] 00:00:00 [place] [facility] ed[facility] pox) Branch HIB 4 Dose Schedule 2002-07-02 Completed [facility] 00:00:00 [facility] MMR 2002-07-02 Completed [facility] 00:00:00 [facility] Pneumococcal 7 2002-07-02 Completed [facility] of Conjugate, PCV7 00:00:00 [facility] (Pre[facility] Varicella 2002-07-02 Completed [facility] (varivax)(chicken 00:00:00 [facility] HIB 4 Dose Schedule 2002-07-02 Completed [facility] 00:00:00 [facility] MMR 2002-07-02 Completed [facility] 00:00:00 [facility] Polio (IPV/OPV) 2002-03-12 Completed [facility] 00:00:00 [facility] Polio (IPV/OPV) 2002-03-12 Completed [facility] 00:00:00 [facility] Polio (IPV/OPV) 2002-03-12 Completed [facility] 00:00:00 [facility] Polio (IPV/OPV) 2002-03-12 Completed [facility] 00:00:00 [facility] Polio (IPV/OPV) 2002-03-12 Completed [facility] 00:00:00 [facility] Polio (IPV/OPV) 2002-03-12 Completed [facility] of [...] 2002-03-12 Completed [facility] 00:00:00 [facility] Polio (IPV/OPV) 2002-03-12 Completed [facility] 00:00:00 [facility] Polio (IPV/OPV) 2002-03-12 Completed [facility] 00:00:00 [facility] Polio (IPV/OPV) 2002-03-12 Completed [facility] 00:00:00 [facility] Polio (IPV/OPV) 2002-03-12 Completed [facility] 00:00:00 [facility] Polio (IPV/OPV) 2002-03-12 Completed [facility] 00:00:00 [facility] Polio (IPV/OPV) 2002-03-12 Completed [facility] 00:00:00 [facility] Polio (IPV/OPV) 2002-03-12 Completed [facility] 00:00:00 [facility] Polio (IPV/OPV) 2002-03-12 Completed [facility] 00:00:00 [facility] Polio (IPV/OPV) 2002-03-12 Completed [facility] 00:00:00 [facility] Polio (IPV/OPV) 2002-03-12 Completed [facility] 00:00:00 [facility] Polio (IPV/OPV) 2002-03-12 Completed [facility] 00:00:00 [facility] Polio (IPV/OPV) 2002-03-12 Completed [facility] 00:00:00 [facility] Polio (IPV/OPV) 2002-03-12 Completed [facility] 00:00:00 [facility] DTAP 2001 Completed [facility] 00:00:00 [facility] HIB 4 Dose Schedule 2001 Completed [facility] 00:00:00 [facility] Hep B, Adol or Pedi 2001 Completed [facility] Dosage 00:00:00 [facility] DTAP 2001 Completed [facility] 00:00:00 [facility] HIB 4 Dose Schedule 2001 Completed [facility] 00:00:00 [facility] Hep B, Adol or Pedi 2001 Completed [facility] Dosage 00:00:00 [facility] DTAP 2001 Completed [facility] 00:00:00 [place] [...] 2001 Completed [facility] Dosage 00:00:00 [facility] DTAP 2001 Completed [facility] [...] 2001 Completed [facility] Dosage 00:00:00 [facility] DTAP 2001 Completed [facility] [...] 2001 Completed [facility] Dosage 00:00:00 [facility] DTAP 2001 Completed [facility] 00:00:00 [facility] HIB 4 Dose Schedule 2001 Completed [facility] 00:00:00 [facility] Hep B, Adol or Pedi 2001 Completed [facility] Dosage 00:00:00 [facility] DTAP 2001 Completed [facility] 00:00:00 [facility] HIB 4 Dose Schedule 2001 Completed [facility] 00:00:00 [facility] Hep B, Adol or Pedi 2001 Completed [facility] Dosage 00:00:00 [facility] DTAP 2001 Completed [facility] 00:00:00 [facility] HIB 4 Dose Schedule 2001 Completed [facility] 00:00:00 [facility] Hep B, Adol or Pedi 2001 Completed [facility] Dosage 00:00:00 [facility] DTAP 2001 Completed [facility] 00:00:00 [facility] HIB 4 Dose Schedule 2001 Completed [facility] 00:00:00 [facility] Hep B, Adol or Pedi 2001 Completed [facility] Dosage 00:00:00 [facility] DTAP 2001 Completed [facility] [...] 2001 Completed [facility] Dosage 00:00:00 [facility] HIB 4 Dose Schedule 2001 [...] 2001 Completed [facility] Dosage 00:00:00 [facility] DTAP 2001 Completed [facility] 00:00:00 [facility] HIB 4 Dose Schedule 2001 Completed [facility] 00:00:00 [facility] Hep B, Adol or Pedi 2001 Completed [facility] Dosage 00:00:00 [facility] DTAP 2001 Completed [facility] 00:00:00 [facility] HIB 4 Dose Schedule 2001 Completed [facility] 00:00:00 [facility] Hep B, Adol or Pedi 2001 Completed [facility] Dosage 00:00:00 [facility] DTAP 2001 Completed [facility] 00:00:00 [facility] HIB 4 Dose Schedule 2001 Completed [facility] 00:00:00 [facility] Hep B, Adol or Pedi 2001 Completed [facility] Dosage 00:00:00 [facility] DTAP 2001 Completed [facility] 00:00:00 [facility] HIB 4 Dose Schedule 2001 Completed [facility] 00:00:00 [facility] Hep B, Adol or Pedi 2001 Completed [facility] Dosage 00:00:00 [facility] DTAP 2001 Completed [facility] 00:00:00 [facility] HIB 4 Dose Schedule 2001 Completed [facility] 00:00:00 [facility] Hep B, Adol or Pedi 2001 Completed [facility] Dosage 00:00:00 [facility] DTAP 2001 Completed [facility] 00:00:00 [facility] DTAP 2001 Completed [facility] 00:00:00 [facility] HIB 4 Dose Schedule 2001 Completed [facility] 00:00:00 [facility] HIB 4 Dose Schedule 2001 Completed [facility] 00:00:00 [facility] Hep B, Adol or Pedi 2001 Completed [facility] Dosage 00:00:00 [facility] DTAP 2001 Completed [facility] [...] 2001 Completed [facility] Dosage 00:00:00 [facility] DTAP 2001 Completed [facility] [...] 2001 Completed [facility] Dosage 00:00:00 [facility] DTAP 2001 Completed [facility] 00:00:00 [facility] HIB 4 Dose Schedule 2001 Completed [facility] 00:00:00 [facility] Hep B, Adol or Pedi 2001 Completed [facility] Dosage 00:00:00 [facility] DTAP 2001 Completed [facility] [...] 2001 Completed [facility] Dosage 00:00:00 [facility] DTAP 2001 Completed [facility] 00:00:00 [facility] HIB 4 Dose Schedule 2001 Completed [facility] 00:00:00 [facility] Hep B, Adol or Pedi 2001 Completed [facility] Dosage 00:00:00 [facility] DTAP 2001 Completed [facility] 00:00:00 [facility] HIB 4 Dose Schedule 2001 Completed [facility] 00:00:00 [facility] Hep B, Adol or Pedi 2001 Completed [facility] Dosage 00:00:00 [facility] DTAP 2001 Completed [facility] [...] 2001 Completed [facility] Dosage 00:00:00 [facility] DTAP 2001 Completed [facility] 00:00:00 [facility] HIB 4 Dose Schedule 2001 Completed [facility] 00:00:00 [facility] Hep B, Adol or Pedi 2001 Completed [facility] Dosage 00:00:00 [facility] DTAP 2001 Completed [facility] 00:00:00 [facility] HIB 4 Dose Schedule 2001 Completed [facility] 00:00:00 [facility] Hep B, Adol or Pedi 2001 Completed [facility] Dosage 00:00:00 [facility] Polio (IPV/OPV) 2001 Completed [facility] 00:00:00 [facility] DTAP 2001 Completed [facility] 00:00:00 [facility] HIB 4 Dose Schedule 2001 Completed [facility] 00:00:00 [facility] Hep B, Adol or Pedi 2001 Completed [facility] Dosage 00:00:00 [facility] Pneumococcal 7 2001 Completed [facility] Conjugate, PCV7 00:00:00 [facility] (Pre[facility]ar7[facility] Polio (IPV/OPV) 2001 Completed [facility] 00:00:00 [facility] DTAP 2001 Completed [facility] 00:00:00 [facility] HIB 4 Dose Schedule 2001 Completed [facility] 00:00:00 [facility] Hep B, Adol or Pedi 2001 Completed [facility] Dosage 00:00:00 [facility] Pneumococcal 7 2001 Completed [facility] Conjugate, PCV7 00:00:00 [facility] (Prevnar7) [facility] Polio (IPV/OPV) 2001 Completed [facility] 00:00:00 [facility] DTAP 2001 Completed [facility] 00:00:00 [facility] HIB 4 Dose Schedule 2001 Completed [facility] 00:00:00 [facility] Hep B, Adol or Pedi 2001 Completed [facility] Dosage 00:00:00 [facility] Pneumococcal 7 2001 Completed [facility] Conjugate, PCV7 00:00:00 [facility] (Prevnar7) [facility] Polio (IPV/OPV) 2001 Completed [facility] 00:00:00 [facility] DTAP 2001 Completed [facility] 00:00:00 [facility] HIB 4 Dose Schedule 2001 Completed [facility] 00:00:00 [facility] Hep B, Adol or Pedi 2001 Completed [facility] Dosage 00:00:00 [facility] Pneumococcal 7 2001 Completed [facility] Conjugate, PCV7 00:00:00 [facility] (Prevnar7) [facility] Polio (IPV/OPV) 2001 Completed [facility] 00:00:00 [facility] DTAP 2001 Completed [facility] 00:00:00 [facility] HIB 4 Dose Schedule 2001 Completed [facility] 00:00:00 [facility] Hep B, Adol or Pedi 2001 Completed [facility] Dosage 00:00:00 [facility] Pneumococcal 7 2001 Completed [facility] Conjugate, PCV7 00:00:00 [facility] (Prevnar7) [facility] Polio (IPV/OPV) 2001 Completed [facility] 00:00:00 [facility] DTAP 2001 Completed [facility] 00:00:00 [facility] HIB 4 Dose Schedule 2001 Completed [facility] 00:00:00 [facility] Hep B, Adol or Pedi 2001 Completed [facility] Dosage 00:00:00 [facility] Pneumococcal 7 2001 Completed [facility] Conjugate, PCV7 00:00:00 [facility] (Prevnar7) [facility] Polio (IPV/OPV) 2001 Completed [facility] 00:00:00 [facility] DTAP 2001 Completed [facility] 00:00:00 [facility] HIB 4 Dose Schedule 2001 Completed [facility] 00:00:00 [facility] Hep B, Adol or Pedi 2001 Completed [facility] Dosage 00:00:00 [facility] Pneumococcal 7 2001 Completed [facility] Conjugate, PCV7 00:00:00 [facility] (Prevnar7) [facility] Polio (IPV/OPV) 2001 Completed [facility] 00:00:00 [facility] DTAP 2001 Completed [facility] 00:00:00 [facility] HIB 4 Dose Schedule 2001 Completed [facility] 00:00:00 [facility] Hep B, Adol or Pedi 2001 Completed [facility] Dosage 00:00:00 [facility] Pneumococcal 7 2001 Completed [facility] Conjugate, PCV7 00:00:00 [facility] (Prevnar7) [facility] Polio (IPV/OPV) 2001 Completed [facility] 00:00:00 [facility] DTAP 2001 Completed [facility] 00:00:00 [facility] HIB 4 Dose Schedule 2001 Completed [facility] 00:00:00 [facility] Hep B, Adol or Pedi 2001 Completed [facility] Dosage 00:00:00 [facility] Pneumococcal 7 2001 Completed [facility] Conjugate, PCV7 00:00:00 [facility] (Prevnar7) [facility] Polio (IPV/OPV) 2001 Completed [facility] 00:00:00 [facility] DTAP 2001 Completed [facility] 00:00:00 [facility] HIB 4 Dose Schedule 2001 Completed [facility] 00:00:00 [facility] Hep B, Adol or Pedi 2001 Completed [facility] Dosage 00:00:00 [facility] Pneumococcal 7 2001 Completed [facility] Conjugate, PCV7 00:00:00 [facility] (Prevnar7) [facility] Polio (IPV/OPV) 2001 Completed [facility] 00:00:00 [facility] DTAP 2001 Completed [facility] 00:00:00 [facility] HIB 4 Dose Schedule 2001 Completed [facility] 00:00:00 [facility] Hep B, Adol or Pedi 2001 Completed [facility] Dosage 00:00:00 [facility] Pneumococcal 7 2001 Completed [facility] Conjugate, PCV7 00:00:00 [facility] (Prevnar7) [facility] Polio (IPV/OPV) 2001 Completed [facility] 00:00:00 [facility] DTAP 2001 Completed [facility] 00:00:00 [facility] HIB 4 Dose Schedule 2001 Completed [facility] 00:00:00 [facility] Hep B, Adol or Pedi 2001 Completed [facility] of Dosage 00:00:00 [facility] Pneumococcal 7 2001 Completed [facility] Conjugate, PCV7 00:00:00 [facility] (Prevnar7) [facility] Polio (IPV/OPV) 2001 Completed [facility] 00:00:00 [facility] DTAP 2001 Completed [facility] 00:00:00 [facility] HIB 4 Dose Schedule 2001 Completed [facility] 00:00:00 [facility] Hep B, Adol or Pedi 2001 Completed [facility] of Dosage 00:00:00 [facility] Pneumococcal 7 2001 Completed [facility] of Conjugate, PCV7 00:00:00 [facility] ical (Prevnar7) Branch Polio (IPV/OPV) 2001 Completed [facility] 00:00:00 [facility] DTAP 2001 Completed [facility] 00:00:00 [facility] HIB 4 Dose Schedule 2001 Completed [facility] 00:00:00 [facility] Hep B, Adol or Pedi 2001 Completed [facility] Dosage 00:00:00 [facility] Pneumococcal 7 2001 Completed [facility] Conjugate, PCV7 00:00:00 [facility] (Prevnar7) [facility] Polio (IPV/OPV) 2001 Completed [facility] 00:00:00 [facility] DTAP 2001 Completed [facility] 00:00:00 [facility] HIB 4 Dose Schedule 2001 Completed [facility] 00:00:00 [facility] Hep B, Adol or Pedi 2001 Completed [facility] Dosage 00:00:00 [facility] Pneumococcal 7 2001 Completed [facility] Conjugate, PCV7 00:00:00 [facility] (Prevnar7) [facility] Polio (IPV/OPV) 2001 Completed [facility] 00:00:00 [facility] DTAP 2001 Completed [facility] 00:00:00 [facility] HIB 4 Dose Schedule 2001 Completed [facility] 00:00:00 [facility] Hep B, Adol or Pedi 2001 Completed [facility] Dosage 00:00:00 [facility] Pneumococcal 7 2001 Completed [facility] Conjugate, PCV7 00:00:00 [facility] (Prevnar7) [facility] Polio (IPV/OPV) 2001 Completed [facility] 00:00:00 [facility] DTAP 2001 Completed [facility] 00:00:00 [facility] HIB 4 Dose Schedule 2001 Completed [facility] 00:00:00 [facility] Hep B, Adol or Pedi 2001 Completed [facility] of Dosage 00:00:00 [facility] Pneumococcal 7 2001 Completed [facility] Conjugate, PCV7 00:00:00 [facility] (Prevnar7) [facility] Polio (IPV/OPV) 2001 Completed [facility] 00:00:00 [facility] DTAP 2001 Completed [facility] 00:00:00 [facility] HIB 4 Dose Schedule 2001 Completed [facility] 00:00:00 [facility] Hep B, Adol or Pedi 2001 Completed [facility] Dosage 00:00:00 [facility] Pneumococcal 7 2001 Completed [facility] Conjugate, PCV7 00:00:00 [facility] (Prevnar7) [facility] Polio (IPV/OPV) 2001 Completed [facility] 00:00:00 [facility] DTAP 2001 Completed [facility] 00:00:00 [facility] HIB 4 Dose Schedule 2001 Completed [facility] 00:00:00 [facility] Hep B, Adol or Pedi 2001 Completed [facility] Dosage 00:00:00 [facility] Pneumococcal 7 2001 Completed [facility] Conjugate, PCV7 00:00:00 [facility] (Prevnar7) [facility] Polio (IPV/OPV) 2001 Completed [facility] 00:00:00 [facility] DTAP 2001 Completed [facility] 00:00:00 [facility] HIB 4 Dose Schedule 2001 Completed [facility] 00:00:00 [facility] Hep B, Adol or Pedi 2001 Completed [facility] Dosage 00:00:00 [facility] Pneumococcal 7 2001 Completed [facility] Conjugate, PCV7 00:00:00 [facility] (Prevnar7) [facility] Polio (IPV/OPV) 2001 Completed [facility] 00:00:00 [facility] DTAP 2001 Completed [facility] 00:00:00 [facility] HIB 4 Dose Schedule 2001 Completed [facility] 00:00:00 [facility] Hep B, Adol or Pedi 2001 Completed [facility] Dosage 00:00:00 [facility] Pneumococcal 7 2001 Completed [facility] Conjugate, PCV7 00:00:00 [facility] (Prevnar7) [facility] Polio (IPV/OPV) 2001 Completed [facility] 00:00:00 [facility] DTAP 2001 Completed [facility] 00:00:00 [facility] HIB 4 Dose Schedule 2001 Completed [facility] 00:00:00 [facility] Hep B, Adol or Pedi 2001 Completed [facility] Dosage 00:00:00 [facility] Pneumococcal 7 2001 Completed [facility] Conjugate, PCV7 00:00:00 [facility] (Prevnar7) [facility] Polio (IPV/OPV) 2001 Completed [facility] 00:00:00 [facility] DTAP 2001 Completed [facility] 00:00:00 [facility] HIB 4 Dose Schedule 2001 Completed [facility] 00:00:00 [facility] Hep B, Adol or Pedi 2001 Completed [facility] Dosage 00:00:00 [facility] Pneumococcal 7 2001 Completed [facility] Conjugate, PCV7 00:00:00 [facility] (Prevnar7) [facility] Polio (IPV/OPV) 2001 Completed [facility] 00:00:00 [facility] DTAP 2001 Completed [facility] 00:00:00 [facility] HIB 4 Dose Schedule 2001 Completed [facility] 00:00:00 [facility] Hep B, Adol or Pedi 2001 Completed [facility] Dosage 00:00:00 [facility] Pneumococcal 7 2001 Completed [facility] Conjugate, PCV7 00:00:00 [facility] (Prevnar7) [facility] Polio (IPV/OPV) 2001 Completed [facility] 00:00:00 [facility] DTAP 2001 Completed [facility] 00:00:00 [facility] HIB 4 Dose Schedule 2001 Completed [facility] 00:00:00 [facility] Hep B, Adol or Pedi 2001 Completed [facility] Dosage 00:00:00 [facility] Pneumococcal 7 2001 Completed [facility] Conjugate, PCV7 00:00:00 [facility] ical (Prevnar7) Branch Polio (IPV/OPV) 2001 Completed [facility] 00:00:00 [facility] DTAP 2001 Completed [facility] 00:00:00 [facility] HIB 4 Dose Schedule 2001 Completed [facility] 00:00:00 [facility] Hep B, Adol or Pedi 2001 Completed [facility] Dosage 00:00:00 [facility] Pneumococcal 7 2001 Completed [facility] Conjugate, PCV7 00:00:00 [facility] (Prevnar7) [facility] Polio (IPV/OPV) 2001 Completed [facility] 00:00:00 [facility] DTAP 2001 Completed [facility] 00:00:00 [facility] DTAP 2001 Completed [facility] 00:00:00 [facility] HIB 4 Dose Schedule 2001 Completed [facility] 00:00:00 [facility] Hep B, Adol or Pedi 2001 Completed [facility] Dosage 00:00:00 [facility] Pneumococcal 7 2001 Completed [facility] Conjugate, PCV7 00:00:00 [facility] (Prevnar7) [facility] Polio (IPV/OPV) 2001 Completed [facility] 00:00:00 [facility] DTAP 2001 Completed [facility] 00:00:00 [facility] HIB 4 Dose Schedule 2001 Completed [facility] 00:00:00 [facility] Hep B, Adol or Pedi 2001 Completed [facility] Dosage 00:00:00 [facility] Pneumococcal 7 2001 Completed [facility] Conjugate, PCV7 00:00:00 [facility] (Prevnar7) [facility] HIB 4 Dose Schedule 2001 Completed [facility] 00:00:00 [facility] Polio (IPV/OPV) 2001 Completed [facility] 00:00:00 [facility] DTAP 2001 Completed [facility] 00:00:00 [facility] HIB 4 Dose Schedule 2001 Completed [facility] 00:00:00 [facility] Hep B, Adol or Pedi 2001 Completed [facility] Dosage 00:00:00 [facility] Pneumococcal 7 2001 Completed [facility] Conjugate, PCV7 00:00:00 [facility] ical (Prevnar7) Branch Polio (IPV/OPV) 2001 Completed [facility] 00:00:00 [facility] Hep B, Adol or Pedi 2001 Completed [facility] Dosage 00:00:00 [facility] DTAP 2001 Completed [facility] 00:00:00 [facility] HIB 4 Dose Schedule 2001 Completed [facility] 00:00:00 [facility] Hep B, Adol or Pedi 2001 Completed [facility] Dosage 00:00:00 [facility] Pneumococcal 7 2001 Completed [facility] Conjugate, PCV7 00:00:00 [facility] (Prevnar7) [facility] Polio (IPV/OPV) 2001 Completed [facility] 00:00:00 [facility] Pneumococcal 7 2001 Completed [facility] Conjugate, PCV7 00:00:00 [facility] (Prevnar7) [facility] DTAP 2001 Completed [facility] 00:00:00 [facility] HIB 4 Dose Schedule 2001 Completed [facility] 00:00:00 [facility] Hep B, Adol or Pedi 2001 Completed [facility] Dosage 00:00:00 [facility] Pneumococcal 7 2001 Completed [facility] Conjugate, PCV7 00:00:00 [facility] (Prevnar7) [facility] Polio (IPV/OPV) 2001 Completed [facility] 00:00:00 [facility] Polio (IPV/OPV) 2001 Completed [facility] 00:00:00 [facility] DTAP 2001 Completed [facility] 00:00:00 [facility] HIB 4 Dose Schedule 2001 Completed [facility] 00:00:00 [facility] Hep B, Adol or Pedi 2001 Completed [facility] Dosage 00:00:00 [facility] Pneumococcal 7 2001 Completed [facility] Conjugate, PCV7 00:00:00 [facility] (Prevnar7) [facility] Polio (IPV/OPV) 2001 Completed [facility] 00:00:00 [facility] DTAP 2001 Completed [facility] 00:00:00 [facility] HIB 4 Dose Schedule 2001 Completed [facility] 00:00:00 [facility] Hep B, Adol or Pedi 2001 Completed [facility] Dosage 00:00:00 [facility] Pneumococcal 7 2001 Completed [facility] Conjugate, PCV7 00:00:00 [facility] (Prevnar7) [facility] Polio (IPV/OPV) 2001 Completed [facility] 00:00:00 [facility] DTAP 2001 Completed [facility] 00:00:00 [facility] HIB 4 Dose Schedule 2001 Completed [facility] 00:00:00 [facility] Hep B, Adol or Pedi 2001 Completed [facility] Dosage 00:00:00 [facility] Pneumococcal 7 2001 Completed [facility] Conjugate, PCV7 00:00:00 [facility] (Prevnar7) [facility] Polio (IPV/OPV) 2001 Completed [facility] 00:00:00 [facility] DTAP 2001 Completed [facility] 00:00:00 [facility] HIB 4 Dose Schedule 2001 Completed [facility] 00:00:00 [facility] Hep B, Adol or Pedi 2001 Completed [facility] Dosage 00:00:00 [facility] Pneumococcal 7 2001 Completed [facility] Conjugate, PCV7 00:00:00 [facility] (Prevnar7) [facility] Polio (IPV/OPV) 2001 Completed [facility] 00:00:00 [facility] DTAP 2001 Completed [facility] 00:00:00 [facility] HIB 4 Dose Schedule 2001 Completed [facility] 00:00:00 [facility] Hep B, Adol or Pedi 2001 Completed [facility] Dosage 00:00:00 [facility] [facility] Pneumococcal 7 2001 Completed [facility] Conjugate, PCV7 00:00:00 [place] [facility] (Pre[facility]ar7) [facility] Polio (IPV/OPV) 2001 Completed [facility] 00:00:00 [facility] DTAP 2001 Completed [facility] 00:00:00 [facility] HIB 4 Dose Schedule 2001 Completed [facility] 00:00:00 [facility] Hep B, Adol or Pedi 2001 Completed [facility] Dosage 00:00:00 [facility] Pneumococcal 7 2001 Completed [facility] Conjugate, PCV7 00:00:00 [place] [facility] (Prevnar7) [facility] Polio (IPV/OPV) 2001 Completed [facility] 00:00:00 [facility] DTAP 2001 Completed [facility] 00:00:00 [facility] HIB 4 Dose Schedule 2001 Completed [facility] 00:00:00 [facility] Hep B, Adol or Pedi 2001 Completed [facility] Dosage 00:00:00 [facility] Pneumococcal 7 2001 Completed [facility] Conjugate, PCV7 00:00:00 [place] [facility] (Prevnar7) [facility] Polio (IPV/OPV) 2001 Completed [facility] 00:00:00 [facility] DTAP 2001 Completed [facility] 00:00:00 [facility] HIB 4 Dose Schedule 2001 Completed [facility] 00:00:00 [facility] Hep B, Adol or Pedi 2001 Completed [facility] Dosage 00:00:00 [facility] Pneumococcal 7 2001 Completed [facility] Conjugate, PCV7 00:00:00 [place] [facility] (Prevnar7) [facility] DTAP 2001 Completed [facility] 00:00:00 [facility] Polio (IPV/OPV) 2001 Completed [facility] 00:00:00 [facility] DTAP 2001 Completed [facility] 00:00:00 [facility] HIB 4 Dose Schedule 2001 Completed [facility] 00:00:00 [facility] Hep B, Adol or Pedi 2001 Completed [facility] of Dosage 00:00:00 [facility] Pneumococcal 7 2001 Completed [facility] Conjugate, PCV7 00:00:00 [facility] (Prevnar7) Branch Polio (IPV/OPV) 2001 Completed [facility] 00:00:00 [facility] HIB 4 Dose Schedule 2001 Completed [facility] of 00:00:00 [facility] DTAP 2001 Completed [facility] 00:00:00 [facility] HIB 4 Dose Schedule 2001 Completed [facility] 00:00:00 [facility] Hep B, Adol or Pedi 2001 Completed [facility] Dosage 00:00:00 [facility] Pneumococcal 7 2001 Completed [facility] Conjugate, PCV7 00:00:00 [place] [facility] (Prevnar7) [facility] Polio (IPV/OPV) 2001 Completed [facility] 00:00:00 [facility] DTAP 2001 Completed [facility] 00:00:00 [facility] HIB 4 Dose Schedule 2001 Completed [facility] 00:00:00 [facility] Hep B, Adol or Pedi 2001 Completed [facility] Dosage 00:00:00 [facility] Hep B, Adol or Pedi 2001 Completed [facility] Dosage 00:00:00 [facility] Pneumococcal 7 2001 Completed [facility] Conjugate, PCV7 00:00:00 [place] [facility] (Prevnar7) [facility] Polio (IPV/OPV) 2001 Completed [facility] 00:00:00 [facility] DTAP 2001 Completed [facility] 00:00:00 [facility] HIB 4 Dose Schedule 2001 Completed [facility] 00:00:00 [facility] Pneumococcal 7 2001 Completed [facility] Conjugate, PCV7 00:00:00 [place] [facility] (Prevnar7) [facility] Hep B, Adol or Pedi 2001 Completed [facility] Dosage 00:00:00 [facility] Pneumococcal 7 2001 Completed [facility] Conjugate, PCV7 00:00:00 [place] [facility] (Prevnar7) [facility] Polio (IPV/OPV) 2001 Completed [facility] 00:00:00 [facility] DTAP 2001 Completed [facility] 00:00:00 [facility] Polio (IPV/OPV) 2001 Completed [facility] 00:00:00 [facility] HIB 4 Dose Schedule 2001 Completed [facility] 00:00:00 [facility] Hep B, Adol or Pedi 2001 Completed [facility] Dosage 00:00:00 [facility] Pneumococcal 7 2001 Completed [facility] Conjugate, PCV7 00:00:00 [place] [facility] (Prevnar7) [facility] Polio (IPV/OPV) 2001 Completed [facility] 00:00:00 [facility] DTAP 2001 Completed [facility] 00:00:00 [facility] HIB 4 Dose Schedule 2001 Completed [facility] 00:00:00 [facility] Hep B, Adol or Pedi 2001 Completed [facility] Dosage 00:00:00 [facility] Pneumococcal 7 2001 Completed [facility] Conjugate, PCV7 00:00:00 [place] [facility] (Prevnar7) [facility] Polio (IPV/OPV) 2001 Completed [facility] 00:00:00 [facility] DTAP 2001 Completed [facility] 00:00:00 [facility] HIB 4 Dose Schedule 2001 Completed [facility] 00:00:00 [facility] Hep B, Adol or Pedi 2001 Completed [facility] Dosage 00:00:00 [facility] Pneumococcal 7 2001 Completed [facility] Conjugate, PCV7 00:00:00 [place] [facility] (Prevnar7) [facility] Polio (IPV/OPV) 2001 Completed [facility] 00:00:00 [facility] DTAP 2001 Completed [facility] 00:00:00 [facility] HIB 4 Dose Schedule 2001 Completed [facility] 00:00:00 [facility] Hep B, Adol or Pedi 2001 Completed [facility] of Dosage 00:00:00 [facility] Pneumococcal 7 2001 Completed [facility] Conjugate, PCV7 00:00:00 [facility] (Prevnar7) [place] Polio (IPV/OPV) 2001 Completed [facility] 00:00:00 [facility] DTAP 2001 Completed [facility] 00:00:00 [facility] HIB 4 Dose Schedule 2001 Completed [facility] 00:00:00 [facility] Hep B, Adol or Pedi 2001 Completed [facility] Dosage 00:00:00 [facility] Pneumococcal 7 2001 Completed [facility] Conjugate, PCV7 00:00:00 [place] [facility] (Prevnar7) [facility] Polio (IPV/OPV) 2001 Completed [facility] 00:00:00 [facility] DTAP 2001 Completed [facility] 00:00:00 [facility] HIB 4 Dose Schedule 2001 Completed [facility] 00:00:00 [facility] Hep B, Adol or Pedi 2001 Completed [facility] of Dosage 00:00:00 [facility] Pneumococcal 7 2001 Completed [facility] Conjugate, PCV7 00:00:00 [place] [facility] (Prevnar7) [facility] Polio (IPV/OPV) 2001 Completed [facility] 00:00:00 [facility] DTAP 2001 Completed [facility] 00:00:00 [facility] DTAP 2001 Completed [facility] 00:00:00 [facility] HIB 4 Dose Schedule 2001 Completed [facility] 00:00:00 [facility] HIB 4 Dose Schedule 2001 Completed [facility] 00:00:00 [facility] Hep B, Adol or Pedi 2001 Completed [facility] of Dosage 00:00:00 [facility] Pneumococcal 7 2001 Completed [facility] Conjugate, PCV7 00:00:00 [place] [facility] (Prevnar7) [facility] Polio (IPV/OPV) 2001 Completed [facility] 00:00:00 [facility] Hep B, Adol or Pedi 2001 Completed [facility] of Dosage 00:00:00 [facility] DTAP 2001 Completed [facility] 00:00:00 [facility] HIB 4 Dose Schedule 2001 Completed [facility] 00:00:00 [facility] Hep B, Adol or Pedi 2001 Completed [facility] of Dosage 00:00:00 [facility] Pneumococcal 7 2001 Completed [facility] Conjugate, PCV7 00:00:00 [place] [facility] (Prevnar7) [facility] Polio (IPV/OPV) 2001 Completed [facility] 00:00:00 [facility] DTAP 2001 Completed [facility] 00:00:00 [facility] Pneumococcal 7 2001 Completed [facility] Conjugate, PCV7 00:00:00 [place] [facility] (Prevnar7) [facility] HIB 4 Dose Schedule 2001 Completed [facility] 00:00:00 [facility] Hep B, Adol or Pedi 2001 Completed [facility] Dosage 00:00:00 [facility] Pneumococcal 7 2001 Completed [facility] Conjugate, PCV7 00:00:00 [place] [facility] (Prevnar7) [facility] Polio (IPV/OPV) 2001 Completed [facility] 00:00:00 [facility] Polio (IPV/OPV) 2001 Completed [facility] 00:00:00 [facility] DTAP 2001 Completed [facility] 00:00:00 [facility] HIB 4 Dose Schedule 2001 Completed [facility] 00:00:00 [facility] Hep B, Adol or Pedi 2001 Completed [facility] of Dosage 00:00:00 [facility] Pneumococcal 7 2001 Completed [facility] Conjugate, PCV7 00:00:00 [place] [facility] (Prevnar7) [facility] Polio (IPV/OPV) 2001 Completed [facility] 00:00:00 [facility] DTAP 2001 Completed [facility] 00:00:00 [facility] HIB 4 Dose Schedule 2001 Completed [facility] 00:00:00 [facility] Hep B, Adol or Pedi 2001 Completed [facility] of Dosage 00:00:00 [facility] Pneumococcal 7 2001 Completed [facility] Conjugate, PCV7 00:00:00 [place] [facility] (Prevnar7) [facility] Polio (IPV/OPV) 2001 Completed [facility] 00:00:00 [facility] DTAP 2001 Completed [facility] 00:00:00 [facility] HIB 4 Dose Schedule 2001 Completed [facility] 00:00:00 [facility] Hep B, Adol or Pedi 2001 Completed [facility] of Dosage 00:00:00 [facility] Pneumococcal 7 2001 Completed [facility] Conjugate, PCV7 00:00:00 [place] [facility] (Prevnar7) [facility] Polio (IPV/OPV) 2001 Completed [facility] 00:00:00 [facility] DTAP 2001 Completed [facility] 00:00:00 [facility] HIB 4 Dose Schedule 2001 Completed [facility] 00:00:00 [facility] Hep B, Adol or Pedi 2001 Completed [facility] Dosage 00:00:00 [facility] Pneumococcal 7 2001 Completed [facility] Conjugate, PCV7 00:00:00 [place] [facility] (Prevnar7) [facility] Polio (IPV/OPV) 2001 Completed [facility] 00:00:00 [facility] DTAP 2001 Completed [facility] 00:00:00 [facility] HIB 4 Dose Schedule 2001 Completed [facility] 00:00:00 [facility] Hep B, Adol or Pedi 2001 Completed [facility] of Dosage 00:00:00 [facility] Pneumococcal 7 2001 Completed [facility] Conjugate, PCV7 00:00:00 [place] [facility] (Prevnar7) [facility] Polio (IPV/OPV) 2001 Completed [facility] 00:00:00 [facility] DTAP 2001 Completed [facility] 00:00:00 [facility] HIB 4 Dose Schedule 2001 Completed [facility] 00:00:00 [facility] DTAP 2001 Completed [facility] 00:00:00 [facility] HIB 4 Dose Schedule 2001 Completed [facility] 00:00:00 [facility] Hep B, Adol or Pedi 2001 Completed [facility] Dosage 00:00:00 [facility] Pneumococcal 7 2001 Completed [facility] Conjugate, PCV7 00:00:00 [place] [facility] (Prevnar7) [facility] Polio (IPV/OPV) 2001 Completed [facility] 00:00:00 [facility] DTAP 2001 Completed [facility] 00:00:00 [facility] Hep B, Adol or Pedi 2001 Completed [facility] of Dosage 00:00:00 [facility] HIB 4 Dose Schedule 2001 Completed [facility] 00:00:00 [facility] Hep B, Adol or Pedi 2001 Completed [facility] of Dosage 00:00:00 [facility] Pneumococcal 7 2001 Completed [facility] Conjugate, PCV7 00:00:00 [place] [facility] (Prevnar7) [facility] Polio (IPV/OPV) 2001 Completed [facility] 00:00:00 [facility] Pneumococcal 7 2001 Completed [facility] Conjugate, PCV7 00:00:00 [place] [facility] (Prevnar7) [facility] Polio (IPV/OPV) 2001 Completed [facility] 00:00:00 [facility] DTAP 2001 Completed [facility] 00:00:00 [facility] HIB 4 Dose Schedule 2001 Completed [facility] 00:00:00 [facility] Hep B, Adol or Pedi 2001 Completed [facility] Dosage 00:00:00 [facility] Pneumococcal 7 2001 Completed [facility] Conjugate, PCV7 00:00:00 [place] [facility] (Prevnar7) [facility] Polio (IPV/OPV) 2001 Completed [facility] 00:00:00 [facility] DTAP 2001 Completed [facility] 00:00:00 [facility] HIB 4 Dose Schedule 2001 Completed [facility] 00:00:00 [facility] Hep B, Adol or Pedi 2001 Completed [facility] Dosage 00:00:00 [facility] Pneumococcal 7 2001 Completed [facility] Conjugate, PCV7 00:00:00 [place] [facility] (Prevnar7) [facility] Polio (IPV/OPV) 2001 Completed [facility] 00:00:00 [facility] DTAP 2001 Completed [facility] 00:00:00 [facility] HIB 4 Dose Schedule 2001 Completed [facility] 00:00:00 [facility] Hep B, Adol or Pedi 2001 Completed [facility] Dosage 00:00:00 [facility] Pneumococcal 7 2001 Completed [facility] Conjugate, PCV7 00:00:00 [place] [facility] (Prevnar7) [facility] Polio (IPV/OPV) 2001 Completed [facility] 00:00:00 [facility] DTAP 2001 Completed [facility] 00:00:00 [facility] HIB 4 Dose Schedule 2001 Completed [facility] 00:00:00 [facility] Hep B, Adol or Pedi 2001 Completed [facility] Dosage 00:00:00 [facility] Pneumococcal 7 2001 Completed [facility] Conjugate, PCV7 00:00:00 [place] [facility] (Prevnar7) [facility] Polio (IPV/OPV) 2001 Completed [facility] 00:00:00 [facility] DTAP 2001 Completed [facility] 00:00:00 [facility] HIB 4 Dose Schedule 2001 Completed [facility] 00:00:00 [facility] Hep B, Adol or Pedi 2001 Completed [facility] Dosage 00:00:00 [facility] Pneumococcal 7 2001 Completed [facility] Conjugate, PCV7 00:00:00 [place] [facility] (Prevnar7) [place] Polio (IPV/OPV) 2001 Completed [facility] 00:00:00 [facility] DTAP 2001 Completed [facility] 00:00:00 [facility] HIB 4 Dose Schedule 2001 Completed [facility] 00:00:00 [facility] Hep B, Adol or Pedi 2001 Completed [facility] of Dosage 00:00:00 [facility] Pneumococcal 7 2001 Completed [facility] Conjugate, PCV7 00:00:00 [place] [facility] (Prevnar7) [place] Polio (IPV/OPV) 2001 Completed [facility] 00:00:00 [facility] DTAP 2001 Completed [facility] 00:00:00 [facility] HIB 4 Dose Schedule 2001 Completed [facility] 00:00:00 [facility] Hep B, Adol or Pedi 2001 Completed [facility] Dosage 00:00:00 [facility] Pneumococcal 7 2001 Completed [facility] Conjugate, PCV7 00:00:00 [place] [facility] (Prevnar7) [facility] Polio (IPV/OPV) 2001 Completed [facility] 00:00:00 [facility] DTAP 2001 Completed [facility] 00:00:00 [facility] HIB 4 Dose Schedule 2001 Completed [facility] 00:00:00 [facility] Hep B, Adol or Pedi 2001 Completed [facility] Dosage 00:00:00 [facility] Pneumococcal 7 2001 Completed [facility] Conjugate, PCV7 00:00:00 [place] [facility] (Prevnar7) [facility] Polio (IPV/OPV) 2001 Completed [facility] 00:00:00 [facility] DTAP 2001 Completed [facility] 00:00:00 [facility] HIB 4 Dose Schedule 2001 Completed [facility] 00:00:00 [facility] Hep B, Adol or Pedi 2001 Completed [facility] Dosage 00:00:00 [facility] Pneumococcal 7 2001 Completed [facility] Conjugate, PCV7 00:00:00 [place] [facility] (Prevnar7) [facility] Polio (IPV/OPV) 2001 Completed [facility] 00:00:00 [facility] DTAP 2001 Completed [facility] 00:00:00 [facility] HIB 4 Dose Schedule 2001 Completed [facility] 00:00:00 [facility] Hep B, Adol or Pedi 2001 Completed [facility] Dosage 00:00:00 [facility] Pneumococcal 7 2001 Completed [facility] Conjugate, PCV7 00:00:00 [facility] ical (Prevnar7) [place] Polio (IPV/OPV) 2001 Completed [facility] 00:00:00 [facility] DTAP 2001 Completed [facility] 00:00:00 [facility] HIB 4 Dose Schedule 2001 Completed [facility] 00:00:00 [facility] Hep B, Adol or Pedi 2001 Completed [facility] Dosage 00:00:00 [facility] Pneumococcal 7 2001 Completed [facility] Conjugate, PCV7 00:00:00 [facility] ical (Prevnar7) [place] Polio (IPV/OPV) 2001 Completed [facility] 00:00:00 [facility] DTAP 2001 Completed [facility] 00:00:00 [facility] HIB 4 Dose Schedule 2001 Completed [facility] 00:00:00 [facility] Hep B, Adol or Pedi 2001 Completed [facility] Dosage 00:00:00 [facility] Pneumococcal 7 2001 Completed [facility] Conjugate, PCV7 00:00:00 [place] [facility] (Prevnar7) [place] Polio (IPV/OPV) 2001 Completed [facility] 00:00:00 [facility] DTAP 2001 Completed [facility] 00:00:00 [facility] HIB 4 Dose Schedule 2001 Completed [facility] 00:00:00 [facility] Hep B, Adol or Pedi 2001 Completed [facility] Dosage 00:00:00 [facility] Pneumococcal 7 2001 Completed [facility] Conjugate, PCV7 00:00:00 [place] [facility] (Prevnar7) [facility] Polio (IPV/OPV) 2001 Completed [facility] 00:00:00 [facility] DTAP 2001 Completed [facility] 00:00:00 [facility] HIB 4 Dose Schedule 2001 Completed [facility] 00:00:00 [facility] Hep B, Adol or Pedi 2001 Completed [facility] Dosage 00:00:00 [facility] Pneumococcal 7 2001 Completed [facility] Conjugate, PCV7 00:00:00 [place] [facility] (Prevnar7) [facility] Polio (IPV/OPV) 2001 Completed [facility] 00:00:00 [facility] DTAP 2001 Completed [facility] 00:00:00 [facility] HIB 4 Dose Schedule 2001 Completed [facility] 00:00:00 [facility] Pneumococcal 7 2001 Completed [facility] Conjugate, PCV7 00:00:00 [place] [facility] (Prevnar7) [facility] Polio (IPV/OPV) 2001 Completed [facility] 00:00:00 [facility] DTAP 2001 Completed [facility] 00:00:00 [facility] HIB 4 Dose Schedule 2001 Completed [facility] 00:00:00 [facility] Pneumococcal 7 2001 Completed [facility] Conjugate, PCV7 00:00:00 [place] [facility] (Prevnar7) Branch Polio (IPV/OPV) 2001 Completed [facility] 00:00:00 [facility] DTAP 2001 Completed [facility] 00:00:00 [facility] HIB 4 Dose Schedule 2001 Completed [facility] 00:00:00 [facility] Pneumococcal 7 2001 Completed [facility] Conjugate, PCV7 00:00:00 [place] [facility] (Prevnar7) [facility] Polio (IPV/OPV) 2001 Completed [facility] 00:00:00 [facility] DTAP 2001 Completed [facility] 00:00:00 [facility] HIB 4 Dose Schedule 2001 Completed [facility] 00:00:00 [facility] Pneumococcal 7 2001 Completed [facility] Conjugate, PCV7 00:00:00 [place] [facility] (Prevnar7) [facility] Polio (IPV/OPV) 2001 Completed [facility] 00:00:00 [facility] DTAP 2001 Completed [facility] 00:00:00 [facility] HIB 4 Dose Schedule 2001 Completed [facility] 00:00:00 [facility] Pneumococcal 7 2001 Completed [facility] Conjugate, PCV7 00:00:00 [place] [facility] (Prevnar7) [facility] Polio (IPV/OPV) 2001 Completed [facility] 00:00:00 [facility] DTAP 2001 Completed [facility] 00:00:00 [facility] HIB 4 Dose Schedule 2001 Completed [facility] 00:00:00 [facility] Pneumococcal 7 2001 Completed [facility] Conjugate, PCV7 00:00:00 [place] [facility] (Prevnar7) [facility] Polio (IPV/OPV) 2001 Completed [facility] 00:00:00 [facility] DTAP 2001 Completed [facility] 00:00:00 [facility] HIB 4 Dose Schedule 2001 Completed [facility] 00:00:00 [facility] Pneumococcal 7 2001 Completed [facility] Conjugate, PCV7 00:00:00 [place] [facility] (Prevnar7) [facility] Polio (IPV/OPV) 2001 Completed [facility] 00:00:00 [facility] DTAP 2001 Completed [facility] 00:00:00 [facility] HIB 4 Dose Schedule 2001 Completed [facility] 00:00:00 [facility] Pneumococcal 7 2001 Completed [facility] Conjugate, PCV7 00:00:00 [place] [facility] (Prevnar7) [facility] Polio (IPV/OPV) 2001 Completed [facility] 00:00:00 [facility] DTAP 2001 Completed [facility] 00:00:00 [facility] HIB 4 Dose Schedule 2001 Completed [facility] 00:00:00 [facility] Pneumococcal 7 2001 Completed [facility] Conjugate, PCV7 00:00:00 [place] [facility] (Prevnar7) [facility] Polio (IPV/OPV) 2001 Completed [facility] 00:00:00 [facility] DTAP 2001 Completed [facility] 00:00:00 [facility] HIB 4 Dose Schedule 2001 Completed [facility] 00:00:00 [facility] Pneumococcal 7 2001 Completed [facility] Conjugate, PCV7 00:00:00 [place] [facility] (Prevnar7) [facility] Polio (IPV/OPV) 2001 Completed [facility] 00:00:00 [facility] DTAP 2001 Completed [facility] 00:00:00 [facility] HIB 4 Dose Schedule 2001 Completed [facility] 00:00:00 [facility] Pneumococcal 7 2001 Completed [facility] Conjugate, PCV7 00:00:00 [place] [facility] (Prevnar7) [facility] Polio (IPV/OPV) 2001 Completed [facility] 00:00:00 [facility] DTAP 2001 Completed [facility] 00:00:00 [facility] HIB 4 Dose Schedule 2001 Completed [facility] 00:00:00 [facility] Pneumococcal 7 2001 Completed [facility] Conjugate, PCV7 00:00:00 [place] [facility] (Prevnar7) [facility] Polio (IPV/OPV) 2001 Completed [facility] 00:00:00 [facility] DTAP 2001 Completed [facility] 00:00:00 [facility] HIB 4 Dose Schedule 2001 Completed [facility] 00:00:00 [facility] Pneumococcal 7 2001 Completed [facility] Conjugate, PCV7 00:00:00 [place] [facility] (Prevnar7) [facility] Polio (IPV/OPV) 2001 Completed [facility] 00:00:00 [facility] DTAP 2001 Completed [facility] 00:00:00 [facility] HIB 4 Dose Schedule 2001 Completed [facility] 00:00:00 [facility] Pneumococcal 7 2001 Completed [facility] Conjugate, PCV7 00:00:00 [place] [facility] (Prevnar7) [facility] Polio (IPV/OPV) 2001 Completed [facility] 00:00:00 [facility] DTAP 2001 Completed [facility] 00:00:00 [facility] HIB 4 Dose Schedule 2001 Completed [facility] 00:00:00 [facility] Pneumococcal 7 2001 Completed [facility] Conjugate, PCV7 00:00:00 [place] [facility] (Prevnar7) [facility] Polio (IPV/OPV) 2001 Completed [facility] 00:00:00 [facility] DTAP 2001 Completed [facility] 00:00:00 [facility] HIB 4 Dose Schedule 2001 Completed [facility] 00:00:00 [facility] Pneumococcal 7 2001 Completed [facility] Conjugate, PCV7 00:00:00 [place] [facility] (Prevnar7) [facility] Polio (IPV/OPV) 2001 Completed [facility] 00:00:00 [facility] DTAP 2001 Completed [facility] 00:00:00 [facility] HIB 4 Dose Schedule 2001 Completed [facility] 00:00:00 [facility] Pneumococcal 7 2001 Completed [facility] Conjugate, PCV7 00:00:00 [place] [facility] (Prevnar7) [facility] Polio (IPV/OPV) 2001 Completed [facility] 00:00:00 [facility] DTAP 2001 Completed [facility] 00:00:00 [facility] HIB 4 Dose Schedule 2001 Completed [facility] 00:00:00 [facility] Pneumococcal 7 2001 Completed [facility] Conjugate, PCV7 00:00:00 [facility] (Prevnar7) [facility] Polio (IPV/OPV) 2001 Completed [facility] 00:00:00 [facility] DTAP 2001 Completed [facility] of 00:00:00 [facility] HIB 4 Dose Schedule 2001 Completed Unive rsity of 00:00:00 [facility] Pneumococcal 7 2001 Completed [facility] of Conjugate, PCV7 00:00:00 [facility] (Prevnar7) [facility] Polio (IPV/OPV) 2001 Completed [facility] 00:00:00 [facility] DTAP 2001 Completed [facility] of 00:00:00 [facility] HIB 4 Dose Schedule 2001 Completed [facility]ive rsity of 00:00:00 [facility] Pneumococcal 7 2001 Completed [facility] of Conjugate, PCV7 00:00:00 [facility] (Prevnar7) [facility] Polio (IPV/OPV) 2001 Completed [facility] 00:00:00 [facility] DTAP 2001 Completed [facility] of 00:00:00 [facility] HIB 4 Dose Schedule 2001 Completed [facility]ive rsity of 00:00:00 [facility] Pneumococcal 7 2001 Completed [facility] of Conjugate, PCV7 00:00:00 [facility] (Prevnar7) [facility] Polio (IPV/OPV) 2001 Completed [facility] of 00:00:00 [facility] DTAP 2001 Completed [facility] of 00:00:00 [facility] HIB 4 Dose Schedule 2001 Completed [facility]ive rsity of 00:00:00 [facility] Pneumococcal 7 2001 Completed [facility] of Conjugate, PCV7 00:00:00 [facility] (Prevnar7) [facility] Polio (IPV/OPV) 2001 Completed [facility] of 00:00:00 [facility] DTAP 2001 Completed [facility] of 00:00:00 [facility] HIB 4 Dose Schedule 2001 Completed [facility]ive rsity of 00:00:00 [facility] Pneumococcal 7 2001 Completed [facility] of Conjugate, PCV7 00:00:00 [facility] (Prevnar7) [facility] Polio (IPV/OPV) 2001 Completed [facility] of 00:00:00 [facility] DTAP 2001 Completed [facility] of 00:00:00 [facility] HIB 4 Dose Schedule 2001 Completed [facility]ive rsity of 00:00:00 [facility] Pneumococcal 7 2001 Completed [facility] of Conjugate, PCV7 00:00:00 [place] [facility] (Prevnar7) [facility] Polio (IPV/OPV) 2001 Completed [facility]it [facility] of 00:00:00 [facility] DTAP 2001 Completed [facility] of 00:00:00 [facility] HIB 4 Dose Schedule 2001 Completed Unive rsity of 00:00:00 [facility] Pneumococcal 7 2001 Completed [facility] of Conjugate, PCV7 00:00:00 [facility] (Prevnar7) [facility] Polio (IPV/OPV) 2001 Completed [facility]it [facility] of 00:00:00 [facility] DTAP 2001 Completed [facility] of 00:00:00 [facility] HIB 4 Dose Schedule 2001 Completed [facility]ive rsity of 00:00:00 [facility] Pneumococcal 7 2001 Completed [facility] Conjugate, PCV7 00:00:00 [facility] (Prevnar7) [facility] Polio (IPV/OPV) 2001 Completed [facility] of 00:00:00 [facility] DTAP 2001 Completed [facility] of 00:00:00 [facility] DTAP 2001 Completed [facility] of 00:00:00 [facility] HIB 4 Dose Schedule 2001 Completed [facility]ive rsity of 00:00:00 [facility] Pneumococcal 7 2001 Completed [facility] of Conjugate, PCV7 00:00:00 [facility] (Prevnar7) [facility] Polio (IPV/OPV) 2001 Completed [facility] of 00:00:00 [facility] DTAP 2001 Completed [facility] of 00:00:00 [facility] HIB 4 Dose Schedule 2001 Completed [facility]ive rsity of 00:00:00 [facility] HIB 4 Dose Schedule 2001 Completed [facility]ive rsity of 00:00:00 [facility] Pneumococcal 7 2001 Completed [facility] Conjugate, PCV7 00:00:00 [facility] (Prevnar7) [facility] Polio (IPV/OPV) 2001 Completed [facility] 00:00:00 [facility] DTAP 2001 Completed [facility] of 00:00:00 [facility] HIB 4 Dose Schedule 2001 Completed [facility]ive rsity of 00:00:00 [facility] Pneumococcal 7 2001 Completed [facility] Conjugate, PCV7 00:00:00 [facility] (Prevnar7) [facility] Polio (IPV/OPV) 2001 Completed [facility] of 00:00:00 [facility] DTAP 2001 Completed [facility] of 00:00:00 [facility] HIB 4 Dose Schedule 2001 Completed [facility]ive rsity of 00:00:00 [facility] Pneumococcal 7 2001 Completed [facility] Conjugate, PCV7 00:00:00 [facility] (Prevnar7) [facility] Polio (IPV/OPV) 2001 Completed [facility]it [facility] of 00:00:00 [facility] Pneumococcal 7 2001 Completed [facility] Conjugate, PCV7 00:00:00 [facility] (Prevnar7) [facility] DTAP 2001 Completed [facility] of 00:00:00 [facility] HIB 4 Dose Schedule 2001 Completed [facility]ive rsity of 00:00:00 [facility] Pneumococcal 7 2001 Completed [facility] of Conjugate, PCV7 00:00:00 [facility] (Prevnar7) [facility] Polio (IPV/OPV) 2001 Completed [facility] of 00:00:00 [facility] Polio (IPV/OPV) 2001 Completed [facility] of 00:00:00 [facility] DTAP 2001 Completed [facility] of 00:00:00 [facility] HIB 4 Dose Schedule 2001 Completed [facility]ive rsity of 00:00:00 [facility] Pneumococcal 7 2001 Completed [facility] of Conjugate, PCV7 00:00:00 [place] [facility] (Prevnar7) [facility] Polio (IPV/OPV) 2001 Completed [facility] of 00:00:00 [facility] DTAP 2001 Completed [facility] of 00:00:00 [facility] HIB 4 Dose Schedule 2001 Completed [facility]ive rsity of 00:00:00 [facility] Pneumococcal 7 2001 Completed [facility] Conjugate, PCV7 00:00:00 [facility] (Prevnar7) [facility] Polio (IPV/OPV) 2001 Completed [facility] of 00:00:00 [facility] DTAP 2001 Completed [facility] of 00:00:00 [facility] HIB 4 Dose Schedule 2001 Completed [facility]ive rsity of 00:00:00 [facility] Pneumococcal 7 2001 Completed [facility] Conjugate, PCV7 00:00:00 [place] [facility] (Prevnar7) [facility] Polio (IPV/OPV) 2001 Completed [facility] of 00:00:00 [facility] DTAP 2001 Completed [facility] of 00:00:00 [facility] HIB 4 Dose Schedule 2001 Completed [facility]ive rsity of 00:00:00 [facility] Pneumococcal 7 2001 Completed [facility] of Conjugate, PCV7 00:00:00 [place] [facility] (Prevnar7) [facility] Polio (IPV/OPV) 2001 Completed [facility] 00:00:00 [facility] DTAP 2001 Completed [facility] of 00:00:00 [facility] HIB 4 Dose Schedule 2001 Completed [facility]ive rsity of 00:00:00 [facility] Pneumococcal 7 2001 Completed [facility] Conjugate, PCV7 00:00:00 [place] [facility] (Prevnar7) [facility] Polio (IPV/OPV) 2001 Completed [facility] of 00:00:00 [facility] DTAP 2001 Completed [facility] of 00:00:00 [facility] HIB 4 Dose Schedule 2001 Completed [facility]ive rsity of 00:00:00 [facility] Pneumococcal 7 2001 Completed [facility] Conjugate, PCV7 00:00:00 [place] [facility] (Prevnar7) [facility] Polio (IPV/OPV) 2001 Completed [facility] of 00:00:00 [facility] DTAP 2001 Completed [facility] of 00:00:00 [facility] HIB 4 Dose Schedule 2001 Completed [facility]ive rsity of 00:00:00 [facility] Pneumococcal 7 2001 Completed [facility] Conjugate, PCV7 00:00:00 [facility] (Prevnar7) [facility] Polio (IPV/OPV) 2001 Completed [facility]it [facility] of 00:00:00 [facility] DTAP 2001 Completed [facility] of 00:00:00 [facility] HIB 4 Dose Schedule 2001 Completed [facility]ive rsity of 00:00:00 [facility] DTAP 2001 Completed [facility] of 00:00:00 [facility] Pneumococcal 7 2001 Completed [facility] Conjugate, PCV7 00:00:00 [facility] (Prevnar7) [facility] Polio (IPV/OPV) 2001 Completed [facility] of 00:00:00 [facility] DTAP 2001 Completed [facility] of 00:00:00 [facility] HIB 4 Dose Schedule 2001 Completed [facility]ive rsity of 00:00:00 [facility] Pneumococcal 7 2001 Completed [facility] of Conjugate, PCV7 00:00:00 [facility] (Prevnar7) [facility] HIB 4 Dose Schedule 2001 Completed [facility]ive rsity of 00:00:00 [facility] Polio (IPV/OPV) 2001 Completed [facility] of 00:00:00 [facility] DTAP 2001 Completed [facility] of 00:00:00 [facility] HIB 4 Dose Schedule 2001 Completed [facility]ive rsity of 00:00:00 [facility] Pneumococcal 7 2001 Completed [facility] Conjugate, PCV7 00:00:00 [facility] (Prevnar7) [facility] Polio (IPV/OPV) 2001 Completed [facility] of 00:00:00 [facility] DTAP 2001 Completed [facility] of 00:00:00 [facility] HIB 4 Dose Schedule 2001 Completed [facility]ive rsity of 00:00:00 [facility] Pneumococcal 7 2001 Completed [facility] Conjugate, PCV7 00:00:00 [facility] (Prevnar7) [facility] Polio (IPV/OPV) 2001 Completed [facility] 00:00:00 [facility] Pneumococcal 7 2001 Completed [facility] of Conjugate, PCV7 00:00:00 [facility] (Prevnar7) [facility] DTAP 2001 Completed [facility] of 00:00:00 [facility] HIB 4 Dose Schedule 2001 Completed Unive rsity of 00:00:00 [facility] Pneumococcal 7 2001 Completed [facility] of Conjugate, PCV7 00:00:00 [facility] (Prevnar7) [facility] Polio (IPV/OPV) 2001 Completed [facility]it [facility] of 00:00:00 [facility] Polio (IPV/OPV) 2001 Completed [facility] of 00:00:00 [facility] DTAP 2001 Completed [facility] of 00:00:00 [facility] HIB 4 Dose Schedule 2001 Completed [facility]ive rsity of 00:00:00 [facility] Pneumococcal 7 2001 Completed [facility] of Conjugate, PCV7 00:00:00 [facility] (Prevnar7) [facility] Polio (IPV/OPV) 2001 Completed [facility] of 00:00:00 [facility] DTAP 2001 Completed [facility] of 00:00:00 [facility] HIB 4 Dose Schedule 2001 Completed [facility]ive rsity of 00:00:00 [facility] Pneumococcal 7 2001 Completed [facility] Conjugate, PCV7 00:00:00 [facility] (Prevnar7) [facility] Polio (IPV/OPV) 2001 Completed [facility] of 00:00:00 [facility] DTAP 2001 Completed [facility] of 00:00:00 [facility] HIB 4 Dose Schedule 2001 Completed Unive rsity of 00:00:00 [facility] Pneumococcal 7 2001 Completed [facility] of Conjugate, PCV7 00:00:00 [place] [facility] (Prevnar7) [facility] Polio (IPV/OPV) 2001 Completed [facility] 00:00:00 [facility] DTAP 2001 Completed [facility] of 00:00:00 [facility] HIB 4 Dose Schedule 2001 Completed Unive rsity of 00:00:00 [facility] Pneumococcal 7 2001 Completed [facility] of Conjugate, PCV7 00:00:00 [place] [facility] (Prevnar7) [facility] Polio (IPV/OPV) 2001 Completed [facility] 00:00:00 [facility] DTAP 2001 Completed [facility] of 00:00:00 [facility] HIB 4 Dose Schedule 2001 Completed Unive rsity of 00:00:00 [facility] Pneumococcal 7 2001 Completed [facility] of Conjugate, PCV7 00:00:00 [place] [facility] (Prevnar7) [facility] Polio (IPV/OPV) 2001 Completed [facility] 00:00:00 [facility] DTAP 2001 Completed [facility] of 00:00:00 [facility] HIB 4 Dose Schedule 2001 Completed Unive rsity of 00:00:00 [facility] DTAP 2001 Completed [facility] of 00:00:00 [facility] Pneumococcal 7 2001 Completed [facility] of Conjugate, PCV7 00:00:00 [place] [facility] (Prevnar7) [facility] Polio (IPV/OPV) 2001 Completed [facility] of 00:00:00 [facility] HIB 4 Dose Schedule 2001 Completed Unive rsity of 00:00:00 [facility] DTAP 2001 Completed [facility] of 00:00:00 [facility] HIB 4 Dose Schedule 2001 Completed [facility]ive rsity of 00:00:00 [facility] Pneumococcal 7 2001 Completed [facility] Conjugate, PCV7 00:00:00 [place] [facility] (Prevnar7) [facility] Polio (IPV/OPV) 2001 Completed [facility] 00:00:00 [facility] DTAP 2001 Completed [facility] of 00:00:00 [facility] HIB 4 Dose Schedule 2001 Completed [facility]ive rsity of 00:00:00 [facility] Pneumococcal 7 2001 Completed [facility] of Conjugate, PCV7 00:00:00 [place] [facility] (Prevnar7) [facility] Polio (IPV/OPV) 2001 Completed [facility] 00:00:00 [facility] Pneumococcal 7 2001 Completed [facility] of Conjugate, PCV7 00:00:00 [place] [facility] (Prevnar7) [facility] DTAP 2001 Completed [facility] of 00:00:00 [facility] HIB 4 Dose Schedule 2001 Completed [facility]ive rsity of 00:00:00 [facility] Pneumococcal 7 2001 Completed [facility] Conjugate, PCV7 00:00:00 [facility] (Prevnar7) [facility] Polio (IPV/OPV) 2001 Completed [facility] 00:00:00 [facility] Polio (IPV/OPV) 2001 Completed [facility] 00:00:00 [facility] DTAP 2001 Completed [facility] of 00:00:00 [facility] HIB 4 Dose Schedule 2001 Completed [facility]ive rsity of 00:00:00 [facility] Pneumococcal 7 2001 Completed [facility] of Conjugate, PCV7 00:00:00 [place] [facility] (Prevnar7) [facility] Polio (IPV/OPV) 2001 Completed [facility] 00:00:00 [facility] DTAP 2001 Completed [facility] of 00:00:00 [facility] HIB 4 Dose Schedule 2001 Completed [facility]ive rsity of 00:00:00 [facility] Pneumococcal 7 2001 Completed [facility] of Conjugate, PCV7 00:00:00 [facility] (Prevnar7) [facility] Polio (IPV/OPV) 2001 Completed [facility] of 00:00:00 [facility] DTAP 2001 Completed [facility] of 00:00:00 [facility] HIB 4 Dose Schedule 2001 Completed [facility]ive rsity of 00:00:00 [facility] Pneumococcal 7 2001 Completed [facility] Conjugate, PCV7 00:00:00 [facility] (Prevnar7) [facility] Polio (IPV/OPV) 2001 Completed [facility] 00:00:00 [facility] DTAP 2001 Completed [facility] of 00:00:00 [facility] HIB 4 Dose Schedule 2001 Completed [facility]ive rsity of 00:00:00 [facility] Pneumococcal 7 2001 Completed [facility] Conjugate, PCV7 00:00:00 [place] [facility] (Prevnar7) [facility] Polio (IPV/OPV) 2001 Completed [facility] of 00:00:00 [facility] DTAP 2001 Completed [facility] of 00:00:00 [facility] HIB 4 Dose Schedule 2001 Completed Unive rsity of 00:00:00 [facility] Pneumococcal 7 2001 Completed [facility] Conjugate, PCV7 00:00:00 [place] [facility] (Prevnar7) [facility] Polio (IPV/OPV) 2001 Completed [facility] 00:00:00 [facility] DTAP 2001 Completed [facility] of 00:00:00 [facility] HIB 4 Dose Schedule 2001 Completed [facility]ive [facility]ity of 00:00:00 [facility] DTAP 2001 Completed [facility] of 00:00:00 [facility] HIB 4 Dose Schedule 2001 Completed [facility]ive rsity of 00:00:00 [facility] Pneumococcal 7 2001 Completed [facility] of Conjugate, PCV7 00:00:00 [place] [facility] (Prevnar7) [facility] Polio (IPV/OPV) 2001 Completed [facility] of 00:00:00 [facility] DTAP 2001 Completed [facility] of 00:00:00 [facility] HIB 4 Dose Schedule 2001 Completed Unive rsity of 00:00:00 [facility] Pneumococcal 7 2001 Completed [facility] of Conjugate, PCV7 00:00:00 [place] [facility] (Prevnar7) [facility] Polio (IPV/OPV) 2001 Completed [facility] of 00:00:00 [facility] Pneumococcal 7 2001 Completed [facility] Conjugate, PCV7 00:00:00 [place] [facility] (Prevnar7) [facility] Polio (IPV/OPV) 2001 Completed [facility] 00:00:00 [facility] DTAP 2001 Completed [facility] of 00:00:00 [facility] HIB 4 Dose Schedule 2001 Completed Unive rsity of 00:00:00 [facility] Pneumococcal 7 2001 Completed [facility] Conjugate, PCV7 00:00:00 [place] [facility] (Prevnar7) [facility] Polio (IPV/OPV) 2001 Completed [facility] 00:00:00 [facility] DTAP 2001 Completed [facility] of 00:00:00 [facility] HIB 4 Dose Schedule 2001 Completed Unive rsity of 00:00:00 [facility] Pneumococcal 7 2001 Completed [facility] Conjugate, PCV7 00:00:00 [place] [facility] (Prevnar7) [facility] Polio (IPV/OPV) 2001 Completed [facility] of 00:00:00 [facility] DTAP 2001 Completed [facility] of 00:00:00 [facility] HIB 4 Dose Schedule 2001 Completed Unive rsity of 00:00:00 [facility] Pneumococcal 7 2001 Completed [facility] of Conjugate, PCV7 00:00:00 [facility] (Prevnar7) [facility] Polio (IPV/OPV) 2001 Completed [facility] of 00:00:00 [facility] DTAP 2001 Completed [facility] of 00:00:00 [facility] HIB 4 Dose Schedule 2001 Completed Unive rsity of 00:00:00 [facility] Pneumococcal 7 2001 Completed [facility] of Conjugate, PCV7 00:00:00 [facility] (Prevnar7) [facility] Polio (IPV/OPV) 2001 Completed [facility] of 00:00:00 [facility] DTAP 2001 Completed [facility] of 00:00:00 [facility] HIB 4 Dose Schedule 2001 Completed Unive rsity of 00:00:00 [facility] Pneumococcal 7 2001 Completed [facility] of Conjugate, PCV7 00:00:00 [facility] (Prevnar7) [facility] Polio (IPV/OPV) 2001 Completed [facility] of 00:00:00 [facility] DTAP 2001 Completed [facility] of 00:00:00 [facility] HIB 4 Dose Schedule 2001 Completed Unive rsity of 00:00:00 [facility] Pneumococcal 7 2001 Completed [facility] Conjugate, PCV7 00:00:00 [place] [facility] (Prevnar7) [facility] Polio (IPV/OPV) 2001 Completed [facility] of 00:00:00 [facility] DTAP 2001 Completed [facility] of 00:00:00 [facility] HIB 4 Dose Schedule 2001 Completed Unive rsity of 00:00:00 [facility] Pneumococcal 7 2001 Completed [facility] of Conjugate, PCV7 00:00:00 [place] [facility] (Prevnar7) Branch Polio (IPV/OPV) 2001 Completed [facility] of 00:00:00 [facility] DTAP 2001 Completed [facility] of 00:00:00 [facility] HIB 4 Dose Schedule 2001 Completed Unive rsity of 00:00:00 [facility] Pneumococcal 7 2001 Completed [facility] of Conjugate, PCV7 00:00:00 [facility] (Prevnar7) [facility] Polio (IPV/OPV) 2001 Completed [facility] of 00:00:00 [facility] DTAP 2001 Completed [facility] of 00:00:00 [facility] HIB 4 Dose Schedule 2001 Completed Unive rsity of 00:00:00 [facility] Pneumococcal 7 2001 Completed [facility] of Conjugate, PCV7 00:00:00 [place] [facility] (Prevnar7) [facility] Polio (IPV/OPV) 2001 Completed [facility] of 00:00:00 [facility] DTAP 2001 Completed [facility] of 00:00:00 [facility] HIB 4 Dose Schedule 2001 Completed [facility]ive rsity of 00:00:00 [facility] Pneumococcal 7 2001 Completed [facility] of Conjugate, PCV7 00:00:00 [place] [facility] (Prevnar7) [facility] Polio (IPV/OPV) 2001 Completed [facility] of 00:00:00 [facility] DTAP 2001 Completed [facility] of 00:00:00 [facility] HIB 4 Dose Schedule 2001 Completed Unive rsity of 00:00:00 [facility] Pneumococcal 7 2001 Completed [facility] of Conjugate, PCV7 00:00:00 [facility] ical (Prevnar7) Branch Polio (IPV/OPV) 2001 Completed Universit y of 00:00:00 [facility] DTAP 2001 Completed [facility] of 00:00:00 [facility] HIB 4 Dose Schedule 2001 Completed Unive rsity of 00:00:00 [facility] Pneumococcal 7 2001 Completed [facility] of Conjugate, PCV7 00:00:00 [place] [facility] (Prevnar7) [facility] Polio (IPV/OPV) 2001 Completed [facility] of 00:00:00 [facility] DTAP 2001 Completed [facility] of 00:00:00 [facility] HIB 4 Dose Schedule 2001 Completed Unive rsity of 00:00:00 [facility] Pneumococcal 7 2001 Completed [facility] of Conjugate, PCV7 00:00:00 [facility] (Prevnar7) [facility] Polio (IPV/OPV) 2001 Completed [facility] of 00:00:00 [facility] DTAP 2001 Completed University of 00:00:00 [facility] HIB 4 Dose Schedule 2001 Completed Unive rsity of 00:00:00 [facility] Pneumococcal 7 2001 Completed University Conjugate, PCV7 00:00:00 [facility] ical (Prevnar7) Branch Hep B, Adol or Pedi 2001 Completed Unive rsity of Dosage 00:00:00 [facility] Hep B, Adol or Pedi 2001 Completed Unive rsity of Dosage 00:00:00 [facility] Hep B, Adol or Pedi 2001 Completed Unive rsity of Dosage 00:00:00 [facility] Hep B, Adol or Pedi 2001 Completed Unive rsity of Dosage 00:00:00 [facility] Hep B, Adol or Pedi 2001 Completed Unive rsity of Dosage 00:00:00 [facility] Hep B, Adol or Pedi 2001 Completed Unive rsity of Dosage 00:00:00 [facility] Hep B, Adol or Pedi 2001 Completed Unive rsity of Dosage 00:00:00 [facility] Hep B, Adol or Pedi 2001 Completed Unive rsity of Dosage 00:00:00 [facility] Hep B, Adol or Pedi 2001 Completed Unive rsity of Dosage 00:00:00 [facility] Hep B, Adol or Pedi 2001 Completed Unive rsity of Dosage 00:00:00 [facility] Hep B, Adol or Pedi 2001 Completed Unive rsity of Dosage 00:00:00 [facility] Hep B, Adol or Pedi 2001 Completed Unive rsity of Dosage 00:00:00 [facility] Hep B, Adol or Pedi 2001 Completed Unive rsity of Dosage 00:00:00 [facility] Hep B, Adol or Pedi 2001 [...] 2001 Completed [facility]ive rsity of Dosage 00:00:00 [facility] Hep B, Adol or Pedi 2001 Completed Unive rsity of Dosage 00:00:00 [facility] Hep B, Adol or Pedi 2001 Completed Unive rsity of Dosage 00:00:00 [facility] Hep B, Adol or Pedi 2001 Completed Unive rsity of Dosage 00:00:00 [facility] Hep B, Adol or Pedi 2001 Completed Unive rsity of Dosage 00:00:00 [facility] Hep B, Adol or Pedi 2001 Completed Unive rsity of Dosage 00:00:00 [facility] Hep B, Adol or Pedi 2001 Completed Unive rsity of Dosage 00:00:00 [facility] Hep B, Adol or Pedi 2001 Completed Unive rsity of Dosage 00:00:00 [facility] Hep B, Adol or Pedi 2001 Completed Unive rsity of Dosage 00:00:00 [facility] Hep B, Adol or Pedi 2001 Completed Unive rsity of Dosage 00:00:00 [facility] Vital Signs Vital Name Observation Time Observation Value Comments Source Systolic blood 2021-03-30 16:38:00 110 mm[Hg] Univer sity of pressure [facility] Diastolic blood 2021-03-30 16:38:00 69 mm[Hg] Unive rsity of pressure [facility] Heart rate 2021-03-30 16:38:00 80 /min [facility] Body temperature 2021-03-30 16:38:00 [facility] Res[facility] 2021-03-30 16[facility]38:00 16 /[facility] height 2021-03-30 16:38:00 152.4 cm [facility] Body weight 2021-03-30 16:38:00 64.547 kg [facility] BMI 2021-03-30 16:38:00 27.79 kg/m2 [facility] Body mass index 2021-03-30 16:38:00 89.19 % Unive rsity of (BMI) [Percentile] [facility] ica Per age and sex Branch Systolic blood 2020-12-09 20:06:00 116 mm[Hg] Univer sity of pressure [facility] Diastolic blood 2020-12-09 20:06:00 77 mm[Hg] Unive rsity of pressure [facility] Heart rate 2020-12-09 20:06:00 92 /min [facility] Body temperature 2020-12-09 20:06:00 36.33 Hannah [facility] of [facility] Respiratory rate 2020-12-09 20:06:00 16 /min [facility] Body height 2020-12-09 20:06:00 152.4 cm [facility] Body weight 2020-12-09 20:06:00 64.184 kg [facility] BMI 2020-12-09 20:06:00 27.63 kg/m2 [facility] Systolic blood 2020-12-09 20:04:00 116 mm[Hg] Univer sity of pressure [facility] Diastolic blood 2020-12-09 20:04:00 77 mm[Hg] Unive rsity of pressure [facility] Heart rate 2020-12-09 20:04:00 92 /min [facility] Body temperature 2020-12-09 20:04:00 36.33 Hannah [facility] Respiratory rate 2020-12-09 20:04:00 16 /min [facility] Body height 2020-12-09 20:04:00 152.4 cm [facility] Body weight 2020-12-09 20:04:00 64.184 kg [facility] BMI 2020-12-09 20:04:00 27.63 kg/m2 [facility] Systolic blood 2020-11-18 14:54:00 125 mm[Hg] Univer sity of pressure [facility] Diastolic blood 2020-11-18 14:54:00 78 mm[Hg] Unive rsity of pressure [facility] Heart rate 2020-11-18 14:54:00 86 /min [facility] Body temperature 2020-11-18 14:54:00 36.5 Hannah [facility] Respiratory rate 2020-11-18 14:54:00 16 /min [facility] Body height 2020-11-18 14:54:00 152.4 cm [facility] Body weight 2020-11-18 14:54:00 66.792 kg [facility] BMI 2020-11-18 14:54:00 28.76 kg/m2 [facility] Systolic blood 2020-11-11 19:46:00 119 mm[Hg] Univer sity of pressure [facility] Diastolic blood 2020-11-11 19:46:00 80 mm[Hg] Unive rsity of pressure [facility] Heart rate 2020-11-11 19:46:00 72 /min [facility] Body temperature 2020-11-11 19:46:00 36.89 Hannah [facility] Respiratory rate 2020-11-11 19:46:00 16 /min [facility] Body height 2020-11-11 19:46:00 152.4 cm [facility] Body weight 2020-11-11 19:46:00 67.087 kg [facility] BMI 2020-11-11 19:46:00 28.88 kg/m2 [facility] Systolic blood 2020-11-04 19:09:00 144 mm[Hg] manual [facility]iver [facility]ity of [facility] Diastolic blood 2020-11-04 19:09:00 86 mm[Hg] manual [facility] Heart rate 2020-11-04 18:57:00 82 /min [facility] Body temperature 2020-11-04 18:57:00 36.94 Hannah [facility] Respiratory rate 2020-11-04 18:57:00 16 /min [facility] Body height 2020-11-04 18:57:00 152.4 cm [facility] Body weight 2020-11-04 18:57:00 71.94 kg [facility] BMI 2020-11-04 18:57:00 30.97 kg/m2 [facility] Systolic blood 2020-10-29 20:52:00 109 mm[Hg] [facility]iver [facility]ity of pressure [facility] Diastolic blood 2020-10-29 20:52:00 69 mm[Hg] Unive rsity of pressure [facility] Heart rate 2020-10-29 20:52:00 92 /min [facility] Body temperature 2020-10-29 20:52:00 36.33 Hannah [facility] Respiratory rate 2020-10-29 20:52:00 18 /min [facility] Oxygen saturation in 2020-10-29 20:52:00 96 /min University of Arterial blood by [facility] Pulse oximetry Branch Body weight 2020-10-26 15:45:00 77.111 kg [facility] BMI 2020-10-26 15:45:00 33.20 kg/m2 [facility] Systolic blood 2020-10-21 15:25:00 124 mm[Hg] Univer [facility]ity of pressure [facility] Diastolic blood 2020-10-21 15:25:00 66 mm[Hg] Unive [facility]ity [facility] pressure [facility] Heart rate 2020-10-21 15:25:00 98 /min [facility] Body temperature 2020-10-21 15:25:00 37 Hannah [facility] Respiratory rate 2020-10-21 15:25:00 16 /min [facility] Body height 2020-10-21 15:25:00 152.4 cm [facility] Body weight 2020-10-21 15:25:00 77.202 kg [facility] BMI 2020-10-21 15:25:00 33.24 kg/m2 [facility] Systolic blood 2020-10-14 16:24:00 120 mm[Hg] Univer [facility]ity of pressure [facility] Diastolic blood 2020-10-14 16:24:00 74 mm[Hg] Unive [facility]ity of pressure [facility] Heart rate 2020-10-14 16:24:00 94 /min [facility] Body temperature 2020-10-14 16:24:00 36.61 Hannah [facility] Respiratory rate 2020-10-14 16:24:00 16 /min [facility] Body height 2020-10-14 16:24:00 152.4 cm [facility] Body weight 2020-10-14 16:24:00 76.839 kg [facility] BMI 2020-10-14 16:24:00 33.08 kg/m2 [facility] Systolic blood 2020-10-07 16:07:00 129 mm[Hg] [facility]iver [facility]ity of [facility] Diastolic blood 2020-10-07 16:07:00 75 mm[Hg] Unive [facility]ity of pressure [facility] Heart rate 2020-10-07 16:07:00 98 /min [facility] Body temperature 2020-10-07 16:07:00 36.72 Hannah [facility] Respiratory rate 2020-10-07 16:07:00 16 /min [facility] Body height 2020-10-07 16:07:00 152.4 cm [facility] Body weight 2020-10-07 16:07:00 74.753 kg [facility] BMI 2020-10-07 16:07:00 32.19 kg/m2 [facility] Systolic blood 2020-10-03 21:00:00 137 mm[Hg] Univer [facility]ity of pressure [facility] Diastolic blood 2020-10-03 21:00:00 77 mm[Hg] Unive rsity of pressure [facility] Heart rate 2020-10-03 21:00:00 109 /min [facility] Body temperature 2020-10-03 21:00:00 36.83 Hannah [facility] Respiratory rate 2020-10-03 21:00:00 18 /min [facility] Body height 2020-10-03 21:00:00 152.4 cm [facility] Body weight 2020-10-03 21:00:00 75.751 kg [facility] BMI 2020-10-03 21:00:00 32.61 kg/m2 [facility] Oxygen saturation in 2020-10-03 21:00:00 99 /min University of Arterial blood by [facility] Pulse oximetry Branch Systolic blood 2020-09-23 15:58:00 119 mm[Hg] Univer sity of pressure [facility] Diastolic blood 2020-09-23 15:58:00 72 mm[Hg] Unive rsity of pressure [facility] Heart rate 2020-09-23 15:58:00 93 /min [facility] Body temperature 2020-09-23 15:58:00 36.94 Hannah [facility] Respiratory rate 2020-09-23 15:58:00 16 /min [facility] Body weight 2020-09-23 15:58:00 74.118 kg [facility] Systolic blood 2020-09-08 16:31:00 125 mm[Hg] Univer sity of pressure [facility] Diastolic blood 2020-09-08 16:31:00 77 mm[Hg] Unive rsity of pressure [facility] Heart rate 2020-09-08 16:31:00 103 /min [facility] Body temperature 2020-09-08 16:31:00 36.78 Hannah [facility] Respiratory rate 2020-09-08 16:31:00 16 /min [facility] Body height 2020-09-08 16:31:00 152.4 cm [facility] [place] Body weight 2020-09-08 16:31:00 73.392 kg [facility] BMI 2020-09-08 16:31:00 31.60 kg/m2 [facility] Systolic blood 2020-08-25 13:52:00 110 mm[Hg] Univer sity of pressure [facility] Diastolic blood 2020-08-25 13:52:00 63 mm[Hg] Unive rsity of pressure [facility] Heart rate 2020-08-25 13:52:00 97 /min [facility] Body temperature 2020-08-25 13:52:00 36.56 Hannah [facility] Respiratory rate 2020-08-25 13:52:00 16 /min [facility] Body height 2020-08-25 13:52:00 152.4 cm [facility] Body weight 2020-08-25 13:52:00 72.394 kg [facility] BMI 2020-08-25 13:52:00 31.17 kg/m2 [facility] Systolic blood 2020-08-11 14:37:00 121 mm[Hg] Univer sity of pressure [facility] Diastolic blood 2020-08-11 14:37:00 73 mm[Hg] Unive rsity of pressure [facility] Heart rate 2020-08-11 14:37:00 97 /min [facility] Body temperature 2020-08-11 14:37:00 36.5 Hannah [facility] Respiratory rate 2020-08-11 14:37:00 16 /min [facility] Body height 2020-08-11 14:37:00 152.4 cm [facility] Body weight 2020-08-11 14:37:00 71.753 kg [facility] BMI 2020-08-11 14:37:00 30.89 kg/m2 [facility] Systolic blood 2020-07-28 15:28:00 129 mm[Hg] Univer sity of pressure [facility] Diastolic blood 2020-07-28 15:28:00 78 mm[Hg] Unive rsity of pressure [facility] Heart rate 2020-07-28 15:28:00 118 /min [facility] Body temperature 2020-07-28 15:28:00 36.83 Hannah [facility] Respiratory rate 2020-07-28 15:28:00 16 /min [facility] Body height 2020-07-28 15:28:00 152.4 cm [facility] Body weight 2020-07-28 15:28:00 69.627 kg [facility] BMI 2020-07-28 15:28:00 29.98 kg/m2 [facility] Systolic blood 2020-07-14 15:03:00 121 mm[Hg] Univer sity of pressure [facility] Diastolic blood 2020-07-14 15:03:00 69 [...] 2020-05-30 14:45:00 18 /min [facility] Oxygen saturation in 2020-05-30 14:45:00 98 /min University Arterial blood by [facility] Pulse oximetry Branch Systolic blood 2020-05-19 15:56:00 111 mm[Hg] [facility]ity of [facility] [place] Diastolic blood 2020-05-19 15:56:00 71 mm[Hg] Unive rsity of pressure [facility] Heart rate 2020-05-19 15:55:00 105 /min [facility] Body temperature 2020-05-19 15:55:00 37.44 Hannah [facility] Respiratory rate 2020-05-19 15:55:00 16 /min [facility] Body height 2020-05-19 15:55:00 152.4 cm [facility] Body weight 2020-05-19 15:55:00 60.328 kg [facility] BMI 2020-05-19 15:55:00 25.97 kg/m2 [facility] Systolic blood 2020-04-21 19:02:00 105 mm[Hg] Univer sity of pressure [facility] Diastolic blood 2020-04-21 19:02:00 55 mm[Hg] Unive rsity of pressure [facility] Heart rate 2020-04-21 19:02:00 86 /min [facility] Body temperature 2020-04-21 19:02:00 36.78 Hannah [facility] Respiratory rate 2020-04-21 19:02:00 16 /min [facility] Body height 2020-04-21 19:02:00 152.4 cm [facility] Body weight 2020-04-21 19:02:00 59.557 kg [facility] BMI 2020-04-21 19:02:00 25.64 kg/m2 [facility] Systolic blood 2020-04-21 04:02:10 105 mm[Hg] Univer [facility]ity of pressure [facility] [place] Diastolic blood 2020-04-21 04:02:10 62 mm[Hg] Unive rsity of pressure [facility] Heart rate 2020-04-21 04:02:10 73 /min [facility] Body temperature 2020-04-21 04:02:10 37.11 Hannah [facility] Respiratory rate 2020-04-21 04:02:10 18 /min [facility] Oxygen saturation in 2020-04-21 04:02:10 100 /min [facility] of Arterial blood by [facility] Pulse oximetry Branch Body height 2020-04-21 02:00:00 152.4 cm [facility] Body weight 2020-04-21 02:00:00 58.968 kg [facility] BMI 2020-04-21 02:00:00 25.39 kg/m2 [facility] Systolic blood 2020-03-24 15:16:00 126 mm[Hg] Univer sity of pressure [facility] Diastolic blood 2020-03-24 15:16:00 72 mm[Hg] Unive rsity of pressure [facility] Heart rate 2020-03-24 15:16:00 99 /min [facility] Body temperature 2020-03-24 15:16:00 37.22 Hannah [facility] Respiratory rate 2020-03-24 15:16:00 16 /min [facility] Body height 2020-03-24 15:16:00 152.4 cm [facility] Body weight 2020-03-24 15:16:00 58.333 kg [facility] BMI 2020-03-24 15:16:00 25.12 kg/m2 [facility] Systolic blood 2020-03-17 14:43:00 133 mm[Hg] Univer sity of pressure [facility] Diastolic blood 2020-03-17 14:43:00 77 mm[Hg] Unive rsity of pressure [facility] Heart rate 2020-03-17 14:43:00 97 /min [facility] Body temperature 2020-03-17 14:43:00 37.28 Hannah [facility] Respiratory rate 2020-03-17 14:43:00 20 /min [facility] Body weight 2020-03-17 14:43:00 59.875 kg [facility] Oxygen saturation in 2020-03-17 14:43:00 98 /min [facility] Arterial blood by [facility] Pulse oximetry Branch Systolic blood 2020-01-22 16:31:00 124 mm[Hg] Univer sity of pressure [facility] Diastolic blood 2020-01-22 16:31:00 73 mm[Hg] Unive rsity of pressure [facility] Heart rate 2020-01-22 16:31:00 104 /min [facility] Body temperature 2020-01-22 16:31:00 37.06 Hannah [facility] Respiratory rate 2020-01-22 16:31:00 18 /min [facility] Body weight 2020-01-22 16:31:00 58.968 kg [facility] Oxygen saturation in 2020-01-22 16:31:00 98 /min [facility] Arterial blood by [facility] Pulse oximetry Branch Systolic blood 2019-10-20 14:12:00 113 mm[Hg] Univer sity of pressure [facility] Diastolic blood 2019-10-20 14:12:00 73 mm[Hg] Unive rsity of pressure [facility] Heart rate 2019-10-20 14:12:00 78 /min [facility] Body temperature 2019-10-20 14:12:00 36.94 Hannah [facility] Respiratory rate 2019-10-20 14:12:00 14 /min [facility] Body height 2019-10-20 14:12:00 152.4 cm [facility] Body weight 2019-10-20 14:12:00 65.772 kg [facility] BMI 2019-10-20 14:12:00 28.32 kg/m2 [facility] Oxygen saturation in 2019-10-20 14:12:00 98 /min [facility] Arterial blood by [facility] Pulse oximetry Branch Systolic blood 2018-11-18 20:10:12 124 mm[Hg] Univer sity of pressure [facility] Diastolic blood 2018-11-18 20:10:12 71 mm[Hg] Unive rsity of pressure [facility] Heart rate 2018-11-18 20:10:12 112 /min [facility] Body temperature 2018-11-18 20:10:12 37.61 Hannah [facility] Respiratory rate 2018-11-18 20:10:12 16 /min [facility] Body height 2018-11-18 20:10:12 152.4 cm [facility] Oxygen saturation in 2018-11-18 20:10:12 100 /min [facility] Arterial blood by [facility] Pulse oximetry [place] Body weight 2018-11-18 16:08:00 60.782 kg [facility] BMI 2018-11-18 16:08:00 26.17 kg/m2 [facility] Procedures Procedure Date / Time Performing Clinician Source Performed URINE CULTURE 2021-03-30 19:39:00 Ramy Light [facility] GC & CHLAMYDIA AMPLIFIED 2021-03-30 19:39:00 Ramy Light [facility] TRICHOMONAS AMPLIFIED 2021-03-30 19:39:00 [facility] HOUR POST 2021-03-30 18:13:00 Ramy Light [facility] CBC WITH DIFF 2021-03-30 18:13:00 Ramy Light [facility] RUBELLA SCREEN IGG 2021-03-30 18:13:00 Ramy Light [facility] VZV ANTIBODY SCREEN 2021-03-30 18:13:00 Ramy Light [facility] HEPATITIS B SURFACE 2021-03-30 18:13:00 Ramy Light [facility] HIV 1/2 AG-AB WITH REFLEX 2021-03-30 18:13:00 Rmay Light [facility] GALV ONLY - SYPHILIS 2021-03-30 18:13:00 Ramy Light [facility] IGG/IGM [facility] HB ABO GROUPING 2021-03-30 18:08:00 Ramy Light [facility] ASSIGNMENT OF BENEFITS 2021-03-30 15:51:24 [facility] [place] [facility] POCT TEST 2021-03-30 00:00:00 Ramy Light [facility] POCT URINALYSIS W/O 2021-03-30 00:00:00 Ramy Light [facility] SPECIFIC GRAVITY [facility] GARDASIL 9 (HPV 9V) 2020-12-09 20:22:46 Airam Jay [facility] VACCINE [facility] POCT URINALYSIS 2020-11-04 18:58:00 Airam Jay [facility] CBC WITH DIFF 2020-10-29 05:16:00 Suzan [facility] VENOUS CORD GAS 2020-10-28 10:34[facility] WITH DIFF 2020-10-26 15:23:00 [facility] HEPATITIS B SURFACE 2020-10-26 [facility]:23[facility] GALV ONLY - [place] 2020-10-26 15:23[facility] HB ABO GROUPING 2020-10-26 15:22:00 Blayne [facility] RHO (D) IMMUNE GLOBULIN 2020-10-26 15:22:00 [facility] COVID-19 (ID NOW RAPID 2020-10-26 13:03:00 Cordelia Noel [facility] TESTING) Medical Branch LAB ONLY COVID 2020-10-26 13:03:00 Bert Cordelia [facility] INTERPRETATION [facility] HOSPITAL ADMISSION 2020-10-26 05:01:00 Doctor Unassigned, [facility] [place] [facility] POCT URINALYSIS 2020-10-21 15:27:00 Airam Jay [facility] SECOND AND THIRD TRIMESTER 2020-10-21 14:39:00 Airam Jay [facility] ULTRASOUND [facility] POCT URINALYSIS 2020-10-14 16:31:00 Airam Jay [facility] POCT URINALYSIS 2020-10-07 16:09:00 Airam Jay [facility] COVID-19 (ID NOW RAPID 2020-10-03 21:07:00 Kathryn Alcantar [facility] TESTING) Medical Branch CONSENT/REFUSAL FOR 2020-10-03 20:06:21 Doctor Kiara [facility] DIAGNOSIS AND TREATMENT [facility] L&D VISIT (NON-DELIVERED) 2020-10-03 05:01:00 Doctor Craig [facility] POCT URINALYSIS 2020-09-23 16:02:00 Airam Jay [facility] POCT URINALYSIS 2020-09-08 16:34:00 Airam Jay [facility] POCT URINALYSIS 2020-08-25 13:55:00 Airam Jay [facility] HIV 1/2 AG-AB WITH REFLEX 2020-08-11 14:50:00 Airam Jay [facility] GALV ONLY - [place] 2020-08-11 14:50:00 Airam Jay [facility] IGG/IGM [facility] TDAP VACCINE, >11 YRS, IM 2020-08-11 14:42:00 Airam Jay [facility] POCT URINALYSIS 2020-07-28 15:31:00 Airam Jay [facility] POCT URINALYSIS 2020-07-14 15:06:00 Airam Jay [facility] SECOND AND THIRD TRIMESTER 2020-06-24 20:43:00 Airam Jay [facility] SECOND AND THIRD TRIMESTER 2020-06-24 20:21:00 Airam Jay [facility] ULTRASOUND [facility] SECOND AND THIRD TRIMESTER 2020-06-24 20:12:00 Airam Jay [facility] URINALYSIS 2020-05-30 14:49:00 [place], [facility] o [facility] NOTICE OF PRIVACY 2020-05-30 14:38:06 Doctor Kiara, [facility] PRACTICES [place] [facility] [place] CONSENT/REFUSAL FOR 2020-05-30 14:37:45 Doctor Tania Craig [facility] DIAGNOSIS AND TREATMENT [place] [facility] POCT URINALYSIS 2020-05-19 15:58:00 Airam Jay [facility] URINALYSIS 2020-04-21 02:51:00 Chel La [facility] COVID-19 (ID NOW RAPID 2020-04-21 02:51:00 Chel La [facility] TESTING) Medical Branch NOTICE OF PRIVACY 2020-04-21 01:51:24 Doctor Kiara, [facility] PRACTICES [place] [facility] CONSENT/REFUSAL FOR 2020-04-21 01:50:55 [facility]ALYSIS 2020-04-21 00:00:00 Airam Jay [facility] FLU VACC ([id number]), 6+ 2020-03-24 15:42:15 Airam Jay [facility] MONTHS, IM, QUAD Medical Branch REPORT OF 2020-03-24 06:01:00 Doctor Kiara [facility] POCT TEST 2020-03-24 00:00:00 iAram Jay [facility] POCT URINALYSIS W/O 2020-03-24 00:00:00 [facility] SPECIFIC GRAVITY [facility] LIPASE 2020-03-17 15:12:00 Leo Obrien [facility] MAGNESIUM 2020-03-17 15:12:00 Leo Obrien [facility] HEPATIC FUNCTION PANEL 2020-03-17 15:12:00 Leo Obrien [facility] ([id number]) (ALB,T.PRO,BILI Medical Branch T,BU/BC,ALT,AST,ALK PHOS) BASIC METABOLIC PANEL (NA, 2020-03-17 15:12:00 Leo Obrien [facility] K, CL, CO2, GLUCOSE, BUN, Medica l Branch CREATININE, CA) TOTAL BETA HCG ASSAY 2020-03-17 15:12:00 Leo Obrien [facility] CBC WITH DIFF 2020-03-17 15:12:00 Leo Obrien [place] [facility] COVID-19 (ID NOW RAPID 2020-03-17 15:08:00 Leo Obrien [facility] TESTING) Medical Branch URINALYSIS 2020-03-17 15:03:00 Leo Obrien [place] [facility] ADC / LCC - DRUG SCREEN 2020-03-17 15:03:00 Leo Obrien [facility] TRIAGE Medical Branch POCT TEST 2020-03-17 14:51:00 Leo Obrien [facility] [place] NOTICE OF PRIVACY 2020-03-17 14:36:40 Doctor Unassigned, [facility] PRACTICES [place] [facility] CONSENT/REFUSAL FOR 2020-03-17 14:36:19 Doctor Unassigned, [facility] DIAGNOSIS AND TREATMENT [place] [facility] [place] CONSENT/REFUSAL FOR 2020-01-22 15:57:45 Doctor Unassxena, [facility] DIAGNOSIS AND TREATMENT [place] [facility] [place] NOTICE OF PRIVACY 2019-10-20 14:01:51 Doctor Unassigned, [facility] [facility] PRACT[facility] [place] [facility] [place] CONSENT/REFUSAL FOR 2019-10-20 14:01:21 Doctor Unassigned, [facility] DIAGNOSIS AND TREATMENT [facility] [place] [facility] US RETROPERITONEAL 2019-01-10 16:46:39 Requisition, Paper [facility] COMPLETE Medical Branch NO SHOW OR MISSED 2019-01-10 16:19:59 Doctor Unatito, [facility] APPOINTMENT POLICY [place] [facility] h ACKNOWLEDGEMENT CT ABDOMEN PELVIS WO 2018-11-18 18:07:42 Rohini Roberts [facility] CONTRAST Medical Branch XR CHEST 2 VW 2018-11-18 17:51:22 Rohini Roberts [facility] RAPID STREP SCREEN FOR 2018-11-18 16:46:00 Rohini Roberts [facility] GROUP A Medical Branch COMP. METABOLIC PANEL 2018-11-18 16:44:00 Rohini Roberts [facility] ([id number]) Medical Branch CBC WITH DIFFERENTIAL 2018-11-18 16:44:00 Rohini Roberts [facility] [place] POCT TEST 2018-11-18 16:38:00 Rohini Roberts [facility] URINALYSIS 2018-11-18 16:36:00 Rohini Roberts [facility] NOTICE OF PRIVACY 2018-11-18 15:49:11 [facility] [place] [facility] CONSENT/REFUSAL FOR 2018-11-18 15:48:58 Doctor Unassigned, Unive [facility] DIAGNOSIS AND TREATMENT [facility] Encounters Start End Encounter Admission Attending Care Care Encounter Source Date/Time Date/Time Type Type Clinicians Facility Department ID 2021-02-23 Outpatient X [facility] ERT [id number] Univers 00:47:20 ity of [facility] 2021-02-23 Emergency [facility] [id number] Univers 00:44:52 ity of [facility] 2021-02-21 Emergency [facility] [id number] Univers 22:01:22 ity of [facility] 2021-02-21 Emergency [facility] [id number] Univers 13:14:55 ity of [facility] 2021-02-21 Emergency [facility] [id number] Univers 07:10:39 ity of [facility] 2021-02-20 Emergency [facility] [id number] Univers 20:00:10 ity of [facility] 2021-02-20 Emergency [facility] [id number] Univers 03:14:32 ity of [facility] 2021-05-06 2021-05-06 Outpatient P MISTY [facility] [id number] Univers 13:00:00 13:00:00 AIRAM [id number] ity o f [facility] 2021-05-06 2021-05-06 Outpatient P [facility] [id number] Univers 13:00:00 13:00:00 ity of [facility] 2021-04-27 2021-04-27 Outpatient R MISTY [facility] [id number] Univers 11:00:00 11:00:00 AIRAM [id number] ity o f [facility] 2021-04-27 2021-04-27 Outpatient R MISTY [facility] [id number] Univers 11:00:00 11:00:00 JEFENDA ity o [facility] 2021-04-23 2021-04-23 Outpatient R [facility] [id number] Univers 10:00:00 10:00:00 [id number] ity of [facility] 2021-04-23 2021-04-23 Outpatient P [facility] [id number] Univers 10:00:00 10:00:00 ity of [facility] 2021-03-30 2021-03-30 Outpatient R GEORGETTE [facility] [id number] Univers 10:15:00 12:10:52 RAMY ity o f [facility] 2021-03-30 2021-03-30 [facility] .2.840.114 [id number] Univers 10:13:08 12:10:52 Ramy Light O SET UP [employer] 350.1.13 .10 ity of Visit [facility] 4.2.7.2.686 Jung as MATERNAL [phone] [facility] ical & CHILD [address] [place] [address] 2021-03-30 2021-03-30 Outpatient R [facility] [id number] Univers 10:15:00 10:15:00 [id number] ity [facility] 2021-03-30 2021-03-30 Orders Doctor DWAINE 1.2.840.114 [id number] Univers 00:00:00 00:00:00 Only Unassigned, REILLY 350.1.13.10 ity of [place] [facility] 4.2.7.2.686 Jung as [phone] [address] 2020-12-09 2020-12-09 Nurse Nurse, Scott Wheeler Exp Cp[facility] Ob[facility]yn [facility] 1.2.840.114 [id number] Univers 14:53:54 15:54:34 Visit Airam Jay SET UP [employer] 350.1.13.10 ity of [facility] 4.2.7.2.686 Jung as MATERNAL [id number] [facility] ical & CHILD [address] [place] [address] 2020-12-09 2020-12-09 Office Misty NMELISA 1.2.840.114 [id number] Univers 14:54:20 15:52:20 Visit Roshunda R SET UP [employer] 350.1.13.10 ity of REGIONAL 4.2.7.2.686 Jung as MATERNAL [phone] [facility] & [address] 2020-12-09 2020-12-09 Outpatient R MISTY [facility] [id number] Univers 15:15:00 15:15:00 AIRAM [id number] ity o f [facility] 2020-12-09 2020-12-09 [facility] [id number] Univers 15:15:00 15:15:00 BREANNNDA ity o f [facility] 2020-11-18 2020-11-18 Routine Shiraz, [facility] 1.2.472.396 [id number] Univers 09:31:05 10:05:57 Akash Matthew SET UP [employer] 350.1.13.10 ity of Visit REGIONAL 4.2.7.2.686 Jung as MATERNAL [id number] [address] 2020-11-18 2020-11-18 [facility] [id number] Univers 09:45:00 09:45:00 AKASH ity o [facility] 2020-11-11 2020-11-11 Outpatient R [facility] [id number] Univers 14:30:00 14:30:00 ity [facility] 2020-11-11 2020-11-11 Outpatient R [facility] [id number] Univers 14:30:00 14:30:00 ity [facility] 2020-11-11 2020-11-11 Nurse Visit, Ang-Rmchp Nurse [facility] 1.2 .840.114 [id number] Univers 13:49:51 14:02:11 Visit Akash Weldon SET UP [employer] 350.1.13. 10 ity of REGIONAL 4.2.7.2.686 Jung as MATERNAL [id number] [facility] & [address] 2020-11-10 2020-11-10 Outpatient R [facility] [id number] Univers 09:30:00 09:30:00 [id number] ity [facility] 2020-11-10 2020-11-10 Outpatient R [facility] [id number] Univers 09:30:00 09:30:00 ity of [facility] 2020-11-04 2020-11-04 Nurse Visit, Ang-Rmchp Nurse [facility] 1.2 .840.114 [id number] Univers 13:41:16 14:22:09 Visit Akash Weldon SET UP [employer] 350.1.13. 10 ity of [facility] 4.2.7.2.686 Jung as MATERNAL [phone] [facility] CHILD [address] [place] [address] 2020-11-04 2020-11-04 Outpatient R SHIRAZ [facility] [id number] Univers 14:00:00 14:00:00 AKASH ba o f [facility] 2020-10-26 2020-10-29 Hospital Luis Dunlap 1.2.840.114 [id number] Univers 07:50:00 18:23:00 Encounter Cordelia Noel 350.1.13.10 ity of [facility] 4.2.7.2.686 Jung as [id number] [facility] 063 [place] 2020-10-27 2020-10-27 Zenaida Jay [facility] 1.2.840.114 [id number] Univers 00:00:00 00:00:00 Airam Evans SET UP [employer] 350.1.13.10 ity of [facility] 4.2.7.2.686 Jung as MATERNAL [id number] [facility] & [address] 2020-10-26 2020-10-26 Outpatient INDUCTION, [facility] [id number] Univers 07:00:00 07:00:00 DWAINE [id number] ity [facility] 2020-10-26 2020-10-26 Tom ISIDRO 1.2.840.114 [id number] Univers 00:00:00 00:00:00 Only UnassignedREILLY 350.1.13.10 ity of [place] [facility] 4.2.7.2.686 Jung as [id number] [facility] 009 [place] 2020-10-21 2020-10-21 Outpatient R MISTY [facility] [id number] Univers 10:45:00 10:45:00 ROSTONENDA [id number] ity o f [facility] 2020-10-21 2020-10-21 Outpatient Nathan JAY [facility] [id number] Univers 10:45:00 10:45:00 ROSTONENDA ity o f [facility] 2020-10-21 2020-10-21 Routine Misty [facility] 1.2.840.114 [id number] Univers 10:11:47 10:26:47 Roshunda R SET UP [employer] 350.1.13.10 ity of Visit REGIONAL 4.2.7.2.686 Jung as MATERNAL [phone] [facility] CHILD [address] [place] [address] 2020-10-21 2020-10-21 Ekg Tech [facility] 1.2 .840.114 [id number] Univers 09:44:44 10:11:00 Visit Sherin Ng SET UP [employer] 350.1. 13.10 ity of REGIONAL 4.2.7.2.686 Jung as MATERNAL [phone] [facility] CHILD [address] [place] [address] 2020-10-14 2020-10-14 Ekg Tech Ultrasound, [facility] 1.2 .840.114 [id number] Univers 13:00:00 13:45:00 Visit Airam Jay R SET UP [employer] 350.1.13.10 ity of REGIONAL 4.2.7.2.686 Jung as MATERNAL [id number] [facility] CHILD [address] [place] [address] 2020-10-14 2020-10-14 Outpatient [facility] [id number] Univers 13:00:00 13:00:00 [id number] ity of [facility] 2020-10-14 2020-10-14 [facility] 1.2.840.114 [id number] Univers 10:52:34 11:34:32 Rostonenda R SET UP [employer] 350.1.13.10 ity of Visit REGIONAL 4.2.7.2.686 Jung as MATERNAL [id number] [facility] ical & CHILD [address] [place] [address] 2020-10-14 2020-10-14 Outpatient Nathan JAY [facility] [id number] Univers 10:45:00 10:45:00 ROSHUNDA ity [facility] 2020-10-07 2020-10-07 Routine Misty [facility] 1.2.840.114 [id number] Univers 10:52:40 11:36:22 Roshunda R SET UP [employer] 350.1.13.10 ity of Visit [facility] 4.2.7.2.686 Jung as MATERNAL [phone] [facility] CHILD [address] [place] [address] 2020-10-07 2020-10-07 Outpatient Nathan JAY [facility] [id number] Univers 11:00:00 11:00:00 JEFENDA [id number] ity o [facility] 2020-10-07 2020-10-07 Outpatient Nathan JAY [facility] [id number] Univers 11:00:00 11:00:00 ROSHUNDA [facility] 2020-10-03 2020-10-03 Emergency Alcantar, Kathryn [facility] 1.2.840.114 [id number] Univers 15:19:00 17:10:00 [facility] 350.1.13.10 i ty [facility] 4.2.7.2.686 [facility] [id number] [address] 2020-09-23 2020-09-23 Routine [facility] 1.2.840.114 [id number] Univers 10:36:48 11:02:14 Roshunda R SET UP [employer] 350.1.13.10 ity of Visit [facility] 4.2.7.2.686 Jung as MATERNAL [id number] [facility] & CHILD [address] [place] [address] 2020-09-23 2020-09-23 Outpatient Nathan JAY [facility] [id number] Univers 10:45:00 10:45:00 JEFENDA [id number] itlino o [facility] 2020-09-23 2020-09-23 Outpatient Nathan JAY [facility] [id number] Univers 10:45:00 10:45:00 JEFENDA ity o f [facility] 2020-09-18 2020-09-18 Abstract Misty NMELISA 1.2.840.114 [id number] Univers 00:00:00 00:00:00 Rosdagoa R SET UP [employer] 350.1.13.10 ity of REGIONAL 4.2.7.2.686 Jung as MATERNAL [id number] [facility] CHILD [address] [place] [address] 2020-09-16 2020-09-16 Ekg Tech Ultrasound, [facility] 1.2 .840.114 [id number] Univers 12:48:59 13:33:59 Visit Erich Nicholson SET UP [employer] 350.1.13.10 ity of REGIONAL 4.2.7.2.686 Jung as MATERNAL [phone] [facility] 2020-09-16 2020-09-16 Outpatient [facility] [id number] Univers 13:00:00 13:00:00 [id number] ity of [facility] 2020-09-16 2020-09-16 Outpatient P [facility] [id number] Univers 13:00:00 13:00:00 ity of [facility] 2020-09-08 2020-09-08 Routine Misty NMELISA 1.2.840.114 [id number] Univers 10:47:10 11:02:10 Breannagustina R SET UP [employer] 350.1.13.10 ity of Visit REGIONAL 4.2.7.2.686 Jung as MATERNAL [id number] [facility] & [address] 2020-09-08 2020-09-08 Outpatient R MISTY [facility] [id number] Univers 11:00:00 11:00:00 AIRAM [id number] ity o f [facility] 2020-09-08 2020-09-08 Outpatient Nathan JAY [facility] [id number] Univers 11:00:00 11:00:00 CELYA ity o [facility] 2020-08-25 2020-08-25 Routine Misty [facility] 1.2.840.114 [id number] Univers 08:35:20 09:23:23 Roshunda R SET UP [employer] 350.1.13.10 ity of Visit REGIONAL 4.2.7.2.686 Jung as MATERNAL [id number] [facility] & CHILD [address] [place] [address] 2020-08-25 2020-08-25 [facility] [id number] Univers 08:45:00 08:45:00 ROSTONENDA [id number] ity o f [facility] 2020-08-25 2020-08-25 [facility] [id number] Univers 08:45:00 08:45:00 ROSTONENDA ity o f [facility] 2020-08-22 2020-08-22 Abstract [facility] 1.2.840.114 [id number] Univers 00:00:00 00:00:00 Rostonenda R SET UP [employer] 350.1.13.10 ity of REGIONAL 4.2.7.2.686 Jung as MATERNAL [phone] [facility] & [address] 2020-08-19 2020-08-19 Ekg Tech Ultrasound, [facility] 1.2 .840.114 [id number] Univers 13:00:03 13:45:03 Visit Vic Szymanski R SET UP [employer] 350.1.13.10 ity of REGIONAL 4.2.7.2.686 Jung as MATERNAL [id number] [facility] & CHILD [address] [place] [address] 2020-08-19 2020-08-19 Outpatient [facility] [id number] Univers 13:00:00 13:00:00 [id number] ity of [facility] 2020-08-19 2020-08-19 Outpatient P [facility] [id number] Univers 13:00:00 13:00:00 ity of [facility] 2020-08-11 2020-08-11 Routine [facility] 1.2.840.114 [id number] Univers 09:29:51 10:20:27 Roshunda R SET UP [employer] 350.1.13.10 ity of Visit REGIONAL 4.2.7.2.686 Jung as MATERNAL [id number] [facility] CHILD [address] [place] [address] 2020-08-11 2020-08-11 Outpatient Nathan JAY [facility] [id number] Univers 09:30:00 09:30:00 JEFEMARK [id number] ity o f [facility] 2020-08-11 2020-08-11 Outpatient Nathan JAY [facility] [id number] Univers 09:30:00 09:30:00 ROSNDA ity o [facility] 2020-07-28 2020-07-28 Routine [facility] 1.2.840.114 [id number] Univers 10:19:10 10:51:14 Airam R SET UP [employer] 350.1.13.10 ity of Visit REGIONAL 4.2.7.2.686 Jung as MATERNAL [id number] [facility] & CHILD [address] [place] [address] 2020-07-28 2020-07-28 Outpatient Nathan JAY [facility] [id number] Univers 10:30:00 10:30:00 AIRAM [id number] ity o [facility] 2020-07-28 2020-07-28 Outpatient Nathan JAY [facility] [id number] Univers 10:30:00 10:30:00 BREANNNDA ity o [facility] 2020-07-23 2020-07-23 Zenaida Jay [facility] 1.2.840.114 [id number] Univers 00:00:00 00:00:00 Rostonenddante R SET UP [employer] 350.1.13.10 ity of REGIONAL 4.2.7.2.686 Jung as MATERNAL [phone] [facility] CHILD [address] [place] [address] 2020-07-22 2020-07-22 Ekg Tech Ultrasound, [facility] 1.2 .840.114 [id number] Univers 12:52:59 13:37:59 Visit Sherin Ng SET UP [employer] 350.1. 13.10 ity of REGIONAL 4.2.7.2.686 Jung as MATERNAL [id number] [facility] ical & CHILD [address] [place] [address] 2020-07-22 2020-07-22 Outpatient R [facility] [id number] Univers 13:00:00 13:00:00 [id number] [facility] 2020-07-22 2020-07-22 Outpatient P [facility] [id number] Univers 13:00:00 13:00:00 ity [facility] 2020-07-15 2020-07-15 Patient José Manuel [facility] 1.2.840.114 [id number] Univers 00:00:00 00:00:00 Outreach Balta PRIMARY 350.1.13.10 i ty of [facility] 4.2.7.2.[place] [id number] dical [address] [place] [address] 2020-07-14 2020-07-14 Routine [facility] 1.2.840.114 [id number] Univers 09:57:59 10:20:57 Airam R SET UP [employer] 350.1.13.10 ity of Visit REGIONAL 4.2.7.2.686 Jung as MATERNAL [phone] Med ical & CHILD [address] [place] [address] 2020-07-14 2020-07-14 [facility] [id number] Univers 10:15:00 10:15:00 AIRAM [id number] ity o [facility] 2020-07-14 2020-07-14 [facility] [id number] Univers 10:15:00 10:15:00 JEFENDA ity o [facility] 2020-06-24 2020-06-24 Ekg Tech 5, [facility] Room UNIVERSIT 1 .2.840.114 [id number] Univers 12:51:08 14:40:[address] [facility] 350.1.13.10 ity of CLINICS [place].2.[place] [id number] [facility] 104 [place] 2020-06-24 2020-06-24 Outpatient R [facility] [id number] Univers 13:00:00 13:00:00 [id number] [facility] 2020-06-24 2020-06-24 Outpatient P [facility] [id number] Univers 13:00:00 13:00:00 ity of [facility] 2020-06-24 2020-06-24 Abstract [facility] 1.2.840.114 [id number] Univers 00:00:00 00:00:00 Airam R SET UP [employer] 350.1.13.10 ity of REGIONAL 4.2.7.2.686 Jung as MATERNAL [phone] Med ical & CHILD [address] [place] [address] 2020-06-16 2020-06-16 Routine [facility] 1.2.840.114 [id number] Univers 10:07:05 10:22:32 Rosdagoa R SET UP [employer] 350.1.13.10 ity of Visit REGIONAL 4.2.7.2.686 Jung as MATERNAL [id number] Med ical & CHILD [address] [place] [address] 2020-06-16 2020-06-16 Outpatient R MISTY [facility] [id number] Univers 10:15:00 10:15:00 ROSHUNDA [id number] ity o f [facility] 2020-06-16 2020-06-16 [facility] [id number] Univers 10:15:00 10:15:00 ROSHUNDA ity o f [facility] 2020-06-16 2020-06-16 Ekg Tech Ultrasound, [facility] 1.2 .840.114 [id number] Univers 07:57:50 09:27:[address] SET UP [employer] 350.1.13.10 ity of Vic Szymanski R REGIONAL 4.2.7.2.686 [place] MATERNAL [phone] Med ical & CHILD [address] [place] [address] 2020-06-16 2020-06-16 Abstract [facility] 1.2.840.114 [id number] Univers 00:00:00 00:00:00 Rosdagoa R SET UP [employer] 350.1.13.10 ity of REGIONAL 4.2.7.2.686 Jung as MATERNAL [id number] Med ical & CHILD [address] [place] [address] 2020 2020 Outpatient R [facility] [id number] Univers 08:30:00 08:30:00 [id number] ity of [facility] 2020 2020 Outpatient P [facility] [id number] Univers 08:30:00 08:30:00 ity of [facility] 2020-06-06 2020-06-06 Telephone Misty [facility] 1.2.751.904 [id number] Univers 00:00:00 00:00:00 Rosagustina R SET UP [employer] 350.1.13.10 ity of [facility] 4.2.7.2.686 Jung as MATERNAL [id number] Med ical & CHILD [address] [place] [address] 2020-05-30 2020-05-30 Emergency Singer [facility] 1.2.514.075 [id number] Univers 08:41:00 09:21:00 rAnaldo Burroughs 350.1.13.10 i ty of [place]2.7.2.686 [place] [id number] [facility] 084 [place] 2020-05-30 2020-05-30 Orders Doctor DWAINE 1.2.840.114 [id number] Univers 00:00:00 00:00:00 Only Unassigned, REILLY 350.1.13.10 ity of [place] [facility] 4.2.7.2.686 Jung as [id number] [facility] 009 [place] 2020-05-19 2020-05-19 Routine [facility] 1.2.840.114 [id number] Univers 09:47:54 10:32:34 Airam R SET UP [employer] 350.1.13.10 ity of Visit [facility] 4.2.7.2.686 Jung as MATERNAL [id number] [facility] CHILD [address] [place] [address] 2020-05-19 2020-05-19 Outpatient Nathan JAY [facility] [id number] Univers 10:15:00 10:15:00 AIRAM [id number] ity o f [facility] 2020-05-19 2020-05-19 Outpatient R MISTY [facility] [id number] Univers 10:15:00 10:15:00 JEFENDA ity o f [facility] 2020-04-21 2020-04-21 Routine [facility] 1.2.840.114 [id number] Univers 12:45:47 13:19:52 Rostonenda R SET UP [employer] 350.1.13.10 ity of Visit REGIONAL 4.2.7.2.686 Jung as MATERNAL [id number] [facility] ical & CHILD [address] [place] [address] 2020-04-21 2020-04-21 Outpatient R MISTY [facility] [id number] Univers 13:00:00 13:00:00 AIRAM [id number] ity o f [facility] 2020-04-21 2020-04-21 Outpatient R MISTY [facility] [id number] Univers 13:00:00 13:00:00 AIRAM venegasy o f [facility] 2020-04-20 2020-04-20 Emergency [facility] 1.2.600.008 [id number] Univers 20:03:00 22:06:00 Chel [place] 350.1.13.10 ity of [place] 4.2.7.2.686 [place] [facility] [id number] [facility] [address] [place] 2020-04-20 2020-04-20 Orders Doctor DWAINE 1.2.840.114 [id number] Univers 00:00:00 00:00:00 Only Unassigned, REILLY 350.1.13.10 ity of [place] [facility] 4.2.7.2.686 Jung as [id number] [facility] 009 [place] 2020-04-16 2020-04-16 Telephone [facility] 1.2.339.895 [id number] Univers 00:00:00 00:00:00 Rostonenda R SET UP [employer] 350.1.13.10 ity of [facility] 4.2.7.2.686 Jung as MATERNAL [id number] [facility] ical & CHILD [address] [place] [address] 2020-04-15 2020-04-15 Abstract [facility] 1.2.840.114 [id number] Univers 00:00:00 00:00:00 Rostonenda R SET UP [employer] 350.1.13.10 ity of REGIONAL [id number] Jung as MATERNAL [phone] [facility] ical & CHILD [address] [place] [address] 2020-04-14 2020-04-14 Ekg Tech Ultrasound, Jania [facility] 1.2 .840.114 [id number] Univers 13:17:27 13:47:27 Visit Vic Szymanski R SET UP [employer] 350.1.13.10 ity of REGIONAL [id number] Jung as MATERNAL [id number] [facility] ical [place]ILD [address] [facility] 2020-04-14 2020-04-14 Outpatient R [facility] [id number] Univers 13:30:00 13:30:00 [id number] ity of [facility] 2020-04-14 2020-04-14 Outpatient P [facility] [id number] Univers 13:30:00 13:30:00 ity of [facility] 2020-04-14 2020-04-14 Telephone Jay, [facility] [id number] Univers 00:00:00 00:00:00 Airam R SET UP [employer] 350.1.13.10 ity of REGIONAL [id number] Jung as MATERNAL [phone] [facility] ical & CHILD [address] [place] [address] 2020-03-27 2020-03-27 Telephone [facility] [facility] [id number] Univers 00:00:00 00:00:00 Airam R SET UP [employer] 350.1.13.10 ity of REGIONAL 4.2.7.2.686 Jung as MATERNAL [phone] Med ical & CHILD [address] [place] [address] 2020-03-24 2020-03-24 Initial Misty [facility] 1.2.840.114 [id number] Univers 08:47:07 09:55:25 Celya R SET UP [employer] 350.1.13.10 ity of Visit REGIONAL 4.2.7.2.686 Jung as MATERNAL [phone] Med ical & CHILD [address] [place] [address] 2020-03-24 2020-03-24 Outpatient R [facility] [id number] -[id number] Univers 08:30:00 08:30:00 ity of [facility] 2020-03-24 2020-03-24 Outpatient R [facility] [id number] Univers 08:30:00 08:30:00 ity of [facility] 2020-03-24 2020-03-24 Orders Doctor DWAINE 1.2.840.114 [id number] Univers 00:00:00 00:00:00 Only Unassigned, REILLY 350.1.13.10 ity of [place] [facility] 4.2.7.2.686 Jung as [phone] [facility] [address] [place] 2020-03-19 2020-03-19 Telephone [facility] 1.2.466.931 [id number] Univers 00:00:00 00:00:00 Airam Evans SET UP [employer] 350.1.13.10 ity of [facility] 4.2.7.2.686 Jung as MATERNAL [phone] Med ical & CHILD [address] [place] [address] 2020-03-17 2020-03-17 Emergency [facility] 1.2.082.669 [id number] Univers 08:45:00 10:39:00 [facility] 350.1.13.10 i ty [facility] 4.2.7.2.686 [place] [facility] [phone] [facility] [address] [place] 2020-03-17 2020-03-17 Orders Doctor DWAINE 1.2.840.114 [id number] Univers 00:00:00 00:00:00 Only Unassigned, REILLY 350.1.13.10 ity of [place] [facility] 4.2.7.2.686 Jung as [phone] [facility] [address] [place] 2020-01-29 2020-01-29 [facility] [id number] Univers 13:30:00 13:30:00 MACKENZIE ity [facility] 2020-01-29 2020-01-29 Outpatient [facility] [id number] Univers 13:30:00 13:30:00 MACKENZIE ity [facility] 2020-01-27 2020-01-27 [facility] 1.2.840.114 [id number] Univers 00:00:00 00:00:00 (Out) [facility] 350.1.13.10 it y of [place] 4.2.7.2.686 Jung as Professio [phone] Ct dical nal [address] [place] Office [facility] 2020-01-24 2020-01-24 Telephone Provider, [facility] 1.2.840.114 [id number] Univers 00:00:00 00:00:00 Ang [facility] 350.1.13.10 ity of Care [place] 4.2.7.2.686 Jung as Professio [phone] Ct dical nal 044 [place] Office [facility] 2020-01-22 2020-01-22 Laboratory Lab, Adc Fam Pob I [facility] 1.2. 840.114 [id number] Univers 15:12:20 15:32:20 Only Jose Cruz Parada [facility] 350.1.13.10 ity of [place] 4.2.7.2.686 Jung as Professio [phone] [facility] nal [address] [place] [address] 2020-01-22 2020-01-22 Outpatient R [facility] [id number] -[id number] Univers 15:20:00 15:20:00 [id number] ity [facility] 2020-01-22 2020-01-22 Outpatient R CONCHA [facility] [id number] Univers 15:20:00 15:20:00 JOSE CRUZ ba [facility] 2020-01-22 2020-01-22 Emergency [facility] 1.2.200.008 [id number] Univers 12:13:00 13:07:00 Manjeet 350.1.13.10 i ty of [place] 4.2.7.2.686 [place] [phone] [address] 2020-01-22 2020-01-22 Letter Pcp, [facility] 1.2.840.114 [id number] Univers 00:00:00 00:00:00 (Out) Patient Health 350.1.13.10 it y of Does Not [place].2.7.2.686 [place] Professio [phone] Ct dical nal 044 [place] Office [facility] One 2019-10-20 2019-10-20 Emergency [place] [facility] 1.2.834.285 [id number] Univers 09:12:54 10:15:00 Jaden Burroughs 350.1.13.10 ity of [place] 4.2.7.2.686 [facility] [phone] [facility] [address] [place] 2019-10-20 2019-10-20 Orders Doctor DWAINE 1.2.840.114 [id number] Univers 00:00:00 00:00:00 Only Unassigned, RELILY 350.1.13.10 ity of [place] [facility] 4.2.7.2.686 Jung as [phone] [facility] [address] [place] 2019-08-15 2019-08-15 Telephone Nurse, [facility] 1.2.840.114 [id number] Univers 00:00:00 00:00:00 Fam Pob I Health 350.1.13.10 ity of [place] 4.2.7.2.686 Jung as Professio [phone] [facility] [address] [place] Office Building One 2019-01-10 2019-01-10 [facility] 1.2.840.114 [id number] Univers 11:21:00 23:59:00 Encounter [place] 350.1.13.10 ity of [place] 4.2.7.2.686 [facility] [phone] [facility] [address] [place] 2019-01-10 2019-01-10 Orders Doctor DWAINE 1.2.840.114 [id number] Univers 00:00:00 00:00:00 Only Unassigned, REILLY 350.1.13.10 ity of [place] [facility] 4.2.7.2.686 Jung as [phone] [facility] [address] [place] 2018-11-18 2018-11-18 Emergency [facility] 1.2.501.093 [id number] Univers 11:10:32 16:08:00 Rohini S Manjeet 350.1.13.10 i ty of [place] 4.2.7.2.686 [facility] [phone] [facility] [address] [place] 2018-11-18 2018-11-18 Orders Doctor DWAINE 1.2.840.114 [id number] Univers 00:00:00 00:00:00 Only Unassigned, REILLY 350.1.13.10 ity of [place] [facility] 4.2.7.2.686 Jung as [phone] [address] Results Test Description Test Time Test Comments Results Result Comments Source RUBELLA SCREEN (BRENNA) IGG 2021-03-31 20:58:43 Test Item Value Reference Range Interpretation Comme nts Rubella screen IgG (test code = Positive Negative [id number]) JAGDISH (test code = JAGDISH) Positive - Indicates the patient was exposed to Rubella through infection or vaccination.Negative - Indicates the patient could be susceptible to Rubella infection.Equivocal - A second specimen should be sent. [facility] [id number] 20:58:43 Test Item Value Reference Range Interpretation Comments VZV IgG antibody Positive Negative (test code = 09847-1) JAGDISH (test code = JAGDISH) Positive - Indicates the patient was exposed to VZV through infection or vaccination.Negative - Indicates the patient could be susceptible to VZV infection.Equivocal - A second specimen should be sent for testing. [facility] SYPHILIS [id number] 16:45:41 Test Item Value Reference Range Interpretation Comments Syphilis IgG/IgM (test Non-reactive Non-reactive code = 86225-8) JAGDISH (test code = JAGDISH) Non-reactive - No serologic evidence of T. pallidum infection. Cannot exclude incubating or early syphilis. Submit a second specimen in 2-4 weeks if syphilis is clinically suspected. Equivocal - Further testing to follow. Reactive - Further testing to follow. Lab Interpretation (test Normal code = 55348-7) [facility]viewHIV 1/2 AG-AB WITH [id number] 09:46:28 Test Item Value Reference Range Interpretation Comments HIV Negative Negative Semi-quantitative (test code = 24110-3) JAGDISH (test code = Non-reactive for HIV-1 JAGDISH) antigen and HIV-1/HIV-2 antibodies. ?No laboratory evidence of HIV infection. ?Repeat in 2-4 weeks if acute HIV infection is suspected. [facility]viewPRENATAL WORKUP, BLOOD [id number] 07:57:09 Test Item Value Reference Range Interpretation Comments ABO & RH (test AB POSITIVE Performed at [facility] code = 20) Laboratory Serv [facility] Blood [facility]3 [address] [facility] [place] [address]Jlxe Free: [phone] A No. [id number] IAT (test code = Negative Performed a t [facility] 1185) Laboratory Serv [facility] Blood Bank[address] [place], [place] [address]dante [address]Yqtk Free: [phone] A No. [id number] [facility]viewHEPATITIS B SURFACE [id number] 07:44:54 Test Item Value Reference Range Interpretation Comments HBsAg Semi-Quantitative (test code = Negative Negative 5195-3) [facility]viewGLUCOSE 1 HOUR POST [id number] 07:11:32 Test Item Value Reference Range Interpretation Comments GLUC 1 HR (test code = 9247307703) 101 mg/dL 120-170 L Lab Interpretation (test code = Abnormal 44371-9) [facility]viewCB WITH [id number] 07:04:28 Test Item Value Reference Range Interpretation Comments WBC (test code = See_Comment [Automated 2725-2) message] The sy stem which generated this result transmitted reference range : 4.30 - 11.10 10*3/?L. The reference range was not used to interpret this result as normal/abnormal . RBC (test code = See_Comment [Automated 929-8) message] The sy stem which generated this [...] RDW-SD (test code = 42.9 fL 39.0-49.9 15448-9) RDW-CV (test code = 14.9 % 12.0-15.5 788-0) PLT (test code = See_Comment [Automated 377-3) message] The sy stem which generated this result transmitted reference range : 166 - 358 10*3/ ?L. The reference r jill was not used to interpret this result as normal/abnormal . MPV (test code = 11.8 fL 9.5-12.9 20849-4) NRBC/100 WBC (test See_Comment [Automat ed code = 0231169168) message] The system which generated this result transmitted reference range : 0.0 - 10.0 /100 WBCs. The refer ence range was not u sed to interpret th is result as normal/abnormal . NRBC x10^3 (test code <0.01 See_Comment [Auto mated = 2068283802) message] The s ystem which generated this result transmitted reference range : 10*3/?L. The reference range was not used to interpret this result as normal/abnormal . GRAN MAT (NEUT) % 68.6 % (test code = 770-8) IMM GRAN % (test code 0.10 % = 5835795792) LYMPH % (test code = 23.1 % 736-9) MONO % (test code = 6.9 % 5905-5) EOS % (test code = 0.9 % 713-8) BASO % (test code = 0.4 % 706-2) GRAN MAT x10^3(ANC) 5.06 10*3/uL 1.88-7.09 (test code = 7982399280) IMM GRAN x10^3 (test <0.03 0.00-0.06 code = 0979566060) LYMPH x10^3 (test code 1.71 10*3/uL 1.32-3.29 = 731-0) MONO x10^3 (test code 0.51 10*3/uL 0.33-0.92 = 742-7) EOS x10^3 (test code = 0.07 10*3/uL 0.03-0.39 711-2) BASO x10^3 (test code 0.03 10*3/uL 0.01-0.07 = 704-7) Lab Interpretation Abnormal (test code = 37275-8) [facility] URINALYSIS W/O SPECIFIC [id number] 16:33:00 Test Item Value Reference Range Interpretation Comments POCT PH U (test code = 3254) 5 mg/dl 5-8 POCT U LEUK EST (test code = - Negative - Negative 3263) POCT U NIT (test code = 3262) - Negative - Negative POCT U PROT (test code = 3259) trace Negative - Negative POCT U GLU (test code = 3256) - Negative - Negative POCT U KETONE (test code = 3258) - Negative - Negative POCT U BLD (test code = 3257) - Negative - Negative [facility] [id number] 16:33:00 Test Item Value Reference Range Interpretation Comments POCT PREG (test code = 1605) Positive On board controls acceptable with C Yes Line (test code = 3574) POCT PREG LOT # (test code = 3575) POCT PREG TEST DATE (test code = 3576) [facility] URINALYSIS W SPECIFIC [id number] 18:59:00 Test Item Value Reference Range Interpretation [...] POCT U APPEAR (test code = 3267) [facility] with [id number] 06:29:08 Test Item Value Reference Range Interpretation Comments WBC (test code = See_Comment H [Automated 4180-2) message] The sy stem which generated this result transmitted reference range : 4.30 - 11.10 10*3/?L. The reference range was not used to interpret this result as normal/abnormal . RBC (test code = See_Comment L [Automated 274-8) message] The sy stem which generated this [...] RDW-SD (test code = 40.6 fL 39.0-49.9 57105-7) RDW-CV (test code = 13.3 % 12.0-15.5 788-0) PLT (test code = See_Comment [Automated 777-3) message] The sy stem which generated this result transmitted reference range : 166 - 358 10*3/ ?L. The reference r jill was not used to interpret this result as normal/abnormal . MPV (test code = 11.8 fL 9.5-12.9 61808-5) NRBC/100 WBC (test See_Comment [Automat ed code = 9293146241) message] The system which generated this result transmitted reference range : 0.0 - 10.0 /100 WBCs. The refer ence range was not u sed to interpret th is result as normal/abnormal . NRBC x10^3 (test code <0.01 See_Comment [Auto mated = 7344271942) message] The s ystem which generated this result transmitted reference range : 10*3/?L. The reference range was not used to interpret this result as normal/abnormal . GRAN MAT (NEUT) % 71.6 % (test code = 770-8) IMM GRAN % (test code 0.80 % = 9380793446) LYMPH % (test code = 17.7 % 736-9) MONO % (test code = 9.1 % 5905-5) EOS % (test code = 0.7 % 713-8) BASO % (test code = 0.1 % 706-2) GRAN MAT x10^3(ANC) 9.81 10*3/uL 1.88-7.09 H (test code = 1887079111) IMM GRAN x10^3 (test 0.11 10*3/uL 0.00-0.06 H code = 2348118721) LYMPH x10^3 (test code 2.42 10*3/uL 1.32-3.29 = 731-0) MONO x10^3 (test code 1.24 10*3/uL 0.33-0.92 H = 742-7) EOS x10^3 (test code = 0.09 10*3/uL 0.03-0.39 711-2) BASO x10^3 (test code <0.03 0.01-0.07 = 704-7) Lab Interpretation Abnormal (test code = 16983-0) [facility] (D) IMMUNE [id number] 11:57:38 Test Item Value Reference Range Interpretation Comments RHIG CANDIDATE? No- see comment Patient i s not a (test code = candidate for R hIg- 5055) Patient is Rh Positive.Perfor med at [facility] Laboratory Services - [facility] Blood [address] [place], [place] [address]Toll Free: [phone] A No. [id number] [facility] LongviewVENOUS CORD [id number] 10:49:37 Test Item Value Reference Range Interpretation Comments VENOUS BASE EXCESS, mEq/L CORD (test code = 7174791003) VENOUS PH, CORD (test 7.25-7.45 code = 0805378368) VENOUS PC02, CORD See_Comment [Automate d message] The (test code = system which ge nerated 4823392570) this result tra nsmitted reference range : 27 - 49 mmHg. The refer ence range was not used to interpret this result as normal/abnormal . VENOUS PO2, CORD (test See_Comment [Aut omated message] The code = 7765633736) system [facility] generated this result tra nsmitted reference range : 17 - 41 mmHg. The refer ence range was not used to interpret this result as normal/abnormal . VENOUS BICARBONATE, See_Comment [Automa tali message] The CORD (test code = system whi ch generated 0837015824) this result tra nsmitted reference range : 12 - 29 mEq/L. The refe rence range was not used to interpret this result as normal/abnormal . [facility]viewARTERIAL CORD [id number] 10:47:00 Test Item Value Reference Range Interpretation Comments BASE EXCESS, CORD mEq/L (test code = 2263520836) AC PH, CORD (BEAKER) 7.18-7.38 (test code = 1383082743) PC02, CORD (test code See_Comment [Auto mated message] The = 7039597904) system which g enerated this result transmit tali reference range : 32 - 66 mmHg. The refer ence range was not used to interpret this result as normal/abnormal . PO2, CORD (test code See_Comment [Autom ated message] The = 3391507604) system which g enerated this result transmit tali reference range : 10 - 30 mmHg. The refer ence range was not used to interpret this result as normal/abnormal . BICARBONATE, CORD See_Comment [Automate d message] The (test code = system which ge nerated this 7178164517) result transmit tali reference range : 17 - 27 mEq/L. The refe rence range was not used to interpret this result as normal/abnormal . [facility] ONLY COVID [id number] 22:28:44COVID DMT InterpretationInterpretation/Recommendations:Molecular NAAT Tests for Active [...] COVID-19 testing the patient has had at [facility], including molecular NAAT testing (more commonly known as PCR testing and Rapid ID Now testing) and antibody testing. It does not take into account any testing that a patient has had outside of the [facility] medical record. [facility] LABORATORY SERVICESCOVID ResultsSARS- CoV-2 NAAT (no units) [...] Negative ?03/24/2020 ? Negative ? ? ? [facility] LABORATORY SERVICESUnThe [facility] CenterGALV ONLY - SYPHILIS [id number] 20:56:42 Test Item Value Reference Range Interpretation Comments Syphilis IgG/IgM (test Non-reactive Non-reactive code = 77144-7) JAGDISH (test code = JAGDISH) Non-reactive - No serologic evidence of T. pallidum infection. Cannot exclude incubating or early syphilis. Submit a second specimen in 2-4 weeks if syphilis is clinically suspected. Equivocal - Further testing to follow. Reactive - Further testing to follow. Lab Interpretation (test Normal code = 58349-7) [facility]viewHepatitis B Surface [id number] 16:49:05 Test Item Value Reference Range Interpretation Comments HBsAg Semi-Quantitative (test code = Negative Negative 5195-3) [facility] LongviewType and Screen - ONCE [id number] 16:07:19 Test Item Value Reference Range Interpretation Comments ABO & RH (test AB POSITIVE Performed at [facility] code = 20) Laboratory Serv [facility] Blood [facility]3 [address] [facility] [place] [address]Aqok Free: [phone] A No. [id number] IAT (test code = Negative Performed a t [facility] 1185) Laboratory Serv [facility] Blood [facility]3 [address] [facility] [place] [address]Zxok Free: [phone] A No. [id number] [facility] LongviewCBC with [id number] 15:46:24 Test Item Value Reference Range Interpretation Comments WBC (test code = See_Comment H [Automated 7590-2) message] The sy stem which generated this result transmitted reference range : 4.30 - 11.10 10*3/?L. The reference range was not used to interpret this result as normal/abnormal . RBC (test code = See_Comment L [Automated 889-8) message] The sy stem which generated this [...] RDW-SD (test code = 39.7 fL 39.0-49.9 67490-4) RDW-CV (test code = 13.1 % 12.0-15.5 788-0) PLT (test code = See_Comment [Automated 777-3) message] The sy stem which generated this result transmitted reference range : 166 - 358 10*3/ ?L. The reference r jill was not used to interpret this result as normal/abnormal . MPV (test code = 11.6 fL 9.5-12.9 25557-7) NRBC/100 WBC (test See_Comment [Automat ed code = 8810136756) message] The system which generated this result transmitted reference range : 0.0 - 10.0 /100 WBCs. The refer ence range was not u sed to interpret th is result as normal/abnormal . NRBC x10^3 (test code <0.01 See_Comment [Auto mated = 2074830253) message] The s ystem which generated this result transmitted reference range : 10*3/?L. The reference range was not used to interpret this result as normal/abnormal . GRAN MAT (NEUT) % 72.7 % (test code = 770-8) IMM GRAN % (test code 1.00 % = 8152635923) LYMPH % (test code = 17.9 % 736-9) MONO % (test code = 7.4 % 5905-5) EOS % (test code = 0.8 % 713-8) BASO % (test code = 0.2 % 706-2) GRAN MAT x10^3(ANC) 8.32 10*3/uL 1.88-7.09 H (test code = 5156106913) IMM GRAN x10^3 (test 0.12 10*3/uL 0.00-0.06 H code = 8267431280) LYMPH x10^3 (test code 2.05 10*3/uL 1.32-3.29 = 731-0) MONO x10^3 (test code 0.85 10*3/uL 0.33-0.92 = 742-7) EOS x10^3 (test code = 0.09 10*3/uL 0.03-0.39 711-2) BASO x10^3 (test code <0.03 0.01-0.07 = 704-7) Lab Interpretation Abnormal (test code = 48004-8) [facility]viewCOVID-[facility] (ID NOW RAPID TESTING)2020-10-26 13:40:58 Test Item Value Reference Range Interpretation Comments SARS-CoV-2 Rapid ID NOW Not Detected Not Detected (test code = 24033-5) JAGDISH (test code = JAGDISH) ID NOW COVID-19 Assay is an isothermal nucleic acid amplification test intended for the qualitative detection of nucleic acid from SARS-CoV-2 viral RNA in nasopharyngeal (PRODUCTION FOREMAN) specimens. It is used under Emergency Use [...] indicated. Lab Interpretation Normal (test code = 83703-3) [facility] URINALYSIS W SPECIFIC [id number] 15:27:00 Test Item Value Reference Range Interpretation [...] 3267) Lab Interpretation (test code = Normal 44189-6) [facility] URINALYSIS W SPECIFIC [id number] 16:32:00 Test Item Value Reference Range Interpretation [...] 3267) Lab Interpretation (test code = Normal 61590-8) [facility] URINALYSIS W SPECIFIC [id number] 16:09:00 Test Item Value Reference Range Interpretation [...] 3267) Lab Interpretation (test code = Normal 97522-1) [facility]viewPOCT URINALYSIS W SPECIFIC [id number] 16:09:00 Test Item Value Reference Range Interpretation [...] 3267) Lab Interpretation (test code = Normal 91724-8) [facility]viewCOVID-19 (ID NOW RAPID TESTING)2020-10-03 21:30:46 Test Item Value Reference Range Interpretation Comments SARS-CoV-2 Rapid ID NOW Not Detected Not Detected (test code = 45948-2) JAGDISH (test code = JAGDISH) ID NOW COVID-19 Assay is an isothermal nucleic acid amplification test intended for the qualitative detection of nucleic acid from SARS-CoV-2 viral RNA in nasopharyngeal (PRODUCTION FOREMAN) specimens. It is used under Emergency Use [...] indicated. Lab Interpretation Normal (test code = 30515-0) [facility] URINALYSIS W SPECIFIC [id number] 16:03:00 Test Item Value Reference Range Interpretation [...] POCT U APPEAR (test code = 3267) [facility] URINALYSIS W SPECIFIC [id number] 16:03:00 Test Item Value Reference Range Interpretation [...] POCT U APPEAR (test code = 3267) [facility] URINALYSIS W SPECIFIC [id number] 16:34:00 Test Item Value Reference Range Interpretation [...] 3267) Lab Interpretation (test code = Normal 12687-3) [facility] URINALYSIS W SPECIFIC [id number] 13:55:00 Test Item Value Reference Range Interpretation [...] 3267) Lab Interpretation (test code = Normal 15245-0) [facility] URINALYSIS W SPECIFIC [id number] 13:55:00 Test Item Value Reference Range Interpretation [...] 3267) Lab Interpretation (test code = Normal 58610-5) [facility]viewGAL ONLY - [place] [id number] 15:27:02 Test Item Value Reference Range Interpretation Comments Syphilis IgG/IgM (test Non-reactive Non-reactive code = 80796-7) JAGDISH (test code = JAGDISH) Non-reactive - No serologic evidence of T. pallidum infection. Cannot exclude incubating or early syphilis. Submit a second specimen in 2-4 weeks if syphilis is clinically suspected. Equivocal - Further testing to follow. Reactive - Further testing to follow. Lab Interpretation (test Normal code = 22442-9) [facility] LongviewHI 1/2 AG-AB WITH [id number] 05:48:54 Test Item Value Reference Range Interpretation Comments HIV Negative Negative Semi-quantitative (test code = 50958-7) JAGDISH (test code = Non-reactive for HIV-1 JAGDISH) antigen and HIV-1/HIV-2 antibodies. ?No laboratory evidence of HIV infection. ?Repeat in 2-4 weeks if acute HIV infection is suspected. [facility]viewPOCA URINALYSIS W SPECIFIC [id number] 15:31:00 Test Item Value Reference Range Interpretation [...] POCT U APPEAR (test code = 3267) [facility] URINALYSIS W SPECIFIC [id number] 15:31:00 Test Item Value Reference Range Interpretation [...] POCT U APPEAR (test code = 3267) [facility] URINALYSIS W SPECIFIC [id number] 15:06:00 Test Item Value Reference Range Interpretation [...] POCT U APPEAR (test code = 3267) [facility] [facility] Test Item Value Reference Range Interpretation Comments APPEARANCE (test code = Cloudy Clear A 5344242347) COLOR (test code = Yellow Yellow 7653981287) PH (test code = 4.8-8.0 9327394964) SP GRAVITY (test code = 1.003-1.030 6954105444) GLU U QUAL (test code = Normal Normal 1963550502) BLOOD (test code = Negative Negative 1406690319) KETONES (test code = Negative Negative 4336734665) PROTEIN (test code = Negative Negative 2887-8) UROBILIN (test code = Normal Normal 5749614512) BILIRUBIN (test code = Negative Negative 7213498487) NITRITE (test code = Negative Negative 0699130990) LEUK BRANDY (test code = 75/uL Negative A 1989489641) RBC/HPF (test code = See_Comment H [Autom ated message] 2846356406) The system [employer] generated this result transmitted ref erence range: 0 - 3 HP F. The reference range was not used to int erpret this result as normal/abnormal . WBC/HPF (test code = See_Comment H [Autom ated message] 3289190623) The system [employer] [facility] generated this result transmitted ref erence range: 0 - 5 HP F. The reference range was not used to int erpret this result as normal/abnormal . BACTERIA (test code = Moderate Negative A 6776323897) MUCOUS (test code = Moderate Negative LPF A 7808309758) AMORPHOUS (test code = Rare Rare HPF 6398095430) SQ EPITH (test code = HPF 6417218146) Lab Interpretation (test Abnormal code = 66315-4) [facility] URINALYSIS W SPECIFIC [id number] 15:58:00 Test Item Value Reference Range Interpretation [...] POCT U APPEAR (test code = 3267) [facility] URINALYSIS W SPECIFIC [id number] 15:58:00 Test Item Value Reference Range Interpretation [...] POCT U APPEAR (test code = 3267) [facility] URINALYSIS W SPECIFIC [id number] 15:58:00 Test Item Value Reference Range Interpretation [...] POCT U APPEAR (test code = 3267) [facility] URINALYSIS W SPECIFIC [id number] 19:03:00 Test Item Value Reference Range Interpretation [...] POCT U APPEAR (test code = 3267) [facility] 03:37:00 Test Item Value Reference Range Interpretation Comments APPEARANCE (test code = Hazy Clear A 0514924608) COLOR (test code = Yellow Yellow 8015265763) PH (test code = 4.8-8.0 4779648836) SP GRAVITY (test code = 1.003-1.030 1044846403) GLU U QUAL (test code = 50 mg/dL Normal A 2800978227) BLOOD (test code = Negative Negative 1056973136) KETONES (test code = Negative Negative 5571930431) PROTEIN (test code = Negative Negative 2887-8) UROBILIN (test code = Normal Normal 5686267600) BILIRUBIN (test code = Negative Negative 4275679245) NITRITE (test code = Negative Negative 7423949082) LEUK BRANDY (test code = 75/uL Negative A 8522015609) RBC/HPF (test code = See_Comment H [Autom ated message] 3258095158) The system [facility] generated this result transmitted ref erence range: 0 - 3 HP F. The reference range was not used to int erpret this result as normal/abnormal . WBC/HPF (test code = See_Comment H [Autom ated message] 1545974372) The system [facility] generated this result transmitted ref erence range: 0 - 5 HP F. The reference range was not used to int erpret this result as normal/abnormal . BACTERIA (test code = Few Negative A 6998717806) MUCOUS (test code = Moderate Negative LPF A 6977545260) SQ EPITH (test code = HPF 2898148270) HYAL CAST (test code = See_Comment [Aut omated message] 1478845839) The system [employer] generated this result transmitted ref erence range: <=2 LPF. The reference range was not used to int erpret this result as normal/abnormal . Lab Interpretation (test Abnormal code = 81222-2) [facility]ID NOW RAPID TESTING)2020-04-21 03:31:00 Test Item Value Reference Range Interpretation Comments SARS-CoV-2 Rapid ID NOW Not Detected Not Detected (test code = 13161-7) JAGDISH (test code = JAGDISH) ID NOW COVID-19 Assay is an isothermal nucleic acid amplification test intended for the qualitative detection of nucleic acid from SARS-CoV-2 viral RNA in nasopharyngeal ([employer]) specimens. It is used under Emergency Use [...] indicated. Lab Interpretation Normal (test code = 75395-2) [facility] W/O SPECIFIC [id number] 15:18:00 Test Item Value Reference Range Interpretation [...] code = 3257) neg Negative - Negative [facility] [id number] 15:18:00 Test Item Value Reference Range Interpretation Comments POCT PREG (test code = 1605) Positive On board controls acceptable with C Yes Line (test code = 3574) POCT PREG LOT # (test code = 3575) POCT PREG TEST DATE (test code = 357) [facility] URINALYSIS W/O SPECIFIC [id number] 15:18:00 Test Item Value Reference Range Interpretation [...] code = 3257) neg Negative - Negative [facility] [id number] 15:18:00 Test Item Value Reference Range Interpretation Comments POCT PREG (test code = 1605) Positive On board controls acceptable with C Yes Line (test code = 3574) POCT PREG LOT # (test code = 3575) POCT PREG TEST DATE (test code = 3576) [facility] URINALYSIS W/O SPECIFIC [id number] 15:18:00 Test Item Value Reference Range Interpretation [...] code = 3257) neg Negative - Negative [facility] [id number] 15:18:00 Test Item Value Reference Range Interpretation Comments POCT PREG (test code = 1605) Positive On board controls acceptable with C Yes Line (test code = 3574) POCT PREG LOT # (test code = 3575) POCT PREG TEST DATE (test code = 3576) [facility] URINALYSIS W/O SPECIFIC [id number] 15:18:00 Test Item Value Reference Range Interpretation [...] code = 3257) neg Negative - Negative [facility] [id number] 15:18:00 Test Item Value Reference Range Interpretation Comments POCT PREG (test code = 1605) Positive On board controls acceptable with C Yes Line (test code = 3574) POCT PREG LOT # (test code = 3575) POCT PREG TEST DATE (test code = 3576) [facility] BETA HCG [id number] 16:21:00 Test Item Value Reference Range Interpretation Comments BETA HCG (test See_Comment [Automated m essage] code = The system [employer] h 7791799456) generated this result transmit tali reference range : Non- fe male and male patien ts: <5 mIU/mL. The reference range was not used to interpret this result as normal/abnormal . JAGDISH (test code Gestational Age ? ? = JAGDISH) ?Range (mIU/mL) 1-10 ?Weeks ?93-09364009-29 Weeks ?83787-26985731-32 Weeks ?8094-01839633-48 Weeks ?7378-730940 Biotin has been reported to cause a negative bias, interpret results relative to patient's use of biotin. [facility] ([facility] NOW RAPID TESTING)2020-03-17 16:02:00 Test Item Value Reference Range Interpretation Comments SARS-CoV-2 Rapid ID NOW Not Detected Not Detected (test code = 96461-4) JAGDISH (test code = JAGDISH) ID NOW COVID-19 Assay is an isothermal nucleic acid amplification test intended for the qualitative detection of nucleic acid from SARS-CoV-2 viral RNA in nasopharyngeal ([employer]ODUCTION [employer]) specimens. It is used under Emergency Use [...] indicated. Lab Interpretation Normal (test code = 03505-1) [facility] Metabolic Panel (NA, K, CL, CO2, GLUCOSE, BUN, CREATININE, CA)2020-03-17 15:37:00 Test Item Value Reference Range Interpretation Comments NA (test code = 135 mmol/L 135-145 7945297895) K (test code = 4.1 mmol/L 3.5-5 7239755558) CL (test code = 106 mmol/L 98-108 6486172566) CO2 TOTAL (test code = 19 mmol/L 23-31 L 8209422501) AGAP (test code = 2-16 2429379544) BUN (test code = 5 mg/dL 7-23 L 2313916043) GLUCOSE (test code = 96 mg/dL 70-110 6606603665) CREATININE (test code = 0.42 mg/dL 0.5-1.04 L 1107645669) CALCIUM (test code = 9.7 mg/dL 8.6-10.6 5129848888) eGFR Calculation mL/min/1.73m2 (Non-) (test code = 9543350803) eGFR Calculation mL/min/1.73m2 () (test code = 9833963403) JAGDISH (test code = JAGDISH) Association of [...] tests). Lab Interpretation Abnormal (test code = 68140-7) [facility] (ALB, T.PRO, BILI T, BU/BC, ALT, AST, ALK PHOS)2020-03-17 15:37:00 Test Item Value Reference Range Interpretation Comments TOTAL BILI (test code = 8633680504) 0.9 mg/dL 0.1-1.1 BILI UNCON (test code = 5052510618) 0.9 mg/dL 0.1-1.1 BILI CONJ (test code = 3180283670) 0.0 mg/dL 0-0.3 T PROTEIN (test code = 4152801799) 7.3 g/dL 6.3-8.2 ALBUMIN (test code = 4574535872) 4.5 g/dL 3.5-5 ALK PHOS (test code = 2831342700) 72 U/L 34-122 ALTv (test code = 1742-6) 10 U/L 5-35 AST(SGOT) (test code = 0922015076) 19 U/L 13-40 Lab Interpretation (test code = Normal 94624-7) [facility] [id number] 15:37:00 Test Item Value Reference Range Interpretation Comments LIPASE (test code = 4630143350) 39 U/L 0-220 Lab Interpretation (test code = Normal 21698-6) [facility]UM2020-11-23 15:37:00 Test Item Value Reference Range Interpretation Comments MAGNESIUM (test code = 4857610498) 1.9 mg/dL 1.7-2.4 Lab Interpretation (test code = Normal 76468-3) [facility] / C - DRUG SCREEN [id number] 15:29:00 Test Item Value Reference Range Interpretation Comments BENZO U (test code = Negative Negative 9246394492) STEPHON U (test code = Negative Negative 7780442492) AMPHET (test code = Negative Negative 5103272788) THC (test code = Presumptive Negative A Confirmatio n of 3945150398) Positive Presumptive Positive THC result requires physician order . METHADONE (test code Negative Negative = 1230354558) Meth U (test code = Negative Negative 0758866771) OPIATES (test code = Negative Negative 3391449421) Cocaine Metabolite Negative Negative (test code = 1253042500) PROPOXY (test code = Negative Negative 6745825519) Tric U (test code = Negative Negative 4533545543) PCP (test code = Negative Negative 3518422036) OXYCOD (test code = Negative Negative 9753638998) JAGDISH (test code = Urine Drug Cutoff [...] testing). Lab Interpretation Abnormal (test code = 73816-1) [facility] with [id number] 15:25:00 Test Item Value Reference Range Interpretation Comments WBC (test code = See_Comment [Automated 0390-2) message] The sy stem which generated this result transmitted reference range : 4.50 - 13.50 10*3/?L. The reference range was not used to interpret this result as normal/abnormal . RBC (test code = See_Comment [Automated 669-8) message] The sy stem which generated this [...] RDW-SD (test code = 43.1 fL 38.5-49 35623-0) RDW-CV (test code = 14.8 % 11.5-14 H 788-0) PLT (test code = See_Comment [Automated 777-3) message] The sy stem which generated this result transmitted reference range : 135 - 361 10*3/ ?L. The reference r jill was not used to interpret this result as normal/abnormal . MPV (test code = 11.2 fL 9.4-13.3 58615-6) NRBC/100 WBC (test See_Comment [Automat ed code = 1820204747) message] The system which generated this result transmitted reference range : 0.0 - 10.0 /100 WBCs. The refer ence range was not u sed to interpret th is result as normal/abnormal . NRBC x10^3 (test code <0.01 See_Comment [Auto mated = 9158129262) message] The s ystem which generated this result transmitted reference range : 10*3/?L. The reference range was not used to interpret this result as normal/abnormal . GRAN MAT (NEUT) % 62.7 % (test code = 770-8) IMM GRAN % (test code 0.20 % = 5755316740) LYMPH % (test code = 28.0 % 736-9) MONO % (test code = 7.4 % 5905-5) EOS % (test code = 1.4 % 713-8) BASO % (test code = 0.3 % 706-2) GRAN MAT x10^3(ANC) 4.18 10*3/uL 1.5-10.3 (test code = 7306129693) IMM GRAN x10^3 (test <0.03 0-0.06 code = 8188521387) LYMPH x10^3 (test code 1.86 10*3/uL 0.7-7.4 = 731-0) MONO x10^3 (test code 0.49 10*3/uL 0-0.5 = 742-7) EOS x10^3 (test code = 0.09 10*3/uL 0-0.4 711-2) BASO x10^3 (test code <0.03 0-0.1 = 704-7) Lab Interpretation Abnormal (test code = 68788-2) [facility]inalysis2020-[facility]-23 15:24:00 Test Item Value Reference Range Interpretation Comments APPEARANCE (test code = Hazy Clear A 3692109213) COLOR (test code = Laura Yellow A 8321606475) PH (test code = 4.8-8.0 2498791994) SP GRAVITY (test code = 1.003-1.030 5856145033) GLU U QUAL (test code = Normal Normal 4721796740) BLOOD (test code = Negative Negative 3554887485) KETONES (test code = 5 mg/dL Negative A 3196398152) PROTEIN (test code = Negative Negative 2887-8) UROBILIN (test code = 2.0 mg/dL Normal A 4636755454) BILIRUBIN (test code = Negative Negative 8205062763) NITRITE (test code = Positive Negative A 7747069410) LEUK BRANDY (test code = 25/uL Negative A 2064887117) RBC/HPF (test code = See_Comment [Autom ated message] 8626258202) The system [employer] generated this result transmit tali reference range : 0 - 3 HPF. The refe rence range was not u sed to interpret th is result as normal/abnormal . WBC/HPF (test code = See_Comment H [Autom ated message] 2292060194) The system [employer] generated this result transmit tali reference range : 0 - 5 HPF. The refe rence range was not u sed to interpret th is result as normal/abnormal . BACTERIA (test code = Many Negative A 3903217944) MUCOUS (test code = Marked Negative LPF A 0374438162) SQ EPITH (test code = HPF 1271565480) Lab Interpretation (test Abnormal code = 59431-7) [facility] [id number] 14:51:00 Test Item Value Reference Range Interpretation Comments POCT PREG (test code = 1605) positive On board controls acceptable with present C Line (test code = 3574) POCT PREG LOT # (test code = 3575) [id number] POCT PREG TEST DATE (test 2021-08-22 code = 3576) Lab Interpretation (test code = Normal 91953-7) [facility]US RETROPERITONEAL [id number] 17:27:08 ORDERING PHYSICIAN: TONY RIVERA BILATERAL RETROPERITONEAL [...] be demonstrated on this exam. RL: 2831 [facility], Radiant Results Inft User - 01/10/2019 12:29 PM CDTORDERING PHYSICIAN: TONY ALICIA RETROPERITONEAL ULTRASOUND.DATE: 01/10/2019CLINICAL INDICATIONS: Pyelonephritis.TECHNIQUE: Multiplanar grayscale [...] could not be demonstrated on this exam.RL: 2831Un[facility] CONTRAST 2018-11-18 19:21:32Addendum by [...] TISSUES: No suspiciouslytic or sclerotic bony lesions. Memb, Radiant Results Inft User - 11/18/2018 2:21 [...] reviewed this study and agree with theabove report.[facility]XR CHEST 2 VW 2018-11-18 18:17:09 No acute [...] No acute osseous abnormality. IMPRESSIONNo acute cardiopulmonary process.Jonah Gotti MD., have reviewed this study and agree with the abovereport.[facility] LongviewRAPID STREP SCREEN FOR GROUP [id number] 17:14:00 Test Item Value Reference Range Interpretation Comments Streptococcus pyogenes (group A) Negative Negative antigen (test code = 79366-1) Lab Interpretation (test code = Normal 97779-4) [facility]2019-07-27 17:08:00 Test Item Value Reference Range Interpretation Comments APPEARANCE (test code = Cloudy Clear A 5853467184) COLOR (test code = Yellow Yellow 3213579346) PH (test code = 4.8-8.0 2998958436) SP GRAVITY (test code = 1.003-1.030 5369109606) GLU U QUAL (test code = Negative Negative 9618381098) BLOOD (test code = Moderate Negative A 2048512025) KETONES (test code = Negative Negative 1903398973) PROTEIN (test code = Trace Negative A 2887-8) UROBILIN (test code = 0.2 mg/dL See_Comment [Auto mated message] 0495448375) The system [employer] generated this result transmit tali reference range : 0-1.0 mg/dL. Th e reference range was not used to interpret this result as normal/abnormal . BILIRUBIN (test code = Negative Negative 3288901491) NITRITE (test code = Negative Negative 1890234749) LEUK BRANDY (test code = Large Negative A 9262684095) RBC/HPF (test code = See_Comment H [Autom ated message] 1714783477) The system [employer] generated this result transmit tali reference range : 0 - 3 HPF. The refe rence range was not u sed to interpret th is result as normal/abnormal . WBC/HPF (test code = See_Comment H [Autom ated message] 9136548062) The system [employer] generated this result transmit tali reference range : 0 - 5 HPF. The refe rence range was not u sed to interpret th is result as normal/abnormal . BACTERIA (test code = Many Negative A 6979751983) MUCOUS (test code = Slight Negative LPF A 0604667067) SQ EPITH (test code = HPF 9023300160) Lab Interpretation (test Abnormal code = 85419-1) [facility]. METABOLIC PANEL (88543)2018-11-18 17:03:00 Test Item Value Reference Range Interpretation Comments NA (test code = 140 mmol/L 135-145 9779167612) K (test code = 3.6 mmol/L 3.5-5 9331067662) CL (test code = 111 mmol/L 98-108 H 9093866621) CO2 TOTAL (test code = 18 mmol/L 23-31 L 2098168002) AGAP (test code = 2-16 8206635316) BUN (test code = 6 mg/dL 7-23 L 8794678644) GLUCOSE (test code = 85 mg/dL 70-110 1993861059) CREATININE (test code = 0.65 mg/dL 0.5-1.04 6341389952) TOTAL BILI (test code = 0.6 mg/dL 0.1-1.9 4032172544) CALCIUM (test code = 9.1 mg/dL 8.6-10.6 7297639327) T PROTEIN (test code = 7.7 g/dL 6.3-8.2 0555827062) ALBUMIN (test code = 4.2 g/dL 3.5-5 7602073376) ALK PHOS (test code = 76 U/L 34-122 5077335662) ALT(SGPT) (test code = 16 U/L 9-51 8836335530) AST(SGOT) (test code = 20 U/L 13-40 1959310604) JAGDISH (test code = JAGDISH) Association of Glomerular Filtration Rate (GFR) and Staging of Kidney Disease*+ + + +| GFR (mL/min/1.73 m2)?| With Kidney Damage?|?Without Kidney Damage+ --------+ --------+ +|?>90?|?S tage one?|? Normal?+ ---------+ ---------+ +|?60-89? |?Stage two?|? Decreased GFR? + --+ --+ ------+|??30-59?|?Stag e three?|? Stage three? + --+ --+ ------+|?15-29?|?Stage [...] tests). Lab Interpretation Abnormal (test code = 80106-8) [facility] WITH [id number] 16:56:00 Test Item Value Reference Range Interpretation Comments WBC (test code = See_Comment [Automated 0694-2) message] The sy stem which generated this result transmitted reference range : 4.50 - 13.50 10*3/?L. The reference range was not used to interpret this result as normal/abnormal . RBC (test code = See_Comment [Automated 751-8) message] The sy stem which generated this result transmitted reference range : 4.10 - 5.10 10*6/?L. The reference range was not used to interpret this result as normal/abnormal . HGB (test code = 12.6 g/dL 12-16 718-7) HCT (test code = 37.4 % 36-45 4544-3) MCV (test code = 83.9 fL 78-95 787-2) MCH (test code = 28.3 pg 26-32 785-6) MCHC (test code = 33.7 g/dL 32-36 786-4) RDW-SD (test code = 39.1 fL 38.5-49 37151-1) RDW-CV (test code = 12.8 % 11.5-14 788-0) PLT (test code = See_Comment [Automated 777-3) message] The sy stem which generated this result transmitted reference range : 135 - 361 10*3/ ?L. The reference r jill was not used to interpret this result as normal/abnormal . MPV (test code = 11.1 fL 9.4-13.3 87131-7) NRBC/100 WBC (test See_Comment [Automat ed code = 3020109672) message] The system which generated this result transmitted reference range : 0.0 - 10.0 /100 WBCs. The refer ence range was not u sed to interpret th is result as normal/abnormal . NRBC x10^3 (test code <0.01 See_Comment [Auto mated = 7652456167) message] The s ystem which generated this result transmitted reference range : 10*3/?L. The reference range was not used to interpret this result as normal/abnormal . GRAN MAT (NEUT) % 67.0 % (test code = 770-8) IMM GRAN % (test code 0.20 % = 0867378467) LYMPH % (test code = 17.1 % 736-9) MONO % (test code = 15.0 % 5905-5) EOS % (test code = 0.5 % 713-8) BASO % (test code = 0.2 % 706-2) GRAN MAT x10^3(ANC) 6.11 10*3/uL 1.5-10.3 (test code = 2163263153) IMM GRAN x10^3 (test <0.03 0-0.06 code = 5258367289) LYMPH x10^3 (test code 1.56 10*3/uL 0.7-7.4 = 731-0) MONO x10^3 (test code 1.37 10*3/uL 0-0.5 H = 742-7) EOS x10^3 (test code = 0.05 10*3/uL 0-0.4 711-2) BASO x10^3 (test code <0.03 0-0.1 = 704-7) Lab Interpretation Abnormal (test code = 06075-1) [facility] [id number] 16:38:00 Test Item Value Reference Range Interpretation Comments POCT PREG (test code = 1605) negative On board controls acceptable with present C Line (test code = 3574) POCT PREG LOT # (test code = 3575) [id number] POCT PREG TEST DATE (test 04-24-2020 code = 3576) Lab Interpretation (test code = Normal 05740-5) [facility]"
--- NOTE | 2021-04-24 00:36 | EDPHYS ---
Physician Documentation [facility] Name: Muriel Ramsey Age: 20 yrs Sex: Female : 2000 Arrival Date: 04/23/2021 Time: 23:37 Bed Waiting Private MD: ED Physician Rayray Santiago HPI: 04/24 00:36 This 20 yrs old Female presents to ER via Ambulatory with complaints of Fever, Cough, pm1 Tearing, Headache. 00:36 Onset: The symptoms/episode began/occurred 1 day(s) ago. . pm1 00:36 Modifying factors: Recent medications: acetaminophen. pm1 00:36 Associated signs and symptoms: Pertinent positives: cough, headache, bilateral tearing pm1 of eyes, Pertinent negatives: chest pain, diarrhea, shortness of breath, vomiting. Severity of symptoms: in the emergency department the symptoms are worse. The patient has not experienced similar symptoms in the past. The patient has been recently seen at the [facility] Emergency Department, yesterday, for similar complaints labs were performed, diagnosed with covid. Negative for flu and strep. 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 - Social history:: Smoking status: unknown. ROS: 00:36 Cardiovascular: Negative for chest pain, palpitations, and edema. pm1 00:36 Abdomen/GI: Negative for abdominal pain, nausea, vomiting, diarrhea, and constipation. 00:36 MS/Extremity: Negative for injury and deformity, Skin: Negative for injury, rash, and discoloration. 00:36 Constitutional: Positive for body aches, fever, Negative for poor PO intake. 00:36 Eyes: Positive for tearing, of the right eye and left eye. 00:36 Respiratory: Positive for cough, Negative for shortness of breath, sputum production. 00:36 Neuro: Positive for headache, Negative for numbness, tingling, weakness. 00:36 All other systems are negative. Exam: 00:36 Constitutional: This is a well developed, well nourished patient who is awake, alert, pm1 and in no acute distress. Head/Face: Normocephalic, atraumatic. 00:36 Back: No spinal tenderness. No costovertebral tenderness. Full range of motion. Skin: Warm, dry with normal turgor. Normal color with no rashes, no lesions, and no evidence of cellulitis. MS/ Extremity: Pulses equal, no cyanosis. Neurovascular intact. Full, normal range of motion. 00:36 Eyes: Exam is negative for acute changes, Extraocular movements: no acute changes, Conjunctiva: normal, no injection, Sclera: no acute changes, icterus, is not appreciated. 00:36 ENT: Exam is negative for acute changes, Mouth: no acute changes, Lips: normal, moist, Oral mucosa: normal, pink and intact, moist, Posterior pharynx: no acute changes. 00:36 Cardiovascular: Exam negative for acute changes, Rate: normal, Rhythm: regular, Pulses: no pulse deficits are appreciated. 00:36 Respiratory: Exam negative for acute changes, the patient does not display signs of respiratory distress, Respirations: normal, Breath sounds: are clear throughout. 00:36 Abdomen/GI: Exam negative for acute changes, Palpation: abdomen is soft and non-tender, in all quadrants. 00:36 Neuro: Exam negative for acute changes, Orientation: is normal, Mentation: is normal, Motor: is normal, moves all fours. Vital Signs: 00:25 BP 122 / 75; Pulse 95; Resp 18 S; Temp 100.4; Pulse Ox 100% ; Weight 65.77 kg (R); bb Height 5 ft. 5 in. (165.10 cm) (R); 00:25 Body Mass Index 24.13 (65.77 kg, 165.10 cm) bb MDM: 00:34 Data reviewed: vital signs. Data interpreted: Pulse oximetry: on room air is 100 %. pm1 Interpretation: normal. Counseling: I had a detailed discussion with the patient and/or guardian regarding: the historical points, exam findings, and any diagnostic results supporting the discharge/admit diagnosis, lab results, the need for outpatient follow up, to return to the emergency department if symptoms worsen or persist or if there are any questions or concerns that arise at home. 00:36 Patient medically screened. pm1 Administered Medications: 00:43 Drug: Tylenol 1000 mg Route: PO; bb 00:43 Follow up: Response: Medication administered at discharge. bb 01:20 Follow up: Response: No adverse reaction bb Disposition: 06:15 Co-signature as Attending Physician, Rayray Santiago MD. [email or web address] Disposition Summary: 04/24/21 00:36 Discharge Ordered Location: Home pm1 Problem: new pm1 Symptoms: have improved pm1 Condition: Stable pm1 Diagnosis - Coronavirus infection, unspecified pm1 Followup: pm1 - With: Emergency Department - When: As needed - Reason: Worsening of condition Followup: pm1 - With: Private Physician - When: 2 - 3 days - Reason: Recheck today's complaints, Continuance of care, Re-evaluation by your physician Discharge Instructions: - Discharge Summary Sheet pm1 - COVID-19 pm1 - COVID-19 Frequently Asked Questions pm1 - 10 Things You Can Do to Manage Your COVID-19 Symptoms at Home - [facility] pm1 - COVID-19: Quarantine vs. Isolation - [facility] pm1 Forms: - Medication Reconciliation Form pm1 - Thank You Letter pm1 - Antibiotic Education pm1 - Prescription Opioid Use pm1 Signatures: Sheree Kaufman RN RN Justin Morales, CUSTOMER SERVICE REP CUSTOMER SERVICE REP pm1 Rayray Santiago MD MD [email or web address]
--- NOTE | 2021-04-24 00:36 | ER ---
Nurse's Notes [facility] Name: Muriel Ramsey Age: 20 yrs Sex: Female : 2000 Arrival Date: 04/23/2021 Time: 23:37 Bed Waiting Private MD: Diagnosis: Coronavirus infection, unspecified Presentation: 04/24 00:13 Chief complaint: Patient states: she was here earlier diagnosed with Covid and told to bb come back if her symptoms worsen. 00:25 Coronavirus screen: Client reports previous positive COVID test result. Date of bb collection: April 24, 2021. Ebola Screen: No symptoms or risks identified at this time. Initial Sepsis Screen: Does the patient meet any 2 criteria? No. Patient's initial sepsis screen is negative. Does the patient have a suspected source of infection? No. Patient's initial sepsis screen is negative. Risk Assessment: Do you want to hurt yourself or someone else? Patient reports no desire to harm self or others. Onset of symptoms was April 24, 2021. 00:25 Method Of Arrival: Ambulatory bb 00:25 Acuity: MILLER 5 bb Triage Assessment: 00:27 Headache History: Denies prior headaches. General: Appears in no apparent distress. bb uncomfortable, Behavior is calm, cooperative. Pain: Complains of pain in all over. Neuro: Level of Consciousness is awake, alert, obeys commands, Oriented to person, place, time, situation. Cardiovascular: Capillary refill < 3 seconds Patient's skin is warm and dry. Respiratory: Respiratory effort is even, unlabored. GI: No signs and/or symptoms were reported involving the gastrointestinal system. Derm: Skin is pink, warm \T\ dry. Musculoskeletal: Circulation, motion, and sensation intact. 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 - Social history:: Smoking status: unknown. Vital Signs: 00:25 BP 122 / 75; Pulse 95; Resp 18 S; Temp 100.4; Pulse Ox 100% ; Weight 65.77 kg (R); bb Height 5 ft. 5 in. (165.10 cm) (R); 00:25 Body Mass Index 24.13 (65.77 kg, 165.10 cm) bb ED Course: 04/23 23:37 Patient arrived in ED. ja2 04/24 00:18 Justin Rosenthal NP is PHCP. pm1 00:18 Rayray Santiago MD is Attending Physician. pm1 00:27 Triage completed. bb 00:27 Arm band placed on Justin Rosenthal NURSE CHEMICAL DEPENDENCY in triage for pt evaluation and recommendations bb pt's questions answered and reassured pt to be discharged home pt verbalized understanding of and agrees to plan of care discharge instructions given. 00:30 No provider procedures requiring assistance completed. Patient did not have IV access bb during this emergency room visit. Administered Medications: 00:43 Drug: Tylenol 1000 mg Route: PO; bb 00:43 Follow up: Response: Medication administered at discharge. bb 01:20 Follow up: Response: No adverse reaction bb Outcome: 00:30 Discharged to home ambulatory. bb 00:30 Condition: stable 00:30 Discharge instructions given to patient, Instructed on discharge instructions, follow up and referral plans. Demonstrated understanding of instructions, follow-up care. 00:36 Discharge ordered by . pm1 01:21 Patient left the ED. bb Signatures: Sheree Kaufman, RN RN bb Justin Rosenthal, DIANA NURSE CHEMICAL DEPENDENCY pm1 Clotilde Gonzalez
[2021-04-24] MEDS ORDERED: ACETAMINOPHEN 500 MG TAB ONE (00:42)
[2021-04-24 01:42] VITALS: BP 122/75; TEMP 100.4; O2SAT 100
== END 2021-04-24 01:21 | disposition home or self-care (01) ==
LOC: ER 23:32
DX: U07.1 COVID-19 (principal)
CPT/HCPCS: 99283